=== PATIENT | female | born 1940 | race Caucasian/White ===

== ENCOUNTER 2018-05-04 13:22 | Outpatient (REF) | payer MEDICARE, SELFPAY ==
[2018-05-04 14:10] LABS: ALT 23 U/L (12-78); AST 23 U/L (15-37); Albumin 3.7 g/dL (3.4-5.0); Alkaline Phosphatase 75 U/L (46-116); Anion Gap 7.8 mmol/L (3-11); BUN 15 mg/dL (7-18); Bilirubin, Total 0.4 mg/dL (0.2-1.0); CO2 30.2 mmol/L (21.0-32.0); CREATININE 0.76 mg/dL (0.55-1.02); Calcium 9.5 mg/dL (8.5-10.1); Chloride 96 mmol/L (98-107); Cholesterol 170 mg/dL (50-200); Glucose 87 mg/dL (70-100); HDL Cholesterol 56 mg/dL (40-60); LDL CHOLESTEROL 98 mg/dL (<100); Potassium 3.7 mmol/L (3.5-5.1); Sodium 134 mmol/L (136-145); Total Protein 7.4 g/dL (6.4-8.2); Triglyceride 150 mg/dL (30-150)
== END 2018-05-04 13:42 ==
LOC: NCHCN 13:22
PROVIDERS: PCP Nurse Practitioner; Visit Provider Nurse Practitioner
DX: I10 Essential (primary) hypertension (principal); E78.5 Hyperlipidemia, unspecified
CPT/HCPCS: 80053; 80061; 83721

== ENCOUNTER 2019-09-11 11:09 | Outpatient (CLI) | payer MEDICARE, MEDICAID, SELFPAY ==
[2019-09-11 14:27] LABS: Vitamin D 25 Total 35.3 ng/ml (30-100)
[2019-09-11 14:40] LABS: ALT 25 U/L (14-59); AST 23 U/L (15-37); Albumin 3.9 g/dL (3.4-5.0); Alkaline Phosphatase 81 U/L (46-116); Anion Gap 12.7 mmol/L (3-11); BUN 16 mg/dL (7-18); Bilirubin, Total 0.4 mg/dL (0.2-1.0); CO2 28.3 mmol/L (21.0-32.0); CREATININE 0.73 mg/dL (0.55-1.02); Calcium 9.6 mg/dL (8.5-10.1); Calculated LDL 114 mg/dL (<100); Chloride 100 mmol/L (98-107); Cholesterol 187 mg/dL (<200); Glucose 84 mg/dL (74-106); HDL Cholesterol 50 mg/dL (40-60); Potassium 3.7 mmol/L (3.5-5.1); Sodium 141 mmol/L (136-145); Total Protein 7.6 g/dL (6.4-8.2); Triglyceride 115 mg/dL (<150)
== END 2019-09-11 11:29 ==
PROVIDERS: PCP Nurse Practitioner; Visit Provider Nurse Practitioner
DX: I10 Essential (primary) hypertension (principal); E78.5 Hyperlipidemia, unspecified; M85.80 Other specified disorders of bone density and structure, unspecified site
CPT/HCPCS: 36415; 80053; 80061; 82306

== ENCOUNTER 2019-10-12 01:00 | Outpatient (CLI) | payer MEDICARE, SELFPAY ==
--- NOTE | 2019-10-12 13:17 | DI.MAMMO_ITS ---
EXAM: MAMMO SCREENING CLINICAL HISTORY: SCREENING, Z12.39 TECHNIQUE: Mammograms were interpreted according to the usual protocol including computer analysis w [employer] CAD system, tomosynthesis and C-view imaging. COMPARISON: 2009 through 2016 FINDINGS: The breasts are composed of scattered fibroglandular densities, Breast Density category B. No suspicious masses or suspicious microcalcifications are seen. Vascular calcifications are inciden tally noted. No skin thickening or abnormal axillary lymph nodes are seen. There has been no significant change from prior exams. IMPRESSION: BI-RADS category 1, yearly screening mammography is recommended. Breast density category B, scattered fibroglandular densities.
== END 2019-10-12 01:20 ==
PROVIDERS: PCP Nurse Practitioner; Visit Provider Nurse Practitioner
DX: Z12.31 Encounter for screening mammogram for malignant neoplasm of breast (principal)
CPT/HCPCS: 77063; 77067

== ENCOUNTER 2020-04-06 11:17 | Inpatient (IN) | payer MEDICARE, MEDICAID, SELFPAY ==
[2020-04-06] VITALS (15 sets, daily range): BP systolic 122–169; BP diastolic 60–79; PULSE 95–113; RESP 16–20; TEMP 36.7–37.4; O2SAT 96–99
--- NOTE | 2020-04-06 11:15 | DI.RAD_ITS ---
EXAM: XR HIP LT COMPLETE AP PELVIS INDICATION: fall/pain. COMPARISON: No exams were available for comparison TECHNIQUE: 2D digital imaging was performed. FINDINGS: There is no evidence of fracture or dislocation. There are calcifications above the left greater tro chanter consistent with calcific tendinosis. There are mild degenerative changes of the hip joints a nd SI joints. Degenerative changes are noted in the lower lumbar spine. IMPRESSION: No acute abnormality. DATA REPOSITORY: RADIATION DOSE DELIVERED:
--- NOTE | 2020-04-06 11:35 | W.ED.GENAD ---
Discharge Plan Disposition Patient Disposition: OTHER Condition: Serious Discharge Details Chief Complaint: Orthopedic Clinical Impression: Pain in left hip Primary Care Provider: Tahira Cifuentes ED Provider: Joey Huertas Home Meds and New Rx's Prescriptions: No Action calcium carbonate-vitamin D3 1 EACH tablet 1 tab PO TID RF: 0 Centrum Silver 1 EACH tablet 1 ea PO DAILY RF: 0 naproxen [Naprosyn] 375 MG tablet 1 tab PO BID PRN PRNRF: 0 chlorthalidone 25 MG tablet 12.5 mg PO DAILY RF: 0 albuterol sulfate 8.5 GM HFA aerosol inhaler 2 puff Inhalation QID RF: 0 Fish Oil 1 EACH capsule 1 cap PO DAILY RF: 0 Fiber Gummies 2.5 GM tablet,chewable 4 ea PO DAILY RF: 0 Advair HFA 115-21 mcg/actuation HFA aerosol inhaler 2 inh INHALATION BID RF: 0 Medical Decision Making 79-year-old female presents for ongoing left leg pain that was exacerbated today as her leg gave out. Denies any other injury. There is no shortening or rotation of the hip. She has hip discomfort which is diffuse along the lateral aspect and does extend down through the upper leg and knee although there is no swelling or ecchymosis. Given her degree of discomfort I am concerned that she may have a fracture. Will obtain x-ray of left hip and pelvis and obtain routine laboratory values for potential admission. X-ray read by virtual radiology as no definitive acute fracture or dislocation. Calcific bones adjacent to the left superior trochanter is favored to reflect calcific tendinopathy rather than avulsion fracture. Laboratory values do not reveal any obvious emergent process. Will obtain CT imaging of the hip and pelvis as patient is unable to bear weight and continues to have significant pain. She will also have an x-ray of her knee obtained. X-ray of left knee read by virtual radiology as no acute fracture or dislocation. No joint effusion or significant soft tissue swelling. CT imaging read by virtual radiology as no acute fracture or dislocation. Pelvic rim is intact. No intra-abdominal hematoma. Calcific adenopathy of left gluteal medius present Discussed CT findings with patient once again. Patient reports her pain is severe and unable to bear weight. We discussed our options and she is initially very resistant to any admission. She is requesting that we set her up with a wheelchair. I contacted our care management team to come talk with the patient regarding options. I also spoke with her son regarding her presentation and findings. He is not surprised that she does not want to be admitted, he reports that she is stubborn, and he will respect his mother's wishes. She lives with him. Patient was evaluated by care management and after their conversation she was agreeable to admission. I do believe this is a reasonable plan, she may require orthopedic consultation, PT, discharge along term care facility. Rather than use narcotics in this setting, I have called anesthesia and requested that they perform a nerve block to see if we can obtain analgesia. Also reached out to our hospitalist team and requested that we admit the patient for retractable pain, inability to ambulate. Dr. Guzman agreeable to admission. Medical Records Medical records reviewed: Yes I reviewed the patient's medical records. Lab Data Lab results reviewed: Yes I reviewed the patient's lab results. Lab results narrative: Laboratory Tests Range/Units 04/06/20 04/06/20 04/06/20 11:50 11:50 11:50 WBC Cancelled RBC Cancelled Hgb Cancelled Hct Cancelled MCV Cancelled MCH Cancelled MCHC Cancelled RDW Cancelled Plt Count Cancelled MPV Cancelled Immature Gran % Cancelled Neutrophils % Cancelled Band Neutrophils % Cancelled Lymphocytes % Cancelled Atypical Lymphs % Cancelled Monocytes % Cancelled Eosinophils % Cancelled Basophils % Cancelled Metamyelocytes % Cancelled Myelocytes % Cancelled Promyelocytes % Cancelled Other Cells % Cancelled Nucleated RBC % Cancelled Absolute Neutrophils Cancelled Absolute Lymphocytes Cancelled Absolute Monocytes Cancelled Absolute Eosinophils Cancelled Absolute Basophils Cancelled RBC Morphology Cancelled Polychromasia Cancelled Hypochromasia Cancelled Poikilocytosis Cancelled Basophilic Stippling Cancelled Anisocytosis Cancelled Microcytosis Cancelled Macrocytosis Cancelled Spherocytes Cancelled Tear Drop Cells Cancelled Ovalocytes Cancelled Stomatocytes Cancelled Gill-[place] Bodies Cancelled Adelita Cells/Echinocytes Cancelled Acanthocytes (Spur) Cancelled Schistocytes Cancelled PT (9.3-11.0) sec 9.9 INR (0.9-1.1) 1.0 APTT (21.0-31.4) sec 23.2 Sodium (136-145) mmol/L 141 Potassium (3.5-5.1) mmol/L 3.9 Chloride (98-107) mmol/L 105 Carbon Dioxide (21.0-32.0) mmol/L 29.5 Anion Gap (3-11) mmol/L 6.5 BUN (7-18) mg/dL 24 H Creatinine (0.55-1.02) mg/dL 0.77 Estimated GFR/1.73 m2 (mL/min/1.73m2) >= 60.00 Glucose (74-106) mg/dL 105 Calcium (8.5-10.1) mg/dL 10.0 Total Bilirubin (0.2-1.0) mg/dL 0.2 AST (15-37) U/L 25 ALT (14-59) U/L 30 Alkaline Phosphatase (46-116) U/L 76 Total Protein (6.4-8.2) g/dL 7.1 Albumin (3.4-5.0) g/dL 3.6 Range/Units 04/06/20 12:35 WBC 7.96 RBC 4.49 Hgb 14.6 Hct 44.0 MCV 98.0 H MCH 32.5 MCHC 33.2 RDW 11.6 L Plt Count 218 MPV 9.5 Immature Gran % 0.3 Neutrophils % 59.9 Band Neutrophils % Lymphocytes % 26.1 Atypical Lymphs % Monocytes % 8.3 Eosinophils % 4.6 Basophils % 0.8 Metamyelocytes % Myelocytes % Promyelocytes % Other Cells % Nucleated RBC % 0 Absolute Neutrophils 4.77 Absolute Lymphocytes 2.08 Absolute Monocytes 0.66 Absolute Eosinophils 0.37 Absolute Basophils 0.06 RBC Morphology Polychromasia Hypochromasia Poikilocytosis Basophilic Stippling Anisocytosis Microcytosis Macrocytosis Spherocytes Tear Drop Cells Ovalocytes Stomatocytes Gill-[place] Bodies Adelita Cells/Echinocytes Acanthocytes (Spur) Schistocytes PT (9.3-11.0) sec INR (0.9-1.1) APTT (21.0-31.4) sec Sodium (136-145) mmol/L Potassium (3.5-5.1) mmol/L Chloride (98-107) mmol/L Carbon Dioxide (21.0-32.0) mmol/L Anion Gap (3-11) mmol/L BUN (7-18) mg/dL Creatinine (0.55-1.02) mg/dL Estimated GFR/1.73 m2 (mL/min/1.73m2) Glucose (74-106) mg/dL Calcium (8.5-10.1) mg/dL Total Bilirubin (0.2-1.0) mg/dL AST (15-37) U/L ALT (14-59) U/L Alkaline Phosphatase (46-116) U/L Total Protein (6.4-8.2) g/dL Albumin (3.4-5.0) g/dL HPI General Mode of arrival: EMS. Date/Time Provider Initiated Documentation: 04/06/20 11:22. Limitations to Documentation: no limitations. Information obtained by: patient. HPI Narrative: This is a 79-year-old female with history of diabetes, here presenting to the ER after slipping getting out of her bathtub injuring her left leg specifically her hip. She tells me that she slipped because her left leg gave out on her. She reports that she injured this leg roughly 1 month ago, seen by her primary care provider, diagnosed with a sprain, and they were going to initiate outpatient physical therapy. She denies any other injury from the fall today. Denies striking her head, headache, LOC, neck pain, chest pain, shortness of breath abdominal pain, nausea, vomiting, numbness, tingling, weakness. She reports the pain is severe at rest, worse with movement or engaging that hip. Related Data Home Medications Medication Instructions Recorded Confirmed calcium carbonate-vitamin D3 1 tab PO TID 02/01/13 04/06/20 [id number]-lycopen-lutein 1 ea PO DAILY 02/01/13 04/06/20 [Centrum Silver Tablet] albuterol sulfate 2 puff INHALATION QID 07/17/14 04/06/20 chlorthalidone 12.5 mg PO DAILY 07/17/14 04/06/20 inulin [Fiber Gummies] 4 ea PO DAILY 07/17/14 04/06/20 naproxen [Naprosyn] 1 tab PO BID PRN PRN 07/17/14 04/06/20 omega-3 fatty acids-fish oil [Fish 1 cap PO DAILY 07/17/14 04/06/20 Oil 1,000 mg Capsule] fluticasone propion-salmeterol 2 inh INHALATION BID 04/06/20 04/06/20 [Advair HFA] Allergies Allergy/AdvReac Type Severity Reaction Status Date / Time pravastatin Allergy Skin Rash Unverified 04/06/20 11:28 cyclobenzaprine HCl AdvReac Intermediate Agitation Unverified 09/22/16 09:08 [From Flexeril] General Stated Complaint: Orthopedic NICHOLAS: 3 Review of Systems Constitutional Constitutional: Denies fever(s) and Denies weakness Eyes Eyes: Denies change in vision ENT Ears, Nose, Mouth, and Throat: Denies neck pain Cardiovascular Cardiovascular: Denies chest pain and Denies dyspnea Respiratory Respiratory: Denies cough and Denies dyspnea Gastrointestinal Gastrointestinal: Denies abdominal pain, Denies nausea and Denies vomiting Musculoskeletal Musculoskeletal: Denies back pain, Denies neck pain, Denies numbness and Denies tingling Integumentary/Breasts Skin/Breast: Denies rash Neurologic Neurologic: Denies numbness, Denies tingling and Denies weakness Hematologic/Lymphatic Hematologic/Lymphatic: Denies easy bleeding and Denies easy bruising [facility] Social History Smoking/Tobacco Use Status: Former Tobacco Use Alcohol Intake: never Drug use: Never Do you feel safe at home: Yes Do you feel safe in your relationship?: Yes Exam Const General: cooperative, healthy appearing and no acute distress Orientation: alert, awake and oriented x3 HENMT Head: normal to inspection, normocephalic and atraumatic Mouth: moist mucous membranes Eyes Conjunctivae: conjunctivae normal Sclera: sclerae normal Neck Neck: normal visual inspection, full ROM, trachea midline, supple and nontender Resp Effort & Inspection: normal respiratory effort and able to speak in complete sentences Auscultation: clear to auscultation bilaterally Cardio Rate: regular rate Rhythm: regular rhythm GI Palpation: soft and nontender Back/Spine/Pelvis Back: No back tenderness Skin General skin exam: no rashes or lesions noted Neuro General: patient alert, patient awake, patient oriented x3, moves all extremities and no focal motor deficits Speech: speech normal Motor: muscle tone normal throughout Sensory Exam: no sensory deficits noted Extrem General: capillary refill normal Right upper extremity: normal to inspection, full ROM and normal capillary refill Left upper extremity: normal to inspection, full ROM and normal capillary refill Right lower extremity: full ROM and normal capillary refill Left lower extremity: normal to inspection, normal capillary refill, hip/thigh Details: normal to inspection, tenderness (Diffuse mild posterior thigh) and abnormal ROM (Decreased in all directions secondary to pain); no swelling and no ecchymosis and knee Details: normal to inspection and tenderness (Diffuse posterior); abnormal ROM Upper/lower leg/hip images: 1. Diffuse discomfort. Psych Appearance: grossly normal Mental Status: mental status grossly normal Course Vital Signs Vital signs: Vital Signs Temperature 36.7 C 04/06/20 11:18 Pulse 101 H 04/06/20 11:18 Respiratory Rate 04/06/20 11:18 Blood Pressure 169/72 H 04/06/20 11:18 Pulse Oximetry 99 04/06/20 11:18 Temperature 36.7 C 04/06/20 11:18 Temperature Source Temporal Artery Scan 04/06/20 11:18 Pulse 101 H 04/06/20 11:18 Respiratory Rate 20 04/06/20 11:18 Respiratory Effort Non-Labored 04/06/20 11:23 Blood Pressure 169/72 H 04/06/20 11:18 Blood Pressure Position Supine 04/06/20 11:18 Pulse Oximetry 99 04/06/20 11:18 Oxygen Delivery Method Room Air 04/06/20 11:18 Oxygen Flow Rate 0 04/06/20 11:18 Pain Level 10 04/06/20 11:18
--- NOTE | 2020-04-06 11:58 | DI.VRAD_ITS ---
PROCEDURE INFORMATION: Exam: XR Left Hip with Pelvis when Performed Exam date and time: 04/06/2020 11:40 AM Age: 79 years old Clinical indication: Injury or trauma; Fall; Initial encounter; Blunt trauma (contusions or hematomas); Left; Hip TECHNIQUE: Imaging protocol: XR Left hip with pelvis when performed. Views: 2 or 3 views. COMPARISON: No relevant prior studies available. FINDINGS: Bones/joints: There are calcific bodies projecting superior to left greater trochanter. No definite cortical step . Findings are likely related to calcific tendinopathy. The pelvic brim is intact. There is no dislocation. Soft tissues: Unremarkable. Gastrointestinal tract: There is mild stool volume in the ascending colon. IMPRESSION: 1. No definite acute fracture or dislocation. 2. Calcific bodies adjacent to left superior trochanter is favored to reflect calcific tendinopathy than avulsion fracture. Dictated and Authenticated by: Denilson Pandya MD. Ordering:BERNARDA Cook MD
[2020-04-06 12:08] LABS: PTT Activated 23.2 sec (21.0-31.4); Prothrombin Time 9.9 sec (9.3-11.0)
[2020-04-06 12:17] LABS: ALT 30 U/L (14-59); AST 25 U/L (15-37); Albumin 3.6 g/dL (3.4-5.0); Alkaline Phosphatase 76 U/L (46-116); Anion Gap 6.5 mmol/L (3-11); BUN 24 mg/dL (7-18); Bilirubin, Total 0.2 mg/dL (0.2-1.0); CO2 29.5 mmol/L (21.0-32.0); CREATININE 0.77 mg/dL (0.55-1.02); Chloride 105 mmol/L (98-107); Glucose 105 mg/dL (74-106); Potassium 3.9 mmol/L (3.5-5.1); Sodium 141 mmol/L (136-145); Total Protein 7.1 g/dL (6.4-8.2)
--- NOTE | 2020-04-06 12:34 | NUR.NOTE ---
Nursing Note: IV access attempted twice. Labs drawn successfully.
--- NOTE | 2020-04-06 12:42 | DI.VRAD_ITS ---
PROCEDURE INFORMATION: Exam: CT Pelvis Without Contrast; Skeletal Exam date and time: 04/06/2020 12:00 PM Age: 79 years old Clinical indication: Injury or trauma; Fall; Initial encounter; Blunt trauma (contusions or hematomas); Left; Hip TECHNIQUE: Imaging protocol: Computed tomography images of the pelvis without contrast. Exam focused on the skeletal structures. COMPARISON: CR XR HIP LT COMPLETE AP PELVIS 04/06/2020 11:40 AM FINDINGS: Reproductive: Visualized pelvis demonstrates no acute intra abdominal abnormality. Supra cervical uterus is not visualized and is perhaps atrophic or had previous hysterectomy. Adnexa are not visualized. Intraperitoneal space: The pelvic rim is intact. Vasculature: There are calcifications of abdominal aorta and its branches. Bones/joints: There is no acute fracture or dislocation. Left hip joint is normally located. There is calcific tendinopathy of gluteus medius at its site of insertion at greater trochanter. There degenerative facet osteoarthropathy at L5-S1, left greater than right. Soft tissues: See Bones/joints finding. Other findings: There is mild diverticulosis of descending colon. No acute inflammation. IMPRESSION: 1. No acute fracture or dislocation. Pelvic rim is intact. No intra-abdominal hematoma. 2. Calcific tendinopathy of left gluteus medius. Dictated and Authenticated by: Denilson Pandya MD. Ordering:BERNARDA Cook MD
--- NOTE | 2020-04-06 12:46 | DI.VRAD_ITS ---
PROCEDURE INFORMATION: Exam: XR Left Knee Exam date and time: 04/06/2020 12:24 PM Age: 79 years old Clinical indication: Pain; Knee; Left TECHNIQUE: Imaging protocol: XR Left knee. Views: 4 or more views. COMPARISON: No relevant prior studies available. FINDINGS: Bones/joints: No acute fracture or dislocation. No knee joint effusion. Soft tissues: No soft tissue swelling. Vasculature: There are calcifications of distal superficial femoral artery and popliteal artery. IMPRESSION: No acute fracture or dislocation. No joint effusion or significant soft tissue swelling. Dictated and Authenticated by: Denilson Pandya MD. Ordering:BERNARDA Cook MD
[2020-04-06 12:52] LABS: Abs Immature Grans 0.02 10^3/uL (0.0-0.06); Absolute Basophil Count 0.06 10^3/uL (0.0-0.2); Absolute Eosinophil Count 0.37 10^3/uL (0.0-0.7); Absolute Lymphocyte Count 2.08 10^3/uL (1.2-3.4); Absolute Monocyte Count 0.66 10^3/uL (0.1-0.8); Absolute Neutrophil Count 4.77 10^3/uL (1.2-6.7); Basophils % 0.8; Eosinophils % 4.6; HGB 14.6 g/dL (11.2-15.7); Immature Grans % 0.3; Lymphocytes % 26.1; MCH 32.5 pg (27.0-33.0); MCHC 33.2 % (32.0-36.0); MPV 9.5 fL (8.0-11.0); Monocytes % 8.3; Neutrophils % 59.9; Nucleated RBC 0 %; Platelet Count 218 10^3/uL (130-400); RBC 4.49 10^6/uL (3.93-5.22); RDW 11.6 % (11.7-14.6); RDW-SD 41.6 fL; WBC 7.96 10^3/uL (4.4-10.8)
--- NOTE | 2020-04-06 14:50 | W.PM.HP.N ---
Date of service: 04/06/20 Time of Service: 14:51 Assessment and Plan Assessment and plan (1) Fall: Start date: 04/06/20 Start time: 15:02 Status: Acute Assessment and plan: Slipped getting in to bath tub this morning. States her hip gave out from weakness due to an injury to the left hip about a month ago. Imaging not revealing for any fractures or dislocations. She does also c/o pain when sliding leg down but not with passive abduction or adduction or when raising. 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 Qualifiers: Encounter type: initial encounter Qualified Code(s): W19.XXXA - Unspecified fall, initial encounter (2) Hip pain: Start date: 04/06/20 Start time: 15:03 Status: Acute Assessment and plan: Due to above (3) Weakness: Start date: 04/06/20 Start time: 15:03 Status: Acute Assessment and plan: From previous injury (4) HTN (hypertension): Start date: 04/06/20 Start time: 15:04 Status: Chronic Assessment and plan: Will continue chlorthalidone and heart healthy diet. Qualifiers: Hypertension type: essential hypertension Qualified Code(s): I10 - Essential (primary) hypertension (5) Hyperlipidemia: Start date: 04/06/20 Start time: 15:07 Status: Chronic Assessment and plan: Continue omeg 3 fatty fish oil Qualifiers: Hyperlipidemia type: unspecified Qualified Code(s): E78.5 - Hyperlipidemia, unspecified (6) Asthma: Start date: 04/06/20 Start time: 15:08 Status: Chronic Assessment and plan: Uses albuterol and advair at home, will continue home medications Above case discussed with Dr. Guzman who is in agreement. Qualifiers: Asthma complication type: unspecified Asthma persistence: unspecified Asthma severity: mild Qualified Code(s): J45.909 - Unspecified asthma, uncomplicated History of Present Illness History of Present Illness Chief Complaint: Hip Pain, Fall Narrative: 79 y.o female with PMH, HTN, HLD, asthma, presented to ED after slipping while getting in her bath tub this morning, c/o left hip pain. Her leg gave out after an injury 1 month ago at which time she was seen by her PCP and diagnosed with a sprain. Physical therapy was going to be initiated. Labs in the ED unremarkable. Imaging revealing cacific tendinopathy of left gluteus medius. Initially she was going to be sent home from the Emergency Department but she is unable to bear weight and experiencing a 10 out of 10 pain. She has been asked to be admitted to our service for management of her symptoms and PT evaluation. Ortho has been consulted as well. Review of Systems All systems reviewed & are unremarkable except as noted in HPI and below PFSH Social History Smoking/Tobacco Use Status: Former Tobacco Use Alcohol Intake: never Drug use: Never Do you feel safe at home: Yes Do you feel safe in your relationship?: Yes Meds Home Medications and Allergies Home Medications Medication Instructions Recorded Confirmed Type calcium carbonate-vitamin D3 1 tab PO TID 02/01/13 04/06/20 History iurtqyyt-unr-BC-lycopen-lutein 1 ea PO DAILY 02/01/13 04/06/20 History [Centrum Silver Tablet] albuterol sulfate 2 puff INHALATION QID 07/17/14 04/06/20 History chlorthalidone 12.5 mg PO DAILY 07/17/14 04/06/20 History inulin [Fiber Gummies] 4 ea PO DAILY 07/17/14 04/06/20 History naproxen [Naprosyn] 1 tab PO BID PRN PRN 07/17/14 04/06/20 History omega-3 fatty acids-fish oil [Fish 1 cap PO DAILY 07/17/14 04/06/20 History Oil 1,000 mg Capsule] fluticasone propion-salmeterol 2 inh INHALATION BID 04/06/20 04/06/20 History [Advair HFA] Allergies Allergy/AdvReac Type Severity Reaction Status Date / Time pravastatin Allergy Skin Rash Unverified 04/06/20 11:28 cyclobenzaprine HCl AdvReac Intermediate Agitation Unverified 09/22/16 09:08 [From Flexeril] Exam Narrative Exam Narrative: Elderly female AAOx3, calm and cooperative. Laying on a stretcher able to answer questions without difficulty. She is relatively healthy. HR Regular rate and rhythm without JVD. She does not have labored breathing, LSC. Abd soft nontender bsx4. Trace edema to bilateral lower extremities, skin in tact no clubbing, cyanosis, able to move all extremities freely.No CVA tenderness. Normal thought process. Results Labs Result diagrams: 04/06/20 12:35 04/06/20 11:50 Labs: Laboratory Results - last 24 hr 04/06/20 04/06/20 04/06/20 11:50 11:50 11:50 WBC Cancelled RBC Cancelled Hgb Cancelled Hct Cancelled MCV Cancelled MCH Cancelled MCHC Cancelled RDW Cancelled Plt Count Cancelled MPV Cancelled Immature Gran % Cancelled Neutrophils % Cancelled Band Neutrophils % Cancelled Lymphocytes % Cancelled Atypical Lymphs % Cancelled Monocytes % Cancelled Eosinophils % Cancelled Basophils % Cancelled Metamyelocytes % Cancelled Myelocytes % Cancelled Promyelocytes % Cancelled Other Cells % Cancelled Nucleated RBC % Cancelled Absolute Neutrophils Cancelled Absolute Lymphocytes Cancelled Absolute Monocytes Cancelled Absolute Eosinophils Cancelled Absolute Basophils Cancelled RBC Morphology Cancelled Polychromasia Cancelled Hypochromasia Cancelled Poikilocytosis Cancelled Basophilic Stippling Cancelled Anisocytosis Cancelled Microcytosis Cancelled Macrocytosis Cancelled Spherocytes Cancelled Tear Drop Cells Cancelled Ovalocytes Cancelled Stomatocytes Cancelled Gill-[place] Bodies Cancelled Adelita Cells/Echinocytes Cancelled Acanthocytes (Spur) Cancelled Schistocytes Cancelled PT 9.9 INR 1.0 APTT 23.2 Sodium 141 Potassium 3.9 Chloride 105 Carbon Dioxide 29.5 Anion Gap 6.5 BUN 24 H Creatinine 0.77 Estimated GFR/1.73 m2 >= 60.00 Glucose 105 Calcium 10.0 Total Bilirubin 0.2 AST 25 ALT 30 Alkaline Phosphatase 76 Total Protein 7.1 Albumin 3.6 04/06/20 12:35 WBC 7.96 RBC 4.49 Hgb 14.6 Hct 44.0 MCV 98.0 H MCH 32.5 MCHC 33.2 RDW 11.6 L Plt Count 218 MPV 9.5 Immature Gran % 0.3 Neutrophils % 59.9 Band Neutrophils % Lymphocytes % 26.1 Atypical Lymphs % Monocytes % 8.3 Eosinophils % 4.6 Basophils % 0.8 Metamyelocytes % Myelocytes % Promyelocytes % Other Cells % Nucleated RBC % 0 Absolute Neutrophils 4.77 Absolute Lymphocytes 2.08 Absolute Monocytes 0.66 Absolute Eosinophils 0.37 Absolute Basophils 0.06 RBC Morphology Polychromasia Hypochromasia Poikilocytosis Basophilic Stippling Anisocytosis Microcytosis Macrocytosis Spherocytes Tear Drop Cells Ovalocytes Stomatocytes [place] Bodies Adelita Cells/Echinocytes Acanthocytes (Spur) Schistocytes PT INR APTT Sodium Potassium Chloride Carbon Dioxide Anion Gap BUN Creatinine Estimated GFR/1.73 m2 Glucose Calcium Total Bilirubin AST ALT Alkaline Phosphatase Total Protein Albumin Last Vital Signs Temp 36.7 C 04/06/20 11:18 Pulse 102 H 04/06/20 14:16 Resp 20 04/06/20 11:18 BP 157/71 H 04/06/20 14:16 Pulse Ox 99 04/06/20 11:18 COVID-19 Screening Have you,or household,traveled outside [place] in last 14 days?: No Had IN PERSON contact w/suspected or confirmed C-19 person: No
[2020-04-06] MEDS: Bupivacaine LIPOSOME/PF 133 MG/10 ML VIAL IJ (14:55)
--- NOTE | 2020-04-06 15:13 | NUR.NOTE ---
Nursing Note: Assisted BAR HELPER with procedure at bedside.
[2020-04-06 18:58] LABS: Bilirubin Negative (Negative); Blood Negative (Negative); Clarity Clear (Clear); Glucose Negative (Negative); Ketones Negative (Negative); Leukocyte Esterase Negative (Negative); Nitrite Negative (Negative); Specific Gravity 1.025 (1.005-1.025); Urobilinogen 0.2 EU/dL (Up TO 0.2)
[2020-04-06] MEDS: Calcium 600mg/Vit D 200U TAB 1 TAB PO (19:51)
[2020-04-06] MEDS: Heparin 5,000 UNITS/ML VIAL 5000 UNITS SC (21:19)
[2020-04-06] MEDS: traMADol 50 MG TAB PO (22:17)
--- NOTE | 2020-04-07 | DI.US_ITS ---
EXAM: US LOWER EXTREMITY VENOUS LT CLINICAL HISTORY: r/o DVT severe pain. TECHNIQUE: Lower extremity venous ultrasound performed using grayscale, color-flow, and spectral Dop pler analysis. COMPARISON: No exams were available for comparison FINDINGS: The common femoral, femoral and popliteal veins demonstrate normal compressibility, augmentation, and color Doppler. The posterior tibial veins are patent. The saphenous vein appears free of thrombus. A Munoz's cyst is seen measuring 3 x 1.1 x 2.1 cm.. IMPRESSION: No evidence of DVT. Small Munoz's cyst. DATA REPOSITORY:
--- NOTE | 2020-04-07 | DI.RAD_ITS ---
EXAM: XR KNEE LT 3V AP,LAT,JT CLINICAL HISTORY: left posterior knee and leg pain. TECHNIQUE: 2D digital imaging was performed. COMPARISON: CR,XR XR KNEE LT 4V+ from 04/06/2020 FINDINGS: BONES: No acute fracture is present. No bony destructive lesion is seen. JOINTS: The knee is normally aligned. No joint effusion is seen. Joint spaces are well maintained. SOFT TISSUE: Incidental vascular calcifications. IMPRESSION: Normal radiographs of the left knee. DATA REPOSITORY: RADIATION DOSE DELIVERED:
[2020-04-07] MEDS: Heparin 5,000 UNITS/ML VIAL 5000 UNITS SC ×3 (05:33→21:48)
[2020-04-07] MEDS: Calcium 600mg/Vit D 200U TAB 1 TAB PO ×3 (08:07→20:14)
[2020-04-07] MEDS: Chlorthalidone 25 MG TAB PO (08:07)
[2020-04-07] MEDS: Omega-3 Fatty Acids 1000 MG CAP PO (08:07)
--- NOTE | 2020-04-07 08:19 | OCONE_ITS ---
Date of service: 04/07/20 Time of Service: 08:20 History of Present Illness History of Present Illness Chief Complaint: Left Leg Pain Narrative: Beth is a 79-year-old who was admitted yesterday for inability to bear weight due to pain of her left leg. The history is somewhat convoluted and seems to move around a little bit but the basic just is that about a month or so ago she had a fall where she went all the way down landing on her right side. Since that time she had some left leg pain. Initially, she had to walk with her left foot plantar flexed with some pain. However, she was able to make improvements. Yet yesterday morning when she tried to go to the shower, she had immediate pain in her left leg when she tried to place weight on it while getting into the shower and went down. She reported pain about the left leg. She described this pain as being when she move the left leg. However, when I talked her today it actually seems to be more posterior distal thigh and proximal leg. She describes the pain as being intense mostly when she tries to extend her left leg. She describes other pains with motions but really it comes down with positioning of the knee. She denies numbness or tingling although she does report numbness and tingling to the left leg if she is been walking for a while or trying to stand for a while. This numbness is reported as being diffuse. She denies weakness. She reports only minimal pain over the buttock and posterior lateral hip. No back pain. Consults Consult date: 04/07/20 Requesting physician: Jigar Guzman Consult Reason Left leg pain Assessment and Plan Assessment and plan (1) Strain of gastrocnemius muscle of left lower extremity: Status: Acute Assessment and plan: Beth is a 79-year-old who had an acute exacerbation of left leg pain. This all seem to stem from an injury a month ago but again it is quite unclear. Nevertheless, her examination is relatively benign except for what appears to be some muscular pain of the left leg. This is mostly over the gastrocnemius tendon especially over the medial head. While she seems to attribute her pain to hip motion, she thinks related knee motion. The knee is straight she has more pain at the knee is like she has less pain. Is difficult to ascertain if there is a straight leg raise component to this and could a radiculopathy also be causing some the symptoms. It is quite possible, however, this would explain the direct pain to palpation of the muscle belly itself. Therefore, I think I would treat this as a gastrocnemius strain or tear. The treatment would be conservative. I recommend heat to the musculature, kourtney ecially of the posterior chain, gastrocnemius, and hamstrings. Physical therapy should work on some stretching as well as mobilization techniques. Beth is very reluctant to allow any stretching of the muscle. However, this eventually will help out. I will get an x-ray of the left knee due to the pain around the knee itself to make sure there is no underlying arthritis predisposing her to this. She does have calcific tendinitis of the left hip but I do not think is the primary issue. She denies back pain and pain at the sciatic notch, thus making radiculopathy a less likely but possible differential. I would recommend to maximize anti-inflammatories and therefore added on Voltaren gel to be used for both the massage purposes in the muscles of the posterior left leg as well as to provide some anti-inflammatory benefit in addition to the scheduled naproxen. The Tylenol should also be scheduled for the time being and the Valium should be used fairly aggressively at first to see if this makes a difference. I agree with a physical therapy consult. She is weightbearing as tolerated with a walker at all times. A heel lift her heel which could be considered to help out with ambulation. Qualifiers: Encounter type: initial encounter Qualified Code(s): S86.112A - Strain of other muscle(s) and tendon(s) of posterior muscle group at lower leg level, left leg, initial encounter (2) Calcific tendinitis of left hip: Status: Acute Review of Systems All systems reviewed & are unremarkable except as noted in HPI and below PFSH Medical History (Updated 04/07/20 @ 08:44 by Naveen Mckenna MD) Asthma (Chronic) HTN (hypertension) (Chronic) Hyperlipidemia (Chronic) Social History Smoking/Tobacco Use Status: Former Tobacco Use Alcohol Intake: never Drug use: Never Do you feel safe at home: Yes Do you feel safe in your relationship?: Yes Exam Narrative Exam Narrative: Sleeping on her right side. She awakens easily and is alert and oriented x3. Her head is normocephalic and atraumatic. Her neck and upper extremity motions are observed and are full without restriction. Evaluation of the left leg shows that she holds in a slightly flexed position, both at the hip and the knee. As I try to straighten out the left leg she reports pain in an area of the posterior left knee. Once the leg is in this position she seems to tolerate it well although with the left foot in a plantarflexed position. The pain is worsened when I dorsiflex the left foot. Starting with the left hip she has very minimal pain to palpation over the greater trochanter. Some mild pain into the buttock and at the level to sciatic notch although it does not this a re-create the severity of her pain that she has. Straight leg raise test is mostly positive but again that is with the knee extended, mostly causing pain of the calf and posterior knee. She denies numbness or tingling with this maneuver. With the knee in a flexed position she is able to tolerate internal and external Tatian of the hip with very minimal pain. Only at the extremes that she have any pain in the posterior portion of the hip and thigh. She has no significant pain to palpation throughout the hip or thigh. However, she has exquisite pain over the posterior aspect of the knee both within the popliteal space and also over the proximal aspect of the gastrocnemius tendon, medial more than lateral. There is also some pain within the gastrocsoleus complex but not along the Achilles. This pain is worsened with dorsiflexion of the left foot. She has some swelling in the popliteal space but no clear effusion. Very mild pain over the medial and lateral joint lines. No crepitus with passive knee range of motion. Gentle knee range of motion does not exacerbate her pain. At rest, she has intact sensation from L3- S1. She does have some very slight weakness to foot eversion, S1. However, no other motor defects are detected. Results Last Vital Signs Temp 36.9 C 04/06/20 23:38 Pulse 100 H 04/06/20 23:38 Resp 17 04/06/20 23:38 BP 122/68 04/06/20 23:38 Pulse Ox 96 04/06/20 23:38 Labs Result diagrams: 04/06/20 12:35 04/06/20 11:50 Labs: Laboratory Results - last 24 hr 04/06/20 04/06/20 04/06/20 11:50 11:50 11:50 WBC Cancelled RBC Cancelled Hgb Cancelled Hct Cancelled MCV Cancelled MCH Cancelled MCHC Cancelled RDW Cancelled Plt Count Cancelled MPV Cancelled Immature Gran % Cancelled Neutrophils % Cancelled Band Neutrophils % Cancelled Lymphocytes % Cancelled Atypical Lymphs % Cancelled Monocytes % Cancelled Eosinophils % Cancelled Basophils % Cancelled Metamyelocytes % Cancelled Myelocytes % Cancelled Promyelocytes % Cancelled Other Cells % Cancelled Nucleated RBC % Cancelled Absolute Neutrophils Cancelled Absolute Lymphocytes Cancelled Absolute Monocytes Cancelled Absolute Eosinophils Cancelled Absolute Basophils Cancelled RBC Morphology Cancelled Polychromasia Cancelled Hypochromasia Cancelled Poikilocytosis Cancelled Basophilic Stippling Cancelled Anisocytosis Cancelled Microcytosis Cancelled Macrocytosis Cancelled Spherocytes Cancelled Tear Drop Cells Cancelled Ovalocytes Cancelled Stomatocytes Cancelled Gill-[place] Bodies Cancelled Spivey Cells/Echinocytes Cancelled Acanthocytes (Spur) Cancelled Schistocytes Cancelled PT 9.9 INR 1.0 APTT 23.2 Sodium 141 Potassium 3.9 Chloride 105 Carbon Dioxide 29.5 Anion Gap 6.5 BUN 24 H Creatinine 0.77 Estimated GFR/1.73 m2 >= 60.00 Glucose 105 Calcium 10.0 Total Bilirubin 0.2 AST 25 ALT 30 Alkaline Phosphatase 76 Total Protein 7.1 Albumin 3.6 Urine Color Urine Clarity Urine pH Ur Specific [place] Urine Protein Urine Ketones Urine Blood Urine Nitrite Urine Bilirubin Urine Urobilinogen Ur Leukocyte Esterase Urine Glucose 04/06/20 04/06/20 12:35 18:23 WBC 7.96 RBC 4.49 Hgb 14.6 Hct 44.0 MCV 98.0 H MCH 32.5 MCHC 33.2 RDW 11.6 L Plt Count 218 MPV 9.5 Immature Gran % 0.3 Neutrophils % 59.9 Band Neutrophils % Lymphocytes % 26.1 Atypical Lymphs % Monocytes % 8.3 Eosinophils % 4.6 Basophils % 0.8 Metamyelocytes % Myelocytes % Promyelocytes % Other Cells % Nucleated RBC % 0 Absolute Neutrophils 4.77 Absolute Lymphocytes 2.08 Absolute Monocytes 0.66 Absolute Eosinophils 0.37 Absolute Basophils 0.06 RBC Morphology Polychromasia Hypochromasia Poikilocytosis Basophilic Stippling Anisocytosis Microcytosis Macrocytosis Spherocytes Tear Drop Cells Ovalocytes Stomatocytes Gill-[place] Bodies Adelita Cells/Echinocytes Acanthocytes (Spur) Schistocytes PT INR APTT Sodium Potassium Chloride Carbon Dioxide Anion Gap BUN Creatinine Estimated GFR/1.73 m2 Glucose Calcium Total Bilirubin AST ALT Alkaline Phosphatase Total Protein Albumin Urine Color Yellow Urine Clarity Clear Urine pH 8.0 Ur Specific [place] 1.025 Urine Protein Negative Urine Ketones Negative Urine Blood Negative Urine Nitrite Negative Urine Bilirubin Negative Urine Urobilinogen 0.2 Ur Leukocyte Esterase Negative Urine Glucose Negative Imaging Imaging Studies: X-ray of the left hip was reviewed. It does not demonstrate any notable fracture. There is some calcific changes over the insertion of the gluteus medius tendon based on its location just proximal and lateral to the greater trochanter. No notable pelvic fracture. No other suspicious lesions. CT scan of the left hip and pelvis was also reviewed and shows very similar findings. There is calcific tendinitis seen of the gluteus medius tendon. No clear femoral head or neck fracture. No pelvic fracture.
[2020-04-07 08:27] VITALS: BP 121/97; PULSE 104; RESP 18; TEMP 37; O2SAT 97
--- NOTE | 2020-04-07 09:29 | PDOC.CMIN ---
- If Service Date Differs Date of service: 04/07/20 Time of Service: 09:30 Care Management Initial Assess REASON FOR HOSPITALIZATION:: Hip pain inability to ambulate PAST MEDICAL HISTORY/PAST SURGICAL HISTORY:: Asthma, HTN, Hyperlipidemia PREVIOUS FUNCTIONAL STATUS/SOCIAL/FAMILY SUPPORTS:: Beth has 5 children all live local, her son Eamon lives with her. 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 Beth does not drive, she is independent at baseline. CURRENT FUNCTIONAL STATUS:: Beth is engaged during assessment. She describes events prior to admission including her fall in the tub. She has been seeing her provider for the left leg pain. She states she had fallen about a month ago and has been having difficulty walking since then. Beth wants to return home with her son, she does have a few steps into her home but once inside none. She does not want to go to a rehab and his scared of ulysses COVID. She will benefit from home health PT and will need a FWW prior to discharge. ADVANCE DIRECTIVES:: None on file willing to receive forms and review. Has patient been provided with info about the portal/API?: Yes Did the patient sign up for the portal?: No (does not use compute) CODE STATUS:: Full Code INSURANCE COVERAGE / FINANCIAL ISSUES:: Medicare and Medicaid CURRENT HOME/COMMUNITY SERVICES/EQUIPMENT:: Crutches at home PRIMARY CARE PHYSICIAN:: Tahira Cifuentes [facility] POTENTIAL DISCHARGE NEEDS:: FWW, referral [facility] for PT, follow up scheduled with primary care provider. PATIENT/FAMILY EDUCATION NEEDS:: Discharge edcuation, limitations and follow up plan of care including ask me three and self management. ANTICIPATED BARRIERS TO DISCHARGE:: Beth needs to be able to ambulate with ambulatory aids. TRANSPORTATION:: Via private car with son Eamon. PLAN:: Beth will be discharged when medically ready, rule out DVT, and PT ordered. She will need new home health for PT, CM faxed this note for referral. She will also need a new FWW prior to discharge. CM to continue assessment and coordiantion of disposition needs.
--- NOTE | 2020-04-07 10:24 | PGE_ITS ---
Date of Service Date of service: 04/07/20 Time of Service: 10:25 Assessment and Plan Assessment and plan (1) Fall: Start date: 04/07/20 Start time: 10:27 Status: Acute Assessment and plan: Continue PT/OT, unable to bear wt to LLE, would benefit from rehab for strength and gait balance. Qualifiers: Encounter type: initial encounter Qualified Code(s): W19.XXXA - Unsp ecified fall, initial encounter (2) Hip pain: Start date: 04/07/20 Start time: 10:27 Status: Acute Assessment and plan: Due to above Continue pain modalities, Block by anesthesia, Seen by Ortho, continue conservative measures, does appear to be muscular in nature Will add muscle relaxers and will switch from naproxen to celebrex for pain and inflammation (3) Weakness: Start date: 04/07/20 Start time: 10:30 Status: Acute Assessment and plan: From previous injury, PT/OT, benefit from rehab (4) HTN (hypertension): Start date: 04/07/20 Start time: 10:30 Status: Chronic Assessment and plan: Will continue chlorthalidone and heart healthy diet. Qualifiers: Hypertension type: essential hypertension Qualified Code(s): I10 - Essential (primary) hypertension (5) Hyperlipidemia: Start date: 04/07/20 Start time: 10:30 Status: Chronic Assessment and plan: Continue omeg 3 fatty fish oil Qualifiers: Hyperlipidemia type: unspecified Qualified Code(s): E78.5 - Hyperlipidemia, unspecified (6) Asthma: Start date: 04/07/20 Start time: 10:30 Status: Chronic Assessment and plan: Uses albuterol and advair at home, will continue home medications Above case discussed with Dr. Guzman who is in agreement. Qualifiers: Asthma severity: mild Asthma persistence: unspecified Asthma compli cation type: unspecified Qualified Code(s): J45.909 - Unspecified asthma, uncomplicated Subjective Subjective Patient reports: no new complaints Interval history since last seen: Block yesterday by anesthesia. Hip feeling better, posterior patella pain with swelling to left knee, will r/o DVT. Otherwise pain controlled. Denies CP, SOB, N/V/D. Exam Narrative Exam Narrative: Elderly female AAOx3, calm and cooperative. Laying on a stretcher able to answer questions without difficulty. She is relatively healthy. HR Regular rate and rhythm without JVD. She does not have labored breathing, LSC. Abd soft nontender bsx4. Trace edema to bilateral lower extremities there is swelling to left posterior knee, warm to touch. Skin in tact no clubbing, cyanosis, able to move all extremities freely.No CVA tenderness. Normal thought process. Objective Objective Clinical Data: Abnormal lab results 04/06/20 04/06/20 Range/Units 11:50 12:35 MCV 98.0 H (80-95) fL RDW 11.6 L (11.7-14.6) % BUN 24 H (7-18) mg/dL Vital Signs Temperature 37.0 C 04/07/20 08:27 Temperature Source Temporal Artery Scan 04/07/20 08:27 Pulse 104 H 04/07/20 08:27 Pulse Rhythm Regular 04/07/20 04:59 Respiratory Rate 18 04/07/20 08:27 Respiratory Effort Non-Labored 04/07/20 04:59 Respiratory Depth Normal 04/07/20 04:59 Respiratory Pattern Normal 04/07/20 04:59 Blood Pressure 121/97 H 04/07/20 08:27 Blood Pressure Mean 85 04/06/20 15:16 Blood Pressure Position Supine 04/06/20 11:18 Pulse Oximetry 97 04/07/20 08:27 Oxygen Delivery Method Room Air 04/07/20 08:27 Oxygen Flow Rate 0 04/07/20 08:27 Pain Level 0 04/07/20 08:27 Intake & Output 04/06/20 04/06/20 04/07/20 11:59 23:59 11:59 Output Total 900 / 900 200 / 200 Balance -900 / -900 -200 / -200 Weight 85.1 kg 85.1 kg Output: Urine 900 / 900 200 / 200 Other: Urine Color Yellow Yellow Urine Appearance Clear Clear Urine Odor Normal Normal Stool Size Moderate Stool Characteristics Formed Hard Voiding Methods Bedpan Bedpan Laboratory Results WBC 7.96 10^3/uL (4.4-10.8) 04/06/20 12:35 RBC 4.49 10^6/uL (3.93-5.22) 04/06/20 12:35 Hgb 14.6 g/dL (11.2-15.7) 04/06/20 12:35 Hct 44.0 % (36.0-46.0) 04/06/20 12:35 MCV 98.0 fL (80-95) H 04/06/20 12:35 MCH 32.5 pg (27.0-33.0) 04/06/20 12:35 MCHC 33.2 % (32.0-36.0) 04/06/20 12:35 RDW 11.6 % (11.7-14.6) L 04/06/20 12:35 Plt Count 218 10^3/uL (130-400) 04/06/20 12:35 MPV 9.5 fL (8.0-11.0) 04/06/20 12:35 Immature Gran % 0.3 04/06/20 12:35 Neutrophils % 59.9 04/06/20 12:35 Band Neutrophils % Cancelled 04/06/20 11:50 Lymphocytes % 26.1 04/06/20 12:35 Atypical Lymphs % Cancelled 04/06/20 11:50 Monocytes % 8.3 04/06/20 12:35 Eosinophils % 4.6 04/06/20 12:35 Basophils % 0.8 04/06/20 12:35 Metamyelocytes % Cancelled 04/06/20 11:50 Myelocytes % Cancelled 04/06/20 11:50 Promyelocytes % Cancelled 04/06/20 11:50 Other Cells % Cancelled 04/06/20 11:50 Nucleated RBC % 0 % 04/06/20 12:35 Absolute Neutrophils 4.77 10^3/uL (1.2-6.7) 04/06/20 12:35 Absolute Lymphocytes 2.08 10^3/uL (1.2-3.4) 04/06/20 12:35 Absolute Monocytes 0.66 10^3/uL (0.1-0.8) 04/06/20 12:35 Absolute Eosinophils 0.37 10^3/uL (0.0-0.7) 04/06/20 12:35 Absolute Basophils 0.06 10^3/uL (0.0-0.2) 04/06/20 12:35 RBC Morphology Cancelled 04/06/20 11:50 Polychromasia Cancelled 04/06/20 11:50 Hypochromasia Cancelled 04/06/20 11:50 Poikilocytosis Cancelled 04/06/20 11:50 Basophilic Stippling Cancelled 04/06/20 11:50 Anisocytosis Cancelled 04/06/20 11:50 Microcytosis Cancelled 04/06/20 11:50 Macrocytosis Cancelled 04/06/20 11:50 Spherocytes Cancelled 04/06/20 11:50 Tear Drop Cells Cancelled 04/06/20 11:50 Ovalocytes Cancelled 04/06/20 11:50 Stomatocytes Cancelled 04/06/20 11:50 Gill-[place] Bodies Cancelled 04/06/20 11:50 Adelita Cells/Echinocytes Cancelled 04/06/20 11:50 Acanthocytes (Spur) Cancelled 04/06/20 11:50 Schistocytes Cancelled 04/06/20 11:50 PT 9.9 sec (9.3-11.0) 04/06/20 11:50 INR 1.0 (0.9-1.1) 04/06/20 11:50 APTT 23.2 sec (21.0-31.4) 04/06/20 11:50 Sodium 141 mmol/L (136-145) 04/06/20 11:50 Potassium 3.9 mmol/L (3.5-5.1) 04/06/20 11:50 Chloride 105 mmol/L (98-107) 04/06/20 11:50 Carbon Dioxide 29.5 mmol/L (21.0-32.0) 04/06/20 11:50 Anion Gap 6.5 mmol/L (3-11) 04/06/20 11:50 BUN 24 mg/dL (7-18) H 04/06/20 11:50 Creatinine 0.77 mg/dL (0.55-1.02) 04/06/20 11:50 Estimated GFR/1.73 m2 >= 60.00 (mL/min/1.73m2) 04/06/20 11:50 Glucose 105 mg/dL (74-106) 04/06/20 11:50 Calcium 10.0 mg/dL (8.5-10.1) 04/06/20 11:50 Total Bilirubin 0.2 mg/dL (0.2-1.0) 04/06/20 11:50 AST 25 U/L (15-37) 04/06/20 11:50 ALT 30 U/L (14-59) 04/06/20 11:50 Alkaline Phosphatase 76 U/L (46-116) 04/06/20 11:50 Total Protein 7.1 g/dL (6.4-8.2) 04/06/20 11:50 Albumin 3.6 g/dL (3.4-5.0) 04/06/20 11:50 Urine Color Yellow (Yellow) 04/06/20 18:23 Urine Clarity Clear (Clear) 04/06/20 18:23 Urine pH 8.0 (5-8) 04/06/20 18:23 Ur Specific [place] 1.025 (1.005-1.025) 04/06/20 18:23 Urine Protein Negative mg/dL (Negative) 04/06/20 18:23 Urine Ketones Negative mg/dL (Negative) 04/06/20 18:23 Urine Blood Negative (Negative) 04/06/20 18:23 Urine Nitrite Negative (Negative) 04/06/20 18:23 Urine Bilirubin Negative (Negative) 04/06/20 18:23 Urine Urobilinogen 0.2 EU/dL (Up TO 0.2) 04/06/20 18:23 Ur Leukocyte Esterase Negative (Negative) 04/06/20 18:23 Urine Glucose Negative mg/dL (Negative) 04/06/20 18:23
--- NOTE | 2020-04-07 10:32 | PT.INIE ---
Date of service: 04/07/20 Time of Service: 09:40 PT Notes Visit Reasons: HIP PAIN, INABILITY TO AMBULATE Inpatient Physical Therapy Evaluation Date: 04/07/20 Referring Doctor: Marlyn Connolly PT Orders: PT CONSULT: Gastroc/strain tear. Protected weightbearing. Precautions: Fall risk, standard Patient Profile/Admitting Diagnosis: 79 y.o female with PMH, HTN, HLD, asthma, admitted with progressive L leg pain x 1 month, causing her leg to buckle and produce fall when she was getting in the shower yesterday. She had fallen one month ago, onto her right side, and has had L hip and LE pain since. She has been using crutches at home to accommodate to pain. She can not tolerate any weightbearing. Hip xray negative. US of calf ordered, but not yet completed. PMHX: Medical History (Updated 04/07/20 @ 08:44 by Naveen Mckenna MD) Asthma (Chronic) HTN (hypertension) (Chronic) Hyperlipidemia (Chronic) Social History/Home Situation: Patient lives with her son in a private home. Home is 1 level, with 2 steps to enter without a rail. She collects disability for back injury, but states her back really does not bother her that bad anymore. Current Functional Limitations: Pain with any weightbearing activities, has to is assistive device crutches or walker, only tolerating about 5-10 steps at a time. Equipment Owned/DME: Axillary crutches Subjective: Beth complains of pain in the left posterior knee and calf region. Pain is not present when she is not weightbearing, unless she moves her leg quickly. She denies any shortness of breath. She denies any lower extremity paresthesias or back pain. Onset of symptoms was approximately 1 month ago when she recalls falling onto her right side and had resulting left lower extremity pain and she had to start using crutches about 2 weeks ago, to assist with pain relief attempt of weightbearing. Over the past 2 days she was unable to even make meals, because of her pain level. When getting into her tub, the pain in her left leg caused her extremity to give way, and she fell. Objective: General Observation: Lying in bed, she appears not to be in any distress, she is cognitively intact. I do not observe any increase in swelling of the left lower extremity, redness, or increased temperature. Mental Status: A&O x3 Pain: 5/10, left posterior knee and superior Vital Signs: BP 121/97, HR 104 ROM: Right Upper Extremity: WNL Left Upper Extremity: WNL Right Lower Extremity: WNL Left Lower Extremity: Passively patient demonstrating full motion of the left LE, to include the hip and knee. Dorsiflexion limited to 0 degrees due to pain produced in the calf, but otherwise the ankle is WNL. With overpressure of the left knee into extension she does have mild pain provocation to the posterior knee and superior calf. She tolerates overpressure into knee flexion to 130 degrees, with minimal pain. Actively, she struggles to move the left lower extremity due to pain. Strength: Right Upper Extremity: Grossly 5/5 throughout Left Upper Extremity: Grossly 5/5 throughout Right Lower Extremity: Grossly 5/5 throughout Left Lower Extremity: Left hip flexion 4+/5, quad and hamstring is 4+/5 pain provoking, DF 5/5, PF is 4/5 pain inhibited, EHL 5/5 Sensation: Intact throughout bilateral lower extremities Bed Mobility/Transfers: Bed mobility: Independent Supine to sit: Independent Sit to supine: Independent Sit to stand: Supervision Stand to sit: Supervision Bed to chair: RW, CG x1 Chair to bed: RW, CG x1 Gait: 10 feet, RW. Decreased stance left lower extremity, tends to utilize plantarflexed position walking on her toe. She is dependent on upper extremities on walker, to decompress left LE. She has severe pain when trying to walk with flat foot. Balance: Static Sitting: Good Dynamic Sitting: Good Static Standing: Fair, due to pain in left leg Dynamic Standing: Poor, due to pain in left leg Patient unable to stand without holding onto RW, due to instability caused by left leg pain with weightbearing Special Tests: Mobility Limitations Standardized Measure [facility] AM-PAC 6 clicks Basic Mobility Inpatient Short Form: Raw Score: 19 standardized Score: CMS Score: 1% disability SLR: Achieves 80 degrees, due to calf tension, and distal hamstring. Negative dural symptoms Slump: Negative Pedal pulse: WNL Lumbar mobility testing: Not completed due to patient's pain level of left LE and weightbearing, not safe. Informed Consent/Education: Patient instructed in purpose of PT consult and plan of care. Assessment: Patient is a 79 year old female referred to physical therapy services with the diagnosis of left LE discomfort, with suspicion of gastroc and or hamstring strain. Ultrasound for differential diagnosis blood clot is ordered but not yet completed. Patient presents with clinical signs and symptoms consistent with calf strain, potential left knee OA, or LE blood clot. Diagnostics for differential diagnosis are pending. Physical therapy is appropriate for this patient to initiate some soft tissue work to the left lower extremity in effort to inhibit her calf and hamstring, but only in the presence of a negative ultrasound. Will initiate these efforts at that time. She presents with impairments of soft tissue dysfunction throughout the left gastroc, ITB, and hamstring, limited active mobility of the left LE, strength deficit of the left LE, balance impairment and weightbearing due to pain, gait impairment, and motor control impairment. Impairment level problems are contributing to functional deficits of inability to complete functional ambulation without reliance on assistive device, poor balance with functional transfers and activities, poor tolerance to household distance ambulation. Patient will be appropriate for inpatient PT care, to get her left lower extremity pain and control, and improve safety with short distance ambulation and transfers. She will require use of walker for safety with gait for fall prevention, on discharge home. Outpatient physical therapy will be needed, to return to premorbid level function, which was independent and without any limitation. Patient is assessed as a Moderate [id number] complexity based on the following: History: See comorbidities Examination: See above impairments and functional imitation Presentation: Evolving Decision Making: Moderate Goals: Goals X1 week 1. Supine-Sit independent 2. Sit-Supine independent 3. Sit-Stand independent 4. Stand-Sit independent 5. Bed-Chair independent 6. Chair-Bed independent 7. Gait close supervision with RW x 40 feet 8. Stairs with 1 rail, close supervision 9. Independent with home exercise program 10. Balance fair with all weightbearing activities, with use of RW Plan of Care/Treatment Plan: 1-2x/day, 7 days/week x 1 week. Plan of care has been reviewed with the PRODUCT SUPPORT CONSULTANT providing the service under Physical Therapy direction. Initiate Physical Therapy intervention for strengthening, bed mobility, transfers, gait, stairs, balance training, use of assistive device. Manual therapy for soft tissue mobilization throughout the left calf, ITB and hamstring, upon negative ultrasound. DISCHARGE RECOMMENDATIONS: When appropriate and goals of the above are met, patient to return home with son. Outpatient PT services recommended to return to premorbid level of function. Patient will require walker upon discharge for safety with gait and functional mobility. TREATMENT CODE/TIME: [id number], 30-minute Documented with [employer] recognition software.
--- NOTE | 2020-04-07 11:01 | DI.VRAD_ITS ---
PROCEDURE INFORMATION: Exam: US Duplex Left Lower Extremity Veins, Limited Exam date and time: 04/07/2020 4:02 PM Age: 79 years old Clinical indication: Other: Severe pain, R/O dvt TECHNIQUE: Imaging protocol: Real-time Duplex ultrasound of the Left Lower Extremity with 2-D trujillo scale, color Doppler flow and spectral waveform analysis with image documentation. Limited exam focused on the left lower extremity veins. COMPARISON: No relevant prior studies available. FINDINGS: Left deep veins: Unremarkable. The common femoral, femoral, proximal profunda femoral and popliteal veins are patent without thrombus. Normal Doppler waveforms. Normal compressibility and/or augmentation response. Left superficial veins: Unremarkable. Saphenofemoral junction is patent without thrombus. Soft tissues: There is a popliteal present measuring 3 x 1.1 x 2.1 cm. IMPRESSION: No evidence of deep vein thrombosis. Popliteal cyst measuring up to 3 cm. Dictated and Authenticated by: Lizzy Moore MD. Ordering:CARLOS Cline MD
[2020-04-07 11:17] LABS: COVID-19 RT-PCR UVMMC Result Negative (Negative)
--- NOTE | 2020-04-07 11:19 | DI.VRAD_ITS ---
PROCEDURE INFORMATION: Exam: XR Left Knee Exam date and time: 04/07/2020 10:47 AM Age: 79 years old Clinical indication: Other: Left posterior knee/leg pain TECHNIQUE: Imaging protocol: XR Left knee. Views: 3 views. COMPARISON: CR XR KNEE LT 4V+ 04/06/2020 12:24 PM FINDINGS: Bones/joints: Normal. Soft tissues: Normal. Vasculature: Vascular calcifications are seen in the popliteal artery and distal femoral artery. IMPRESSION: No acute fracture or dislocation. Dictated and Authenticated by: Lizzy oMore MD. Ordering:BROOK Hodge MD
[2020-04-07] MEDS: Acetaminophen 325 MG TAB 650 MG PO ×3 (11:57→20:14)
[2020-04-07 15:55] VITALS: BP 120/82; PULSE 98; RESP 18; TEMP 36.6; O2SAT 98
[2020-04-07] MEDS: Celecoxib 100 MG CAP PO (20:14)
[2020-04-07 20:32] VITALS: BP 130/70; PULSE 95; RESP 18; TEMP 36.9; O2SAT 96
[2020-04-07 23:52] VITALS: BP 130/72; PULSE 88; RESP 18; TEMP 36.9; O2SAT 95
[2020-04-08] MEDS: Heparin 5,000 UNITS/ML VIAL 5000 UNITS SC (06:02)
[2020-04-08 07:21] LABS: Abs Immature Grans 0.11 10^3/uL (0.0-0.06); Absolute Basophil Count 0.09 10^3/uL (0.0-0.2); Absolute Eosinophil Count 0.42 10^3/uL (0.0-0.7); Absolute Lymphocyte Count 2.47 10^3/uL (1.2-3.4); Absolute Monocyte Count 1.07 10^3/uL (0.1-0.8); Basophils % 0.8; Eosinophils % 3.9; HGB 13.5 g/dL (11.2-15.7); Lymphocytes % 23.2; MCH 29.2 pg (27.0-33.0); MCHC 32.9 % (32.0-36.0); MCV 88.6 fL (80-95); MPV 11.7 fL (8.0-11.0); Neutrophils % 61.1; Nucleated RBC 0 %; Platelet Count 324 10^3/uL (130-400); RBC 4.63 10^6/uL (3.93-5.22); RDW 14.8 % (11.7-14.6); RDW-SD 47.8 fL; WBC 10.66 10^3/uL (4.4-10.8)
[2020-04-08 07:35] VITALS: BP 139/69; PULSE 102; RESP 18; TEMP 37; O2SAT 97
[2020-04-08] MEDS: Calcium 600mg/Vit D 200U TAB 1 TAB PO (07:49)
[2020-04-08] MEDS: Omeprazole 20 MG CAPCR PO (07:49)
[2020-04-08] MEDS: Omega-3 Fatty Acids 1000 MG CAP PO (07:49)
[2020-04-08] MEDS: Chlorthalidone 25 MG TAB PO (07:49)
[2020-04-08] MEDS: Celecoxib 100 MG CAP PO (07:49)
[2020-04-08] MEDS: Acetaminophen 325 MG TAB 650 MG PO (07:49)
--- NOTE | 2020-04-08 09:26 | DSE_ITS ---
Date of service: 04/08/20 Time of Service: : DS: Diagnosis Discharge Diagnosis (1) Fall: Start date: 04/08/20 Start time: 09:26 Status: Resolved Asessment and Plan: Prior to admission. She was non wt bearing on admission, after applying heat, with pain management, patient is now able to toe touch with WBAT. She is being discharged home with Home Health PT/OT and nursing services. (2) Hip pain: Start date: 04/08/20 Start time: 09:28 Status: Resolved Asessment and Plan: Hip pain resolved, now c/o knee pain to the LLE. DVT r/o. Cyst behind knee. Ortho evaluated patient and feels this is muscular in nature, conservative measures only with heat. Will d/c home with current regimen. On celebrex BID as well. (3) Weakness: Start date: 04/08/20 Start time: 09:31 Status: Resolved Asessment and Plan: Resolved, able to ambulate with wt bearing (4) HTN (hypertension): Start date: 04/08/20 Start time: 09:31 Status: Chronic Asessment and Plan: Continue home regimen (5) Hyperlipidemia: Start date: 04/08/20 Start time: 09:32 Status: Chronic Asessment and Plan: Continue omega fish oil and diet (6) Asthma: Start date: 04/08/20 Start time: 09:32 Status: Chronic Asessment and Plan: Continue current regimen. Above case discussed with Dr. Guzman who is in agreement. Discharge Plan Disposition Patient Disposition: HOME W/HOME HEALTH SERVICE Condition: Improving Discharge Details Chief Complaint: Orthopedic Clinical Impression: Pain in left hip Reason For Visit: HIP PAIN, INABILITY TO AMBULATE Admit Date/Time: 04/06/20 13:56 Admit Provider: Jigar Guzman Attending Provider: Jigar Guzman Primary Care Provider: Tahira Cifuentes ED Provider: Joey Huertas Hospital Course Hospital Course: 79 y.o female with PMH, HTN, HLD, asthma, presented to ED after slipping while getting in her bath tub, c/o left hip and knee pain. Her leg gave out after an injury 1 month ago at which time she was seen by her PCP and diagnosed with a sprain. Physical therapy was going to be initiated for this week. Labs in the ED unremarkable. 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 Initially she was going to be sent home from the Emergency Department but she is unable to bear weight and experiencing a 10 out of 10 pain. She was admitted to /s with PT, pain management. There was a cyst found on u/s but negative for DVT, celebrex was initiated with heat and tramadol for pain. She has been out of bed, more ambulatory with improved pain management. She is being discharged home with PT and nursing services. Home Meds and New Rx's Prescriptions: New chlorthalidone 25 mg Tablet 25 mg PO DAILY Qty: 1 RF: 0 albuterol sulfate [ProAir HFA] 90 mcg/actuation Hfa Aerosol Inhaler 2 puff inhalation QID PRN PRNQty: 6.7 RF: 0 calcium carbonate-vitamin D3 [Calcium 600 + D(3)] 600 mg(1,500mg) -200 unit Tablet 1 tab PO TID Qty: 1 RF: 0 celecoxib [Celebrex] 100 mg Capsule 100 mg PO BID Qty: 60 RF: 0 diazepam 2 mg Tablet 2 mg PO QID PRN PRNQty: 20 RF: 0 diclofenac sodium [Voltaren] 1 % Gel 2 g topical QID PRN PRN (Reason: Pain) Qty: 1 RF: 0 tramadol 50 mg Tablet 50 mg PO Q4H PRN PRNQty: 10 RF: 0 docusate sodium [Colace] 100 mg Capsule 100 mg PO TID PRN PRNQty: 20 RF: 0 omeprazole 20 mg Capsule,Delayed Release(Dr/Ec) 20 mg PO DAILY@0730 Qty: 30 RF: 0 Continued Centrum Silver 1 EACH tablet 1 ea PO DAILY RF: 0 Fish Oil 1 EACH capsule 1 cap PO DAILY RF: 0 Fiber Gummies 2.5 GM tablet,chewable 4 ea PO DAILY RF: 0 Advair HFA 115-21 mcg/actuation HFA aerosol inhaler 2 inh INHALATION BID RF: 0 Discontinued calcium carbonate-vitamin D3 1 EACH tablet 1 tab PO TID RF: 0 naproxen [Naprosyn] 375 MG tablet 1 tab PO BID PRN PRNRF: 0 chlorthalidone 25 MG tablet 12.5 mg PO DAILY RF: 0 albuterol sulfate 8.5 GM HFA aerosol inhaler 2 puff Inhalation QID RF: 0 Discharge Instructions Instructions: Knee Sprain (DC), Knee Pain (ED), Medication Safety for Older Adults (DC) Additional Instructions: Follow up with PCP in 2 weeks. Take medications as needed per written instructions. Use heat and/or ice four times a day as needed for 15 mins each time. Stand Alone Forms: Nursing Discharge Form Referrals: Tahira Cifuentes [Primary Care Provider] - (Call the office on Wednesday to schedule an appointment to be seen within 2 weeks) Activity:: Activity as Tolerated Equipment/Supplies:: No Equipment Needed Diet:: As Tolerated Discharge Orders Discharge Orders: Discharge Order (Routine); Ordered 04/08/20 Ordered By: Marlyn Connolly DS: Summary Status at Discharge Functional status at discharge: uses cane/walker Overall status at discharge: patient is progressing back to baseline Mental Status: mental status grossly normal Speech and Movement: speech and movement normal Mood: congruent mood Affect: normal affect Exam Narrative Exam Narrative: Elderly female AAOx3, calm and cooperative. Laying on a stretcher able to answer questions without difficulty. She is relatively healthy. HR Regular rate and rhythm without JVD. She does not have labored breathing, LSC. Abd soft nontender bsx4. Trace edema to bilateral lower extremities there is swelling to left posterior knee, warm to touch. Skin in tact no clubbing, cyanosis, able to move all extremities freely.No CVA tenderness. Normal thought process. Psych Mental Status: mental status grossly normal Speech and Movement: speech and movement normal Mood: congruent mood Affect: normal affect DS: Data Vitals/I&O Vitals and I&O: Vital Signs Temperature 37.0 C 04/08/20 07:35 Temperature Source Temporal Artery Scan 04/08/20 07:35 Pulse 102 H 04/08/20 07:35 Pulse Rhythm Regular 04/07/20 20:00 Respiratory Rate 97 H 04/08/20 07:35 Respiratory Effort Non-Labored 04/07/20 20:00 Respiratory Depth Normal 04/07/20 20:00 Respiratory Pattern Normal 04/07/20 20:00 Blood Pressure 139/69 04/08/20 07:35 Blood Pressure Mean 85 04/06/20 15:16 Blood Pressure Position Supine 04/06/20 11:18 Pulse Oximetry 95 04/07/20 23:52 Oxygen Delivery Method Room Air 04/08/20 07:35 Oxygen Flow Rate 0 04/08/20 07:35 Pain Level 0 04/08/20 07:35 Intake & Output 04/07/20 04/07/20 04/08/20 11:59 23:59 11:59 Output Total 200 / 900 700 / 900 775 / 775 Balance -200 / -900 -700 / -900 -775 / -775 Output: Urine 200 / 900 700 / 900 775 / 775 Other: Urine Color Yellow Yellow Yellow Urine Appearance Clear Clear Clear Urine Odor Normal Normal Normal Stool Size Moderate Small Stool Characteristics Formed Formed Hard Hard Voiding Methods Bedpan Bedside Commode Toilet Data Completed and Pending Completed studies during hospitalization [Text1]: COMPARISON: No relevant prior studies available. FINDINGS: Bones/joints: There are calcific bodies projecting superior to left greater trochanter. No definite cortical step . Findings are likely related to calcific tendinopathy. The pelvic brim is intact. There is no dislocation. Soft tissues: Unremarkable. Gastrointestinal tract: There is mild stool volume in the ascending colon. IMPRESSION: 1. No definite acute fracture or dislocation. 2. Calcific bodies adjacent to left superior trochanter is favored to reflect calcific tendinopathy than avulsion fracture. FINDINGS: Reproductive: Visualized pelvis demonstrates no acute intra abdominal abnormality. Supra cervical uterus is not visualized and is perhaps atrophic or had previous hysterectomy. Adnexa are not visualized. Intraperitoneal space: The pelvic rim is intact. Vasculature: There are calcifications of abdominal aorta and its branches. Bones/joints: There is no acute fracture or dislocation. Left hip joint is normally located. There is calcific tendinopathy of gluteus medius at its site of insertion at greater trochanter. There degenerative facet osteoarthropathy at L5-S1, left greater than right. Soft tissues: See Bones/joints finding. Other findings: There is mild diverticulosis of descending colon. No acute inflammation. IMPRESSION: 1. No acute fracture or dislocation. Pelvic rim is intact. No intra-abdominal hematoma. 2. Calcific tendinopathy of left gluteus medius. FINDINGS: Bones/joints: No acute fracture or dislocation. No knee joint effusion. Soft tissues: No soft tissue swelling. Vasculature: There are calcifications of distal superficial femoral artery and popliteal artery. IMPRESSION: No acute fracture or dislocation. No joint effusion or significant soft tissue swelling. TECHNIQUE: Lower extremity venous ultrasound performed using grayscale, color- flow, and spectral Doppler analysis. COMPARISON: No exams were available for comparison FINDINGS: The common femoral, femoral and popliteal veins demonstrate normal compressibility, augmentation, and color Doppler. The posterior tibial veins are patent. The saphenous vein appears free of thrombus. A Munoz's cyst is seen measuring 3 x 1.1 x 2.1 cm.. IMPRESSION: No evidence of DVT. Small Munoz's cyst. EXAM: XR KNEE LT 3V AP,LAT,JT CLINICAL HISTORY: left posterior knee and leg pain. TECHNIQUE: 2D digital imaging was performed. COMPARISON: CR,XR XR KNEE LT 4V+ from 04/06/2020 FINDINGS: BONES: No acute fracture is present. No bony destructive lesion is seen. JOINTS: The knee is normally aligned. No joint effusion is seen. Joint spaces are well maintained. SOFT TISSUE: Incidental vascular calcifications. IMPRESSION: Normal radiographs of the left knee. COMPARISON: No relevant prior studies available. FINDINGS: Left deep veins: Unremarkable. The common femoral, femoral, proximal profunda femoral and popliteal veins are patent without thrombus. Normal Doppler waveforms. Normal compressibility and/or augmentation response. Left superficial veins: Unremarkable. Saphenofemoral junction is patent without thrombus. Soft tissues: There is a popliteal present measuring 3 x 1.1 x 2.1 cm. IMPRESSION: No evidence of deep vein thrombosis. COMPARISON: CR XR KNEE LT 4V+ 04/06/2020 12:24 PM FINDINGS: Bones/joints: Normal. Soft tissues: Normal. Vasculature: Vascular calcifications are seen in the popliteal artery and distal femoral artery. IMPRESSION: No acute fracture or dislocation. Labs on day of discharge: Labs from last 24 hours 04/08/20 04/06/20 06:35 15:17 WBC 10.66 RBC 4.63 Hgb 13.5 Hct 41.0 MCV 88.6 MCH 29.2 MCHC 32.9 RDW 14.8 H Plt Count 324 D MPV 11.7 H Immature Gran % 1.0 Neutrophils % 61.1 Lymphocytes % 23.2 Monocytes % 10.0 Eosinophils % 3.9 Basophils % 0.8 Nucleated RBC % 0 Absolute Neutrophils 6.50 Absolute Lymphocytes 2.47 Absolute Monocytes 1.07 H Absolute Eosinophils 0.42 Absolute Basophils 0.09 COVID-19 PCR Negative Nasopharyn COVID-19 PCR Not Applicable Ref Test Perform Site [facility] Medical History Asthma (Chronic) HTN (hypertension) (Chronic) Hyperlipidemia (Chronic) Social History Smoking/Tobacco Use Status: Former Tobacco Use Alcohol Intake: never Drug use: Never Do you feel safe at home: Yes Do you feel safe in your relationship?: Yes
--- NOTE | 2020-04-08 10:24 | PDOC.HHF2F ---
Home Health Certification Home Health Certification: 1. Encounter Date and Reason I certify that BUDDY OROZCO was seen by Marlyn Connolly on 04/08/20 and that I had a [id number]-[id number] encounter with this patient that meets the physician face to face encounter requirements. 2. Clinical Findings Supporting Skilled Need and Homebound Status I certify that home health services are medically necessary, include either intermittent [facility] and/or physical/speech therapy, and that this patient is homebound in that absences from the home require considerable and taxing effort and are infrequent or of short duration, or are attributable to the need to receive medical care. [X] (a) Attached documentation from encounter provides clinical findings supporting skilled need and homebound status (including what assistance patient requires to leave the home). The encounter with the patient was in whole, or in part, for the following medical condition, which is the primary reason for home health care: HIP PAIN, INABILITY TO AMBULATE Mcfp: Patient would benefit from nursing services for adls Physical Therapy: Patient would benefit from PT for strength, mobilty and balance Homebound: Unable to leave house without assistance 3. Certification and Authentication I certify that I composed the above information based on my clinical judgement relating to this patient's medical condition and, if applicable, clinical findings communicated to me by the NPP or inpatient physician who performed the Home Health Referral. All further orders will be obtained through ___Roberto (Community Based Physician - PCP)
--- NOTE | 2020-04-08 10:44 | PTTR_ITS ---
Date of service: 04/08/20 Time of Service: 10:44 PT Notes Visit Reasons: HIP PAIN, INABILITY TO AMBULATE 04/08/2020 SUBJECTIVE: Beth stating she is doing a little better. Blood clot is ruled out. She notes she has been walking with crutches at home but feels more comfortable with the walker. She has crutches for the stairs which she has been doing for about a month now and feels comfortable with this. OBJECTIVE: [id number] TRANSFERS Supine to sit: S Sit to supine: S Sit to stand: S Stand to sit: S GAIT Device: FWW Weight bearing: AT L Assist: SBA Distance: 30' Deviation: Encouraged heel toe gait mechanics. THEREX: Review basic HEP including QS, LAQ, ankle pumps. Encouraged self assage to hamstrings and gastrocs on the left and instruct her how to do this at home. ASSESSMENT/PLAN: Pt able to tolerate flat foot today with ambulation on the left. She is relying on her arms to unweight the left side with gait. She has a good understanding of her home program. Pt will be discharged home today with services. See discharge summary for details. Treatment time: 20' Mar Mc PTA Clinic location: [facility] [place], [place]
--- NOTE | 2020-04-08 18:34 | PDOC.CMDIS ---
- If Service Date Differs Date of service: 04/08/20 Time of Service: 18:34 LACE Index Scoring Tool - Questions: Length of Stay (in days): 2 Acuity (Admit via E.D.?): Yes E.D. Visits: 1 - Answers: Total Score: 6 Risk of Readmission: Low Risk Care Management Discharge Reason for Hospitalization: Hip pain inability to ambulate Discharge Plan: Beth will be discharged home. She will need new home health for PT. CM faxed this note for referral yesterday. She was provided with a FWW at discharge. She will follow up with her PCP and discharge plan of care and transport with son. Patient/Family Education Needs: Discharge edcuation, limitations and follow up plan of care including ask me three and self management. Services Needed at Discharge: Home Health Care Services, Physical Therapy
--- NOTE | 2020-04-12 08:42 | PT.INDS ---
Date of service: 04/12/20 Time of Service: 08:42 PT Notes Visit Reasons: HIP PAIN, INABILITY TO AMBULATE Inpatient Physical Therapy Discharge Summary Date: 04/12/2020 Dates of service: 04/07/2020 through 04/08/2020 This is a clinical summary of care provided on the duration of dates listed above. No charge was made in the completion of this documentation. Referring Doctor: Marlyn Connolly PT Orders: PT CONSULT: Gastroc/strain tear. Protected weightbearing. Precautions: Fall risk, standard Patient Profile/Admitting Diagnosis: 79 y.o female with PMH, HTN, HLD, asthma, admitted with progressive L leg pain x 1 month, causing her leg to buckle and produce fall when she was getting in the shower yesterday. She had fallen one month ago, onto her right side, and has had L hip and LE pain since. She has been using crutches at home to accommodate to pain. She can not tolerate any weightbearing. Hip xray negative. US of calf ordered, but not yet completed. PMHX: Medical History (Updated 04/07/20 @ 08:44 by Naveen Mckenna MD) Asthma (Chronic) HTN (hypertension) (Chronic) Hyperlipidemia (Chronic) Social History/Home Situation: Patient lives with her son in a private home. Home is 1 level, with 2 steps to enter without a rail. She collects disability for back injury, but states her back really does not bother her that bad anymore. Current Functional Limitations: Pain with any weightbearing activities, has to is assistive device crutches or walker, only tolerating about 5-10 steps at a time. Equipment Owned/DME: Axillary crutches Subjective: NT. See most recent [employer] notes. Objective: General Observation: NT. See most recent [employer] notes. Mental Status: NT. See most recent [employer] notes. Pain: NT. See most recent [employer] notes. ROM: Right Upper Extremity: WNL Left Upper Extremity: WNL Right Lower Extremity: WNL Left Lower Extremity: Passively patient demonstrating full motion of the left LE, to include the hip and knee. Dorsiflexion limited to 0 degrees due to pain produced in the calf, but otherwise the ankle is WNL. With overpressure of the left knee into extension she does have mild pain provocation to the posterior knee and superior calf. She tolerates overpressure into knee flexion to 130 degrees, with minimal pain. Actively, she struggles to move the left lower extremity due to pain. Strength: Right Upper Extremity: Grossly 5/5 throughout Left Upper Extremity: Grossly 5/5 throughout Right Lower Extremity: Grossly 5/5 throughout Left Lower Extremity: Left hip flexion 4+/5, quad and hamstring is 4+/5, DF 5/5, PF is 4/5 pain inhibited, EHL 5/5 Sensation: Intact throughout bilateral lower extremities Bed Mobility/Transfers: Bed mobility: Independent Supine to sit: Independent Sit to supine: Independent Sit to stand: Supervision Stand to sit: Supervision Bed to chair: Supervision Chair to bed: Supervision Gait: 30 feet using front wheeled walker with weightbearing as tolerated on the left LE requiring only standby assist with step to gait pattern. Improved ability to demonstrate heel toe gait pattern on the left side [employer] note on 04/08/2020. Balance: Static Sitting: Normal Dynamic Sitting: Good Static Standing: Fair Dynamic Standing: Fair GAIT: Tolerated short distance ambulation 30 feet with step to gait pattern with improved ability to achieve heel toe gait pattern using the front wheeled walker. SLR on initial evaluation: Achieves 80 degrees, due to calf tension, and distal hamstring. Negative dural symptoms Slump test on initial evaluation: Negative Pedal pulse: WNL Lumbar mobility testing: Not completed due to patient's pain level of left LE and weightbearing, not safe. Assessment: Beth demonstrates improvement of mobility level to supervision for bed mobility and transfers and standby assist for short distance ambulation using front wheeled walker. DVT has been ruled out on the left with diagnosis of Munoz's cyst. Patient is a 79 year old female referred to physical therapy services with the diagnosis of left LE discomfort, with suspicion of gastroc and or hamstring strain. Ultrasound for differential diagnosis blood clot is ordered but not yet completed. Goals: Goals X1 week 1. Supine-Sit independent NOT MET 2. Sit-Supine independent NOT MET 3. Sit-Stand independent NOT MET 4. Stand-Sit independent NOT MET 5. Bed-Chair independent NOT MET 6. Chair-Bed independent NOT MET 7. Gait close supervision with RW x 40 feet NOT MET 8. Stairs with 1 rail, close supervision NOT MET 9. Independent with home exercise program NOT MET 10. Balance fair with all weightbearing activities, with use of RW NOT MET DISCHARGE RECOMMENDATIONS: When appropriate and goals of the above are met, patient to return home with son. Outpatient PT services recommended to return to premorbid level of function. Patient will require walker upon discharge for safety with gait and functional mobility. TREATMENT CODE/TIME: BRYAN Thank you for the opportunity to participate in the care of this patient. Chanel Hernandez PT, DPT, CLT [facility] [place], [place]
== END 2020-04-08 11:28 | disposition home health service (06) | DRG 563 ==
LOC: ER 14:57 → MS 15:27
PROVIDERS: Admitting Provider Family Medicine; Emergency Provider Physician Assistant; PCP Nurse Practitioner; Visit Provider Family Medicine
DX: S86.112A Strain of other muscle(s) and tendon(s) of posterior muscle group at lower leg level, left leg, initial encounter (principal); M65.28 Calcific tendinitis, other site; R53.1 Weakness; W18.2XXA Fall in (into) shower or empty bathtub, initial encounter; I10 Essential (primary) hypertension; E78.5 Hyperlipidemia, unspecified; J45.909 Unspecified asthma, uncomplicated
CPT/HCPCS: 36415; 64447; 73562; 76942; 80053; 94640; 97162; 97530; 99222; 99223; 99233; 99239; 99253; 99285; U0003; 73502; 81003; 85025; 85610; 85730; 93971; 99284; J1644

== ENCOUNTER 2020-12-27 03:33 | Outpatient (CLI) | payer OTHER, MEDICAID, SELFPAY ==
--- NOTE | 2020-12-27 | DI.DEXA_ITS ---
Exam(s) XR DEXA BONE DENSITY W/WO MORAIMA EXAM: XR DEXA BONE DENSITY W/WO MORAIMA CLINICAL HISTORY: OSTEOPENIA, M85.80 TECHNIQUE: COMPARISON: CR,XR XR HIP LT COMPLETE AP PELVIS from 04/06/2020 FINDINGS: DEXA scan was performed according to the usual protocol. Left hip scanning shows T-score -0.4 with left femoral neck T-score -1.1. Prior scan April 2010 showed left hip T-score -0.8. Lumbar spine scanning shows T-score -1.8. Prior examination of 21/05 showed lumbar T-score -2.0. Left forearm scanning shows T-score -2.2. Prior scan of 2009 showed T-score -2.1. IMPRESSION: The findings are consistent with osteopenia according to the WHO criteria. The lateral vertebral sca nogram shows no evidence of a vertebral compression fracture. RADIATION DOSE DELIVERED: Total DLP
== END 2020-12-27 03:53 ==
PROVIDERS: PCP Nurse Practitioner; Visit Provider Nurse Practitioner
DX: M85.88 Other specified disorders of bone density and structure, other site (principal)
CPT/HCPCS: 77080

== ENCOUNTER 2021-04-24 12:32 | Outpatient (REF) | payer OTHER, MEDICAID, SELFPAY ==
[2021-04-24 14:06] LABS: HCT 39.3 % (36.0-46.0); HGB 12.8 g/dL (11.2-15.7); MCH 28.3 pg (27.0-33.0); MCHC 32.6 % (32.0-36.0); MCV 86.9 fL (80-95); MPV 11.7 fL (8.0-11.0); Platelet Count 424 10^3/uL (130-400); RBC 4.52 10^6/uL (3.93-5.22); RDW 14.3 % (11.7-14.6); RDW-SD 45.9 fL; WBC 13.11 10^3/uL (4.4-10.8)
[2021-04-24 14:26] LABS: ALT 23 U/L (14-59); AST 20 U/L (15-37); Albumin 3.5 g/dL (3.4-5.0); Alkaline Phosphatase 76 U/L (46-116); Anion Gap 8.2 mmol/L (3-11); BUN 22 mg/dL (7-18); Bilirubin, Total 0.3 mg/dL (0.2-1.0); CO2 30.8 mmol/L (21.0-32.0); CREATININE 0.8 mg/dL (0.55-1.02); Calcium 9.8 mg/dL (8.5-10.1); Calculated LDL 118 mg/dL (<100); Chloride 99 mmol/L (98-107); Cholesterol 194 mg/dL (<200); Glucose 97 mg/dL (74-106); HDL Cholesterol 39 mg/dL (40-60); Potassium 3.8 mmol/L (3.5-5.1); Sodium 138 mmol/L (136-145); Total Protein 7.7 g/dL (6.4-8.2); Triglyceride 185 mg/dL (<150)
== END 2021-04-24 12:33 | disposition home or self-care (01) ==
LOC: NCHCN 12:32
PROVIDERS: PCP Nurse Practitioner; Visit Provider Nurse Practitioner
DX: I10 Essential (primary) hypertension (principal); E78.5 Hyperlipidemia, unspecified; R53.83 Other fatigue
CPT/HCPCS: 80053; 80061; 85027

== ENCOUNTER 2021-05-27 14:45 | Emergency (ER) | payer MEDICARE, OTHER, MEDICAID, SELFPAY ==
[2021-05-27] VITALS (37 sets, daily range): BP systolic 142–178; BP diastolic 67–96; PULSE 85–126; RESP 14–30; TEMP 36.7; O2SAT 90–100
--- NOTE | 2021-05-27 15:00 | RT.EKG_ITS ---
APPROVED REPORT Exam: Resting ECG Reason for Exam: SOB, Weakness Patient Location: E HR:109 bpm ECG Measurements Heart Rate 109 AXIS SC 172 P 55 QRSd 93 QRS 30 QT 349 T 8 QTc 471 Conclusion Sinus tachycardia...rate> 99 Ventricular premature complex...V complex w/ short R-R interval Probable left atrial enlargement...P >50mS, <-0.10mV V1. Sinus. PVCs. No STEMI. I have reviewed and interpreted ECG and agree with software generated interpretation.
--- NOTE | 2021-05-27 15:00 | DI.RAD_ITS ---
Exam(s) XR PORTABLE CHEST AP EXAM: XR PORTABLE CHEST AP CLINICAL HISTORY: R/O PNA, PUI. TECHNIQUE: 2D digital imaging was performed. COMPARISON: Chest x-ray October 2016 FINDINGS: Heart size is upper normal. The mediastinum is not widened. There is increased interstitial lung pattern bilaterally, possibly chronic. Also probably exaggerate d by portable technique. No pleural effusions. IMPRESSION: Chronic appearing interstitial bilateral lung pattern. No pleural effusions. DATA REPOSITORY: RADIATION DOSE DELIVERED: All CT scans at this facility use at least one of these dose optimization techniques: automated exposure control; mA and/or kV adjustment per patient size (includes targeted e xams where dose is matched to clinical indication); or iterative reconstruction.
--- NOTE | 2021-05-27 15:17 | ED.GENADUL_ITS ---
Discharge Plan Disposition Patient Disposition: AGAINST MEDICAL ADVICE Condition: Serious Discharge Details Clinical Impression: Pneumonia, Sepsis Primary Care Provider: Tahira Cifuentes ED Provider: Kathrine Wyman Home Meds and New Rx's Prescriptions: New doxycycline hyclate 100 mg capsule 100 mg PO BID Qty: 20 RF: 0 prednisone 20 mg tablet 40 mg PO BID 5 Days Qty: 10 RF: 0 Continued Centrum Silver 1 EACH tablet 1 ea PO DAILY RF: 0 Fish Oil 1 EACH capsule 1 cap PO DAILY RF: 0 Fiber Gummies 2.5 GM tablet,chewable 4 ea PO DAILY RF: 0 Advair HFA 115-21 mcg/actuation HFA aerosol inhaler 2 inh INHALATION BID RF: 0 chlorthalidone 25 mg Tablet 25 mg PO DAILY Qty: 1 RF: 0 albuterol sulfate [ProAir HFA] 90 mcg/actuation Hfa Aerosol Inhaler 2 puff inhalation QID PRN PRNQty: 6.7 RF: 0 calcium carbonate-vitamin D3 [Calcium 600 + D(3)] 600 mg(1,500mg) -200 unit Tablet 1 tab PO TID Qty: 1 RF: 0 Discharge Instructions Instructions: Pneumonia (ED) Additional Instructions: You are leaving against our medical recommendation and you understand that you are at risk for further deterioration and even , I have listed recommendations as you are requesting discharge home] Take antibiotic as prescribed Use the albuterol inhaler, 2 puffs every 4 hours while awake Take the prednisone, your next dose tomorrow Yogurt daily while on the antibiotic Referrals: Tahira Cifuentes [Primary Care Provider] - Discharge Data Discharge Date/Time-TO BE ENTERED AT DEPARTURE: 05/27/21 21:42 Medical Decision Making <Leatha Dubose - Last Filed: 05/28/21 08:25> 80-year-old female presents to the ER chief complaint of coughing for approximately a week and a half, nasal congestion, and productive of green sputum. She does have a history of asthma and hypertension and use Advair twice daily at home. She is vaccinated for Covid. She reports that she is having trouble sleeping due to cough. She also reports weakness fatigue. No confusion she alert and oriented x4. Denies any chest pain, nausea vomiting diarrhea or any other associated symptoms. Work-up ordered including CBC, CMP, blood cultures x2, chest x-ray, EKG, Covid swab, normal saline at 150 cc an hour and DuoNeb x1. At this time labs chest x-ray are pending. Care is to be handed off to oncoming provider MICHAEL Aranda pending results and disposition. Differential diagnosis includes but not limited to pneumonia, asthma exacerbation, Covid. <MICHAEL Aranda - Last Filed: 05/27/21 22:17> Covid negative Care was received in signout from Leatha Dubose, nurse practitioner Bilateral lower lobe infiltrate per radiology interpretation in my Persistent tachycardia, tachypnea, leukocytosis 17,000, patient will need admission for pneumonia and sepsis Received ceftriaxone and doxycycline, IV fluid patient Tylenol, 2 DuoNeb, declined the third, remains rhonchorous and diminished Call [facility] who can accept patient but not until 1 AM Patient was initially agreeable to admission, however she is refusing at approximately 9 she She is alert, oriented, of decisional capacity, she is understands the risk of further deterioration and even She is discharged home in the care of her son Albuterol prescription supplied Doxycycline Prednisone EKG shows sinus tachycardia placed ay-Dkoxco-re list for 24-hour reassessment, Medical Records Medical records reviewed: Yes I reviewed the patient's medical records. Lab Data Lab results reviewed: Yes I reviewed the patient's lab results. ECG Data Attestation: I personally reviewed and interpreted this ECG (s) as follows: HPI <Leatha Dubose - Last Filed: 05/28/21 08:25> General Mode of arrival: ambulatory . Date/Time Provider Initiated Documentation: 05/27/21 15:07 . Limitations to Documentation: no limitations . Information obtained by: patient, RN notes reviewed and old records reviewed . HPI Narrative: 80-year-old female presents to the ER chief complaint of coughing for approximately a week and a half, nasal congestion, and productive of green sputum. She does have a history of asthma and hypertension and use Advair twice daily at home. She is vaccinated for Covid. She reports that she is having trouble sleeping due to cough. She also reports weakness fatigue. No confusion she alert and oriented x4. Denies any chest pain, nausea vomiting diarrhea or any other associated symptoms. Related Data Home Medications Medication Instructions Recorded Confirmed Centrum Silver 1 ea PO DAILY 02/01/13 05/27/21 Fiber Gummies 4 ea PO DAILY 07/17/14 05/27/21 Fish Oil 1 cap PO DAILY 07/17/14 05/27/21 Advair HFA 2 inh INHALATION BID 04/06/20 05/27/21 albuterol sulfate [ProAir HFA] 2 puff INHALATION QID PRN PRN #6.7 04/08/20 05/27/21 gm calcium carbonate-vitamin D3 1 tab PO TID #1 tab 04/08/20 05/27/21 [Calcium 600 + D(3)] chlorthalidone 25 mg PO DAILY #1 tab 04/08/20 05/27/21 doxycycline hyclate 100 mg PO BID #20 cap 05/27/21 prednisone 40 mg PO BID 5 Days #10 tab 05/27/21 Previous Rx's Medication Instructions Recorded albuterol sulfate [ProAir HFA] 2 puff INHALATION QID PRN PRN #6.7 04/08/20 gm calcium carbonate-vitamin D3 1 tab PO TID #1 tab 04/08/20 [Calcium 600 + D(3)] chlorthalidone 25 mg PO DAILY #1 tab 04/08/20 doxycycline hyclate 100 mg PO BID #20 cap 05/27/21 prednisone 40 mg PO BID 5 Days #10 tab 05/27/21 Allergies Allergy/AdvReac Type Severity Reaction Status Date / Time pravastatin Allergy Skin Rash Unverified 05/27/21 15:05 cyclobenzaprine HCl AdvReac Intermediate Agitation Unverified 05/27/21 15:05 [From Flexeril] General Stated Complaint: RespSymp NICHOLAS: 2 Review of Systems <Leatha Dubose - Last Filed: 05/28/21 08:25> All systems reviewed & are unremarkable except as noted in HPI and below Respiratory Respiratory: Reports change in phlegm color, Reports cough, Denies hemoptysis and Reports wheezing Allergic/Immunologic Allergic/Immunologic: Reports wheezing PFSH <Leatha Dubose - Last Filed: 05/28/21 08:25> Medical History (Updated 05/27/21 @ 21:30 by MICHAEL Aranda) Asthma HTN (hypertension) Hyperlipidemia Social History Smoking/Tobacco Use Status: Former Tobacco Use Smoking risk assessment performed?: Yes Alcohol Intake: never Drug use: Never Do you feel safe at home: Yes Do you feel safe in your relationship?: Yes Exam <Leatha Dubose - Last Filed: 05/28/21 08:25> Narrative Exam Narrative: Constitutional: Alert and oriented x3. Appears stated age. Normal body habitus. Head: Normocephalic, no trauma. Eyes: Pupils PERRL, Red reflex noted, EOM's intact. Eyelids symmetrical without lesions, discharge, or swelling. ENT: Bilateral TM's WNL, External ear normal to inspection, no mastoid TTP, swelling, or erythema, Nasal turbinates WNL, no nasal discharge. Normal dentition, Posterior pharynx WNL, no exudate. Chest: Tachycardic at a rate of 111, normal S1, S2, distal pulses intact. Resp: Lungs have scattered inspiratory wheezing and Rales noted to auscultation. Abdomen: Soft, non-distended, Normoactive bowel sounds all 4 quads. Musculoskeletal: Normal gait, 5/5 strength to all four extremities. Skin: No suspicious rashes or lesions. Capillary refill less than 2 sec. Neurologic: Cranial nerves II-XII intact. Alert and oriented x 3. Motor: No deficits noted. Sensory: Intact bilaterally all 4 extremities. Reflexes: DTR's intact bilaterally.. Hematologic/Lymphatic: No ecchymosis, no lymphadenopathy. Course <Leatha Dubose - Last Filed: 05/28/21 08:25> Vital Signs Vital signs: Vital Signs Temperature 36.7 C 05/27/21 14:55 Pulse 109 H 05/27/21 14:55 Respiratory Rate 26 H 05/27/21 14:55 Blood Pressure 175/70 H 05/27/21 14:55 Pulse Oximetry 96 05/27/21 14:55 Temperature 36.7 C 05/27/21 14:55 Temperature Source Skin 05/27/21 14:55 Pulse 109 H 05/27/21 14:55 Respiratory Rate 26 H 05/27/21 14:55 Respiratory Effort 05/27/21 15:04 Blood Pressure 175/70 H 05/27/21 14:55 Blood Pressure Position Sitting 05/27/21 14:55 Pulse Oximetry 96 05/27/21 14:55 Oxygen Delivery Method Room Air 05/27/21 14:55 Oxygen Flow Rate 0 05/27/21 14:55 Pain Level 0 05/27/21 14:55 Lab/Test Results Lab/Test Results: 05/27/21 15:08 Blood Blood Culture - Pending 05/27/21 15:08 Blood Blood Culture - Pending Sign Out <Leatha Dubose - Last Filed: 05/28/21 08:25> Sign Out Data: Sign Out Comment: Pending CXR, R/O PNA, possible admission Last updated by Leatha Dubose at 05/27/21 16:51
[2021-05-27 15:33] LABS: Source Nasal/Nares
[2021-05-27 16:03] LABS: Abs Immature Grans 0.65 10^3/uL (0.0-0.06); Absolute Eosinophil Count 0.28 10^3/uL (0.0-0.7); Absolute Lymphocyte Count 2.46 10^3/uL (1.2-3.4); Absolute Neutrophil Count 12.08 10^3/uL (1.2-6.7); Basophils % 0.7; Eosinophils % 1.6; HCT 37.9 % (36.0-46.0); HGB 12.3 g/dL (11.2-15.7); Immature Grans % 3.7; Lymphocytes % 14.1; MCHC 32.5 % (32.0-36.0); MCV 86.3 fL (80-95); MPV 10.6 fL (8.0-11.0); Monocytes % 10.8; Nucleated RBC 0 %; Platelet Count 495 10^3/uL (130-400); RBC 4.39 10^6/uL (3.93-5.22); RDW 14.6 % (11.7-14.6); RDW-SD 46.3 fL; WBC 17.48 10^3/uL (4.4-10.8)
[2021-05-27 16:05] LABS: Absolute Basophil Count 0.12 10^3/uL (0.0-0.2); Absolute Monocyte Count 1.89 10^3/uL (0.1-0.8)
[2021-05-27 16:15] LABS: ALT 20 U/L (14-59); AST 18 U/L (15-37); Albumin 3.2 g/dL (3.4-5.0); Alkaline Phosphatase 72 U/L (46-116); Anion Gap 8.7 mmol/L (3-11); BUN 14 mg/dL (7-18); Bilirubin, Total 0.3 mg/dL (0.2-1.0); CO2 31.3 mmol/L (21.0-32.0); CREATININE 0.8 mg/dL (0.55-1.02); Calcium 10.3 mg/dL (8.5-10.1); Chloride 97 mmol/L (98-107); Glucose 88 mg/dL (74-106); Potassium 3.4 mmol/L (3.5-5.1); Sodium 137 mmol/L (136-145); Total Protein 8.3 g/dL (6.4-8.2)
[2021-05-27 16:26] LABS: COVID-19 PCR Negative (Negative)
[2021-05-27 16:27] LABS: Neutrophils % 69.1
[2021-05-27 16:28] LABS: Diff Comment Agrees w/ Instrument; RBC Morphology Normal
[2021-05-27] MEDS: Albuterol/Ipratropium 3 ML UPD VIAL UPD ×2 (16:44→18:00)
--- NOTE | 2021-05-27 17:00 | DI.RAD_ITS ---
Exam(s) XR CHEST 2V PA LATERAL EXAM: XR CHEST 2V PA LATERAL CLINICAL HISTORY: cough, fever. TECHNIQUE: 2D digital imaging was performed. COMPARISON: CR,XR XR PORTABLE CHEST AP from 05/27/2021 FINDINGS: Heart size is upper normal. The mediastinum is not widened. Chronic interstitial pattern. There appears to be some confluent infiltrate in the lateral left lung base. No pleural effusions. No pneumothorax. No Lucho B lines. Impression chronic interstitial pattern. Confluent infiltrate noted in the lateral left lung base. No pleural effusions. IMPRESSION: No acute pulmonary findings. DATA REPOSITORY: RADIATION DOSE DELIVERED:
--- NOTE | 2021-05-27 17:03 | DI.VRAD_ITS ---
PROCEDURE INFORMATION: Exam: XR Chest Exam date and time: 05/27/2021 3:11 PM Age: 80 years old Clinical indication: Other: R/p pna, pui TECHNIQUE: Imaging protocol: XR of the chest. Views: 1 view. COMPARISON: CR CHEST 2 VIEWS PA,LAT 11/03/2016 9:30 AM FINDINGS: Lungs: Bilateral lung bases are obscured. Pleural spaces: Unremarkable. No pleural effusion. No pneumothorax. Heart/Mediastinum: Cardiomegaly. Vasculature: Atherosclerotic calcification of the aortic arch. Bones/joints: Degenerative changes of the spine. IMPRESSION: No obvious acute abnormality. Dictated and Authenticated by: Miles Chamberlain MD. Ordering:YANDEL Zhang MD
--- NOTE | 2021-05-27 17:53 | DI.VRAD_ITS ---
PROCEDURE INFORMATION: Exam: XR Chest Exam date and time: 05/27/2021 5:13 PM Age: 80 years old Clinical indication: Other: Cough, fever TECHNIQUE: Imaging protocol: XR of the chest. Views: 2 views. COMPARISON: CR XR PORTABLE CHEST AP 05/27/2021 4:08 PM FINDINGS: Lungs: Minimal opacification at bilateral lung bases which may represent atelectasis/infiltrates. Pleural spaces: Unremarkable. No pleural effusion. No pneumothorax. Heart/Mediastinum: Unremarkable. No cardiomegaly. Bones/joints: Degenerative changes of the spine. IMPRESSION: Minimal opacification at bilateral lung bases which may represent atelectasis/infiltrates. Dictated and Authenticated by: Miles Chamberlain MD. Ordering:MARCO Chisholm MD
[2021-05-27] MEDS: methylPREDNISolone SUCC 125 MG VIAL IVP (18:00)
[2021-05-27] MEDS: Doxycycline Hyclate 100 MG CAP PO (18:00)
[2021-05-27] MEDS: cefTRIAXone 2 GM/50 ML BAG IVPB (18:29)
[2021-05-27] MEDS: guaiFENesin 200 MG/10 ML CUP 100 MG PO (20:18)
[2021-05-27] MEDS: Acetaminophen Solution 650 MG/20.3 ML CUP PO (20:18)
--- NOTE | 2021-05-29 10:59 | CMPROGNOTE_ITS ---
- If Service Date Differs Date of service: 05/29/21 Time of Service: 10:59 Care Management Progress Note Beth is seen in the ED for pneumonia and sepsis. Admission is recommended but Beth declines and leaves against medical advice. CN is asked to ensure that Beth obtains a follow up appointment with her PCP. CM telephones the [facility] and is advised that Beth has an appointment scheduled for June 04, [address] Angeles.
== END 2021-05-27 21:42 | disposition left against medical advice (07) ==
PROVIDERS: Registered Nurse Emergency; Emergency Provider Physician Assistant; PCP Nurse Practitioner
DX: A41.9 Sepsis, unspecified organism (principal); J18.9 Pneumonia, unspecified organism; R06.02 Shortness of breath; Z53.29 Procedure and treatment not carried out because of patient's decision for other reasons
CPT/HCPCS: 36415; 80053; 87040; 87635; 93005; 94640; 96365; 96375; 99284; 71045; 71046; 85025; 93010; 99285; J2930; J3490; J7620

== ENCOUNTER 2021-07-17 02:42 | Outpatient (CLI) | payer MEDICARE, MEDICAID, SELFPAY ==
[2021-07-17] MEDS: Inhaler, Assist Device 1 EACH MC (15:51)
[2021-07-17] MEDS: Albuterol HFA 18 GM 200 PUFF INH IH (15:51)
--- NOTE | 2021-07-18 13:51 | W.PFT ---
Date of service: 07/17/21 Time of Service: 15:05 Pulmonary Function Test Result Requesting Provider Dmitriy Angeles Indications: Chronic cough Interpretation Spirometry: There is no airflow limitaiton. There is no significant bronchodilator response. Lung Volumes: Lung volumes are normal Diffusion Capacity: Diffusion is normal Airway Pressure: Airways resistance is normal Impression Normal pulmonary function test Clinical Correlation therefore is recommended.
== END 2021-07-17 02:43 | disposition home or self-care (01) ==
LOC: RT 02:42
PROVIDERS: PCP Nurse Practitioner; Visit Provider Family Medicine
DX: J45.20 Mild intermittent asthma, uncomplicated (principal); Z87.891 Personal history of nicotine dependence; R05.3 Chronic cough
CPT/HCPCS: 94060; 94726; 94729

== ENCOUNTER 2021-10-21 16:37 | Outpatient (REF) | payer MEDICARE, MEDICAID, SELFPAY ==
[2021-10-21 13:36] LABS: HCT 40.6 % (36.0-46.0); HGB 12.8 g/dL (11.2-15.7); MCH 28.2 pg (27.0-33.0); MCHC 31.5 % (32.0-36.0); MCV 89.4 fL (80-95); MPV 11.5 fL (8.0-11.0); Platelet Count 371 10^3/uL (130-400); RBC 4.54 10^6/uL (3.93-5.22); RDW 15.1 % (11.7-14.6); RDW-SD 49.8 fL; WBC 13.08 10^3/uL (4.4-10.8)
[2021-10-21 13:37] LABS: Anion Gap 7.9 mmol/L (3-11); BUN 20 mg/dL (7-18); CO2 29.1 mmol/L (21.0-32.0); CREATININE 0.8 mg/dL (0.55-1.02); Calcium 9.5 mg/dL (8.5-10.1); Chloride 99 mmol/L (98-107); Glucose 91 mg/dL (74-106); Sodium 136 mmol/L (136-145)
== END 2021-10-21 16:38 | disposition home or self-care (01) ==
LOC: NCHCN 16:37
PROVIDERS: PCP Nurse Practitioner; Visit Provider Nurse Practitioner Family
DX: I10 Essential (primary) hypertension (principal); J45.20 Mild intermittent asthma, uncomplicated
CPT/HCPCS: 80048; 85027

== ENCOUNTER → 2021-10-23 02:29 | Outpatient (CLI) | payer MEDICARE, MEDICAID, SELFPAY ==
--- NOTE | 2021-10-23 13:07 | DI.RAD_ITS ---
Exam(s) XR CHEST 2V PA LATERAL EXAM: XR CHEST 2V PA LATERAL CLINICAL HISTORY: CHRONIC COUGH X 6 WKS, ASTHMA INTERMITTENT, J45.20, FAINT CRACKLES LLL TECHNIQUE: 2D digital imaging was performed of the chest. Two images were obtained. PA and lateral views were obtained. COMPARISON: CR CHEST 2 VIEWS PA,LAT from 09/22/2016 CR,XR XR PORTABLE CHEST AP from 05/27/2021 CR,XR XR CHEST 2V PA LATERAL from 05/27/2021 FINDINGS: MEDIASTINUM: Normal. HEART: Normal. PULMONARY VASCULATURE: Normal. LUNGS: There is diffuse prominence of the interstitium similar to the examination from 05/27/2021. T his likely reflects chronic interstitial disease. The findings are again most marked in the costophr enic angles bilaterally. No new infiltrates are seen. PLEURAL SPACE: No pleural effusion or pneumothorax. BONE:Within normal limits for the patient's age. OTHER FINDINGS:Normal. IMPRESSION: Stable appearance of the chest since 05/27/2021 suggesting chronic interstitial disease. No acute pu lmonary process. DATA REPOSITORY: RADIATION DOSE DELIVERED:
== END ==
PROVIDERS: PCP Nurse Practitioner; Visit Provider Nurse Practitioner Family
DX: R05.3 Chronic cough (principal); J45.20 Mild intermittent asthma, uncomplicated
CPT/HCPCS: 71046

== ENCOUNTER 2021-12-26 09:26 | Outpatient (CLI) | payer MEDICARE, MEDICAID, SELFPAY ==
--- NOTE | 2021-12-26 09:15 | DI.RAD_ITS ---
Exam(s) XR HIP LT COMPLETE AP PELVIS EXAM: XR HIP LT COMPLETE AP PELVIS INDICATION: L hip pain. COMPARISON: CT CT PELVIC WO from 04/06/2020 CR,XR XR HIP LT COMPLETE AP PELVIS from 04/06/2020 CR XR DEXA BONE DENSITY W/WO MORAIMA from 12/27/2020 TECHNIQUE: 2D digital imaging was performed. Three views. FINDINGS: There has been slight interval increase in size of the calcifications adjacent to the left greater tr ochanter consistent calcific tendinosis. Hip joint spaces are well maintained. The SI joints and pu bic symphysis show mild degenerative changes. Vascular calcifications are present. IMPRESSION: Mild increase in calcific tendinosis at the left greater trochanter. DATA REPOSITORY: RADIATION DOSE DELIVERED:
== END 2021-12-26 09:27 | disposition home or self-care (01) ==
LOC: DIORS 09:26
PROVIDERS: PCP Family Medicine; Referring Provider Family Medicine; Visit Provider Physician Assistant
DX: M70.62 Trochanteric bursitis, left hip (principal)
CPT/HCPCS: 20610; 99214; 73502; J1040

== ENCOUNTER 2022-06-15 15:29 | Outpatient (CLI) | payer MEDICARE, MEDICAID, SELFPAY ==
--- NOTE | 2022-06-15 15:00 | DI.RAD_ITS ---
Exam(s) XR LUMBAR SPINE AP, LAT EXAM: XR LUMBAR SPINE AP, LAT CLINICAL HISTORY: Low back pain. TECHNIQUE: 2D digital imaging was performed. Five views. COMPARISON: CR XR DEXA BONE DENSITY W/WO MORAIMA from 12/27/2020 FINDINGS: No compression fracture is seen. There is narrowing of the L2-3 disc eccentric toward the left where there are endplate osteophytes. The remaining discs are maintained. There are prominent facet dege nerative changes in the lower lumbar levels. No spondylolysis or spondylolisthesis is seen. Degenera tive changes at the inferior SI joints, greater on the left. IMPRESSION: Degenerative disc changes greatest at L2-3. Facet degenerative changes greatest at L4-5 and L5-S1. DATA REPOSITORY: RADIATION DOSE DELIVERED:
== END 2022-06-15 15:30 | disposition home or self-care (01) ==
LOC: DIORS 15:30
PROVIDERS: PCP Family Medicine; Referring Provider Family Medicine; Visit Provider Physician Assistant
DX: M54.50 Low back pain, unspecified (principal); M48.05 Spinal stenosis, thoracolumbar region
CPT/HCPCS: 99214; 72100

== ENCOUNTER → 2022-07-07 02:43 | Outpatient (CLI) | payer MEDICARE, MEDICAID, SELFPAY ==
--- NOTE | 2022-07-07 07:30 | DI.MRI_ITS ---
Exam(s) MR LUMBAR SPINE WO EXAM: MR LUMBAR SPINE WO CLINICAL HISTORY: PAIN,spinal stenosis, m48.00. TECHNIQUE: Multiplanar multisequence MRI of the Lumbar spine was performed. COMPARISON: CR XR LUMBAR SPINE AP, LAT from 06/15/2022 FINDINGS: Bones: The last intervertebral disc space is designated the L5/S1 level for the numbering purpose of this examination. The vertebral body heights are well maintained. Alignment is satisfactory. Mild d egenerative endplate signal changes are present. Cord: The conus tip ends at the L1 level. It is of normal size and signal intensity. T12-L1: No disc herniations or bulges are present. No central spinal canal or neural foraminal stenos is. L1-2: No disc herniations or bulges are present. No central spinal canal or neural foraminal stenosis . L2-3: There is a diffuse disc bulge. There also appears to be a cyst tiny disc herniation posterior t o the L3 vertebral body. There is mild narrowing of the central spinal canal. There is moderate right neural foraminal narrowing and mild left neural foraminal narrowing. L3-4: There is a diffuse disc bulge present. No significant central spinal canal or left neural ninoska inal stenosis is seen. There is mild right neural foraminal stenosis. L4-5: There is a diffuse disc bulge. There are degenerative changes of the facets. No significant héctor tral spinal canal stenosis is seen. There is mild bilateral neural foraminal narrowing. L5-S1: No disc herniations or bulges are present. No central spinal canal or neural foraminal stenosi s.Degenerative changes of the facets are present. Soft tissues: The visualized SI joints and sacrum are well maintained. The paraspinal soft tissues ar e unremarkable. Visualized abdominal organs: There is a complex 2.8 x 3.1 cm mass in the left kidney. IMPRESSION: 1. Multilevel degenerative changes in the lumbar spine resulting in central spinal canal or neural fo raminal stenosis as described above. 2. 2.8 x 3.1 cm complex mass in the left kidney. Neoplasm should be considered. A CT abdomen and pelv is or MRI abdomen without and with contrast is recommended for further evaluation. DATA REPOSITORY:
== END ==
PROVIDERS: PCP Family Medicine; Visit Provider Student in an Organized Health Care Education/Training Program
DX: M48.062 Spinal stenosis, lumbar region with neurogenic claudication (principal); M47.816 Spondylosis without myelopathy or radiculopathy, lumbar region
CPT/HCPCS: 72148

== ENCOUNTER 2022-08-05 16:41 | Outpatient (REF) | payer MEDICARE, MEDICAID, SELFPAY ==
[2022-08-05 19:48] LABS: Abs Immature Grans 0.07 10^3/uL (0.0-0.06); Absolute Eosinophil Count 0.24 10^3/uL (0.0-0.7); Absolute Neutrophil Count 10.41 10^3/uL (1.2-6.7); Basophils % 0.9; Eosinophils % 1.7; HCT 42.4 % (36.0-46.0); HGB 13.4 g/dL (11.2-15.7); Immature Grans % 0.5; Lymphocytes % 13.7; MCH 27.7 pg (27.0-33.0); MCHC 31.6 % (32.0-36.0); MCV 88 fL (80-95); MPV 11.4 fL (8.0-11.0); Monocytes % 8.7; Neutrophils % 74.5; Platelet Count 351 10^3/uL (130-400); RBC 4.83 10^6/uL (3.93-5.22); RDW 14.7 % (11.7-14.6); RDW-SD 47.5 fL; WBC 13.97 10^3/uL (4.4-10.8)
[2022-08-05 19:49] LABS: Absolute Basophil Count 0.13 10^3/uL (0.0-0.2); Absolute Lymphocyte Count 1.91 10^3/uL (1.2-3.4); Absolute Monocyte Count 1.22 10^3/uL (0.1-0.8)
[2022-08-05 20:12] LABS: ALT 14 U/L (14-59); AST 22 U/L (15-37); Albumin 3.9 g/dL (3.4-5.0); Alkaline Phosphatase 89 U/L (46-116); Anion Gap 5.9 mmol/L (3-11); BUN 20 mg/dL (7-18); Bilirubin, Total 0.3 mg/dL (0.2-1.0); CO2 34.1 mmol/L (21.0-32.0); CREATININE 0.8 mg/dL (0.55-1.02); Calcium 9.6 mg/dL (8.5-10.1); Chloride 96 mmol/L (98-107); Estimated GFR 74.44 (mL/min/1.73m2); Glucose 92 mg/dL (74-106); Potassium 3.5 mmol/L (3.5-5.1); Sodium 136 mmol/L (136-145); Total Protein 7.8 g/dL (6.4-8.2)
== END 2022-08-05 16:42 | disposition home or self-care (01) ==
LOC: NCHCN 16:41
PROVIDERS: PCP Family Medicine; Visit Provider Nurse Practitioner Family
DX: I10 Essential (primary) hypertension (principal); E78.5 Hyperlipidemia, unspecified
CPT/HCPCS: 80053; 85025

== ENCOUNTER 2022-08-13 02:51 | Outpatient (CLI) | payer MEDICARE, SELFPAY ==
--- NOTE | 2022-08-13 | DI.CT_ITS ---
Exam(s) CT ABDOMEN PELVIS WO/W EXAM: CT ABDOMEN PELVIS WO/W CLINICAL HISTORY: LT KIDNEY MASS, N28.89, INCIDENTAL L TECHNIQUE: Imaging Protocol: Axial computed tomography images with coronal and sagittal reformatted images were created and reviewed CONTRAST MATERIAL: Intravenous: Omnipaque 350 Contrast volume:100 mL Oral: No COMPARISON: CT CT PELVIC WO from 04/06/2020 MR MR LUMBAR SPINE WO from 07/07/2022 FINDINGS: ABDOMEN: Lung Bases: There is a small hiatal hernia. Coronary artery calcifications are present. Pulmonary f ibrosis is seen in the lung bases. Liver: Normal density. No measurable mass. Portal, Superior Mesenteric, and Splenic Veins: Unremarkable. Gallbladder and Biliary Tract: No radiodense calculus or dilation. Pancreas: Normal density, no abnormal calcifications or inflammatory process. Spleen: Normal. Adrenals: No masses seen. Kidneys: Normal size, contour and axis. No radiodense stones or obstructive uropathy. There is a 3.3 x 3 x 3.6 cm mixed cystic and solid mass in the midpole of the left kidney. Tiny hypodensities are s een in both kidneys they are too small for further characterization but likely reflect small cysts. Abdominal Aorta: Abdominal portion non-dilated. Atherosclerosis. Bowel: No obstruction or bowel wall thickening. Appendix is unremarkable. Peritoneal Cavity: No ascites, collection or mesenteric inflammatory response. No free air. Lymph Nodes: Within normal limits. Bones: Within normal limits for the patient's age. There is a grade 1 anterolisthesis of L4 on L5. No spondylolysis is present. No aggressive osseous lesion is identified. Soft Tissues: Unremarkable. PELVIS: Bladder: Symmetric distention, no gross wall thickening. Reproductive Organs: Status post hysterectomy. Lymph Nodes: Within normal limits. Bones: Within normal limits for the patient's age. IMPRESSION: 1. 3.3 x 3 x 3.6 cm complex left renal mass. Primary diagnostic concern for primary renal neoplasm s uch as renal cell carcinoma. 2. Pulmonary fibrosis. 3. Status post hysterectomy. RADIATION DOSE DELIVERED: 2,268.05mGy.cm Total DLP 2,268.05mGy.cm Total DLP DATA REPOSITORY: All CT scans at this facility are submitted to the National Radiology Data Registry (NRDR) Dose Index Registry (DIR) with the [employer] (ACR). RADIATION OPTIMIZATION: All CT scans at this facility use at least one of these dose optimization te chniques: automated exposure control; mA and/or kV adjustment per patient size (includes targeted exa ms where dose is matched to clinical indication); or iterative reconstruction.
== END 2022-08-13 03:11 ==
LOC: DI 02:51
PROVIDERS: PCP Family Medicine; Visit Provider Nurse Practitioner Family
DX: N28.89 Other specified disorders of kidney and ureter (principal); J84.10 Pulmonary fibrosis, unspecified; Z90.710 Acquired absence of both cervix and uterus
CPT/HCPCS: 74178

== ENCOUNTER → 2022-08-19 10:20 | Outpatient (BNVA) | payer MEDICARE, SELFPAY | PROVIDERS: PCP Family Medicine; Referring Provider Family Medicine; Visit Provider Nurse Practitioner Gerontology | DX: N28.89 Other specified disorders of kidney and ureter (principal) | CPT/HCPCS: 81003; 99215 ==

== ENCOUNTER 2022-12-02 10:39 | Outpatient (CLI) | payer MEDICARE, SELFPAY ==
--- NOTE | 2022-12-02 06:00 | DI.RAD_ITS ---
Exam(s) XR PAIN CLINIC LUMBAR SP 2V EXAM: XR PAIN CLINIC LUMBAR SP 2V CLINICAL HISTORY: Dx: Lumbar Radiculopathy TECHNIQUE: 2D and realtime digital imaging was performed. CONTRAST MATERIAL: Refer to procedure report. COMPARISON: No exams were available for comparison FINDINGS: Fluoroscopy was provided for Dr. Beltre during the performance of a lumbar steroid epidural injection. Please refer to the procedure report for complete details. Ka,r=6.79 mGy IMPRESSION:
[2022-12-02 10:49] VITALS: BP 147/79; PULSE 97; RESP 20; TEMP 36.8; O2SAT 97
[2022-12-02] MEDS: Omnipaque 240 MG/ML 50 ML BTL IJ (11:44)
[2022-12-02] MEDS: methylPREDNISolone ACETATE 80 MG/ML VIAL IJ (11:44)
[2022-12-02 11:48] VITALS: BP 167/67; PULSE 106; RESP 20; O2SAT 98
--- NOTE | 2022-12-02 12:18 | PDOC.PAIN ---
Date of service: 12/02/22 Time of Service: 12:21 Pain Managment Procedure Note Procedure Note Procedure Note: Lumbar Epidural Steroid Injection Procedure Note COMMENTS:She was previously evaluated. She has low back pain radiating down the right leg. She does has disc pathology on his imaging. Pre-procedure pain VAS was 10/10 Dx: Lumbosacral radiculopathy Beth Shields has been referred to the [facility] for lumbar epidural steroid injection. The patient was greeted by the nurse who verified patients name and . Patient was then taken to the fluoroscopy suite. The patient was interviewed and the medial record reviewed. There were no medical, pharmacologic, radiographic, or other structural contraindications to attempting fluoroscopically guided lumbar epidural steroid injection. Risks and expected side effects as well as potential benefits of the procedure were reviewed and voiced concerns expressed. The patient consent form was signed and witnessed. Standard patient time-out procedure was performed. The patient was placed in the prone position on the fluoroscopy table and automated blood pressure cuff and pulse oximeter applied. The skin entry point for entering/approaching the epidural space at L5-S1 and marked. Following thorough chlorhexadine preparation of the skin and draping and 1% lidocaine infiltration of the skin entry point and subcutaneous tissues, a 18 gauge Touhy needle was placed under fluoroscopic guidance and with loss of resistance technique into the epidural space. Needle tip placement and depth were aided and confirmed by fluoroscopy. There was no paresthesia or return of blood or CSF through the needle. 1 cc's of Omnipaque 240 was injected with clear epidural spread confirmed with fluoroscopy. 80mg depomedrol was injected. The needle was flushed with 2 cc of 1% Lidocaine and removed without difficulty. There was not any unusual discomfort expressed by Beth Shields. Patient's vital signs were stable throughout the procedure and were as recorded in nursing records. Follow up plans and appointments were discussed with patient. Post procedure instruction was given as documented in nursing records and having met discharge criteria and was discharged from the [facility]. COMMENTS: If this procedure is helpful (at least 50% pain improvement or functional improvement for at least 3 months), it can be completed up to 4 times per 12 months. Will Beltre Do, MPH [facility]
== END 2022-12-02 10:40 | disposition home or self-care (01) ==
LOC: PC 10:40
PROVIDERS: PCP Family Medicine; Visit Provider Preventive Medicine Occupational Medicine
DX: M54.17 Radiculopathy, lumbosacral region (principal); M54.50 Low back pain, unspecified
CPT/HCPCS: 62323; 72100; J1040; Q9967

== ENCOUNTER 2023-01-19 16:00 | Outpatient (REF) | payer MEDICARE, SELFPAY ==
[2023-01-19 16:13] LABS: HCT 37.1 % (36.0-46.0); MCH 28.8 pg (27.0-33.0); MCHC 32.3 % (32.0-36.0); MCV 89 fL (80-95); MPV 11.5 fL (8.0-11.0); Platelet Count 383 10^3/uL (130-400); RBC 4.16 10^6/uL (3.93-5.22); RDW 15.2 % (11.7-14.6); RDW-SD 50.2 fL
[2023-01-19 16:34] LABS: ALT 22 U/L (14-59); AST 29 U/L (15-37); Albumin 3.5 g/dL (3.4-5.0); Alkaline Phosphatase 88 U/L (46-116); Anion Gap 7.9 mmol/L (3-11); BUN 20 mg/dL (7-18); Bilirubin, Total 0.2 mg/dL (0.2-1.0); CO2 31.1 mmol/L (21.0-32.0); CREATININE 0.9 mg/dL (0.55-1.02); Calcium 8.9 mg/dL (8.5-10.1); Calculated LDL 113 mg/dL (<100); Chloride 101 mmol/L (98-107); Cholesterol 201 mg/dL (<200); Estimated GFR 64.23 (mL/min/1.73m2); Glucose 97 mg/dL (74-106); HDL Cholesterol 40 mg/dL (40-60); Magnesium 2.3 mg/dL (1.8-2.4); Potassium 3.8 mmol/L (3.5-5.1); Sodium 140 mmol/L (136-145); Total Protein 7.2 g/dL (6.4-8.2); Triglyceride 241 mg/dL (<150)
[2023-01-19 16:43] LABS: Absolute Neutrophil Count 10.51 10^3/uL (1.2-6.7)
[2023-01-19 16:44] LABS: Absolute Basophil Count 0.15 10^3/uL (0.0-0.2); Absolute Eosinophil Count 0.59 10^3/uL (0.0-0.7); Absolute Lymphocyte Count 1.18 10^3/uL (1.2-3.4); Absolute Monocyte Count 2.07 10^3/uL (0.1-0.8); Atypical Lymphocytes % 1; Diff Comment Manual Differential; Myelocytes % 2; RBC Morphology Normal
== END 2023-01-19 16:01 | disposition home or self-care (01) ==
LOC: NCHCN 16:00
PROVIDERS: PCP Family Medicine; Visit Provider Family Medicine
DX: I10 Essential (primary) hypertension (principal); C64.2 Malignant neoplasm of left kidney, except renal pelvis; M25.552 Pain in left hip; E78.5 Hyperlipidemia, unspecified; J45.20 Mild intermittent asthma, uncomplicated
CPT/HCPCS: 80053; 80061; 83735; 85025

== ENCOUNTER 2023-02-03 01:50 | Outpatient (CLI) | payer MEDICARE, SELFPAY ==
--- NOTE | 2023-02-03 | DI.RAD_ITS ---
Exam(s) XR HUMERUS RT EXAM: XR HUMERUS RT CLINICAL HISTORY: Screening for iv contrast infiltrate per DR. Cruz. TECHNIQUE: 2D digital imaging was performed. COMPARISON: CR XR DEXA BONE DENSITY W/WO MORAIMA from 12/27/[address] ABDOMEN PELVIS WO from 02/03/2023 FINDINGS: There is a large quantity of high-density material seen within the soft tissues of the arm from the u pper 3rd through the distal portion, consistent with extravasated IV contrast.. IMPRESSION: IV contrast extravasation into the soft tissues of the right arm. DATA REPOSITORY: RADIATION DOSE DELIVERED:
[2023-02-03] MEDS: Barium Sulfate 2% W/V-Creamy Vanilla Smoothie 450 ML BTL PO (13:51)
[2023-02-03] MEDS: Omnipaque 350 MG/ML 500 ML BTL-Imaging package IJ (13:56)
[2023-02-03] MEDS: Normal Saline - Diluent 50 ML VIAL IJ (13:57)
--- NOTE | 2023-02-03 14:00 | DI.CT_ITS ---
Exam(s) CT ABDOMEN PELVIS WO EXAM: CT ABDOMEN PELVIS WO CLINICAL HISTORY: LT KIDNEY RENAL CELL CARCINOMA, C64.2. TECHNIQUE: Imaging Protocol: Axial computed tomography images with coronal and sagittal reformatted images were created and reviewed. Attempted administration of IV contrast however the IV infiltrated. Oral: yes / COMPARISON: CT CT ABDOMEN PELVIS WO/W from 08/13/2022 FINDINGS: ABDOMEN: Lung Bases: The heart is enlarged. There is a small pericardial effusion, unchanged. Emphysematous and fibrotic changes are noted at the lung bases. Liver: Normal density. No measurable mass. Gallbladder and biliary tract: No radiodense calculus or dilation. Pancreas: Normal density, no abnormal calcifications or inflammatory process. Spleen: Normal. Kidneys: Normal size, contour and axis. No radiodense stones or obstructive uropathy. No change in si ze of left renal mass, measuring 3.6 cm in greatest dimension Adrenal glands: No masses seen. Lymph nodes: Within normal limits. Abdominal Aorta: Abdominal portion non-dilated. Atherosclerotic changes. PELVIS: Bladder: Symmetric distention, no gross wall thickening. Bowel: Moderate to increased quantity of stool. No obstruction or bowel wall thickening. Peritoneal cavity: No ascites, collection or mesenteric inflammatory response. Reproductive organs: Status post hysterectomy. Bones: Degenerative changes in the spine. No compression fracture. No lytic or blastic lesions. IMPRESSION: Stable size of left renal mass. No evidence of metastatic disease. RADIATION DOSE DELIVERED: 923.08mGy.cm Total DLP DATA REPOSITORY: All CT scans at this facility are submitted to the National Radiology Data Registry (NRDR) Dose Index Registry (DIR) with the [employer] (ACR). RADIATION OPTIMIZATION: All CT scans at this facility use at least one of these dose optimization te chniques: automated exposure control; mA and/or kV adjustment per patient size (includes targeted exa ms where dose is matched to clinical indication); or iterative reconstruction.
== END 2023-02-03 02:10 ==
LOC: DI 01:51
PROVIDERS: PCP Family Medicine; Visit Provider Nurse Practitioner Family
DX: C64.2 Malignant neoplasm of left kidney, except renal pelvis (principal)
CPT/HCPCS: 73060; 74176

== ENCOUNTER 2023-02-08 01:41 | Outpatient (CLI) | payer MEDICARE, SELFPAY ==
--- NOTE | 2023-02-08 13:18 | DI.RAD_ITS ---
Exam(s) XR CHEST 2V PA LATERAL EXAM: XR CHEST 2V PA LATERAL CLINICAL HISTORY: LT RENAL MASS, N28.89,? NEW LUNG NODULES. TECHNIQUE: 2D digital imaging was performed. COMPARISON: CR XR CHEST 2V PA LATERAL from 10/23/[address] ABDOMEN PELVIS WO from 02/03/2023 FINDINGS: 2 views: Heart size is upper normal. The mediastinum is not widened. The amount of bilateral chronic interstitial disease appears unchanged from 10/23/2021. No new confl uent infiltrates and there are no pleural effusions. IMPRESSION: Bilateral interstitial disease which appears symmetrical and unchanged from 10/23/2021. DATA REPOSITORY: RADIATION DOSE DELIVERED:
== END 2023-02-08 02:01 ==
LOC: DI 01:42
PROVIDERS: PCP Family Medicine; Visit Provider Urology
DX: N28.89 Other specified disorders of kidney and ureter (principal)
CPT/HCPCS: 71046

== ENCOUNTER 2023-04-21 12:51 | Observation (INO) | payer MEDICARE, SELFPAY ==
[2023-04-21] VITALS (11 sets, daily range): BP systolic 147–179; BP diastolic 53–84; PULSE 63–103; RESP 16–20; TEMP 36.4–37.2; O2SAT 96–100
--- NOTE | 2023-04-21 13:27 | ED.GENADUL_ITS ---
Discharge Plan Disposition Patient Disposition: Admit to [facility] Condition: Stable Discharge Details Chief Complaint: SOB Clinical Impression: Symptomatic anemia Primary Care Provider: Dmitriy Angeles ED Provider: Stephen Munoz Home Meds and New Rx's Prescriptions: No Action vit C,E,Zn,Dl-aoyvi2-mao-zeax 250-2.5-0.5 mg capsule PO albuterol sulfate 90 mcg/actuation HFA aerosol inhaler 1 inh inhalation ONCE magnesium oxide 250 mg magnesium tablet 250 mg PO DAILY PreserVision AREDS 14,320-226-200 xixs-jh-vote capsule 1 cap PO DAILY gabapentin 100 mg capsule 100 mg PO QHS Qty: 30 0RF Rx Instructions: Trial for leg discomfort per pt report per PCP Flory Lawrence Centrum Silver 1 EACH tablet 1 ea PO DAILY Fish Oil 1 EACH capsule 1 cap PO DAILY Fiber Gummies 2.5 GM tablet,chewable 4 ea PO DAILY fluticasone propion-salmeterol [Advair HFA] 115-21 mcg/actuation HFA aerosol inhaler 2 inh INHALATION BID Patient Comments: INL 2 PFS PO BID chlorthalidone 25 mg Tablet 25 mg PO DAILY Qty: 1 0RF calcium carbonate-vitamin D3 [Calcium 600 + D(3)] 600 mg(1,500mg) -200 unit Tablet 1 tab PO TID Qty: 1 0RF black cohosh 540 mg capsule 20 mg PO DAILY Medical Decision Making 82 yo female with hx of htn, chronic hip pain, who comes in with over a week of dizziness and shortness of breath. She states she started gabapentin and losartan on 04/09 and the symptoms started that same day. Denies fevers, chills, chest pain, headache, abdomen pain, n/v. She has had a dry cough but states this is chronic. She is caox4 on arrival speaking clearly in no distress. She has clear lungs, no murmurs, no focal motor deficits and CN II-XII intact. Given her age and complaint of dyspnea will obtain cbc, troponin, cmp, covid test and xray. She has no hypoxia or tachycardia nor evidence of dvt on exam so doubt PE labs show hemoglobin of 7.3, down from 12 in December and has never been anemic on prior labs, she consented to a rectal exam which showed brown guaic positive stool. Suspect slow gi bleed leading to this anemia given stable vitals. She is weak and dyspneic in the stretcher with simple movements, she consents to blood transfusion, one unit ordered for symptomatic anemia, will discuss with hospitalist about admission for obs for symptomatic anemia Differential Diagnosis Differential Diagnosis: med reaction, covid, pneumonia, anemia Imaging Data Radiologic Study: Attestation: I personally reviewed and interpreted this imaging study as follows: Imaging: X-Ray My impression: no acute findings Lab Data Lab results reviewed: Yes I reviewed the patient's lab results. HPI General Mode of arrival: ambulatory . Date/Time Provider Initiated Documentation: 04/21/23 13:16 . Limitations to Documentation: no limitations . Information obtained by: patient . History of Present Illness 82 year old F presents to the emergency department with the chief complaint of shortness of breath, described as moderate, Patient started experiencing this hour(s) (10) and it has been constant. No relieving factors improve symptom(s), No exacerbating factors reported . Patient notes other (dizziness); denies chest pain. Related Data Home Medications Medication Instructions Recorded Confirmed stngfhde-ehv-wnano acid 0.4 1 ea PO DAILY 02/01/13 02/25/23 mg-lycopene 300 mcg-lutein 250 mcg tablet (Centrum Silver) inulin 2.5 gram chewable tablet 4 ea PO DAILY 07/17/14 02/25/23 (Fiber Gummies) omega-3 fatty acids-fish oil 340 1 cap PO DAILY 07/17/14 02/25/23 mg-1,000 mg capsule (Fish Oil) fluticasone propionate 115 2 inh inhalation BID 04/06/20 02/25/23 mcg-salmeterol 21 mcg/actuation HFA inhaler (Advair HFA) calcium carbonate 600 mg-vitamin 1 tab PO TID #1 tab 04/08/20 02/25/23 D3 5 mcg (200 unit) tablet (Calcium 600 + D(3)) chlorthalidone 25 mg tablet 25 mg PO DAILY #1 tab 04/08/20 02/25/23 magnesium oxide 250 mg PO DAILY 12/16/21 02/25/23 vit cap PO 12/26/21 02/25/23 C,E,zinc,Sv-pzzkm-0-lutein-zeaxanthin 250 mg-2.5 mg-0.5 mg capsule albuterol sulfate 90 mcg/actuation 1 inh inhalation ONCE 06/15/22 02/25/23 aerosol inhaler vitamins A,C,R-glsc-ruwbhd 4,296 1 cap PO DAILY 08/18/22 02/25/23 mcg-226 mg-90 mg capsule (PreserVision AREDS) black cohosh 540 mg capsule 20 mg PO DAILY 11/26/22 02/25/23 gabapentin 100 mg capsule 100 mg PO QHS #30 caps 04/09/23 Previous Rx's Medication Instructions Recorded calcium carbonate 600 mg-vitamin 1 tab PO TID #1 tab 04/08/20 D3 5 mcg (200 unit) tablet (Calcium 600 + D(3)) chlorthalidone 25 mg tablet 25 mg PO DAILY #1 tab 04/08/20 gabapentin 100 mg capsule 100 mg PO QHS #30 caps 04/09/23 Allergies Allergy/AdvReac Type Severity Reaction Status Date / Time lisinopril Allergy Unknown Unverified 02/24/23 17:08 pravastatin Allergy Skin Rash Unverified 02/24/23 17:08 cyclobenzaprine HCl AdvReac Intermediate Agitation Unverified 02/24/23 17:08 [From Flexeril] General Stated Complaint: SOB NICHOLAS: 3 Review of Systems All systems reviewed & are unremarkable except as noted in HPI and below Constitutional Constitutional: Denies chills, Denies fever(s) and Denies weakness Cardiovascular Cardiovascular: Denies chest pain Respiratory Respiratory: Denies cough Gastrointestinal Gastrointestinal: Denies abdominal pain, Denies nausea and Denies vomiting Genitourinary Genitourinary: Denies dysuria Integumentary/Breasts Skin/Breast: Denies rash Neurologic Neurologic: Denies weakness [facility] All Active Problems (Updated 04/21/23 @ 15:06 by Stephen Munoz MD) Symptomatic anemia (Acute) Sacroiliac joint dysfunction of both sides (Acute) Renal cell carcinoma (Acute) Referred to [facility]. Plan is to monitor for size change. Hip pain, left (Acute) Shoulder pain, left (Acute) Fatigue (Acute) Leg pain, left (Acute) Osteopenia (Acute) Left kidney mass (Acute) Spinal stenosis (Acute) Trochanteric bursitis, left hip (Acute) Injection: 12/26/2021 Pneumonia (Acute) Sepsis (Acute) Calcific tendinitis of left hip (Acute) Strain of gastrocnemius muscle of left lower extremity (Acute) HTN (hypertension) (Chronic) Hyperlipidemia (Chronic) Asthma (Chronic) Medical History Chronic left hip pain Renal cell carcinoma of left kidney Surgical History H/O abdominoplasty H/O: hysterectomy Social History Smoking/Tobacco Use Status: Former Tobacco Use Smoking risk assessment performed?: Yes Alcohol Intake: never Drug use: Never Substance use type: marijuana Do you feel safe at home: Yes Do you feel safe in your relationship?: Yes Exam Const General: no acute distress Orientation: alert HENMT Head: normal to inspection Ears: external ears normal General nose exam: external nose normal Mouth: moist mucous membranes Eyes General: appearance normal, both eyes and all related structures Neck Neck: normal visual inspection Resp Effort & Inspection: normal respiratory effort and able to speak in complete sentences Auscultation: clear to auscultation bilaterally Cardio Jugular venous pressure: no JVD Rate: regular rate Heart Sounds: no murmurs GI Palpation: soft and nontender Skin General skin exam: no rashes or lesions noted Neuro General: patient alert and patient oriented x3 Extrem General: normal to inspection Psych Mental Status: mental status grossly normal Course Vital Signs Vital signs: Vital Signs Temperature 37.1 C 04/21/23 12:55 Pulse 99 H 04/21/23 12:55 Respiratory Rate 18 04/21/23 12:55 Blood Pressure 171/84 H 04/21/23 12:55 Pulse Oximetry 100 04/21/23 12:55 Temperature 37.1 C 04/21/23 12:55 Pulse 99 H 04/21/23 12:55 Respiratory Rate 18 04/21/23 12:55 Respiratory Effort Normal 04/21/23 13:00 Blood Pressure 165/79 H 04/21/23 13:01 Blood Pressure Position Sitting 04/21/23 12:55 Pulse Oximetry 100 04/21/23 12:55 Oxygen Delivery Method Room Air 04/21/23 12:55 Oxygen Flow Rate 0 04/21/23 12:55 Pain Level 0 04/21/23 12:55
[2023-04-21 13:55] LABS: Source Nasal/Nares
[2023-04-21 14:08] LABS: Abs Immature Grans 0.07 10^3/uL (0.0-0.06); Absolute Basophil Count 0.12 10^3/uL (0.0-0.2); Absolute Eosinophil Count 0.44 10^3/uL (0.0-0.7); Absolute Lymphocyte Count 1.56 10^3/uL (1.2-3.4); Absolute Monocyte Count 1.15 10^3/uL (0.1-0.8); Eosinophils % 3.8; HCT 23.8 % (36.0-46.0); HGB 7.3 g/dL (11.2-15.7); Immature Grans % 0.6; Lymphocytes % 13.4; MCH 24.3 pg (27.0-33.0); MCHC 30.7 % (32.0-36.0); MCV 79 fL (80-95); MPV 9.6 fL (8.0-11.0); Monocytes % 9.9; Neutrophils % 71.3; RBC 3.01 10^6/uL (3.93-5.22); RDW 14.7 % (11.7-14.6); RDW-SD 42.3 fL; WBC 11.64 10^3/uL (4.4-10.8)
[2023-04-21] MEDS: Normal Saline 1,000 ML 1000 ML IV (14:20)
[2023-04-21 14:28] LABS: Diff Comment Diff Reviewed; Hypochromasia 2+; Platelet Count 498 10^3/uL (130-400)
[2023-04-21 14:31] LABS: ALT 18 U/L (14-59); AST 18 U/L (15-37); Albumin 3.2 g/dL (3.4-5.0); Alkaline Phosphatase 77 U/L (46-116); Anion Gap 7.6 mmol/L (3-11); BUN 18 mg/dL (7-18); Bilirubin, Total 0.2 mg/dL (0.2-1.0); CO2 26.4 mmol/L (21.0-32.0); CREATININE 0.8 mg/dL (0.55-1.02); Calcium 8.9 mg/dL (8.5-10.1); Chloride 103 mmol/L (98-107); Estimated GFR 73.98 (mL/min/1.73m2); Glucose 106 mg/dL (74-106); Magnesium 2.3 mg/dL (1.8-2.4); NT-proBNP 487 pg/mL (<300); Potassium 3.8 mmol/L (3.5-5.1); Sodium 137 mmol/L (136-145); TSH (W/Ref FT4) 2.78 uIU/mL (0.36-3.74); Total Protein 7.7 g/dL (6.4-8.2); Troponin I < 50 ng/L (<or=60)
[2023-04-21 14:37] LABS: COVID-19 PCR Negative (Negative)
--- NOTE | 2023-04-21 14:50 | DI.RAD_ITS ---
Exam(s) XR PORTABLE CHEST AP EXAM: XR PORTABLE CHEST AP CLINICAL HISTORY: shortness of breath TECHNIQUE: 2D digital imaging was performed. COMPARISON: No exams were available for comparison FINDINGS: LUNGS: Suboptimally inflated. Underlying severe fibrotic changes. No focal infiltrate. No evidence of pulmonary edema. No pleural abnormality seen. HEART: Enlarged, unchanged. AORTA: Normal diameter. BONES: Unremarkable for age. Soft tissues: Unremarkable. IMPRESSION: Fibrotic changes. No acute abnormality. DATA REPOSITORY: RADIATION DOSE DELIVERED:
[2023-04-21 15:26] LABS: Reticulocyte 2.1 % (0.5-2.4)
[2023-04-21 15:42] LABS: Ferritin 10 ng/mL (8-252)
--- NOTE | 2023-04-21 15:51 | HPE_ITS ---
Date of service: 04/21/23 Time of Service: 15:51 Assessment and Plan Assessment and plan (1) Symptomatic anemia: Status: Acute Assessment and plan: In setting of heme + stool, but also renal cell carcinoma. Last known hemoglobin was 12 in 01/19/23. Today it is 7.3. Symptomatic - dizzy, short of breath. Transfusing 1 unit pRBCS and rechecking H/H. Start empirically on a PPI. As not having significant clinical bleeding, I think endoscopy could be done as outpatient. Hold fish oil. (2) Chest pressure: Status: Acute Assessment and plan: MOnitor on tele. I suspect this is due to symptomatic anemia. Repeat troponin was ordered but not collected due to getting blood transfusion. I do not see an EKG and will obtain one. (3) Heme + stool: Status: Acute Assessment and plan: As above (4) Renal cell carcinoma: Status: Acute Assessment and plan: As above (5) Leucocytosis: Status: Acute Assessment and plan: No clear infectious process. Obtain UA. (6) DVT prophylaxis: Status: Acute Assessment and plan: SCDS Hold off of chemical DVT ppx in a patient with heme + stool and symptomatic anemia (7) Discharge planning issues: Status: Acute Assessment and plan: Full code History of Present Illness History of Present Illness Chief Complaint: weakness, dizziness, shortness of breath Narrative: Ms Shields is an 82 year old female with PMhx of renal cell ca, asthma, hypertension, hyperlipidemia on fish oil, who presented to [facility] ED today 7-10 days of fatigue, dizziness, shortness of breath. Her workup in the ER revealed a hemoglobin of 7.3 and hematocrit of 23.8 with MVC of 79. On rectal exam by the ER provider, she had brown heme + stool. Her COVID-19 PCR was negative. She was too weak to ambulate. She was ordered a transfusion of 1 unit of pRBCs, and a hospitalist admission was requested. Ms Shields describes dizziness, chest pressure today, some palpitations, HALE. Endorses black stools at home. Does recall taking some aleve for her chronic back and hip pain for a couple of days in the last week, but then switching to tylenol. She cannot recall if the aleve happened before or after Denies syncop e, nausea, abdominal pain, weight loss or weight gain. She denies h/o bleeding or ulcers. Review of Systems All systems reviewed & are unremarkable except as noted in HPI and below PFSH All Active Problems (Updated 04/21/23 @ 19:59 by Marina Parker MD) Chest pressure (Acute) Discharge planning issues (Acute) DVT prophylaxis (Acute) Leucocytosis (Acute) Heme + stool (Acute) Symptomatic anemia (Acute) Sacroiliac joint dysfunction of both sides (Acute) Renal cell carcinoma (Acute) Referred to [facility]. Plan is to monitor for size change. Hip pain, left (Acute) Shoulder pain, left (Acute) Fatigue (Acute) Leg pain, left (Acute) Osteopenia (Acute) Left kidney mass (Acute) Spinal stenosis (Acute) Trochanteric bursitis, left hip (Acute) Injection: 12/26/2021 Pneumonia (Acute) Sepsis (Acute) Calcific tendinitis of left hip (Acute) Strain of gastrocnemius muscle of left lower extremity (Acute) HTN (hypertension) (Chronic) Hyperlipidemia (Chronic) Asthma (Chronic) Medical History Chronic left hip pain Renal cell carcinoma of left kidney Surgical History H/O abdominoplasty H/O: hysterectomy Social History Smoking/Tobacco Use Status: Former Tobacco Use Smoking risk assessment performed?: Yes Alcohol Intake: never Drug use: Never Substance use type: marijuana Housing: apartment Do you feel safe at home: Yes Do you feel safe in your relationship?: Yes Meds Allergies and Home Medications Allergies Allergy/AdvReac Type Severity Reaction Status Date / Time lisinopril Allergy Unknown Unverified 02/24/23 17:08 pravastatin Allergy Skin Rash Unverified 02/24/23 17:08 cyclobenzaprine HCl AdvReac Intermediate Agitation Unverified 02/24/23 17:08 [From Flexeril] Home Medications Medication Instructions Recorded Confirmed Type rtdxmuzh-iig-lhnvf acid 0.4 1 ea PO DAILY 02/01/13 04/21/23 History mg-lycopene 300 mcg-lutein 250 mcg tablet (Centrum Silver) inulin 2.5 gram chewable tablet 4 ea PO DAILY 07/17/14 02/25/23 History (Fiber Gummies) omega-3 fatty acids-fish oil 340 1 cap PO DAILY 07/17/14 04/21/23 History mg-1,000 mg capsule (Fish Oil) fluticasone propionate 115 2 inh inhalation BID 04/06/20 04/21/23 History mcg-salmeterol 21 mcg/actuation HFA inhaler (Advair HFA) calcium carbonate 600 mg-vitamin 1 tab PO TID #1 tab 04/08/20 04/21/23 Rx D3 5 mcg (200 unit) tablet (Calcium 600 + D(3)) chlorthalidone 25 mg tablet 25 mg PO DAILY #1 tab 04/08/20 02/25/23 Rx magnesium oxide 250 mg PO DAILY 12/16/21 04/21/23 History vit cap PO 12/26/21 02/25/23 History C,E,zinc,Az-cykca-6-lutein-zeaxanthin 250 mg-2.5 mg-0.5 mg capsule albuterol sulfate 90 mcg/actuation 1 inh inhalation ONCE 06/15/22 04/21/23 History aerosol inhaler vitamins A,C,I-nyby-ashqqz 4,296 1 cap PO DAILY 08/18/22 02/25/23 History mcg-226 mg-90 mg capsule (PreserVision AREDS) black cohosh 540 mg capsule 20 mg PO DAILY 11/26/22 02/25/23 History gabapentin 100 mg capsule 100 mg PO QHS #30 caps 04/09/23 04/21/23 Rx losartan 25 mg tablet 25 mg DAILY 04/21/23 04/21/23 History Exam Narrative Exam Narrative: General: Pleasant elderly female who is A&Ox3, NAD, looks younger than her stated age Neurological: A&Ox3, no focal deficits Psychiatric: Appropriate speech pattern/content Skin: Visible skin intact HEENT: Atraumatic, normocephalic, EOMI, dry MM, clear oropharynx, no submandibular or cervical lymphadenopathy, no goiter or JVD Cardiovascular: RRR, no m/r/g Lungs: CTAB Gastrointestinal: soft, nontender, nondistended Genitourinary: deferred Extremities: no edema BLEs, tibial surfaces TTP, +1 pedal pulses B, no c/c. Results Imaging Additional studies: CXR: Fibrotic changes.? No acute abnormality.? EKG: pending Labs 04/21/23 13:56 04/21/23 13:56 Labs: Laboratory Results - last 24 hr 04/21/23 04/21/23 04/21/23 13:51 13:56 13:56 WBC 11.64 H RBC 3.01 L Hgb 7.3 L Hct 23.8 L MCV 79 L MCH 24.3 L MCHC 30.7 L RDW 14.7 H Plt Count 498 H MPV 9.6 Reticulocyte % (Auto) Immature Gran % 0.6 Neutrophils % 71.3 Lymphocytes % 13.4 Monocytes % 9.9 Eosinophils % 3.8 Basophils % 1.0 Nucleated RBC % 0.0 Absolute Neutrophils 8.30 H Absolute Lymphocytes 1.56 Absolute Monocytes 1.15 H Absolute Eosinophils 0.44 Absolute Basophils 0.12 RBC Morphology See Below Hypochromasia 2+ Sodium 137 Potassium 3.8 Chloride 103 Carbon Dioxide 26.4 Anion Gap 7.6 BUN 18 Creatinine 0.8 Est GFR (CKD-EPI 2020) 73.98 Glucose 106 Calcium 8.9 Magnesium 2.3 Ferritin Total Bilirubin 0.2 AST 18 ALT 18 Alkaline Phosphatase 77 Troponin I < 50 NT-Pro-B Natriuret Pep 487 H Total Protein 7.7 Albumin 3.2 L TSH 2.78 COVID-19 Source Nasal/Nares SARS-CoV-2 (PCR) Negative Crossmatch 04/21/23 04/21/23 04/21/23 15:00 15:00 15:00 WBC RBC Hgb Hct MCV MCH MCHC RDW Plt Count MPV Reticulocyte % (Auto) 2.1 Immature Gran % Neutrophils % Lymphocytes % Monocytes % Eosinophils % Basophils % Nucleated RBC % Absolute Neutrophils Absolute Lymphocytes Absolute Monocytes Absolute Eosinophils Absolute Basophils RBC Morphology Hypochromasia Sodium Potassium Chloride Carbon Dioxide Anion Gap BUN Creatinine Est GFR (CKD-EPI 2020) Glucose Calcium Magnesium Ferritin 10 Total Bilirubin AST ALT Alkaline Phosphatase Troponin I NT-Pro-B Natriuret Pep Total Protein Albumin TSH COVID-19 Source SARS-CoV-2 (PCR) Crossmatch See Detail Last Vital Signs Temp 37.1 C 04/21/23 12:55 Pulse 99 H 04/21/23 12:55 Resp 16 04/21/23 15:35 BP 165/79 H 04/21/23 13:01 Pulse Ox 100 04/21/23 12:55 Time Spent Time spent with Patient: 40-54 minutes Time was spent: preparing to see the patient(eg.review tests), obtaining and/or reviewing separately otained hiistory, ordering medications,tests, procedures, referring, communicating with other health nurse behavioral health care, indepentently interpreting results, counseling the patient and care coordination
[2023-04-21 16:22] LABS: Lab Add On Test DONE
[2023-04-21 16:24] LABS: Lab Add On Test DONE
[2023-04-21 16:41] LABS: Iron 18 ug/dL (50-170); Total Iron Binding Capacity 390 ug/dL (250-450); Transferrin Sat 5 % (15-50)
[2023-04-21 17:07] LABS: Vitamin B12 432 pg/mL (193-986)
[2023-04-21 17:11] LABS: Folate > 20.0 ng/mL (8.6-20.0)
[2023-04-21 17:17] LABS: Procalcitonin < 0.1 ng/mL
[2023-04-21 17:18] LABS: INR 1.1 (0.9-1.1); Prothrombin Time 11.6 sec (9.3-11.0)
[2023-04-21 18:25] LABS: Bilirubin Negative (Negative); Blood Negative (Negative); Clarity Clear (Clear); Glucose Negative (Negative); Ketones Negative (Negative); Leukocyte Esterase Negative (Negative); Nitrite Negative (Negative); Urobilinogen 0.2 mg/dL (Up to 0.2)
--- NOTE | 2023-04-21 19:45 | RT.EKG_ITS ---
APPROVED REPORT Exam: Resting ECG Reason for Exam: chest discomfort earlier today Patient Location: I HR:100 bpm ECG Measurements Heart Rate 100 AXIS ME 179 P 37 QRSd 92 QRS 4 QT 363 T 35 QTc 469 Conclusion Sinus tachycardia...rate> 99 Left atrial enlargement...P, P'>60mS, <-0.15mV V1 Possible anteroseptal infarct, age indeterminate...Q >35mS, T neg, V1-V2
[2023-04-21] MEDS: Budesonide/Formoterol 160/4.5 6 GM 60 PUFF INH IH (19:57)
[2023-04-21] MEDS: Pantoprazole 40 MG TABCR PO (20:21)
[2023-04-21] MEDS: Calcium 600mg/Vit D 200U TAB 1 TAB PO (20:21)
[2023-04-21 21:38] LABS: HCT 29.1 % (36.0-46.0); HGB 9.2 g/dL (11.2-15.7)
[2023-04-21 22:02] LABS: Troponin I 281 ng/L (<or=60)
[2023-04-21] MEDS: Gabapentin 100 MG CAP PO (22:34)
[2023-04-21] MEDS: Melatonin 3 MG TAB 6 MG PO (22:34)
--- NOTE | 2023-04-22 | DI.US_ITS ---
APPROVED REPORT EXAM: Comprehensive 2D, Doppler, and color-flow Echocardiogram Patient Location: In-Patient Room/Bed: 210 Helicopter Mechanic: Danielle Goldstein RDCS (AE) Indications: Elevated troponin Other Information Study Quality: Adequate. Technically limited study due to inability to position patient exam done sup ine. Conclusion Normal left ventricular wall thickness and chamber size. Ejection fraction is 45%. There is an apic al and anterior apical wall motion abnormality Normal right ventricular size and systolic function Left atrium is mildly dilated. Right atrial size is normal The aortic valve is trileaflet and mildly sclerotic without stenosis or regurgitation Mildly thickened mitral leaflets with mild regurgitation Normal tricuspid valve with mild regurgitation. Estimated right ventricular systolic pressure is 29 mmHg Small circumferential pericardial effusion Wall motion Left Ventricle The left ventricle is normal size. Left ventricular systolic function is mildly decreased. There is n ormal left ventricular wall thickness. Regional wall motion abnormalities are noted. There is no vent ricular septal defect visualized. LVEF is 45%. Right Ventricle Right ventricle is grossly normal in size. Right ventricular systolic function is grossly normal. Atria The left atrium mildly dilated The right atrium size is normal. The interatrial septum is intact with no evidence for an atrial septal defect. Aortic Valve The Aortic valve is mildly sclerotic. Aortic valve is trileaflet. There is no aortic valvular stenosi s. No aortic regurgitation is present. Mitral Valve Mildly thickened mitral leaflets No evidence of mitral valve stenosis. Mild mitral regurgitation. Tricuspid Valve The tricuspid valve is normal in structure. There is no tricuspid valve stenosis. Trace tricuspid reg urgitation. The RVSP is 28.6 mmHg. Pulmonic Valve The pulmonary valve is normal in structure. There is no pulmonic valvular stenosis. Mild pulmonic re gurgitation. Great Vessels The aortic root is normal in size. The ascending aorta is normal in size. Aortic arch is not well vi sualized. IVC is normal in size and collapses >50% with inspiration. Pericardium Mild circumferential pericardial effusion. 2D Dimensions IVSD d PLAX 1.02 cm F: 0.6-1.0 Ao Root d 3.35 cm F: 2.7 - 3.3 LVPW d PLAX 0.94 cm F: 0.6 - 1.0 Ao Asc Diam d 2.95 cm F: 2.3 - 3.1 LVID d PLAX 5.06 cm F: 3.8 - 5.2 LVDs 3.64 cm F: 2.2 - 3.5 LV EF Teichholz 53.8 % FS 27.95 % LV EDV (Teich) 121.4 mL LV ESV (Teich) 56.0 mL Auto EF LV EDV A4C 95.5 mL LV EDV A2C 110.5 mL LV EDV BP 103.8 mL LV ESV A4C 57.4 mL LV ESV A2C 66.8 mL LV ESV BP 62.8 mL LVEF(%) A4C 39.9 % LVEF(%) A2C 39.5 % LVEF(%) BP 39.5 % LV SV A4C 38.1 ml LV SV A2C 43.6 ml LV SV BP 41.0 ml LV CO A4C 3.8 L/min LV CO A2C 4.4 L/min LV CO BP 4.1 L/min HR A4C 100.84 BPM HR A2C 99.74 BPM LV EDV Index (BP) LA Volume LA Length A4C 5.3 cm LA Length A2C 5.4 cm LA Area A4C s 19.92 cm2 LA Area A2C s 17.80 cm2 LA Vol A4C A-L 63.88 mL LA Vol A2C A-L 49.38 mL LA Vol Biplane A-L 57.1 mL LA Vol/BSA A4C A-L LA Vol/BSA A2C A-L LA Vol/BSA BP A-L 32.6 mL/m2 LA Vol A4C MOD 58.0 mL LA Vol A2C MOD 46.1 mL LA Vol BP MOD 52.1 mL RA Volume RA Area A4C 12.7 cm2 RA ESV A4C (A-L) 33.1mL RA Vol/BSA A4C A-L RA Length A4C 4.2 cm RA ESV A4C (MOD) 30.7mL LV Diastology MV E' medial 0.051 (>0.07 m/s) Aortic Valve AoV Vmax 1.30 m/s LVOT Vmax 0.86 m/s AoV Peak Grad 6.7 mmHg LVOT Peak Grad 3.0 mmHg AoV Area (Vmax) 2.42 cm2 LVOT VTI 0.177 m AoV VTI 0.260 m LVOT Mean Grad 1.5 mmHg AoV Mean Sam. 0.89 m/s LVOT SV 64.39 mL AoV Mean Grad 3.6 mmHg LVOT Diam s 2.15 cm AoV Area (VTI) 2.48 cm2 Velocity Ratio 0.66 Pulmonary Valve PV Vmax 0.86 (0.5-1.5 m/s) RVOT Vmax 0.81 m/s PV Peak Grad 3.0 mmHg RVOT Peak Gr. 2.6 mmHg PV Mean Sam 0.61 m/s RVOT VTI 0.150 m PV Mean Grad 1.6 mmHg RVOT Mean Gr. 1.6 mmHg Tricuspid Valve RA Pressure 3.00 mmHg TR Vmax 2.53 m/s TV S' 0.10 m/s TR Peak Grad 25.5 mmHg RVSP (TR) 28.6 mmHg
[2023-04-22 00:06] VITALS: PULSE 99
[2023-04-22 02:52] VITALS: BP 121/72; PULSE 96; RESP 16; TEMP 36.6; O2SAT 94
[2023-04-22] MEDS: Acetaminophen 325 MG TAB PO ×2 (03:29→15:16)
[2023-04-22 07:15] VITALS: BP 122/63; PULSE 100; TEMP 37.2; O2SAT 90
--- NOTE | 2023-04-22 07:15 | RT.EKG_ITS ---
APPROVED REPORT Exam: Resting ECG Reason for Exam: f/u chest pain, elevated troponin Patient Location: I HR:97 bpm ECG Measurements Heart Rate 97 AXIS LA 178 P 52 QRSd 102 QRS 8 QT 316 T 72 QTc 402 Conclusion Sinus rhythm...normal P axis, V-rate 50- 99 Left atrial enlargement...P, P'>60mS, <-0.15mV V1 Possible anteroseptal infarct, age indeterminate...Q >35mS, T neg, V1-V2
[2023-04-22] MEDS: Multivitamin TAB 1 TAB PO (07:32)
[2023-04-22] MEDS: Pantoprazole 40 MG TABCR PO ×2 (07:32→19:51)
[2023-04-22] MEDS: Cyanocobalamin 500 MCG TAB 1000 MCG PO (07:32)
[2023-04-22] MEDS: Calcium 600mg/Vit D 200U TAB 1 TAB PO ×3 (07:32→19:51)
[2023-04-22] MEDS: Budesonide/Formoterol 160/4.5 6 GM 60 PUFF INH IH ×2 (07:44→19:16)
[2023-04-22 07:45] LABS: Abs Immature Grans 0.09 10^3/uL (0.0-0.06); Absolute Basophil Count 0.12 10^3/uL (0.0-0.2); Absolute Monocyte Count 1.51 10^3/uL (0.1-0.8); Basophils % 0.8; Eosinophils % 1.9; HCT 26.5 % (36.0-46.0); HGB 8.5 g/dL (11.2-15.7); Immature Grans % 0.6; Lymphocytes % 7.6; MCH 25.2 pg (27.0-33.0); MCHC 32.1 % (32.0-36.0); MCV 79 fL (80-95); MPV 10.3 fL (8.0-11.0); Monocytes % 9.7; Neutrophils % 79.4; Platelet Count 443 10^3/uL (130-400); RBC 3.37 10^6/uL (3.93-5.22); RDW 14.6 % (11.7-14.6); WBC 15.58 10^3/uL (4.4-10.8)
[2023-04-22 07:54] LABS: Absolute Lymphocyte Count 1.18 10^3/uL (1.2-3.4); Absolute Neutrophil Count 12.37 10^3/uL (1.2-6.7)
[2023-04-22 08:02] LABS: Anion Gap 9.1 mmol/L (3-11); BUN 12 mg/dL (7-18); CO2 25.9 mmol/L (21.0-32.0); CREATININE 0.8 mg/dL (0.55-1.02); Calcium 9.2 mg/dL (8.5-10.1); Chloride 101 mmol/L (98-107); Estimated GFR 73.98 (mL/min/1.73m2); Glucose 97 mg/dL (74-106); Magnesium 1.9 mg/dL (1.8-2.4); Potassium 3.8 mmol/L (3.5-5.1); Sodium 136 mmol/L (136-145)
[2023-04-22 08:08] LABS: Diff Comment Diff Reviewed; RBC Morphology Normal
[2023-04-22 08:21] LABS: Troponin I 287 ng/L (<or=60)
[2023-04-22 08:47] VITALS: PULSE 94; O2SAT 95
[2023-04-22] MEDS: Cyanocobalamin 1000 MCG/ML VIAL IM/SC (09:22)
--- NOTE | 2023-04-22 10:17 | IN_ITS ---
PT Notes Visit Reasons: Symptomatic anemia, heme positive stools Physical Therapy Inpatient Initial Evaluation Date: 04/22/23 Referring Doctor: Marina Parker MD PT Orders: PT CONSULT: Limited Ability Precautions: Fall. Standard. Patient Profile/Admitting Diagnosis: Beth is an 82 yo male that presented to the ER on 04/21/23 for dizziness and shortness of breath. She was found to have anemia and blood in her stool. PMHX: See EMR Social History/Home Situation: Lives with son in single level residence, 2 [address] with rail. Reports using cane or FWW at baseline. Does not drive. Will walk to mailbox. Has back pain at baseline and plans on getting injections in back next month. Equipment Owned/DME: FWW, single point cane Subjective: Cleared by nursing to see patient and patient is agreeable to PT. Patient is resting in bed at time of consult and connected to telemetry, with IV in left hand and left elbow. Objective: General Observation: Alert and pleasant Mental Status: A&O x3 Pain: Low back pain, left hand from IV ROM: Right Upper Extremity: Shoulder Flexion WFL. Shoulder abduction WFL. Elbow flexion WFL. Wrist flexion WFL. Opening and closing of hand WFL. Left Upper Extremity: Shoulder Flexion WFL. Shoulder abduction WFL. Elbow flexion WFL. Wrist flexion WFL. Opening and closing of hand WFL. Right Lower Extremity: Hip flexion WFL. Hip abduction WFL. Knee flexion WFL. Ankle dorsiflexion WFL. Ankle plantarflexion WFL. Left Lower Extremity: Hip flexion WFL. Hip abduction WFL. Knee flexion WFL. Ankle dorsiflexion WFL. Ankle plantarflexion WFL. Strength: Right Upper Extremity: Grossly 4/5 Left Upper Extremity: Grossly 4/5 Right Lower Extremity: Grossly 4/5 Left Lower Extremity: Grossly 4/5 Sensation: Intact as to pain and pressure on bilateral lower extremities. Bed Mobility/Transfers: Rolling: Indepenent Supine to sit: Independent Sit to supine: Independent Sit to stand: Supervision Stand to sit: Independent Gait: Ambulated 140ft with FWW, SBA - Lateral weight shift even with walker support Stairs: Not assessed Balance: Static Sitting: Normal Dynamic Sitting: Good Static Standing: Good Dynamic Standing: Poor Therapeutic Activity (89116) dynamic movement and functional strengthening to improve physical performance: 10 minutes Ambulation with FWW 140 ft Independent toileting Special Tests: Mobility Limitations Standardized Measure [facility] AM-PAC 6 clicks Basic Mobility Inpatient Short Form: Raw Score: 21 CMS Score: 29% Informed Consent/Education: Patient instructed in purpose of PT consult and plan of care. Assessment: Beth is independent with bed mobility and transfers. She is safe with use of FWW, but does demonstrate lateral weight shifting with ambulation. General weakness in upper and lower extremities. Reports a chronic back pain issue that affects her overall mobility and distances with ambulation. Safe to return home when medically cleared, but would benefit from home health PT to furth address strength and endurance. Patient will benefit from skilled acute care PT services. Patient presents with clinical signs and symptoms consistent with current/admitt ing diagnoses that have resulted to mobility limitations, gait instability, generalized weakness, and impairment of motor control as demonstrated by the following impairment level findings: 1. Generalized weakness 2. Impaired sitting/standing balance 3. Impaired activity tolerance Impairments are contributing to the following functional limitations: 1. Inability to safely ambulate without assistive device and physical assistance 2. Increase completion time for mobility ADL performance 3. Increased fall risk 4. Inability to negotiate steps alone safely Patient is assessed as a low complexity based on the following: History: 82 year old female with impairment level findings, functional limitations, and past medical history as indicated above Examination: Demonstrable impairment in strength, balance, and mobility level with underlying impairments and functional limitations as documented above Presentation: Stable Decision Making: Low complexity Goals: Goals x1 week 1. Independent gait on level surface with use of least restrictive device for at least 300 feet without report of pain nor dyspnea 2. Good static and dynamic standing balance/tolerance 3. Independent with home exercise program 4. Independent stair negotiation while holding onto bilateral rails for at least 5 steps without report of pain nor dyspnea Plan of Care/Treatment Plan: 1-2x/day, 7 days/week x1 week. Plan of care has been reviewed with the TRADING SPECIALIST providing the service under Physical Therapy direction. Initiate Physical Therapy intervention for strengthening, bed mobility, transfers, gait, stairs, balance training, and use of assistive device. Discharge Plan DISCHARGE RECOMMENDATIONS: Home with Home Health PT services TREATMENT CODE/TIME: 9:49-10:14 (25 minutes), [id number], [id number] Thank you for the opportunity to participate in the care of this patient. Lila Almeida, PT, DPT, OCS [facility], [place]
--- NOTE | 2023-04-22 10:18 | PDOC.CMIN ---
Date of service: 04/22/23 Time of Service: 10:18 Care Management Initial Assmt Initial Assessment REASON FOR HOSPITALIZATION:: Symptomatic anemia, heme positive stools PREVIOUS FUNCTIONAL STATUS/SOCIAL/FAMILY SUPPORTS:: Beth lives in an apartment in [facility]. She has five children, all of whom live locally. 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 She does not drive, but is independent with ADL's at baseline. CURRENT FUNCTIONAL STATUS:: Beth was sitting up on the edge of her bed when CM met with her. She stated that she just vomited, and is not feeling well, and asked that CM return later. CM returned, and she was resting. Per her RN, she did not sleep well last night, and may benefit from sleep, therefore CM did not wake her. CM will continue to follow. ADVANCE DIRECTIVES:: Not on file; CM will offer forms. Has patient been provided with info about the portal/API?: Yes Did the patient sign up for the portal?: No CODE STATUS:: Full Code INSURANCE COVERAGE / FINANCIAL ISSUES:: [facility] MCR replacement; PRINCESS. CURRENT HOME/COMMUNITY SERVICES/EQUIPMENT:: FWW, SPC PRIMARY CARE PHYSICIAN:: Dmitriy Angeles POTENTIAL DISCHARGE NEEDS:: HH PT; follow up appointments PATIENT/FAMILY EDUCATION NEEDS:: Review discharge instructions and limitations, discussion of self care needs including ask me three. ANTICIPATED BARRIERS TO DISCHARGE:: None identified. TRANSPORTATION:: Via private vehicle by family. PLAN:: Anticipate Beth will return home once medically cleared. Her children will drive her home via private vehicle. She will follow up with her PCP and discharge plan of care. CM will continue to follow. PFSH All Active Problems (Updated 04/21/23 @ 19:59 by Marina Parker MD) Chest pressure (Acute) Discharge planning issues (Acute) DVT prophylaxis (Acute) Leucocytosis (Acute) Heme + stool (Acute) Symptomatic anemia (Acute) Sacroiliac joint dysfunction of both sides (Acute) Renal cell carcinoma (Acute) Referred to [facility] [place]. Plan is to monitor for size change. Hip pain, left (Acute) Shoulder pain, left (Acute) Fatigue (Acute) Leg pain, left (Acute) Osteopenia (Acute) Left kidney mass (Acute) Spinal stenosis (Acute) Trochanteric bursitis, left hip (Acute) Injection: 12/26/2021 Pneumonia (Acute) Sepsis (Acute) Calcific tendinitis of left hip (Acute) Strain of gastrocnemius muscle of left lower extremity (Acute) HTN (hypertension) (Chronic) Hyperlipidemia (Chronic) Asthma (Chronic) Medical History Chronic left hip pain Renal cell carcinoma of left kidney Surgical History H/O abdominoplasty H/O: hysterectomy Social History Smoking/Tobacco Use Status: Former Tobacco Use Smoking risk assessment performed?: Yes Alcohol Intake: never Drug use: Never Substance use type: marijuana Housing: apartment Do you feel safe at home: Yes Do you feel safe in your relationship?: Yes
[2023-04-22 11:44] LABS: Troponin I 257 ng/L (<or=60)
[2023-04-22 13:48] LABS: HCT 27.7 % (36.0-46.0); HGB 8.6 g/dL (11.2-15.7)
--- NOTE | 2023-04-22 13:57 | PHACLINREV_ITS ---
Pharmacy Admission Review Admission Clinical Review Admission Pharmacy Review: (Updated 04/21/23 @ 19:59 by Marina Parker MD) Chest pressure (Acute) Discharge planning issues (Acute) DVT prophylaxis (Acute) Leucocytosis (Acute) Heme + stool (Acute) Symptomatic anemia (Acute) Renal cell carcinoma (Acute) lisinopril Allergy (Unknown, Unverified 02/24/23 17:08) pravastatin Allergy (Unverified 02/24/23 17:08) Skin Rash cyclobenzaprine HCl [From Flexeril] Adverse Reaction (Intermediate, Unverified 02/24/23 17:08) Agitation Resuscitation Status Full Code Height 5 ft 1 in Weight 75.5 kg Pharmacy Admission Review Renal Dosing Renal Dosing: BUN 12 mg/dL (7-18) 04/22/23 07:15 Creatinine 0.8 mg/dL (0.55-1.02) 04/22/23 07:15 Medications needing adjustments: Reviewed List of meds needing interventions: eCrCl 41 ml/min, all meds appropriately dosed Anticoagulation Anticoagulation: Hgb 8.6 g/dL (11.2-15.7) L 04/22/23 13:15 Hct 27.7 % (36.0-46.0) L 04/22/23 13:15 Plt Count 443 10^3/uL (130-400) H 04/22/23 07:15 INR 1.1 (0.9-1.1) 04/21/23 17:00 Creatinine 0.8 mg/dL (0.55-1.02) 04/22/23 07:15 DVT Prophylaxis: N/A (chemical ppx not appropriate -- heme+ stool and sym ptomatic anemia) Opiate Usage Evaluate Pain Scale/Pains Meds: N/A Relevant Labs Relevant Labs: Sodium 136 mmol/L (136-145) 04/22/23 07:15 Potassium 3.8 mmol/L (3.5-5.1) 04/22/23 07:15 Chloride 101 mmol/L (98-107) 04/22/23 07:15 Magnesium 1.9 mg/dL (1.8-2.4) 04/22/23 07:15 Electrolytes, C-Reactive P, ESR: Reviewed DM Control DM Control: N/A Cardiac Review Cardiac Review: Troponin I 257 ng/L (<or=60) H* 04/22/23 11:11 NT-Pro-B Natriuret Pep 487 pg/mL (<300) H 04/21/23 13:56 BP, HR, EF%: Reviewed (BP normal, HR slightly elevated) List meds needing interventions: takes chlorthalidone and losartan at home QTc Review QTc: Reviewed (QTc 406 today, 469 on 04/21) IV to PO Switch IV Medications: Reviewed Home Meds Home Med List reviewed: Reviewed Relevent Home Meds Not ordered & why?: chlorthalidone, losartan Current Meds Current Medication Order Review: Reviewed Pharmacy Antibiotic Review Relevant Labs: Relevant Labs 04/21/23 13:56 Procalcitonin < 0.1
[2023-04-22] MEDS: Ondansetron 4 MG/2 ML VIAL IVP ×2 (14:54→19:45)
[2023-04-22 15:07] VITALS: BP 146/75; PULSE 94; TEMP 37.9; O2SAT 92
--- NOTE | 2023-04-22 15:34 | PGE_ITS ---
Date of Service Date of service: 04/22/23 Time of Service: 15:34 Assessment and Plan Assessment and plan (1) Symptomatic anemia: Status: Acute Assessment and plan: In setting of heme + stool, but also renal cell carcinoma (not on chemo). H/H went up to 9.2 from 7.3 after 1unit of blood; Today's Hgb went to 8.6 from 8.5. No gross bleeding. General surgery is consulted to discuss endoscopy options. Elevation of troponin could be due to anemia, but does have wall motion abnormalities. Continue PPI/Carafate. Hold fish oil. (2) Chest pressure: Status: Acute Assessment and plan: With evidence of apical and anterior apical wall motion abnormality and an elevated troponin (but in setting of acute anemia). LVEF 45%. Cardiology consulted. (3) Heme + stool: Status: Acute Assessment and plan: As above (4) Renal cell carcinoma: Status: Acute Assessment and plan: As above (5) Leucocytosis: Status: Acute Assessment and plan: No clear infectious process. Obtain UA. (6) DVT prophylaxis: Status: Acute Assessment and plan: SCDS Hold off of chemical DVT ppx in a patient with heme + stool and symptomatic anemia (7) Discharge planning issues: Status: Acute Assessment and plan: Full code Continues to require hospitalization. Subjective Subjective Interval history since last seen: Ms Shields just vomited red, but she had had a red popsicle and a cranberry juice right before. Gastroccult was negative. Prior to this, she was feeling better. She denies chest pain/pressure, shortness of breath, palpitations, n/v. She had a brown BM which was not heme tested. She is not on chemo. Exam Narrative Exam Narrative: General: Pleasant elderly female is A&Ox3, sitting up in bed, comfortable, does have evidence of red dye on her lips, coughs. HEENT: EOMI, dry MM Cardiovascular: RRR, no m/r/g, mildly tachycardic Lungs: CTAB Gastrointestinal: soft, nontender, nondistended Extremities: no edema BLEs Objective Last Vital Signs Temp 37.9 C H 04/22/23 15:07 Pulse 94 H 04/22/23 15:07 Resp 16 04/22/23 02:52 BP 146/75 H 04/22/23 15:07 Pulse Ox 92 04/22/23 15:07 Laboratory Results - last 24 hr 04/21/23 04/21/23 04/21/23 13:56 13:56 13:56 WBC RBC Hgb Hct MCV MCH MCHC RDW Plt Count MPV Immature Gran % Neutrophils % Lymphocytes % Monocytes % Eosinophils % Basophils % Nucleated RBC % Absolute Neutrophils Absolute Lymphocytes Absolute Monocytes Absolute Eosinophils Absolute Basophils RBC Morphology PT INR Sodium Potassium Chloride Carbon Dioxide Anion Gap BUN Creatinine Est GFR (CKD-EPI 2020) Glucose Calcium Magnesium Iron 18 L TIBC 390 Transferrin % Sat 5 L Ferritin Troponin I Vitamin B12 Folate Procalcitonin Urine Color Urine Clarity Urine pH Ur Specific [place] Urine Protein Urine Ketones Urine Blood Urine Nitrite Urine Bilirubin Urine Urobilinogen Ur Leukocyte Esterase Urine Glucose Add-On Test Request DONE DONE Patient ABO/Rh Antibody Screen Crossmatch 04/21/23 04/21/23 04/21/23 13:56 13:56 15:00 WBC RBC Hgb Hct MCV MCH MCHC RDW Plt Count MPV Immature Gran % Neutrophils % Lymphocytes % Monocytes % Eosinophils % Basophils % Nucleated RBC % Absolute Neutrophils Absolute Lymphocytes Absolute Monocytes Absolute Eosinophils Absolute Basophils RBC Morphology PT INR Sodium Potassium Chloride Carbon Dioxide Anion Gap BUN Creatinine Est GFR (CKD-EPI 2020) Glucose Calcium Magnesium Iron TIBC Transferrin % Sat Ferritin Troponin I Vitamin B12 432 Folate > 20.0 H Procalcitonin < 0.1 Urine Color Urine Clarity Urine pH Ur Specific [place] Urine Protein Urine Ketones Urine Blood Urine Nitrite Urine Bilirubin Urine Urobilinogen Ur Leukocyte Esterase Urine Glucose Add-On Test Request Patient ABO/Rh O Negative Antibody Screen NEGATIVE Crossmatch See Detail 04/21/23 04/21/23 04/21/23 15:00 15:38 17:00 WBC RBC Hgb Hct MCV MCH MCHC RDW Plt Count MPV Immature Gran % Neutrophils % Lymphocytes % Monocytes % Eosinophils % Basophils % Nucleated RBC % Absolute Neutrophils Absolute Lymphocytes Absolute Monocytes Absolute Eosinophils Absolute Basophils RBC Morphology PT 11.6 H INR 1.1 Sodium Potassium Chloride Carbon Dioxide Anion Gap BUN Creatinine Est GFR (CKD-EPI 2020) Glucose Calcium Magnesium Iron TIBC Transferrin % Sat Ferritin 10 Troponin I Vitamin B12 Folate Procalcitonin Urine Color Urine Clarity Urine pH Ur Specific [place] Urine Protein Urine Ketones Urine Blood Urine Nitrite Urine Bilirubin Urine Urobilinogen Ur Leukocyte Esterase Urine Glucose Add-On Test Request Patient ABO/Rh O Negative Antibody Screen Crossmatch 04/21/23 04/21/23 04/21/23 17:20 21:10 21:10 WBC RBC Hgb 9.2 L Hct 29.1 L MCV MCH MCHC RDW Plt Count MPV Immature Gran % Neutrophils % Lymphocytes % Monocytes % Eosinophils % Basophils % Nucleated RBC % Absolute Neutrophils Absolute Lymphocytes Absolute Monocytes Absolute Eosinophils Absolute Basophils RBC Morphology PT INR Sodium Potassium Chloride Carbon Dioxide Anion Gap BUN Creatinine Est GFR (CKD-EPI 2020) Glucose Calcium Magnesium Iron TIBC Transferrin % Sat Ferritin Troponin I 281 H* Vitamin B12 Folate Procalcitonin Urine Color Yellow Urine Clarity Clear Urine pH 7.0 Ur Specific [place] 1.020 Urine Protein Negative Urine Ketones Negative Urine Blood Negative Urine Nitrite Negative Urine Bilirubin Negative Urine Urobilinogen 0.2 Ur Leukocyte Esterase Negative Urine Glucose Negative Add-On Test Request Patient ABO/Rh Antibody Screen Crossmatch 04/22/23 04/22/23 04/22/23 07:15 07:15 07:15 WBC 15.58 H RBC 3.37 L Hgb 8.5 L Hct 26.5 L MCV 79 L MCH 25.2 L MCHC 32.1 RDW 14.6 Plt Count 443 H MPV 10.3 Immature Gran % 0.6 Neutrophils % 79.4 Lymphocytes % 7.6 Monocytes % 9.7 Eosinophils % 1.9 Basophils % 0.8 Nucleated RBC % 0.0 Absolute Neutrophils 12.37 H Absolute Lymphocytes 1.18 L Absolute Monocytes 1.51 H Absolute Eosinophils 0.30 Absolute Basophils 0.12 RBC Morphology Normal PT INR Sodium 136 Potassium 3.8 Chloride 101 Carbon Dioxide 25.9 Anion Gap 9.1 BUN 12 Creatinine 0.8 Est GFR (CKD-EPI 2020) 73.98 Glucose 97 Calcium 9.2 Magnesium 1.9 Iron TIBC Transferrin % Sat Ferritin Troponin I 287 H* Vitamin B12 Folate Procalcitonin Urine Color Urine Clarity Urine pH Ur Specific [place] Urine Protein Urine Ketones Urine Blood Urine Nitrite Urine Bilirubin Urine Urobilinogen Ur Leukocyte Esterase Urine Glucose Add-On Test Request Patient ABO/Rh Antibody Screen Crossmatch 04/22/23 04/22/23 11:11 13:15 WBC RBC Hgb 8.6 L Hct 27.7 L MCV MCH MCHC RDW Plt Count MPV Immature Gran % Neutrophils % Lymphocytes % Monocytes % Eosinophils % Basophils % Nucleated RBC % Absolute Neutrophils Absolute Lymphocytes Absolute Monocytes Absolute Eosinophils Absolute Basophils RBC Morphology PT INR Sodium Potassium Chloride Carbon Dioxide Anion Gap BUN Creatinine Est GFR (CKD-EPI 2020) Glucose Calcium Magnesium Iron TIBC Transferrin % Sat Ferritin Troponin I 257 H* Vitamin B12 Folate Procalcitonin Urine Color Urine Clarity Urine pH Ur Specific [place] Urine Protein Urine Ketones Urine Blood Urine Nitrite Urine Bilirubin Urine Urobilinogen Ur Leukocyte Esterase Urine Glucose Add-On Test Request Patient ABO/Rh Antibody Screen Crossmatch Objective Narrative Objective Narrative: Echo; Normal left ventricular wall thickness and chamber size.? Ejection fraction is 45%.? There is an apical and anterior apical wall motion abnormality Normal right ventricular size and systolic function Left atrium is mildly dilated.? Right atrial size is normal The aortic valve is trileaflet and mildly sclerotic without stenosis or regurgitation Mildly thickened mitral leaflets with mild regurgitation Normal tricuspid valve with mild regurgitation.? Estimated right ventricular systolic pressure is 29 mmHg Small circumferential pericardial effusion Time Spent with Patient Time Spent with Patient: 35-49 minutes Time was spent: preparing to see the patient(eg.review tests), obtaining and/or reviewing separately otained hiistory, ordering medications,tests, procedures, referring, communicating with other health vision care associate, indepentently interpreting results, counseling the patient and care coordination
--- NOTE | 2023-04-22 15:59 | PT.INNT ---
PT Notes Visit Reasons: Symptomatic anemia, heme positive stools Pt approached at 3:50 pm. Pt son was inside the room with her, pt declined therapy this afternoon, reports that she has just recently found out that she has cardiac arrhythmia as well as GIT issues and doesn't feel like participating with therapy today, will try tomorrow morning after she has had a good night's rest.
[2023-04-22 19:02] VITALS: BP 152/76; PULSE 106; RESP 16; TEMP 37; O2SAT 97
[2023-04-22] MEDS: Gabapentin 100 MG CAP PO (19:51)
[2023-04-22] MEDS: diphenhydrAMINE 25 MG CAP PO (19:53)
--- NOTE | 2023-04-22 20:19 | W.PM.PROGNOT ---
Date of Service Date of service: 04/22/23 Time of Service: 20:19 Assessment and Plan Assessment and plan (1) Renal cell carcinoma: Status: Acute (2) Spinal stenosis: Status: Acute (3) Heme + stool: Status: Acute (4) Symptomatic anemia: Status: Acute (5) HTN (hypertension): Status: Chronic Qualifiers: Hypertension type: essential hypertension Qualified Code(s): I10 - Essential (primary) hypertension (6) Hyperlipidemia: Status: Chronic Qualifiers: Hyperlipidemia type: unspecified Qualified Code(s): E78.5 - Hyperlipidemia, unspecified (7) Asthma: Status: Chronic Qualifiers: Asthma severity: mild Asthma persistence: unspecified Asthma complication type: unspecified Qualified Code(s): J45.909 - Unspecified asthma, uncomplicated Objective Last Vital Signs Temp 37.0 C 04/22/23 19:02 Pulse 106 H 04/22/23 19:02 Resp 16 04/22/23 19:02 BP 152/76 H 04/22/23 19:02 Pulse Ox 97 04/22/23 19:02 Laboratory Results - last 24 hr 04/21/23 04/21/23 04/22/23 21:10 21:10 07:15 WBC RBC Hgb 9.2 L Hct 29.1 L MCV MCH MCHC RDW Plt Count MPV Immature Gran % Neutrophils % Lymphocytes % Monocytes % Eosinophils % Basophils % Nucleated RBC % Absolute Neutrophils Absolute Lymphocytes Absolute Monocytes Absolute Eosinophils Absolute Basophils RBC Morphology Sodium Potassium Chloride Carbon Dioxide Anion Gap BUN Creatinine Est GFR (CKD-EPI 2020) Glucose Calcium Magnesium Troponin I 281 H* 287 H* 04/22/23 04/22/23 04/22/23 07:15 07:15 11:11 WBC 15.58 H RBC 3.37 L Hgb 8.5 L Hct 26.5 L MCV 79 L MCH 25.2 L MCHC 32.1 RDW 14.6 Plt Count 443 H MPV 10.3 Immature Gran % 0.6 Neutrophils % 79.4 Lymphocytes % 7.6 Monocytes % 9.7 Eosinophils % 1.9 Basophils % 0.8 Nucleated RBC % 0.0 Absolute Neutrophils 12.37 H Absolute Lymphocytes 1.18 L Absolute Monocytes 1.51 H Absolute Eosinophils 0.30 Absolute Basophils 0.12 RBC Morphology Normal Sodium 136 Potassium 3.8 Chloride 101 Carbon Dioxide 25.9 Anion Gap 9.1 BUN 12 Creatinine 0.8 Est GFR (CKD-EPI 2020) 73.98 Glucose 97 Calcium 9.2 Magnesium 1.9 Troponin I 257 H* 04/22/23 13:15 WBC RBC Hgb 8.6 L Hct 27.7 L MCV MCH MCHC RDW Plt Count MPV Immature Gran % Neutrophils % Lymphocytes % Monocytes % Eosinophils % Basophils % Nucleated RBC % Absolute Neutrophils Absolute Lymphocytes Absolute Monocytes Absolute Eosinophils Absolute Basophils RBC Morphology Sodium Potassium Chloride Carbon Dioxide Anion Gap BUN Creatinine Est GFR (CKD-EPI 2020) Glucose Calcium Magnesium Troponin I
--- NOTE | 2023-04-22 20:22 | W.SURGCON ---
Date of service: 04/22/23 Time of Service: 20:22 Assessment and Plan Assessment and plan (1) Elevated troponin: Status: Acute Assessment and plan: - Repeat troponin pending in a.m. Conclusion Normal left ventricular wall thickness and chamber size.? Ejection fraction is 45%.? There is an apical and anterior apical wall motion abnormality Normal right ventricular size and systolic function Left atrium is mildly dilated.? Right atrial size is normal The aortic valve is trileaflet and mildly sclerotic without stenosis or regurgitation Mildly thickened mitral leaflets with mild regurgitation Normal tricuspid valve with mild regurgitation.? Estimated right ventricular systolic pressure is 29 mmHg Small circumferential pericardial effusion (2) Sacroiliac joint dysfunction of both sides: Status: Acute (3) Heme + stool: Status: Acute Assessment and plan: - Stop fish oil -Patient is on Pepcid -Hemoglobin is 8.5 after receiving 1 unit of blood -Discussed with Dr. Parker and anesthesia. We will plan on EGD in a.m. Informed consent is obtained for the procedural (explained in simple layman's terms that the pt. and/or family could understand) explaining risks vs benefits and alternatives to the procedure and consequences if we do not do the procedure and need/rational for the procedure. Risks include but are not limited to: bleeding, infection, perforation of esophagus, stomach, colon, small intestines, bronchus or trachea, or PTX. This would necessitate emergency surgery to repair the damage w/ possible ostomy; and other associated complications w/ the required surgery. Also complications of anesthesia including aspiration, NE/CVA/. -Continue conservative medical management -EGD in a.m. 75 mins spent with the patient today. 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 Her workup in the ER revealed a hemoglobin of 7.3 and hematocrit of 23.8 with MVC of 79. On rectal exam by the ER provider, she had brown heme + stool. Her COVID-19 PCR was negative. She was too weak to ambulate. She was ordered a transfusion of 1 unit of pRBCs, and a hospitalist admission was requested. Ms Shields describes dizziness, chest pressure today, some palpitations, HALE. Endorses black stools at home. Does recall taking some aleve for her chronic back and hip pain for a couple of days in the last week, but then switching to tylenol.? She cannot recall if the aleve happened before or after Denies syncope, nausea, abdominal pain, weight loss or weight gain. She denies h/o bleeding or ulcers. Consultation 04/22. Surgery was asked to see the patient rearding anemia. Patient did receive 1 unit of packed RBCs. Repeat hemoglobin today is around 8.5. Patient is not having the shortness of breath and dizziness. Like she was when she first came into the ER. To me she denied any abdominal pain. She has never had a history of ulcers. She denied any history of aspirin use or heavy NSAID use. She is on fish oil. She denied any history of reflux. She denied being on any chronic stomach medication. She denied any noticing any blood in her stool or black tarry stools. She denies any pain or difficulty moving her bowels. She denied any unexplained weight loss. She denied any history of abdominal pain. She said she has had a colonoscopy at [facility] in the past. She does not know what the findings were. I did look through her chart. I do not see any colonoscopy reports but it may have been older than our EMR. I did review her CT from 02/21 it was noncontrasted. I do not see any significant diverticular disease or masses. Results of echo reviewed. I did discuss the case with Drs. Parker and latricia. Notes from neurology at [facility] reviewed. She denies any changes in her urination such as urgency or frequency. She denies noticing any blood in her urine. The tumor in her kidney is very slow-growing. They did not recommend surgery. They did not feel she was a good candidate for surgery. The tumor had grown or changed in 6 months. She is getting another CT scan in 6 months time. 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 Patient follows up with [facility]. Elevated troponin (Acute) Chest pressure (Acute) Discharge planning issues (Acute) DVT prophylaxis (Acute) Leucocytosis (Acute) Heme + stool (Acute) Symptomatic anemia (Acute) Sacroiliac joint dysfunction of both sides (Acute) Renal cell carcinoma (Acute) Referred to [facility]. Plan is to monitor for size change. Hip pain, left (Acute) Shoulder pain, left (Acute) Fatigue (Acute) Leg pain, left (Acute) Osteopenia (Acute) Left kidney mass (Acute) Spinal stenosis (Acute) Trochanteric bursitis, left hip (Acute) Injection: 12/26/2021 Pneumonia (Acute) Sepsis (Acute) Calcific tendinitis of left hip (Acute) Strain of gastrocnemius muscle of left lower extremity (Acute) HTN (hypertension) (Chronic) Hyperlipidemia (Chronic) Asthma (Chronic) Medical History (Updated 04/22/23 @ 20:59 by Yasmin Avalos DO) Chronic left hip pain Surgical History H/O abdominoplasty H/O: hysterectomy Social History Smoking/Tobacco Use Status: Former Tobacco Use Smoking risk assessment performed?: Yes Alcohol Intake: never Drug use: Never Substance use type: marijuana Housing: apartment Do you feel safe at home: Yes Do you feel safe in your relationship?: Yes Exam Narrative Exam Narrative: PHYSICAL EXAM GENERAL APPEARANCE: Alert, healthy appearance, oriented, x 3,? in no acute distress HEAD, EYES, EARS, NECK, THROAT: Head is normocephalic, pupils equal, round, reactive to light and accommodation, ocular movement intact, sclera clear and no jaundice. ?Dentition intact. LUNGS: normal respiration/normal chest excursion. ?Clear to auscultation bilaterally. ? ?HEART: Regular rate and rhythm. no murmurs ? ABDOMEN: soft and non-tender to palpation.? Normal bowel sounds.? No hernias.? Results Last Vital Signs Temp 37.0 C 04/22/23 19:02 Pulse 106 H 04/22/23 19:02 Resp 16 04/22/23 19:02 BP 152/76 H 04/22/23 19:02 Pulse Ox 97 04/22/23 19:02 Labs 04/22/23 13:15 04/22/23 07:15 Labs: Laboratory Results - last 24 hr 04/21/23 04/21/23 04/22/23 21:10 21:10 07:15 WBC RBC Hgb 9.2 L Hct 29.1 L MCV MCH MCHC RDW Plt Count MPV Immature Gran % Neutrophils % Lymphocytes % Monocytes % Eosinophils % Basophils % Nucleated RBC % Absolute Neutrophils Absolute Lymphocytes Absolute Monocytes Absolute Eosinophils Absolute Basophils RBC Morphology Sodium Potassium Chloride Carbon Dioxide Anion Gap BUN Creatinine Est GFR (CKD-EPI 2020) Glucose Calcium Magnesium Troponin I 281 H* 287 H* 04/22/23 04/22/23 04/22/23 07:15 07:15 11:11 WBC 15.58 H RBC 3.37 L Hgb 8.5 L Hct 26.5 L MCV 79 L MCH 25.2 L MCHC 32.1 RDW 14.6 Plt Count 443 H MPV 10.3 Immature Gran % 0.6 Neutrophils % 79.4 Lymphocytes % 7.6 Monocytes % 9.7 Eosinophils % 1.9 Basophils % 0.8 Nucleated RBC % 0.0 Absolute Neutrophils 12.37 H Absolute Lymphocytes 1.18 L Absolute Monocytes 1.51 H Absolute Eosinophils 0.30 Absolute Basophils 0.12 RBC Morphology Normal Sodium 136 Potassium 3.8 Chloride 101 Carbon Dioxide 25.9 Anion Gap 9.1 BUN 12 Creatinine 0.8 Est GFR (CKD-EPI 2020) 73.98 Glucose 97 Calcium 9.2 Magnesium 1.9 Troponin I 257 H* 04/22/23 13:15 WBC RBC Hgb 8.6 L Hct 27.7 L MCV MCH MCHC RDW Plt Count MPV Immature Gran % Neutrophils % Lymphocytes % Monocytes % Eosinophils % Basophils % Nucleated RBC % Absolute Neutrophils Absolute Lymphocytes Absolute Monocytes Absolute Eosinophils Absolute Basophils RBC Morphology Sodium Potassium Chloride Carbon Dioxide Anion Gap BUN Creatinine Est GFR (CKD-EPI 2020) Glucose Calcium Magnesium Troponin I
[2023-04-23] VITALS (16 sets, daily range): BP systolic 103–171; BP diastolic 43–76; PULSE 72–120; RESP 16–28; TEMP 36.6–38.1; O2SAT 87–99; BMI 31.4
--- NOTE | 2023-04-23 | DI.MRI_ITS ---
Exam(s) MR BRAIN WO EXAM: MR BRAIN WO CLINICAL HISTORY: suspected acute CVA TECHNIQUE: Multiplanar multisequence MRI of the brain was performed. COMPARISON: CT CT BRAIN NECK CTA from 04/23/2023 FINDINGS: VENTRICLES AND EXTRA AXIAL SPACES: Normal in size and morphology for the patient's age. MIDLINE SHIFT: None. CEREBRAL PARENCHYMA: There are areas of restricted diffusion in the right MCA distribution consistent with acute infarcts. There are areas of hyperintense signal seen in the white matter on the FLAIR a nd T2 weighted images consistent with small vessel ischemic disease. No space-occupying lesion ident ified. HEMORRHAGE: None. BRAINSTEM/CEREBELLUM: Normal. CALVARIUM: Normal. VISUALIZED PARANASAL SINUSES/MASTOIDS:Clear. [place]: There is loss of the normal flow void in the right internal carotid artery from it horizontal portion into the cavernous portion. [place]: Unremarkable. OTHER FINDINGS: None. IMPRESSION: 1. Several foci of restricted diffusion in the right MCA distribution consistent with acute infarcts. Emboli/thrombi should be considered. 2. 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 3. Findings were discussed with Dr. Parker at 5 p.m. on 04/23/2023. DATA REPOSITORY:
--- NOTE | 2023-04-23 | DI.RAD_ITS ---
Exam(s) XR PORTABLE CHEST AP EXAM: XR PORTABLE CHEST AP CLINICAL HISTORY: fever post EGD TECHNIQUE: 2D digital imaging was performed of the chest. One image was obtained. An AP view was ob tained. COMPARISON: CR XR PORTABLE CHEST AP from 04/23/2023 FINDINGS: MEDIASTINUM: Normal. HEART: Cardiomegaly. PULMONARY VASCULATURE: Pulmonary venous congestion. LUNGS: Persistent bilateral diffuse interstitial infiltrates. No focal consolidating infiltrates. PLEURAL SPACE: No pleural effusion or pneumothorax. BONE:Within normal limits for the patient's age. OTHER FINDINGS:Normal. IMPRESSION: 1. Cardiomegaly and pulmonary venous congestion. This appears similar. 2. Diffuse interstitial disease. Differential considerations include chronic fibrosis, bronchitis, i nfection or edema. Please correlate clinically. DATA REPOSITORY: RADIATION DOSE DELIVERED:
[2023-04-23] MEDS: Lactated Ringers 1,000 ML 75 ML IV (00:14)
[2023-04-23 07:27] LABS: HGB 11.4 g/dL (11.2-15.7); MCH 24.6 pg (27.0-33.0); MCHC 30.8 % (32.0-36.0); MCV 80 fL (80-95); Platelet Count 302 10^3/uL (130-400); RBC 4.63 10^6/uL (3.93-5.22); RDW 14.8 % (11.7-14.6); RDW-SD 43.1 fL; WBC 11.51 10^3/uL (4.4-10.8)
[2023-04-23 07:30] LABS: Anion Gap 9.3 mmol/L (3-11); BUN 11 mg/dL (7-18); CO2 25.7 mmol/L (21.0-32.0); CREATININE 0.8 mg/dL (0.55-1.02); Calcium 9.2 mg/dL (8.5-10.1); Chloride 103 mmol/L (98-107); Estimated GFR 73.98 (mL/min/1.73m2); Glucose 87 mg/dL (74-106); Potassium 3.7 mmol/L (3.5-5.1); Sodium 138 mmol/L (136-145)
[2023-04-23 07:34] LABS: Troponin I 142 ng/L (<or=60)
[2023-04-23 08:21] LABS: Lab Add On Test DONE
[2023-04-23] MEDS: Pantoprazole 40 MG TABCR PO ×2 (08:24→21:00)
[2023-04-23] MEDS: Acetaminophen 325 MG TAB PO ×2 (08:25→21:01)
[2023-04-23] MEDS: Budesonide/Formoterol 160/4.5 6 GM 60 PUFF INH IH ×2 (08:32→19:26)
[2023-04-23 08:49] LABS: Procalcitonin < 0.1 ng/mL
[2023-04-23 09:02] LABS: COVID-19 PCR Negative (Negative); Influenza A PCR Negative (Negative); Influenza B PCR Negative (Negative); RSV PCR Negative (Negative)
--- NOTE | 2023-04-23 09:21 | PT.INTREAT ---
PT Notes Visit Reasons: Symptomatic anemia, heme positive stools Date: 04/23/23 PRECAUTIONS: Fall.?Standard.? Activity as tolerated.? SUBJECTIVE: Pt in bed when approached for therapy this morning, pt initially refused getting out of bed, pt changed her mind after doing standing activity at bedside and went for her morning walk. OBJECTIVE:? IV line on the left arm Telemetry being closely monitored by nursing ? THERA ACT: Direct one-on-one instruction in dynamic activities to improve functional performance with provision of needed guidance and skilled cues/instruction on performance and technique with bed mobility,? transfers,? and gait performance as follows: ? ? BED MOBILITY/TRANSFERS? Supine-sit: stand by assist Sit-supine: stand by assist Sit-stand: stand by assist Stand-sit: stand by assist ? At bedside: Sit to stand 5x SBA Static standing 1min Marching in place 2mins x2 ? AMBULATION ? Assistive Device: FWW? Weight bearing: WBAT Assist: stand by assist ? Distance:? 150'? Deviation: Stoop forward. Low step height and step length,? No LOB.? Minimal shortness of breath that resolved with rest.? ASSESSMENT:? Pt able to complete entire loop without requiring pt to sit, only taking standing rest break, pt requested to stay in bed after session, was provided assistance for bed positioning to address low back pain, setup bedside call solares, and bedside table before leaving pt with daughter. PLAN: Continue with balance training, global strengthening and general conditioning for improved safety, mobility and activity tolerance. TREATMENT CODE/TIME:? Session [id number] x 25 minutes (2 unit), (9:00 to 9:25 am)
[2023-04-23 09:22] LABS: Source Nasopharynx
--- NOTE | 2023-04-23 09:44 | ANES.PREOP_ITS ---
General Info Date of Service Date Performed: 04/23/23 Height: 5 ft 1 in Weight: 75.5 kg Body Mass Index (BMI): 31.4 Surgical Procedure: Operation Date: 04/23/23 13:20 Proposed Procedure Side Surgeon p Gastroscopy Yasmin Avalos, DO Meds Allergies and Home Medications Allergies Allergy/AdvReac Type Severity Reaction Status Date / Time lisinopril Allergy Unknown Unverified 02/24/23 17:08 pravastatin Allergy Skin Rash Unverified 02/24/23 17:08 cyclobenzaprine HCl AdvReac Intermediate Agitation Unverified 02/24/23 17:08 [From Flexeril] Home Medication Medication Instructions Recorded [id number] acid 0.4 1 ea PO DAILY 02/01/13 mg-lycopene 300 mcg-lutein 250 mcg tablet (Centrum Silver) omega-3 fatty acids-fish oil 340 1 cap PO DAILY 07/17/14 mg-1,000 mg capsule (Fish Oil) fluticasone propionate 115 2 inh inhalation BID 04/06/20 mcg-salmeterol 21 mcg/actuation HFA inhaler (Advair HFA) calcium carbonate 600 mg-vitamin 1 tab PO TID #1 tab 04/08/20 D3 5 mcg (200 unit) tablet (Calcium 600 + D(3)) chlorthalidone 25 mg tablet 25 mg PO DAILY #1 tab 04/08/20 magnesium oxide 250 mg PO DAILY 12/16/21 albuterol sulfate 90 mcg/actuation 1 inh inhalation ONCE 06/15/22 aerosol inhaler gabapentin 100 mg capsule 100 mg PO QHS #30 caps 04/09/23 losartan 25 mg tablet 25 mg DAILY 04/21/23 vit C 250 mg-vit E 90 mg-zinc 40 1 cap PO BID 04/22/23 mg-copper 1 vs-mrbfdy-qmajze capsule (PreserVision AREDS-2) Current Visit Medications: Current Medications Generic Name Dose Route Start Last Admin Trade Name Freq PRN Reason Stop Dose Admin Acetaminophen 0 mg 04/21/23 15:23 04/23/23 08:25 Acetaminophen 325 Mg Tab PO 650 mg Q4H PRN PRN Administration Al Hydrox/Mg Hydrox/Simethicone 30 ml 04/21/23 15:23 Mylanta Suspension 30 Ml Cup PO Q2H PRN PRN Albuterol Sulfate 2 puff 04/21/23 15:30 Albuterol Hfa 8 Gm 60 Puff Inh IH Q4H PRN PRN Budesonide/Formoterol Fumarate 2 puff 04/21/23 20:00 04/23/23 08:32 Budesonide/Formoterol 160/4.5 6 Gm 60 Puff Inh IH 2 puff BID ADAN Administration Calcium/Vitamin D 1 tab 04/21/23 20:00 04/22/23 19:51 Calcium 600mg/Vit D 200u Tab PO 1 tab TID ADAN Administration Cyanocobalamin 1,000 mcg 04/22/23 08:30 04/22/23 07:32 Cyanocobalamin 500 Mcg Tab PO 1,000 mcg DAILY ADAN Administration Device 1 each 04/21/23 16:00 Inhaler, Assist Device MC DIRECTED ADAN Diphenhydramine HCl 25 mg 04/21/23 22:21 04/22/23 19:53 Diphenhydramine 25 Mg Cap PO 25 mg HS PRN PRN Administration Docusate Sodium 100 mg 04/21/23 15:23 Docusate Sodium 100 Mg Cap PO TID PRN PRN Gabapentin 100 mg 04/21/23 22:00 04/22/23 19:51 Gabapentin 100 Mg Cap PO 100 mg HS ADAN Administration Sodium Chloride 500 mls @ 0 mls/hr 04/21/23 15:23 Saline 500ml Bag IV PRN PRN As Directed Ringer's Solution 1,000 mls @ 75 mls/hr 04/23/23 00:05 04/23/23 00:14 IV 75 mls/hr INFUSION ADAN Administration IV Miscellaneous Supplies 1 each 04/21/23 15:30 Iv Access IV DIRECTED ADAN Magnesium Hydroxide 30 ml 04/21/23 15:23 Milk Of Magnesia 30 Ml Cup PO DAILY PRN PRN Melatonin 6 mg 04/21/23 22:21 04/21/23 22:34 Melatonin 3 Mg Tab PO 6 mg HS PRN Administration Insomnia Miconazole Nitrate 0 gm 04/21/23 20:00 04/22/23 19:55 Miconazole 2% Topical Powder 85 Gm Btl TP 05/05/23 23:59 Not Given BID ADAN Multivitamins 1 tab 04/22/23 08:30 04/22/23 07:32 Multivitamin Tab PO 1 tab DAILY ADAN Administration Ondansetron HCl 4 mg 04/22/23 14:32 04/22/23 19:45 Ondansetron 4 Mg/2 Ml Vial IVP 4 mg Q4H PRN PRN Administration Pantoprazole Sodium 40 mg 04/21/23 20:00 04/23/23 08:24 Pantoprazole 40 Mg Tabcr PO 40 mg BID@0730,2000 ADAN Administration Patient's Own 1 each 04/22/23 18:00 04/22/23 17:47 Medication ( PO 1 each Preservision) BID@0830,1700 ADAN Administration Sodium Chloride 0 ml 04/21/23 15:23 Normal Saline Flush 10 Ml Syr IVP PRN PRN PFSH Active Problems Active Problems: Problem Status Onset Code Renal malignant neoplasm C64.9 Elevated troponin R77.8 Chest pressure R07.89 Discharge planning issues Z02.9 DVT prophylaxis Z29.9 Leucocytosis D72.829 Heme + stool R19.5 Symptomatic anemia D64.9 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 Renal cell carcinoma C64.9 Hip pain, left M25.552 Shoulder pain, left M25.512 Fatigue R53.83 Leg pain, left M79.605 Osteopenia M85.80 Left kidney mass N28.89 Spinal stenosis M48.00 Trochanteric bursitis, left hip M70.62 Pneumonia J18.9 Sepsis A41.9 Calcific tendinitis of left hip M65.252 Strain of gastrocnemius muscle of left lower extremity S86.112A HTN (hypertension) I10 Hyperlipidemia E78.5 Asthma J45.909 Fall W19.XXXA Weakness R53.1 Hip pain M25.559 Medical History Medical History (Updated 04/22/23 @ 20:59 by Yasmin Avalos DO) Chronic left hip pain Surgical History Surgical History H/O abdominoplasty H/O: hysterectomy Tobacco Smoking/Tobacco Use Status: Former Tobacco Use Alcohol Alcohol Intake: never Substance Use Substance use: Never Substance use type: marijuana Vital Signs and Lab Results Vital Signs Most Recent Vital Signs in EMR: Most Recent Vital Signs Temp Pulse Resp BP Pulse Ox 38 C H 97 H 17 123/70 90 L 04/23/23 07:21 04/23/23 07:21 04/23/23 07:21 04/23/23 07:21 04/23/23 07:21 Lab Results 04/23/23 06:20 04/23/23 06:20 Blood Type / Crossmatch: Patient ABO/Rh O Negative 04/21/23 Antibody Screen NEGATIVE 04/21/23 Crossmatch See Detail 04/21/23 Complete Blood Count: White Blood Count 11.51 10^3/uL (4.4-10.8) H 04/23/23 06:20 Red Blood Count 4.63 10^6/uL (3.93-5.22) 04/23/23 06:20 Hemoglobin 11.4 g/dL (11.2-15.7) 04/23/23 06:20 Hematocrit 37.0 % (36.0-46.0) 04/23/23 06:20 Platelet Count 302 10^3/uL (130-400) 04/23/23 06:20 Complete Metabolic Panel: Sodium 138 mmol/L (136-145) 04/23/23 06:20 Potassium 3.7 mmol/L (3.5-5.1) 04/23/23 06:20 Chloride 103 mmol/L (98-107) 04/23/23 06:20 Carbon Dioxide 25.7 mmol/L (21.0-32.0) 04/23/23 06:20 BUN 11 mg/dL (7-18) 04/23/23 06:20 Creatinine 0.8 mg/dL (0.55-1.02) 04/23/23 06:20 Est GFR (CKD-EPI 2020) 73.98 (mL/min/1.73m2) 04/23/23 06:20 Magnesium 2.0 mg/dL (1.8-2.4) 04/23/23 06:20 Calcium 9.2 mg/dL (8.5-10.1) 04/23/23 06:20 Albumin 3.2 g/dL (3.4-5.0) L 04/21/23 13:56 Glucose 87 mg/dL (74-106) 04/23/23 06:20 Liver Function Panel: Alanine Aminotransferase (ALT/SGPT) 18 U/L (14-59) 04/21/23 13: 56 Aspartate Amino Transf (AST/SGOT) 18 U/L (15-37) 04/21/23 13:56 Coagulation Panel: INR International Normalized Ratio 1.1 (0.9-1.1) 04/21/23 17:0 0 Prothrombin Time 11.6 sec (9.3-11.0) H 04/21/23 17:00 Cardiac Panel: Troponin I 142 ng/L (<or=60) H* 04/23/23 NT-Pro-B Natriuret Pep 487 pg/mL (<300) H 04/21/23 Arterial Blood Gas: No Data to Display Venous Blood Gas: No Data to Display Pancreas Panel: No Data to Display Thyroid Panel: Thyroid Stimulating Hormone (TSH) 2.78 uIU/mL (0.36-3.74) 04/21 13:56 Infectious Disease: Coronavirus (COVID-19)(PCR) Negative (Negative) 04/23/23 08:15 Coronavirus 2019 Source Nasopharynx 04/23/23 08:15 Influenza Virus Type A (PCR) Negative (Negative) 04/23/23 08:1 5 Influenza Virus Type B (PCR) Negative (Negative) 04/23/23 08:1 5 Respiratory Syncytial Virus (PCR) Negative (Negative) 04/23/23 08:15 Blood Cultures: No Data to Display Toxicology Panel: No Data to Display Imaging and Studies Imaging and Studies Study information below may be from another EMR and interpreted by another provider. Please see original notes in EMR for more complete details. EKG Summary: 04/24: sinus, LAE. Echocardiogram Summary: 04/24: LVEF 45%, apical and ant apical wall motion abnormality. RVSP 29 mmhg Pulmonary Function Summary: 07/22: normal PFTs. Anesthesia Assessment and Plan Anesthesia History Personal History: No History of Anesthesia Complications Family History: No Family History of Anesthesia Complications Exercise Tolerance Exercise Tolerance: Metabolic Equivalents>4 Cardiac & Pulmonary Exam Cardiac Exam: Normal S1/S2 Heart Sounds Pulmonary Exam: Clear Bilateral Breath Sounds Implantable Cardiac Device Does patient have a Pacemaker or an ICD?: No Airway Exam Known Difficult Airway: No Mallampati Class: 1 Mouth Opening: Normal (> 3cm) Thyromental Distance: Greater than 3 cm Neck Range of Motion: Limited ROM Neck Circumference: Normal Teeth Condition: Generalized Poor Dentition (most are missing.), Loose or Chipped (bottom left loose. ) and Removable Dentures/Plates Upper ASA Classification ASA Score: ASA 3 Emergency Case?: No NPO Status NPO Status: NPO Clears >2 hours, Solids >8 hours Anesthesia Plan Resuscitation Status: Full Code Anesthesia Technique: General Anesthesia Airway Planned: Natural Airway Monitors Used: Standard Monitors Preoperative Comments:: 82 yo female for EGD due to ? UGIB. Presented to the ED 04/21 with sob, dizziness and was found to be anemic (7.3) with heme pos stool. She did have a slight bump in trops which is felt to be due to demand. After blood administration her symptoms improved. Currently 11.4 after PRBC. Sig PMHx: HTN, asthma, former smoker.
--- NOTE | 2023-04-23 10:15 | DI.RAD_ITS ---
Exam(s) XR PORTABLE CHEST AP EXAM: XR PORTABLE CHEST AP CLINICAL HISTORY: fever TECHNIQUE: 2D digital imaging was performed. COMPARISON: CR XR CHEST 2V PA LATERAL from 02/08/2023 CR XR PORTABLE CHEST AP from 04/21/2023 FINDINGS: Exam was limited by under penetration and suboptimal pulmonary inflation. Diffuse bilateral intersti tial changes are again noted. There is no visible consolidation or effusion. The heart and on is ag ain noted to be enlarged. Mild superimposed pulmonary edema not entirely excluded. IMPRESSION: Bilateral interstitial changes. No focal infiltrate identified. DATA REPOSITORY: RADIATION DOSE DELIVERED:
[2023-04-23] MEDS: Lactated Ringers 1,000 ML 30 ML IV (10:41)
--- NOTE | 2023-04-23 10:52 | STOM_PTH ---
PATIENT: Beth Shields LOC: [id number]#:[id number] AGE/SX: 82/F ROOM: RE04/21/[address]: Marina Parker : 1940 BED: A DIS: 04/24/2023 SPEC #: [id number] RECD: 04/23/23 12:55 STATUS: [place] REQ #: [id number] SANG: 04/23/23 10:[address]: Marina Parker DEPT: Surgical Specimen RECD BY: Kathrine Fang ENTERED: 04/23/23 12:56 SP TYPE: STOMACH OTHR DR: Dmitriy Angeles Laura M InPatient Dan Wyand Tissues: 1 - STOMACH BIOPSY 2 - ESOPHAGUS BIOPSY Procedures: GROSS AND MICRO LEVEL 4 Comments: [id number]
--- NOTE | 2023-04-23 11:04 | W.PM.ENDDOP ---
Date of service: 04/23/23 Time of Service: 11:04 Endoscopy Report DATE OF PROCEDURE: 04/23/23 PRE-OP DIAGNOSIS: Anemia, POST-OP DIAGNOSIS: other ( mild duodenitis/moderate gastritis/Bernard's esophagus ) SURGEON: Yasmin Avalos ANESTHESIA TYPE: General:No Airway ESTIMATED BLOOD LOSS: 1 PATHOLOGY: other COMPLICATIONS: None DISPOSITION: PACU PROCEDURE DESCRIPTION: After informed consent was obtained the patient was take to the procedure room and placed in a supine position. Monitors were applied and a time out was done. The patients name, date of , procedure type, allergies to medications and metal in their body was reviewed. A bite block was placed and the patient was sedated. Once sedated and comfortable the gastroscope was advanced through the oropharynx which was grossly normal into the esophagus. The proximal and mid-esophagus were normal. In the distal esophagus there was NO: Esophageal erosions/varices/diverticula or stricture present. 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 The Z-line is irregular and there are multiple tissue islands present, indicative indicative of chronic Bernard's.. There is no signs of active esophagitis. Biopsies taken of the GE junction. The scope was advanced into the stomach and through the pylorus into the 2rd portion of the duodenum. The duodenum was noted to be mild gastritis. There are no ulcers. There is no signs of active bleeding. The scope was retracted back into the stomach and biopsies were done. there are no signs of active or old bleeding. She does have a moderate gastritis in a striped fashion radiating from the antrum. There were no ulcers. The scope was retroflexed. The cardia and fundus were noted to be normal. There no a hiatal hernia noted. She does have a very patulous hiatus. The scope was retracted back into the esophagus and biopsies were done of the GE junction. The scope was removed and the patient was woken up and taken back to [facility] in stable condition.
--- NOTE | 2023-04-23 11:14 | W.ANESPOSTOP ---
Postoperative Evaluation Date, Time and Location Date Performed: 04/23/23 Time Performed: 11:14 Patient Location: Day Surgery Unit Vital Signs Most Recent Imported Vital Signs: Most Recent Vital Signs Temp Pulse Resp BP Pulse Ox 36.7 C 92 H 26 H 120/48 L 94 04/23/23 10:58 04/23/23 10:58 04/23/23 10:58 04/23/23 10:58 04/23/23 10:58 Pain Score Most Recent Pain Score: Most Recent Pain Score Pain Level 0 04/23/23 10:58 Assessment Mental Status: Awake (Alert & Oriented to Patient Baseline) Airway and Respiratory Function: Patent airway with normal (patient baseline) respiratory exam Cardiovascular Function: Hemodynamically Stable Hydration Status: Adequately Hydrated Nausea & Vomiting: No Nausea or Vomiting Pain: Pt. Denies Any Pain Peripheral Nerve Block: Patient did not receive a nerve block
--- NOTE | 2023-04-23 11:15 | W.ANESPOSTOP ---
Postoperative Evaluation Date, Time and Location Date Performed: 04/23/23 Time Performed: 11:15 Patient Location: PACU Vital Signs Most Recent Imported Vital Signs: Most Recent Vital Signs Temp Pulse Resp BP Pulse Ox 36.7 C 92 H 26 H 120/48 L 94 04/23/23 10:58 04/23/23 10:58 04/23/23 10:58 04/23/23 10:58 04/23/23 10:58 Most Recent Vital Signs Temp Pulse Resp BP Pulse Ox 36.7 C 92 H 26 H 120/48 L 94 04/23/23 10:58 04/23/23 10:58 04/23/23 10:58 04/23/23 10:58 04/23/23 10:58 Pain Score Most Recent Pain Score: Most Recent Pain Score Pain Level 0 04/23/23 10:58 Assessment Mental Status: Awake (Alert & Oriented to Patient Baseline) Airway and Respiratory Function: Patent airway with normal (patient baseline) respiratory exam Cardiovascular Function: Hemodynamically Stable Hydration Status: Adequately Hydrated Nausea & Vomiting: No Nausea or Vomiting Pain: Pt. Denies Any Pain Peripheral Nerve Block: Patient did not receive a nerve block
[2023-04-23 13:06] LABS: Bilirubin Negative (Negative); Blood Negative (Negative); Clarity Clear (Clear); Glucose Negative (Negative); Ketones Negative (Negative); Leukocyte Esterase Negative (Negative); Nitrite Negative (Negative); Urobilinogen 0.2 mg/dL (Up to 0.2); pH 5.5 (5-8)
[2023-04-23 13:17] LABS: Bacteria Rare HPF (Negative); Casts Negative LPF (Negative); Crystals Negative HPF (Negative); Epithelial Cells Few HPF (Negative); Mucus Heavy (Negative); RBC 0-2 HPF (0-2); WBC 0-2 HPF (0-5)
[2023-04-23 13:18] LABS: C & S Indicated? No
--- NOTE | 2023-04-23 14:00 | CHAPLAIN ---
I had a brief visit with Beth yesterday. She was friendly and polite, but not interested in further conversation.
--- NOTE | 2023-04-23 14:30 | RT.EKG_ITS ---
APPROVED REPORT Exam: Resting ECG Reason for Exam: suspected acute CVA Patient Location: I HR:111 bpm ECG Measurements Heart Rate 111 AXIS NE 192 P 44 QRSd 88 QRS 6 QT 370 T -59 QTc 503 Conclusion Sinus tachycardia...rate> 99 Left atrial enlargement...P, P'>60mS, ST-T abnormalities consistent with LVH/ischemia
--- NOTE | 2023-04-23 14:55 | DI.CT_ITS ---
Exam(s) CT BRAIN NECK CTA EXAM: CT BRAIN NECK CTA CLINICAL HISTORY: suspected acute CVA. TECHNIQUE: Imaging Protocol: Axial CT angiography was performed with multi-slice acquisition and mu lti-planar and 3D reconstructions. CONTRAST MATERIAL: Intravenous: Omnipaque 350 Contrast volume:100 ml COMPARISON: CT CT ABDOMEN PELVIS WO from 02/03/[address] ABDOMEN PELVIS WO from 02/03/2023 FINDINGS: CT Head W/O and W contrast: Ventricles and Extra axial spaces: Normal in size and morphology for the patient's age. Hemorrhage: None. Cerebral parenchyma: Normal. Midline shift: None. Brainstem/Cerebellum: Normal. Calvarium: Normal. Visualized Paranasal sinuses/Mastoids: Clear. Soft Tissues: Unremarkable. Enhancement: Normal. CTA Brain W: Internal Carotid Arteries: Petrous: Occluded Cavernous: Occluded Cerebral: Normal. Middle Cerebral Arteries: Right: No aneurysm, occlusion or significant stenosis. Left: No aneurysm, occlusion or significant stenosis. Anterior Cerebral Arteries: Right: No aneurysm, occlusion or significant stenosis. Left: No aneurysm, occlusion or significant stenosis. Posterior cerebral Arteries: Right: No aneurysm, occlusion or significant stenosis. Left: No aneurysm, occlusion or significant stenosis. Vertebral Arteries: Right: No aneurysm, occlusion or significant stenosis. Left: No aneurysm, occlusion or significant stenosis. Basilar Artery: No aneurysm, occlusion or significant stenosis. CTA Neck W: Common Carotid: Right: No dissection, occlusion or significant stenosis. Left: No dissection, occlusion or significant stenosis. External Carotid: Right: No dissection, occlusion or significant stenosis. Left: No dissection, occlusion or significant stenosis. Internal Carotid: Right: Severe calcific plaque at common carotid bulb and proximal internal carotid artery with occlus ion of the internal carotid artery. Left: Heavy calcific plaque at the common carotid bulb. No dissection, occlusion or significant sten osis. Vertebral Artery: Right: No dissection, occlusion or significant stenosis. Left: No dissection, occlusion or significant stenosis. Lung Apices: Respiratory motion. Fibrotic changes. Bones: Advanced degenerative changes. Scoliosis upper thoracic region. No acute abnormality. Soft Tissues: Normal. Cerebral parenchyma: Mild atrophy. Mild white matter changes of small vessel disease. Small area of old lacunar infarct right frontal lobe. No findings to suggest acute infarct. Midline shift: None. Brainstem/Cerebellum: Normal. Calvarium: Normal. Visualized Paranasal sinuses/Mastoids: Clear. Soft Tissues: Unremarkable. IMPRESSION: 1. Normal CTA examination of the [place]. 2. 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 No evidence of acute infarct. 3. Heavy calcific plaque at the origin of the right internal carotid artery. 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 RADIATION DOSE DELIVERED: 1,066.59mGy.cm Total DLP 1,066.59mGy.cm Total DLP DATA REPOSITORY: All CT scans at this facility are submitted to the National Radiology Data Registry (NRDR) Dose Index Registry (DIR) with the [employer] (A[employer]). RADIATION OPTIMIZATION: All CT scans at this facility use at least one of these dose optimization te chniques: automated exposure control; mA and/or kV adjustment per patient size (includes targeted exa ms where dose is matched to clinical indication); or iterative reconstruction.
[2023-04-23] MEDS: Omnipaque 350 MG/ML 100 ML BTL IJ (14:59)
[2023-04-23] MEDS: Normal Saline - Diluent 50 ML VIAL IJ (15:01)
--- NOTE | 2023-04-23 15:31 | W.PM.PROGNOT ---
Date of Service Date of service: 04/23/23 Time of Service: 14:23 Assessment and Plan Assessment and plan (1) Acute focal neurological deficit: Status: Acute Assessment and plan: Await MRI brain read. Start asa, as recommended by Dr Velez of Neuro at [facility] [place] - should be relatively safe, even with the heme + stools on admission. We will continue PPI and carafate for now. Keep supine. The R internal carotid artery occlusion is likely chronic as there is evidence of colateral flow. He feels what is happening is likely a flow-dependent issue, and the patient should be kept supine as much as possible. Given her presentation, she is not a candidate for a TPA (two relative contraindications). He does not think that the carotid A needs to be opened up emergently since there is collateral flow. He did recommend calling back if there is an unexpected finding on the MRI (such as a stroke that's not in a watershed-type area). Recommended starting a statin as well as talking to cardiology, which I have initiated with [facility] [place]. I have updated the patient and her daughter Breanna on the neurology recommendations. (2) Right internal carotid occlusion: Status: Acute Assessment and plan: As above (3) Acute electrocardiogram changes: Status: Acute Assessment and plan: Unclear if this is brain's effect on the heart or if there is an underlying acute cardiac issue happening, especially given the presence of wall motion abnormalities on the echo. I am seeking cardiology consult and transfer to [facility] [place]. (4) Elevated troponin: Status: Acute Assessment and plan: As above (5) Symptomatic anemia: Status: Acute Assessment and plan: In setting of heme + stool, but also renal cell carcinoma (not on chemo). I am repeating her H/H as the Hgb of 11 from this morning does not make sense. No gross bleeding. EGD today: mild duodenitis, moderate gastritis, Bernard's. No active bleeding. Continue PPI/Carafate. Hold fish oil. Monitor H/H on asa. (6) Chest pressure: Status: Acute Assessment and plan: With evidence of apical and anterior apical wall motion abnormality and an elevated troponin (but in setting of acute anemia). LVEF 45%. Cardiology consulted in-house, but I do not see consultation as being done in our record. I have reached out to [facility] [place]. (7) Heme + stool: Status: Acute Assessment and plan: As above (8) Renal cell carcinoma: Status: Acute Assessment and plan: As above (9) Leucocytosis: Status: Acute Assessment and plan: No clear infectious process. UA negative. I am obtaining a CXR now to ensure there is not an aspiration pneumonia given a new fever. (post-endoscopy fever is also a possibility). COVID-19 negative. Procalcitonin negative. (10) DVT prophylaxis: Status: Acute Assessment and plan: SCDS Hold off of chemical DVT ppx in a patient with heme + stool and symptomatic anemia (11) Discharge planning issues: Status: Acute Assessment and plan: Full code Continues to require hospitalization. Possible transfer to a tertiary care facility. Total Critical Care Time 60 minutes so far. Subjective Subjective Interval history since last seen: I reponded to stroke alert called overhead. The patient was in a chair at 14:20 and had requested to get up to get to bed. When the nurse was helping her get up, she was noted to be weak on the entire left side and to be slurring words, sliding to the ground and landing on her buttocks. Her blood sugar was 131. Denied numbness/tingling, CP/SOB, n/v. Was in SR at the time of the events. I evaluated her at 14:23, and at the time her NIH stroke scale was 4. Per nursing, her dysarthria was already improving at the time of my exam. It is again worse now, however. She did have an EGD earlier today, which found mild duodenitis, moderate gastritis with no active bleeding. There were signs of chronic long-standing Bernard's. There were no arrhythmias or hypotension intraoperatively. A STAT CT/CTA head/neck was ordered and demonstrated an occlusion of DALILA - neck to cavernous portion, per Dr Cruz, with whom I reviewed the images. There was no evidence of a bleed. There are T wave inversions in lateral leads, which are new on the EKG done now. I have reached out to the physics technician and we can get the MRI of the brain done today. I have reached out to [facility] [place] to request transfer and am awaiting a conversation with neurology. Exam Narrative Exam Narrative: General: Pleasant elderly female who is A&Ox3, seated on the floor by the bed with the nursing surrounding her, slightly dysarthric, but speech content is appropriate, able to tell her story Neuro: A&Ox3, L facial droop, LUE 4/5 strength with L pronator drift, LLE 4/5 - able to walk with assistance, mildly ataxic, 5/5 RUE/RLE strength. No sensory deficits; visual deficits difficult to assess - the patient had a hard time with following that set of commands. NIH scale 4. HEENT: EOMI, MMM, L facial droop Heart: RRR, mildly tachycardic, no m/r/g Lungs: CTAB Abdomen: soft, nontender, nondistended Extremities: trace edema BLEs Objective Last Vital Signs Temp 38.1 C H 04/23/23 15:26 Pulse 110 H 04/23/23 15:26 Resp 22 04/23/23 15:26 BP 160/75 H 04/23/23 15:26 Pulse Ox 91 L 04/23/23 15:26 Laboratory Results - last 24 hr 04/23/23 04/23/23 04/23/23 06:20 06:20 06:20 WBC 11.51 H RBC 4.63 Hgb 11.4 D Hct 37.0 MCV 80 MCH 24.6 L MCHC 30.8 L RDW 14.8 H Plt Count 302 MPV 11.0 Sodium 138 Potassium 3.7 Chloride 103 Carbon Dioxide 25.7 Anion Gap 9.3 BUN 11 Creatinine 0.8 Est GFR (CKD-EPI 2020) 73.98 Glucose 87 Calcium 9.2 Magnesium 2.0 Troponin I 142 H* Procalcitonin Urine Color Urine Clarity Urine pH Ur Specific [place] [employer] Urine Protein Urine Ketones Urine Blood Urine Nitrite Urine Bilirubin Urine Urobilinogen Ur Leukocyte Esterase Urine RBC Urine WBC Ur Epithelial Cells Urine Crystals Urine Bacteria Urine Casts Urine Mucus Ur Culture Indicated? Urine Glucose COVID-19 Source SARS-CoV-2 (PCR) Influenza Type A (PCR) Influenza Type B (PCR) RSV (PCR) Add-On Test Request DONE 04/23/23 04/23/23 04/23/23 06:20 08:15 12:50 WBC RBC Hgb Hct MCV MCH MCHC RDW Plt Count MPV Sodium Potassium Chloride Carbon Dioxide Anion Gap BUN Creatinine Est GFR (CKD-EPI 2020) Glucose Calcium Magnesium Troponin I Procalcitonin < 0.1 Urine Color Yellow Urine Clarity Clear Urine pH 5.5 Ur Specific [place] [employer] 1.020 Urine Protein Trace H Urine Ketones Negative Urine Blood Negative Urine Nitrite Negative Urine Bilirubin Negative Urine Urobilinogen 0.2 Ur Leukocyte Esterase Negative Urine RBC 0-2 Urine WBC 0-2 Ur Epithelial Cells Few Urine Crystals Negative Urine Bacteria Rare Urine Casts Negative Urine Mucus Heavy Ur Culture Indicated? No Urine Glucose Negative COVID-19 Source Nasopharynx SARS-CoV-2 (PCR) Negative Influenza Type A (PCR) Negative Influenza Type B (PCR) Negative RSV (PCR) Negative Add-On Test Request Objective Narrative Objective Narrative: CT/CTA head/neck: 1. Normal CTA examination of the [place]. 2. 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 No evidence of acute infarct. 3. Heavy calcific plaque at the origin of the right internal carotid artery.? 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 EKG: ST, lateral ST segment depressions w/ T wave inversions, new. Time Spent with Patient Time Spent with Patient: >50 minutes Time was spent: preparing to see the patient(eg.review tests), obtaining and/or reviewing separately otained hiistory, ordering medications,tests, procedures, referring, communicating with other health wound care technician, indepentently interpreting results, counseling the patient and care coordination
[2023-04-23 16:17] LABS: Troponin I 93 ng/L (<or=60)
--- NOTE | 2023-04-23 16:36 | PDOC.CMPRO ---
Date of service: 04/23/23 Time of Service: 16:36 Care Management Progress Note Progress Note Text Progress Note Text: S/O: Beth was sitting up in bed when CM met with her. She was pleasant and engaged in conversation. She stated that she is feeling much better today, and is looking forward to returning home. Per report, she had an EGD today which showed no active bleeding. This afternoon a stroke alert was called to her room, after she asked to get out of bed, and with her RN helping, she presented with left sided weakness and slurred speech. She then slid to the ground and landed on her buttocks. A STAT CT/CTA head/neck was ordered. MD has requested transfer to a tertiary facility, awaiting determination. CM will continue to follow. A: Beth is an 82 year old female admitted to [facility] on 04/21/23 for symptomatic anemia, heme positive stools. P: Anticipate Beth will return home once medically cleared with new services, vs transfer to a tertiary facility, if accepted. Her son will drive her home via private vehicle vs EMS for transfer. She will follow up with her PCP and discharge plan of care. CM will continue to follow.
[2023-04-23] MEDS: Aspirin E.C. 325 MG TABEC PO (16:43)
[2023-04-23 17:04] LABS: HCT 29.3 % (36.0-46.0)
[2023-04-23 17:06] LABS: HGB 9.1 g/dL (11.2-15.7)
--- NOTE | 2023-04-23 17:54 | PGE_ITS ---
Date of Service Date of service: 04/23/23 Time of Service: 17:54 Subjective Subjective Interval history since last seen: - Patient is status post EGD. This did show mild duodenitis/moderate gastritis with no active bleeding/chronic changes associated with longstanding Bernard's and reflux.. -. Had a witnessed neurological symptoms consistent with a TIA. CT head and carotids reviewed. -I did review Dr. Parker's notes. -Patient is at high risk for aspirin therapy. Aspirin was not given on an empty stomach. Carafate ACHS. Monitor closely for signs of rebleeding.- -Patient is not a candidate for colonoscopy. Objective Last Vital Signs Temp 38.1 C H 04/23/23 15:26 Pulse 110 H 04/23/23 15:26 Resp 22 04/23/23 15:26 BP 160/75 H 04/23/23 15:26 Pulse Ox 91 L 04/23/23 15:26 Laboratory Results - last 24 hr 04/23/23 04/23/23 04/23/23 06:20 06:20 06:20 WBC 11.51 H RBC 4.63 Hgb 11.4 D Hct 37.0 MCV 80 MCH 24.6 L MCHC 30.8 L RDW 14.8 H Plt Count 302 MPV 11.0 Sodium 138 Potassium 3.7 Chloride 103 Carbon Dioxide 25.7 Anion Gap 9.3 BUN 11 Creatinine 0.8 Est GFR (CKD-EPI 2020) 73.98 Glucose 87 Calcium 9.2 Magnesium 2.0 Troponin I 142 H* Procalcitonin Urine Color Urine Clarity Urine pH Ur Specific [place] Urine Protein Urine Ketones Urine Blood Urine Nitrite Urine Bilirubin Urine Urobilinogen Ur Leukocyte Esterase Urine RBC Urine WBC Ur Epithelial Cells Urine Crystals Urine Bacteria Urine Casts Urine Mucus Ur Culture Indicated? Urine Glucose COVID-19 Source SARS-CoV-2 (PCR) Influenza Type A (PCR) Influenza Type B (PCR) RSV (PCR) Add-On Test Request DONE 04/23/23 04/23/23 04/23/23 06:20 08:15 12:50 WBC RBC Hgb Hct MCV MCH MCHC RDW Plt Count MPV Sodium Potassium Chloride Carbon Dioxide Anion Gap BUN Creatinine Est GFR (CKD-EPI 2020) Glucose Calcium Magnesium Troponin I Procalcitonin < 0.1 Urine Color Yellow Urine Clarity Clear Urine pH 5.5 Ur Specific [place] 1.020 Urine Protein Trace H Urine Ketones Negative Urine Blood Negative Urine Nitrite Negative Urine Bilirubin Negative Urine Urobilinogen 0.2 Ur Leukocyte Esterase Negative Urine RBC 0-2 Urine WBC 0-2 Ur Epithelial Cells Few Urine Crystals Negative Urine Bacteria Rare Urine Casts Negative Urine Mucus Heavy Ur Culture Indicated? No Urine Glucose Negative COVID-19 Source Nasopharynx SARS-CoV-2 (PCR) Negative Influenza Type A (PCR) Negative Influenza Type B (PCR) Negative RSV (PCR) Negative Add-On Test Request 04/23/23 04/23/23 15:48 16:55 WBC RBC Hgb 9.1 L D Hct 29.3 L MCV MCH MCHC RDW Plt Count MPV Sodium Potassium Chloride Carbon Dioxide Anion Gap BUN Creatinine Est GFR (CKD-EPI 2020) Glucose Calcium Magnesium Troponin I 93 H* Procalcitonin Urine Color Urine Clarity Urine pH Ur Specific [place] Urine Protein Urine Ketones Urine Blood Urine Nitrite Urine Bilirubin Urine Urobilinogen Ur Leukocyte Esterase Urine RBC Urine WBC Ur Epithelial Cells Urine Crystals Urine Bacteria Urine Casts Urine Mucus Ur Culture Indicated? Urine Glucose COVID-19 Source SARS-CoV-2 (PCR) Influenza Type A (PCR) Influenza Type B (PCR) RSV (PCR) Add-On Test Request Time Spent with Patient Time Spent with Patient: <25 minutes Time was spent: preparing to see the patient(eg.review tests), obtaining and/or reviewing separately otained hiistory, ordering medications,tests, procedures, referring, communicating with other health health care facilities inspector, indepentently interpreting results and counseling the patient
--- NOTE | 2023-04-23 19:00 | RT.EKG_ITS ---
APPROVED REPORT Exam: Resting ECG Reason for Exam: EKG changes Patient Location: I HR:111 bpm ECG Measurements Heart Rate 111 AXIS CO 190 P 125 QRSd 99 QRS 157 QT 307 T 88 QTc 417 Conclusion Sinus tachycardia...rate> 99 Probable left atrial enlargement...P >50mS, <-0.10mV V1 Right axis deviation...QRS axis ( 91,269) Repol abnrm suggests ischemia, diffuse leads...ST-T neg, ant/lat/inf Baseline wander in lead(s) V5 Possible limb lead reversal with negative P waves and QRS's in 1 and L
[2023-04-23 19:13] LABS: Lab Add On Test DONE
--- NOTE | 2023-04-23 19:30 | DI.VRAD_ITS ---
PROCEDURE INFORMATION: Exam: XR Chest Exam date and time: 04/23/2023 19:10 Age: 82 years old Clinical indication: Patient HX: Fever post egd TECHNIQUE: Imaging protocol: Radiologic exam of the chest. Views: 1 view. COMPARISON: CR XR PORTABLE CHEST AP 04/23/2023 10:16 FINDINGS: Lungs: Moderate in severity diffuse interstitial disease is probably similar counting for technique. Pleural spaces: No pleural effusion. No pneumothorax. Heart/Mediastinum: Moderate cardiomegaly and moderate central vascular congestion are similar. Bones/joints: No acute fracture. IMPRESSION: 1. Moderate cardiomegaly and moderate central vascular congestion are similar. 2. Moderate interstitial disease again seen may reflect chronic fibrosis, bronchitis, atypical infection, interstitial edema among other entities. Dictated and Authenticated by: Lexus Cox MD. Ordering:ELENA Gray MD
[2023-04-23 19:32] LABS: NT-proBNP 5118 pg/mL (<300)
[2023-04-23 19:36] LABS: Troponin I 84 ng/L (<or=60)
--- NOTE | 2023-04-23 20:14 | DSE_ITS ---
Date of service: 04/23/23 Time of Service: 20:14 DS: Diagnosis Discharge Diagnosis (1) Acute CVA (cerebrovascular accident): Status: Acute (2) Right internal carotid occlusion: Status: Acute (3) NSTEMI (non-ST elevated myocardial infarction): Status: Acute (4) Regional wall motion abnormality of heart: Status: Acute (5) Acute CHF: Status: Acute (6) Symptomatic anemia: Status: Acute (7) Heme + stool: Status: Acute (8) Fever: Status: Acute (9) Hypoxia: Status: Acute (10) Leucocytosis: Status: Acute (11) HTN (hypertension): Status: Chronic (12) Hyperlipidemia: Status: Chronic (13) Asthma: Status: Chronic (14) Renal cell carcinoma: Status: Acute Discharge Plan Disposition Patient Disposition: Transfer-Acute Inpatient Care Specific Acute Inpt Facility: [facility] Condition: Serious Discharge Details Reason For Visit: Symptomatic anemia, heme positive stools Admit Date/Time: 04/21/23 15:20 Admit Provider: Marina Parker Attending Provider: Marina Parker [facility] Course: Ms Shields is an 82 year old female with PMHx of hypertension, hyperlipidemia, asthma, renal cell carcinoma (not on chemo), who was admitted to [facility] hospitalist service on 04/21/23 for symptomatic anemia with Hgb of 7.3 (down from the usual of 12-13) and brown hemoccult positive stool in the ED, having presented with 7-10 days of dizziness, weakness, chest pressure, shortness of breath, and palpitaitons, with reports of dark/black stools at home within the prior week. The patient had denied weight loss/gain, abdominal pain, h/o PUD or prior GI bleeding. She did use fish oil at home and occasionally took NSAIDS within the week prior to admission. Her fish oil was held. She was initiated on IV PPI and carafate with serial monitoring of her H/H after being transfused 1 unit of pRBCs. Her chest discomfort resolved with blood transfusion. Her hemoglobin improved to 9.2 and remained stable for the duration of the hospitalization. Her troponin I, which was initially negative, did bump up to 281, then 287, then down to 257 without ischemic changes on her EKG. It was initially felt that this troponin elevation and her cardiac symptoms were due to demand ischemia in setting of anemia. However, the patient underwent an echocardiogram, which revealed an apical and anterior apical wall motion a bnormality and an LVEF of 45%. There was no prior echocardiogram for comparison. Cardiology was consulted in-house, but the actual consultation does not appear to have taken place. The patient was evaluated by general surgery for a possibility of an endoscopy. An upper endoscopy happened on the morning on 04/23/23, with results being: mild duodenitis, moderate gastritis, Bernard's esophagus. There was no source of active bleeding seen. The patient was doing well in recovery post EGD, but at 14:20 had requested that her nurse move her from chair to bed. When she was helped up by nurse, she was noted to have LUE/LLE weakness, as well as to have new dysarthria and L facial droop. The patient slid down to the floor, not hurting herself. A stroke alert was called. Her fingerstick glucose at the time was 131. Her SBP was 167. She was in sinus rhythm (and has been for the duration of her hospitalization). Her NIH stroke scale was 4. She went down for a STAT CT/CTA head and neck revealing no acute CVA, but an occluded R internal carotid artery from the origin to the cavernous portion. We do not have in-house neurology on Fridays or s at [facility], so [facility] neurology was consulted, felt that the patient was not appropriate for TPA (as did I given her recent GI bleed and her age) and recommended initiation of aspirin and statin in addition to reviewing MRI images with them, when availab le. The patient was recommended to be kept supine to ensure that it was not a low flow situation with the patient hypoperfusing her brain when standing given her R ICA occlusion. MRI of the brain revealed several foci of restricted diffusion in the right MCA distribution consistent with acute infarcts, in particular in the insular cortex and in stoddard radiata, as per my conversation with Dr Jenkins of Radiology. Additionally, the patient did develop new/worsening ST-T changes in the lateral leads. The troponin continued to be downtrending, with the numbres today being 142 this morning prior to the events, 93 shortly after the acute onset of the neurological deficits, and 84 on repeat. I spoke with [facility] cardiology who did feel that this could represent a true NSTEMI and were hoping for neurology help in figuring out the risk of hemorrhagic conversion prior to making therapeutic decisions. I called [facility] neurology and cardiology on the phone at the same time. Neurology felt that the risk of hemorrhagic conversion on anticoagulation would be acceptable, but cardiology did not recommend anticoagulation at this time, though felt that a cardiac cathereization would be warranted on this admission. The patient was not felt to be a candidate for an embolectomy or an endarterectomy of her R internal Carotid occlusion. While both cardiology and neurology felt that the patient would benefit from a transfer to a tertiary care facility, no medicine beds were available at [facility], and a transfer to [facility] was sought. The patient was accepted in transfer when bed becomes available on urgent basis by Dr Buitrago of medicine. It needs to be mentioned that the patient did have a temperature of 38.0 this morning, at which point she was tested and was negative for COVID- 19/RSV/influenza by PCR, had a negative UA, and her blood cultures were ordered. Her CXR did not reveal an acute infectious process. She does appear to have clinical signs of slight iatrogenic fluid overload with O2 sats of 87% on RA when laying flat, and with an elevated proBNP of 5118, up from 487 on admission. She received a dose of furosemide 20 mg IV x 1 and was started on supplemental O2. There does not appear to be an acute bacterial process, so she is not currently on antibiotics. The fever did recur post endoscopy. The patient is stable for transfer and is agreeable to transfer. She is full code. We really appreciate the assistance of the [facility] clinical team and wish the patient well. Additional critical care time spent on care for patient, interpretation of results, consultation with radiology, cardiology, neurology, and coordination of transfer was 100 minutes. Please, see MAR for the list of the patient's inpatient medications. The list of medications below reflects her outpatient prescriptions. Home Meds and New Rx's Prescriptions: No Action albuterol sulfate 90 mcg/actuation HFA aerosol inhaler 1 inh inhalation ONCE magnesium oxide 250 mg magnesium tablet 250 mg PO DAILY gabapentin 100 mg capsule 100 mg PO QHS Qty: 30 0RF Rx Instructions: Trial for leg discomfort per pt report per PCP Flory Howard Centrum Silver 1 EACH tablet 1 ea PO DAILY Fish Oil 1 EACH capsule 1 cap PO DAILY fluticasone propion-salmeterol [Advair HFA] 115-21 mcg/actuation HFA aerosol inhaler 2 inh INHALATION BID Patient Comments: INL 2 PFS PO BID chlorthalidone 25 mg Tablet 25 mg PO DAILY Qty: 1 0RF calcium carbonate-vitamin D3 [Calcium 600 + D(3)] 600 mg(1,500mg) -200 unit Tablet 1 tab PO TID Qty: 1 0RF losartan 25 mg tablet 25 mg DAILY PreserVision AREDS-2 250-90-40-1 mg Capsule 1 cap PO BID Discharge Instructions Activity:: bedrest, turn Q2H Equipment/Supplies:: No Equipment Needed Diet:: NPO Discharge Orders Discharge Orders: Discharge Order (Routine); Ordered 04/23/23 Ordered By: Marina Parker DS: Summary Time Spent with Patient providing and/or coordinating discharge services: Greater than 30 minutes Status at Discharge Functional status at discharge: bed bound Overall status at discharge: patient is not back to baseline Mental Status: mental status grossly normal Speech and Movement: slurred speech Mood: congruent mood Affect: normal affect Quality: AMI Clinical Trial Participant: No Contraindication for No Fibrinolytic Therapy: Treatment not indicated Quality: Stroke Reason for No Anticoagulant at DC: Treatment not indicated Contraindication Not Initiating IV-Tpa: Contraindicated Onset of Symptoms Date: 04/23/23 Onset of Symptoms Time: 14:20 Symptom Onset Unknown: Yes Exam Narrative Exam Narrative: General: Pleasant elderly female who is A&Ox3, dysarthric Neuro: A&Ox3, L facial droop, LUE 4/5 strength with L pronator drift, LLE 4/5 - able to walk with assistance, mildly ataxic, 5/5 RUE/RLE strength. No sensory deficits; visual deficits difficult to assess - the patient had a hard time with following that set of commands. NIH scale 4. HEENT: EOMI, MMM, L facial droop Heart: RRR, mildly tachycardic, no m/r/g Lungs: CTAB Abdomen: soft, nontender, nondistended Extremities: trace edema BLEs Psych Mental Status: mental status grossly normal Speech and Movement: slurred speech Mood: congruent mood Affect: normal affect DS: Data Vitals/I&O Vitals and I&O: Vital Signs Temperature 37.7 C H 04/23/23 19:04 Temperature Source Tympanic 09/22/23 19:04 Pulse 114 H 04/23/23 19:04 Pulse Rhythm Regular 04/23/23 15:03 Respiratory Rate 18 04/23/23 19:04 Respiratory Effort Normal, Non-Labored 04/23/23 15:03 Respiratory Depth Normal 04/23/23 15:03 Respiratory Pattern Normal 04/23/23 15:03 Blood Pressure 157/75 H 04/23/23 19:04 Blood Pressure Position Sitting 04/21/23 12:55 Pulse Oximetry 87 L 04/23/23 19:11 Oxygen Delivery Method Room Air 04/23/23 19:11 Oxygen Flow Rate 0 04/23/23 19:11 Pain Level 0 04/23/23 15:26 Comment applied 2l nc 04/23/23 19:11 Intake & Output 04/22/23 04/23/23 04/23/23 23:59 11:59 23:59 Intake Total 1000 / 1000 300 / 2120.0 1820.0 / 2120.0 Output Total 350 / 650 0 / 200 200 / 200 Balance 650 / 350 300 / 1920.0 1620.0 / 1920.0 Weight 75.5 kg Intake: IV 1000 / 1000 300 / 2000.0 1700.0 / 2000.0 Oral 120 / 120 Output: Urine 350 / 650 0 / 200 200 / 200 Other: Urine Color Yellow Yellow Yellow Urine Appearance Clear Clear Cloudy Urine Odor None None Comment RN: bladder scan 208, 120, 75 Stool Characteristics Formed Brown Emesis Description None Voiding Methods Bedside Commode Toilet Data Completed and Pending Completed studies during hospitalization [Text1]: CXR 04/21/23: Fibrotic changes.? No acute abnormality.? Echo 04/22/23: Normal left ventricular wall thickness and chamber size.? Ejection fraction is 45%.? There is an apical and anterior apical wall motion abnormali ty Normal right ventricular size and systolic function Left atrium is mildly dilated.? Right atrial size is normal The aortic valve is trileaflet and mildly sclerotic without stenosis or regurgitation Mildly thickened mitral leaflets with mild regurgitation Normal tricuspid valve with mild regurgitation.? Estimated right ventricular systolic pressure is 29 mmHg Small circumferential pericardial effusion CT/CTA head/neck 04/23/23: 1. Normal CTA examination of the [place]. 2. 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 No evidence of acute infarct. 3. Heavy calcific plaque at the origin of the right internal carotid artery.? 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 MRI brain 04/23/23: 1. Several foci of restricted diffusion in the right MCA distribution consistent with acute infarcts.? Emboli/thrombi should be considered. 2. 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 CXR 04/23/23: Bilateral interstitial changes.? No focal infiltrate identified. Labs on day of discharge: Labs from last 24 hours 04/23/23 04/23/23 04/23/23 Unknown 19:00 19:00 WBC RBC Hgb Hct MCV MCH MCHC RDW Plt Count MPV Sodium Potassium Chloride Carbon Dioxide Anion Gap BUN Creatinine Est GFR (CKD-EPI 2020) Glucose Calcium Magnesium Troponin I 84 H* NT-Pro-B Natriuret Pep 5118 H Procalcitonin Urine Color Urine Clarity Urine pH Ur Specific [place] Urine Protein Urine Ketones Urine Blood Urine Nitrite Urine Bilirubin Urine Urobilinogen Ur Leukocyte Esterase Urine RBC Urine WBC Ur Epithelial Cells Urine Crystals Urine Bacteria Urine Casts Urine Mucus Ur Culture Indicated? Urine Glucose COVID-19 Source SARS-CoV-2 (PCR) Influenza Type A (PCR) Influenza Type B (PCR) RSV (PCR) Add-On Test Request DONE 04/23/23 04/23/23 04/23/23 16:55 15:48 12:50 WBC RBC Hgb 9.1 L D Hct 29.3 L MCV MCH MCHC RDW Plt Count MPV Sodium Potassium Chloride Carbon Dioxide Anion Gap BUN Creatinine Est GFR (CKD-EPI 2020) Glucose Calcium Magnesium Troponin I 93 H* NT-Pro-B Natriuret Pep Procalcitonin Urine Color Yellow Urine Clarity Clear Urine pH 5.5 Ur Specific [place] 1.020 Urine Protein Trace H Urine Ketones Negative Urine Blood Negative Urine Nitrite Negative Urine Bilirubin Negative Urine Urobilinogen 0.2 Ur Leukocyte Esterase Negative Urine RBC 0-2 Urine WBC 0-2 Ur Epithelial Cells Few Urine Crystals Negative Urine Bacteria Rare Urine Casts Negative Urine Mucus Heavy Ur Culture Indicated? No Urine Glucose Negative COVID-19 Source SARS-CoV-2 (PCR) Influenza Type A (PCR) Influenza Type B (PCR) RSV (PCR) Add-On Test Request 04/23/23 04/23/23 04/23/23 08:15 06:20 06:20 WBC RBC Hgb Hct MCV MCH MCHC RDW Plt Count MPV Sodium Potassium Chloride Carbon Dioxide Anion Gap BUN Creatinine Est GFR (CKD-EPI 2020) Glucose Calcium Magnesium Troponin I NT-Pro-B Natriuret Pep Procalcitonin < 0.1 Urine Color Urine Clarity Urine pH Ur Specific [place] Urine Protein Urine Ketones Urine Blood Urine Nitrite Urine Bilirubin Urine Urobilinogen Ur Leukocyte Esterase Urine RBC Urine WBC Ur Epithelial Cells Urine Crystals Urine Bacteria Urine Casts Urine Mucus Ur Culture Indicated? Urine Glucose COVID-19 Source Nasopharynx SARS-CoV-2 (PCR) Negative Influenza Type A (PCR) Negative Influenza Type B (PCR) Negative RSV (PCR) Negative Add-On Test Request DONE 04/23/23 04/23/23 06:20 06:20 WBC 11.51 H RBC 4.63 Hgb 11.4 D Hct 37.0 MCV 80 MCH 24.6 L MCHC 30.8 L RDW 14.8 H Plt Count 302 MPV 11.0 Sodium 138 Potassium 3.7 Chloride 103 Carbon Dioxide 25.7 Anion Gap 9.3 BUN 11 Creatinine 0.8 Est GFR (CKD-EPI 2020) 73.98 Glucose 87 Calcium 9.2 Magnesium 2.0 Troponin I 142 H* NT-Pro-B Natriuret Pep Procalcitonin Urine Color Urine Clarity Urine pH Ur Specific [place] Urine Protein Urine Ketones Urine Blood Urine Nitrite Urine Bilirubin Urine Urobilinogen Ur Leukocyte Esterase Urine RBC Urine WBC Ur Epithelial Cells Urine Crystals Urine Bacteria Urine Casts Urine Mucus Ur Culture Indicated? Urine Glucose COVID-19 Source SARS-CoV-2 (PCR) Influenza Type A (PCR) Influenza Type B (PCR) RSV (PCR) Add-On Test Request 04/23/23 08:10 Blood Blood Culture - Pending 04/23/23 08:00 Blood Blood Culture - Pending Preliminary micro results at discharge 04/21/23 17:20 Urine Culture - Preliminary Urine - Voided Gram Positive [place],Mixed Gram Negative Perez 04/23/23 08:10 Blood Culture - Pending Blood 04/23/23 08:00 Blood Culture - Pending Blood [facility] All Active Problems (Updated 04/23/23 @ 20:16 by Marina Parker MD) Regional wall motion abnormality of heart (Acute) Acute CVA (cerebrovascular accident) (Acute) Fever (Acute) Hypoxia (Acute) Acute CHF (Acute) NSTEMI (non-ST elevated myocardial infarction) (Acute) Acute electrocardiogram changes (Acute) Right internal carotid occlusion (Acute) Acute focal neurological deficit (Acute) Renal malignant neoplasm (Chronic) 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 Patient follows up with [facility]. Elevated troponin (Acute) Chest pressure (Acute) Discharge planning issues (Acute) DVT prophylaxis (Acute) Leucocytosis (Acute) Heme + stool (Acute) Symptomatic anemia (Acute) Sacroiliac joint dysfunction of both sides (Acute) Renal cell carcinoma (Acute) Referred to [facility]. Plan is to monitor for size change. Hip pain, left (Acute) Shoulder pain, left (Acute) Fatigue (Acute) Leg pain, left (Acute) Osteopenia (Acute) Left kidney mass (Acute) Spinal stenosis (Acute) Trochanteric bursitis, left hip (Acute) Injection: 12/26/2021 Pneumonia (Acute) Sepsis (Acute) Calcific tendinitis of left hip (Acute) Strain of gastrocnemius muscle of left lower extremity (Acute) HTN (hypertension) (Chronic) Hyperlipidemia (Chronic) Asthma (Chronic) Medical History (Updated 04/23/23 @ 20:16 by Marina Parker MD) Chronic left hip pain Surgical History H/O abdominoplasty H/O: hysterectomy Social History Smoking/Tobacco Use Status: Former Tobacco Use Smoking risk assessment performed?: Yes Alcohol Intake: never Drug use: Never Substance use type: marijuana Housing: apartment Do you feel safe at home: Yes Do you feel safe in your relationship?: Yes Time Spent with Patient Time Spent with Patient: >85 minutes Time was spent: preparing to see the patient(eg.review tests), obtaining and/or reviewing separately otained hiistory, ordering medications,tests, procedures, referring, communicating with other health human services care specialist, indepentently interpreting results, counseling the patient and care coordination
[2023-04-23] MEDS: Calcium 600mg/Vit D 200U TAB 1 TAB PO (21:00)
[2023-04-23] MEDS: Atorvastatin 40 MG TAB 80 MG PO (21:00)
[2023-04-23] MEDS: Normal Saline Flush 10 ML SYR IVP (21:22)
[2023-04-23] MEDS: Furosemide 20 MG/2 ML VIAL IVP (21:22)
[2023-04-23] MEDS: Melatonin 3 MG TAB 6 MG PO (21:28)
[2023-04-23] MEDS: diphenhydrAMINE 25 MG CAP PO (21:29)
[2023-04-23] MEDS: MORPHine 2 MG/ML SYR IVP (22:48)
[2023-04-24] VITALS (8 sets, daily range): BP systolic 90–188; BP diastolic 61–94; PULSE 100–113; RESP 18–20; TEMP 37.6–38.4; O2SAT 84–99
--- NOTE | 2023-04-24 | DI.RAD_ITS ---
Exam(s) XR HIP PELVIS ADULT BL EXAM: XR HIP PELVIS ADULT BL CLINICAL HISTORY: pain post fall. TECHNIQUE: 2D digital imaging was performed of the pelvis and bilateral hips. Three images were obt ained. AP pelvis and lateral views of both hips were obtained. COMPARISON: CR XR HIP LT COMPLETE AP PELVIS from 12/26/2021 FINDINGS: BONES: No acute fracture is present. No bony destructive lesion is seen. JOINTS: No dislocation present. There are degenerative changes in the lower lumbar spine and pelvis. SOFT TISSUE: Normal. IMPRESSION: No acute fracture or dislocation. DATA REPOSITORY: RADIATION DOSE DELIVERED:
--- NOTE | 2023-04-24 | DI.RAD_ITS ---
Exam(s) XR SHOULDER LT COMPLETE 2+V EXAM: XR SHOULDER LT COMPLETE 2+V CLINICAL HISTORY: Acute L shoulder pain. TECHNIQUE: 2D digital imaging was performed of the left shoulder. Three images were obtained. AP, Grashey and Y views were obtained. COMPARISON: No exams were available for comparison FINDINGS: BONES: No acute fracture is present. No bony destructive lesion is seen. JOINTS: No dislocation present. Degenerative changes are seen in the shoulder. Calcification adjacen t to the greater tuberosity most consistent with calcific tendinitis. SOFT TISSUE: Normal. IMPRESSION: No acute fracture or dislocation. DATA REPOSITORY: RADIATION DOSE DELIVERED:
--- NOTE | 2023-04-24 | DI.US_ITS ---
Exam(s) US UPPER EXTREMITY VENOUS LT EXAM: US UPPER EXTREMITY VENOUS LT CLINICAL HISTORY: suspected DVT; edema after having a midline placed. TECHNIQUE: Ultrasound examination of the left upper extremity venous system(s) is performed using gr ayscale, color-flow, and spectral Doppler analysis. COMPARISON: No exams were available for comparison FINDINGS: The left internal jugular, axillary, subclavian and brachial veins are patent without evidence of thr ombosis. There is superficial thrombophlebitis with a 5.1 cm length of thrombus in the distal cephal ic vein. The median cubital vein is patent. IMPRESSION: 1. No DVT. 2. Superficial thrombophlebitis of the distal left cephalic vein measuring 5.1 cm in length. DATA REPOSITORY:
[2023-04-24] MEDS: MORPHine 2 MG/ML SYR IVP ×5 (02:06→15:27)
[2023-04-24] MEDS: Normal Saline Flush 10 ML SYR IVP ×4 (02:07→09:53)
[2023-04-24 07:32] LABS: Absolute Lymphocyte Count 0.89 10^3/uL (1.2-3.4); Absolute Monocyte Count 1.69 10^3/uL (0.1-0.8); Basophils % 0.6; Eosinophils % 1.4; HCT 27.1 % (36.0-46.0); HGB 8.5 g/dL (11.2-15.7); Immature Grans % 0.6; Lymphocytes % 5.5; MCHC 31.4 % (32.0-36.0); MCV 80 fL (80-95); Monocytes % 10.4; Neutrophils % 81.5; Platelet Count 388 10^3/uL (130-400); RDW 15.5 % (11.7-14.6); RDW-SD 44.8 fL; WBC 16.25 10^3/uL (4.4-10.8)
[2023-04-24] MEDS: Pantoprazole 40 MG TABCR PO (07:36)
[2023-04-24 07:39] LABS: Anion Gap 8.9 mmol/L (3-11); BUN 15 mg/dL (7-18); CO2 28.1 mmol/L (21.0-32.0); CREATININE 0.8 mg/dL (0.55-1.02); Calcium 8.7 mg/dL (8.5-10.1); Calculated LDL 115 mg/dL (<100); Chloride 99 mmol/L (98-107); Cholesterol 180 mg/dL (<200); Estimated GFR 73.98 (mL/min/1.73m2); Glucose 113 mg/dL (74-106); HDL Cholesterol 51 mg/dL (40-60); Potassium 3.3 mmol/L (3.5-5.1); Sodium 136 mmol/L (136-145); Triglyceride 71 mg/dL (<150)
[2023-04-24 07:46] LABS: Absolute Eosinophil Count 0.23 10^3/uL (0.0-0.7); Absolute Neutrophil Count 13.24 10^3/uL (1.2-6.7)
[2023-04-24 08:02] LABS: Lab Add On Test DONE
[2023-04-24 08:14] LABS: Hemoglobin A1C 5.6 % (<5.7)
[2023-04-24] MEDS: Budesonide/Formoterol 160/4.5 6 GM 60 PUFF INH IH (08:14)
[2023-04-24 08:19] LABS: C-Reactive Protein 5.45 mg/dL (0.0-0.3)
[2023-04-24] MEDS: Aspirin E.C. 81 MG TABEC PO (08:20)
[2023-04-24] MEDS: Cyanocobalamin 500 MCG TAB 1000 MCG PO (08:20)
[2023-04-24] MEDS: Calcium 600mg/Vit D 200U TAB 1 TAB PO ×2 (08:20→13:08)
[2023-04-24] MEDS: Multivitamin TAB 1 TAB PO (08:20)
[2023-04-24] MEDS: POTASSIUM CHLORIDE 20 MEQ/100 ML BAG 50 MEQ IVPB ×2 (08:21→11:28)
--- NOTE | 2023-04-24 09:00 | DI.US_ITS ---
Exam(s) US EXTREMITY VENOUS BI EXAM: US EXTREMITY VENOUS BI CLINICAL HISTORY: BLE pain, fever of unknown origin, suspected DVT. TECHNIQUE: Bilateral lower extremity venous ultrasound performed using grayscale, color-flow, and sp ectral Doppler analysis. COMPARISON: No exams were available for comparison FINDINGS: The right common femoral, femoral and popliteal veins demonstrate normal compressibility, augmentatio n, and color Doppler. The posterior tibial and peroneal veins are patent. The saphenofemoral junctio n is unremarkable. There is no evidence of a Munoz's cyst. The soft tissues are unremarkable. The left common femoral, femoral and popliteal veins demonstrate normal compressibility, augmentation , and color Doppler. The posterior tibial and peroneal veins are patent. The saphenofemoral junction is unremarkable. There is no evidence of a Munoz's cyst. The soft tissues are unremarkable. IMPRESSION: 1. No evidence of a right lower extremity DVT. 2. No evidence of a left lower extremity DVT. DATA REPOSITORY:
[2023-04-24] MEDS: Lidocaine 5% Patch 2 PATCH TP (09:42)
--- NOTE | 2023-04-24 10:22 | DI.VRAD_ITS ---
PROCEDURE INFORMATION: Exam: XR Right Hip Exam date and time: 04/24/2023 10:03 AM Age: 82 years old Clinical indication: Other: Pain post fall TECHNIQUE: Imaging protocol: Radiologic exam of the right hip. Views: 2 or 3 views hip with pelvis when performed. COMPARISON: CT ABDOMEN PELVIS WO 02/03/2023 2:00 PM FINDINGS: Bones/joints: There is no evidence of acute fracture in any of the visualized osseous structures.. There is no evidence of malalignment or dislocation of any visualized joint. Degenerative changes in the lumbar spine and sacroiliac joints. Mild degenerative changes in both hips Soft tissues: Unremarkable. IMPRESSION: 1. There is no evidence of acute fracture in any of the visualized osseous structures.. 2. There is no evidence of malalignment or dislocation of any visualized joint. Dictated and Authenticated by: Linda Dooley MD. Ordering:ELENA Gray MD
--- NOTE | 2023-04-24 10:22 | DI.VRAD_ITS ---
PROCEDURE INFORMATION: Exam: XR Left Shoulder Exam date and time: 04/24/2023 10:06 AM Age: 82 years old Clinical indication: Other: Acute L shoulder pain TECHNIQUE: Imaging protocol: Radiologic exam of the left shoulder. Views: 2 or more views. COMPARISON: CR XR PORTABLE CHEST AP 04/23/2023 7:10 PM FINDINGS: Bones/joints: Degenerative changes in the acromioclavicular joint and glenohumeral joint. There is no evidence of acute fracture.There is no evidence of malalignment or dislocation. A calcific density adjacent to the humeral head may represent calcific tendinitis Soft tissues: Normal. IMPRESSION: There is no evidence of acute fracture.There is no evidence of malalignment or dislocation. Dictated and Authenticated by: Linda Dooley MD. Ordering:ELENA Gray MD
--- NOTE | 2023-04-24 10:43 | PDOC.CMDIS ---
Date of service: 04/24/23 Time of Service: 10:43 LACE Index Scoring Tool Questions: Length of Stay (in days): 3 Was the patient admitted via the E.D.?: Yes Comorbidities: Any Tumor (Renal cell carcinoma) E.D. Visits: 0 Answers: Total Score: 8 Risk of Readmission: Low Risk Care Management Discharge Plan Reason for Hospitalization: Symptomatic anemia, heme positive stools Discharge Plan: Beth is transferred to [facility] for cardiac catheterization. She is transported to [place] via EMS.
--- NOTE | 2023-04-24 11:38 | DI.VRAD_ITS ---
PROCEDURE INFORMATION: Exam: US Duplex Lower Extremity Veins, Bilateral Exam date and time: 04/24/2023 10:42 AM Age: 82 years old Clinical indication: Other: Ble pain, fuo, suspected dvt TECHNIQUE: Imaging protocol: Real-time duplex ultrasound of the bilateral extremities with 2-D trujillo scale, color Doppler flow and spectral waveform analysis including responses to compression and other maneuvers (when performed) with image documentation. Complete exam focused on the lower extremity veins. COMPARISON: US LOWER EXTREMITY VENOUS LT 04/07/2020 10:33 AM FINDINGS: Right deep veins: Unremarkable. The common femoral, femoral, proximal profunda femoral and popliteal veins are patent without thrombus. Normal Doppler waveforms. Normal compressibility and/or augmentation response. Left deep veins: Unremarkable. The common femoral, femoral, proximal profunda femoral and popliteal veins are patent without thrombus. Normal Doppler waveforms. Normal compressibility and/or augmentation response. Superficial veins: Bilateral saphenofemoral junctions are patent without thrombus. Soft tissues: Unremarkable. IMPRESSION: No evidence of deep vein thrombosis. Dictated and Authenticated by: Linda Dooley MD. Ordering:ELENA Gray MD
--- NOTE | 2023-04-24 11:40 | DI.VRAD_ITS ---
PROCEDURE INFORMATION: Exam: US Duplex Left Upper Extremity Veins, Limited Exam date and time: 04/24/2023 11:05 AM Age: 82 years old Clinical indication: Other: Left arm TECHNIQUE: Imaging protocol: Real-time duplex ultrasound of the left extremity with 2-D trujillo scale, color Doppler flow and spectral waveform analysis including responses to compression and other maneuvers (when performed) with image documentation. Limited exam focused on the left upper extremity veins. COMPARISON: CT BRAIN NECK CTA 04/23/2023 2:40 PM FINDINGS: Left deep veins: Unremarkable. Axillary and brachial veins are patent throughout without thrombus. Normal Doppler waveforms. Normal compressibility and/or augmentation response. Visualized internal jugular and subclavian veins are patent. Superficial veins: Superficial thrombophlebitis in the left distal cephalic vein. 5.1 cm in length Soft tissues: Unremarkable. IMPRESSION: No evidence of deep vein thrombosis. Superficial thrombophlebitis in the left distal cephalic vein. 5.1 cm in length Dictated and Authenticated by: Linda Dooley MD. Ordering:ELENA Gray MD
[2023-04-24] MEDS: Acetaminophen 325 MG TAB PO (15:45)
== END 2023-04-24 16:11 | disposition short-term general hospital (02) ==
LOC: ER 15:06 → MS 17:08
PROVIDERS: General Practice; Surgery; Admitting Provider Internal Medicine; Emergency Provider Emergency Medicine; PCP Family Medicine; Visit Provider Internal Medicine
PROC: 0DJ68ZZ Inspection of Stomach, Via Natural or Artificial Opening Endoscopic (ICD-10-PCS; CPT 43235; principal; 2023-04-23 13:15)
DX: D64.9 Anemia, unspecified (principal); I21.4 Non-ST elevation (NSTEMI) myocardial infarction; K22.70 Barrett's esophagus without dysplasia; R53.1 Weakness; R19.5 Other fecal abnormalities; R06.02 Shortness of breath; K29.70 Gastritis, unspecified, without bleeding; K29.80 Duodenitis without bleeding; R47.1 Dysarthria and anarthria; R42 Dizziness and giddiness; R07.89 Other chest pain; R29.810 Facial weakness; C64.9 Malignant neoplasm of unspecified kidney, except renal pelvis; D72.829 Elevated white blood cell count, unspecified; R74.8 Abnormal levels of other serum enzymes; M53.3 Sacrococcygeal disorders, not elsewhere classified; I10 Essential (primary) hypertension; E78.5 Hyperlipidemia, unspecified; J45.909 Unspecified asthma, uncomplicated; R29.818 Other symptoms and signs involving the nervous system; Z87.891 Personal history of nicotine dependence; I34.0 Nonrheumatic mitral (valve) insufficiency; I65.23 Occlusion and stenosis of bilateral carotid arteries; Z86.73 Personal history of transient ischemic attack (TIA), and cerebral infarction without residual deficits; R94.31 Abnormal electrocardiogram [ECG] [EKG]; R50.9 Fever, unspecified; M79.605 Pain in left leg; M79.604 Pain in right leg; T80.1XXA Vascular complications following infusion, transfusion and therapeutic injection, initial encounter; I80.8 Phlebitis and thrombophlebitis of other sites; R09.02 Hypoxemia; E87.79 Other fluid overload; I50.9 Heart failure, unspecified; K22.89 Other specified disease of esophagus
CPT/HCPCS: 43239; 36410; 36415; 70496; 70498; 73521; 80048; 80053; 80061; 84145; 85027; 86850; 86900; 86901; 86920; 87040; 87635; 87637; 88305; 93306; 94640; 96365; 96366; 96375; 97161; 97530; 99222; 99285; 70551; 71045; 73030; 81003; 81015; 82607; 82728; 82746; 83036; 83540; 83550; 83735; 83880; 84443; 84484; 85014; 85018; 85025; 85045; 85610; 86140; 86644; 87086; 93005; 93010; 93970; 93971; 94664; 94760; 99223; 99233; 99291; 99292; G0378; J1941; J2270; J2405; J2704; J3420; J3480; J3490; P9016

== ENCOUNTER → 2023-04-22 14:55 | Outpatient (BNVA) | payer MEDICARE, SELFPAY | PROVIDERS: PCP Family Medicine; Referring Provider Family Medicine; Visit Provider Internal Medicine Cardiovascular Disease ==

== ENCOUNTER 2023-05-03 12:58 | Outpatient (REF) | payer MEDICARE, SELFPAY ==
[2023-05-03 13:57] LABS: Abs Immature Grans 0.83 10^3/uL (0.0-0.06); Absolute Basophil Count 0.16 10^3/uL (0.0-0.2); Absolute Eosinophil Count 0.38 10^3/uL (0.0-0.7); Absolute Lymphocyte Count 1.31 10^3/uL (1.2-3.4); Basophils % 0.9; Eosinophils % 2.1; HCT 28.1 % (36.0-46.0); HGB 8.4 g/dL (11.2-15.7); Immature Grans % 4.6; Lymphocytes % 7.3; MCH 25.3 pg (27.0-33.0); MCHC 29.9 % (32.0-36.0); MCV 85 fL (80-95); MPV 11.1 fL (8.0-11.0); Neutrophils % 76.1; Nucleated RBC 0.2 % (0.0-0.3); Platelet Count 529 10^3/uL (130-400); RBC 3.32 10^6/uL (3.93-5.22); RDW 21.2 % (11.7-14.6); RDW-SD 50.9 fL; WBC 17.93 10^3/uL (4.4-10.8)
[2023-05-03 14:00] LABS: Absolute Monocyte Count 1.61 10^3/uL (0.1-0.8); Absolute Neutrophil Count 13.64 10^3/uL (1.2-6.7)
[2023-05-03 14:14] LABS: Anisocytosis 2+; Diff Comment Diff Reviewed; Polychromasia Present
[2023-05-03 14:15] LABS: Anion Gap 7.8 mmol/L (3-11); BUN 15 mg/dL (7-18); CO2 26.2 mmol/L (21.0-32.0); CREATININE 0.8 mg/dL (0.55-1.02); Calcium 9.3 mg/dL (8.5-10.1); Chloride 102 mmol/L (98-107); Estimated GFR 73.98 (mL/min/1.73m2); Glucose 98 mg/dL (74-106); Magnesium 2.1 mg/dL (1.8-2.4); NT-proBNP 737 pg/mL (<300); Potassium 4.3 mmol/L (3.5-5.1); Sodium 136 mmol/L (136-145)
== END 2023-05-03 12:59 | disposition home or self-care (01) ==
LOC: LBN 12:58
PROVIDERS: PCP Family Medicine; Visit Provider Family Medicine
DX: I63.9 Cerebral infarction, unspecified (principal); I21.4 Non-ST elevation (NSTEMI) myocardial infarction; J96.01 Acute respiratory failure with hypoxia; Z79.01 Long term (current) use of anticoagulants
CPT/HCPCS: 80048; 83735; 83880; 85025

== ENCOUNTER 2023-05-18 08:33 | Outpatient (CLI) | payer MEDICARE, SELFPAY ==
--- NOTE | 2023-05-18 08:30 | RT.EKG_ITS ---
APPROVED REPORT Exam: Resting ECG Reason for Exam: AL Patient Location: O HR:102 bpm ECG Measurements Heart Rate 102 AXIS KS 179 P 20 QRSd 98 QRS -11 QT 326 T 107 QTc 425 Conclusion Sinus tachycardia...rate> 99 Left atrial enlargement...P, P'>60mS, <-0.15mV V1 LVH with secondary repolarization abnormality...multi-LVH criteria, abnrm ST-T
== END 2023-05-18 08:34 | disposition home or self-care (01) ==
LOC: DI.CARD 08:33
PROVIDERS: PCP Nurse Practitioner Family; Visit Provider Internal Medicine Cardiovascular Disease
DX: I21.4 Non-ST elevation (NSTEMI) myocardial infarction (principal)
CPT/HCPCS: 93010

== ENCOUNTER → 2023-05-18 12:38 | Outpatient (BNVA) | payer MEDICARE, MEDICAID, SELFPAY | PROVIDERS: PCP Nurse Practitioner Family; Referring Provider Family Medicine; Visit Provider Internal Medicine Cardiovascular Disease | DX: I25.2 Old myocardial infarction (principal); Z86.73 Personal history of transient ischemic attack (TIA), and cerebral infarction without residual deficits; I10 Essential (primary) hypertension; E78.5 Hyperlipidemia, unspecified | CPT/HCPCS: 93005; 99214 ==

== ENCOUNTER 2023-05-19 12:36 | Outpatient (CLI) | payer MEDICARE, SELFPAY ==
[2023-05-19 12:14] LABS: Abs Immature Grans 0.11 10^3/uL (0.0-0.06); Absolute Eosinophil Count 0.28 10^3/uL (0.0-0.7); Absolute Monocyte Count 0.84 10^3/uL (0.1-0.8); Absolute Neutrophil Count 9.93 10^3/uL (1.2-6.7); Basophils % 0.8; Eosinophils % 2.3; HCT 26.5 % (36.0-46.0); Immature Grans % 0.9; Lymphocytes % 8.5; MCH 26.7 pg (27.0-33.0); MCHC 30.2 % (32.0-36.0); MCV 88 fL (80-95); MPV 9.7 fL (8.0-11.0); Monocytes % 6.8; Neutrophils % 80.7; Platelet Count 469 10^3/uL (130-400); RDW 23.1 % (11.7-14.6); RDW-SD 72.7 fL
[2023-05-19 12:16] LABS: Absolute Lymphocyte Count 1.05 10^3/uL (1.2-3.4)
[2023-05-19 12:29] LABS: Anisocytosis 2+; Diff Comment RBC Morph Reviewed
[2023-05-19 12:36] LABS: Anion Gap 6.7 mmol/L (3-11); BUN 18 mg/dL (7-18); CO2 27.3 mmol/L (21.0-32.0); CREATININE 0.7 mg/dL (0.55-1.02); Calcium 9.7 mg/dL (8.5-10.1); Chloride 103 mmol/L (98-107); Estimated GFR 86.83 (mL/min/1.73m2); Glucose 120 mg/dL (74-106); Potassium 3.6 mmol/L (3.5-5.1); Sodium 137 mmol/L (136-145)
[2023-05-19 12:53] LABS: Iron 73 ug/dL (50-170); Total Iron Binding Capacity 260 ug/dL (250-450); Transferrin Sat 28 % (15-50)
== END 2023-05-19 12:37 | disposition home or self-care (01) ==
LOC: LBO 12:36
PROVIDERS: PCP Nurse Practitioner Family; Visit Provider Nurse Practitioner Family
DX: D50.0 Iron deficiency anemia secondary to blood loss (chronic) (principal)
CPT/HCPCS: 36415; 80048; 83540; 83550; 85025

== ENCOUNTER → 2023-05-31 13:39 | Outpatient (BNVA) | payer MEDICARE, SELFPAY | PROVIDERS: PCP Nurse Practitioner Family; Referring Provider Nurse Practitioner Family; Visit Provider Psychiatry & Neurology Neurology | DX: I69.398 Other sequelae of cerebral infarction (principal); R53.1 Weakness; I65.21 Occlusion and stenosis of right carotid artery; C64.2 Malignant neoplasm of left kidney, except renal pelvis; I10 Essential (primary) hypertension; E11.9 Type 2 diabetes mellitus without complications | CPT/HCPCS: 99215; G2212 ==

== ENCOUNTER → 2023-06-14 12:40 | Outpatient (BNVA) | payer MEDICARE, SELFPAY | PROVIDERS: PCP Nurse Practitioner Family; Referring Provider Nurse Practitioner Family; Visit Provider Internal Medicine Cardiovascular Disease | DX: I50.9 Heart failure, unspecified (principal); R60.0 Localized edema; I10 Essential (primary) hypertension; I25.2 Old myocardial infarction | CPT/HCPCS: 99213 ==

== ENCOUNTER 2023-06-20 09:19 | Inpatient (IN) | payer MEDICARE, SELFPAY ==
[2023-06-20] VITALS (91 sets, daily range): BP systolic 100–182; BP diastolic 25–80; PULSE 76–116; RESP 16–34; TEMP 36.6–38.5; O2SAT 86–100
--- NOTE | 2023-06-20 09:15 | DI.RAD_ITS ---
Exam(s) XR PELVIS AP EXAM: XR PELVIS AP CLINICAL HISTORY: Fall, Difficulty walking. TECHNIQUE: 2D digital imaging was performed. Single AP view. COMPARISON: CR,XR XR HIP PELVIS ADULT BL from 04/24/2023 FINDINGS: BONES: No acute fracture is present. No bony destructive lesion is seen. JOINTS: No dislocation present. No joint space narrowing is present. SI joints and pubic symphysis ap pear intact. SOFT TISSUE: Chronic calcifications adjacent to the left hip. IMPRESSION: No acute abnormality. DATA REPOSITORY: RADIATION DOSE DELIVERED:
--- NOTE | 2023-06-20 09:28 | ED.GENADUL_ITS ---
Discharge Plan Discharge Details Chief Complaint: [employer]Medical Primary Care Provider: ARTURO MYLES ED Provider: Leatha Dubose Home Meds and New Rx's Prescriptions: No Action albuterol sulfate 90 mcg/actuation HFA aerosol inhaler 1 inh inhalation ONCE chlorthalidone 25 mg tablet 25 mg PO DAILY calcium carbonate-vitamin D3 [Calcium 600 with Vitamin D3] 600 mg-12.5 mcg (500 unit) capsule 2 cap PO DAILY atorvastatin 80 mg tablet 80 mg PO DAILY Qty: 90 3RF clopidogrel [Plavix] 75 mg tablet 75 mg PO DAILY Qty: 90 3RF Hold Instructions: Changed by Provider Jardiance 10 mg tablet 10 mg PO DAILY Qty: 90 3RF metoprolol succinate 25 mg tablet extended release 24 hr 25 mg PO DAILY Qty: 90 3RF Entresto 24-26 mg tablet 1 tab PO BID Qty: 180 3RF ferrous sulfate 325 mg (65 mg iron) tablet 325 mg PO Q OTHER DAY magnesium oxide 250 mg magnesium tablet 250 mg PO DAILY aspirin [Adult Aspirin Regimen] 81 mg tablet,delayed release (DR/EC) 81 mg PO DAILY pantoprazole [Protonix] 40 mg tablet,delayed release (DR/EC) 40 mg PO BID Centrum Silver 1 EACH tablet 1 ea PO DAILY fluticasone propion-salmeterol [Advair HFA] 115-21 mcg/actuation HFA aerosol inhaler 2 inh INHALATION BID Patient Comments: INL 2 PFS PO BID PreserVision AREDS-2 250-90-40-1 mg Capsule 1 cap PO BID Medical Decision Making 82 year old female presents to the ED via EMS with a chief complaint of bilateral hip pain and pelvic pain status post a fall approximately 2 weeks ago. Patient reports increased weakness to her legs difficulty getting in and out of bed. She denies any chest pain shortness of breath nausea vomiting diarrhea or fever no other associated symptoms. Denies any loss of bowel or bladder control no saddle anesthesia numbness or tingling. She is alert and oriented x3. She also reports that she had a heart attack and stroke approximately month ago. She is currently not taking Plavix she is only taking aspirin 81 mg. Does have a past medical history of hypertension hyperlipidemia restless leg syndrome hawa estive heart failure, CVA none STEMI, gastritis and GI bleed. Work-up ordered including CBC CMP, urinalysis and x-ray of pelvis. 1128: Spoke with Dr. Walker with surgery who recommends CT abd pelvis for trauma. She does not recommend emergent Colonoscopy at this time. 1343: Informed by staff cytotechnologist, patient developed a fever,blood stopped. Lab said we could give the second unit slowly. Patient complaining of Chest pain, EKG done, Will order a troponin. 1524: Spoke with Dr. Parker with hospitalist, she does not think patient needs to be admitted at this time. Will repeat CBC after blood transfusion. Care to be handed off to oncoming provider Jose Hanson COMMUTATOR [employer]ER, discussed patient case and details. This text was generated using Teliport[employer]ation system, please disregard any oddities of phrase or misspellings. Medical Records Medical records reviewed: Yes I reviewed the patient's medical records. Imaging Data Radiologic Study: Imaging: CT Scan Radiologist's impression: COMPARISON: CT ABDOMEN PELVIS WO 02/03/2023 2:00 PM FINDINGS: Lungs: Bilateral lower lobe subpleural pulmonary fibrosis and cystic honeycombing. Heart: Pericardial effusion measuring 11 mm. Cardiomegaly. Liver: Fatty infiltration of the liver. Gallbladder and bile ducts: Normal. No calcified stones. No ductal dilation. Pancreas: Normal. No ductal dilation. Spleen: Normal. No splenomegaly. Adrenal glands: Normal. No mass. Kidneys and ureters: Exophytic left renal mass measuring 2.6 x 2.6 cm. No significant change from prior study. Bilateral renal cortical subcentimeter hypodensities. Stomach and bowel: Unremarkable. No obstruction. No mucosal thickening. Appendix: No evidence of appendicitis. Intraperitoneal space: Unremarkable. No free air. No significant fluid collection. Vasculature: Unremarkable. No abdominal aortic aneurysm. Lymph nodes: Unremarkable. No enlarged lymph nodes. Urinary bladder: Unremarkable as visualized. Reproductive: The uterus is absent. No adnexal mass. Bones/joints: No conspicuous rib fractures. No thoracic or lumbar compression deformities. No pelvic or hip fractures. Soft tissues: Unremarkable. IMPRESSION: 1. No acute findings. 2. Stable left renal mass. Probable renal cell carcinoma. 3. Pericardial effusion. 4. Pulmonary fibrosis. Lab Data Lab results reviewed: Yes I reviewed the patient's lab results. Labs: Laboratory Tests Range/Units 06/20/23 06/20/23 06/20/23 10:15 10:50 10:58 WBC (4.4-10.8) 10^3/uL 12.04 H RBC (3.93-5.22) 10^6/uL 2.13 L Hgb (11.2-15.7) g/dL 5.8 L* Hct (36.0-46.0) % 20.1 L* MCV (80-95) fL 94 MCH (27.0-33.0) pg 27.2 MCHC (32.0-36.0) % 28.9 L RDW (11.7-14.6) % 18.9 H Plt Count (130-400) 10^3/uL 573 H MPV (8.0-11.0) fL 9.4 Immature Gran % 1.3 Neutrophils % 74.8 Lymphocytes % 8.7 Monocytes % 10.5 Eosinophils % 3.9 Basophils % 0.8 Nucleated RBC % (0.0-0.3) % 0.0 Absolute Neutrophils (1.2-6.7) 10^3/uL 9.01 H Absolute Lymphocytes (1.2-3.4) 10^3/uL 1.05 L Absolute Monocytes (0.1-0.8) 10^3/uL 1.26 H Absolute Eosinophils (0.0-0.7) 10^3/uL 0.47 Absolute Basophils (0.0-0.2) 10^3/uL 0.10 Sodium (136-145) mmol/L 137 Potassium (3.5-5.1) mmol/L 4.2 Chloride (98-107) mmol/L 104 Carbon Dioxide (21.0-32.0) mmol/L 28.3 Anion Gap (3-11) mmol/L 4.7 BUN (7-18) mg/dL 16 Creatinine (0.55-1.02) mg/dL 0.8 Est GFR (CKD-EPI 2020) (mL/min/1.73m2) 73.98 Glucose (74-106) mg/dL 105 Calcium (8.5-10.1) mg/dL 9.1 Magnesium (1.8-2.4) mg/dL 2.7 H Total Bilirubin (0.2-1.0) mg/dL 0.2 AST (15-37) U/L 32 ALT (14-59) U/L 42 Alkaline Phosphatase (46-116) U/L 211 H Total Protein (6.4-8.2) g/dL 7.1 Albumin (3.4-5.0) g/dL 3.0 L Urine Color (Yellow) Yellow Urine Clarity (Clear) Clear Urine pH (5-8) 7.5 Ur Specific [place] (1.005-1.025) 1.020 Urine Protein (Negative) mg/dL Negative Urine Ketones (Negative) mg/dL Negative Urine Blood (Negative) Negative Urine Nitrite (Negative) Negative Urine Bilirubin (Negative) Negative Urine Urobilinogen (Up to 0.2) mg/dL 0.2 Ur Leukocyte Esterase (Negative) Negative Urine Glucose (Negative) mg/dL 500 H Patient ABO/Rh O Negative Antibody Screen NEGATIVE Crossmatch See Detail Pre-Trans Blood Type Post-Trans Blood Type Range/Units 06/20/23 14:06 WBC (4.4-10.8) 10^3/uL RBC (3.93-5.22) 10^6/uL Hgb (11.2-15.7) g/dL Hct (36.0-46.0) % MCV (80-95) fL MCH (27.0-33.0) pg MCHC (32.0-36.0) % RDW (11.7-14.6) % Plt Count (130-400) 10^3/uL MPV (8.0-11.0) fL Immature Gran % Neutrophils % Lymphocytes % Monocytes % Eosinophils % Basophils % Nucleated RBC % (0.0-0.3) % Absolute Neutrophils (1.2-6.7) 10^3/uL Absolute Lymphocytes (1.2-3.4) 10^3/uL Absolute Monocytes (0.1-0.8) 10^3/uL Absolute Eosinophils (0.0-0.7) 10^3/uL Absolute Basophils (0.0-0.2) 10^3/uL Sodium (136-145) mmol/L Potassium (3.5-5.1) mmol/L Chloride (98-107) mmol/L Carbon Dioxide (21.0-32.0) mmol/L Anion Gap (3-11) mmol/L BUN (7-18) mg/dL Creatinine (0.55-1.02) mg/dL Est GFR (CKD-EPI 2020) (mL/min/1.73m2) Glucose (74-106) mg/dL Calcium (8.5-10.1) mg/dL Magnesium (1.8-2.4) mg/dL Total Bilirubin (0.2-1.0) mg/dL AST (15-37) U/L ALT (14-59) U/L Alkaline Phosphatase (46-116) U/L Total Protein (6.4-8.2) g/dL Albumin (3.4-5.0) g/dL Urine Color (Yellow) Urine Clarity (Clear) Urine pH (5-8) Ur Specific [place] (1.005-1.025) Urine Protein (Negative) mg/dL Urine Ketones (Negative) mg/dL Urine Blood (Negative) Urine Nitrite (Negative) Urine Bilirubin (Negative) Urine Urobilinogen (Up to 0.2) mg/dL Ur Leukocyte Esterase (Negative) Urine Glucose (Negative) mg/dL Patient ABO/Rh Antibody Screen Crossmatch Pre-Trans Blood Type O Negative Post-Trans Blood Type O Negative HPI General Mode of arrival: EMS . Date/Time Provider Initiated Documentation: 06/20/23 09:27 . Limitations to Documentation: no limitations . Information obtained by: patient, EMS, RN notes reviewed and old records reviewed . HPI Narrative: 82 year old female presents to the ED via EMS with a chief complaint of bilateral hip pain and pelvic pain status post a fall approximately 2 weeks ago. Patient reports increased weakness to her legs difficulty getting in and out of bed. She denies any chest pain shortness of breath nausea vomiting diarrhea or fever no other associated symptoms. Denies any loss of bowel or bladder control no saddle anesthesia numbness or tingling. She is alert and oriented x3. She also reports that she had a heart attack and stroke approximately month ago. She is currently not taking Plavix she is only taking aspirin 81 mg. Does have a past medical history of hypertension hyperlipidemia restless leg syndrome congestive heart failure, CVA none STEMI, gastritis and GI bleed. Related Data Home Medications Medication Instructions Recorded Confirmed [id number]-[id number] acid 0.4 1 ea PO DAILY 02/01/13 06/20/23 mg-lycopene 300 mcg-lutein 250 mcg tablet (Centrum Silver) fluticasone propionate 115 2 inh inhalation BID 04/06/20 06/20/23 mcg-salmeterol 21 mcg/actuation HFA inhaler (Advair HFA) magnesium oxide 250 mg PO DAILY 12/16/21 06/20/23 albuterol sulfate 90 mcg/actuation 1 inh inhalation ONCE 06/15/22 06/20/23 aerosol inhaler vit C 250 mg-vit E 90 mg-zinc 40 1 cap PO BID 04/22/23 06/20/23 mg-copper 1 [id number] capsule (PreserVision AREDS-2) aspirin 81 mg tablet,delayed 81 mg PO DAILY 05/07/23 06/20/23 release (Adult Aspirin Regimen) pantoprazole 40 mg tablet,delayed 40 mg PO BID 05/07/23 06/20/23 release (Protonix) atorvastatin 80 mg tablet 80 mg PO DAILY #90 tabs 05/18/23 06/20/23 calcium carbonate 600 mg-vitamin 2 cap PO DAILY 05/18/23 06/20/23 D3 12.5 mcg (500 unit) capsule (Calcium 600 with Vitamin D3) chlorthalidone 25 mg tablet 25 mg PO DAILY 05/18/23 06/20/23 clopidogrel 75 mg tablet (Plavix) 75 mg PO DAILY #90 tabs 05/18/23 06/20/23 empagliflozin 10 mg tablet 10 mg PO DAILY #90 tabs 05/18/23 06/20/23 (Jardiance) metoprolol succinate 25 mg 25 mg PO DAILY #90 tabs 05/18/23 06/20/23 tablet,extended release 24 hr sacubitril 24 mg-valsartan 26 mg 1 tab PO BID #180 tabs 05/18/23 06/20/23 tablet (Entresto) ferrous sulfate 325 mg (65 mg 325 mg PO Q OTHER DAY 05/31/23 06/20/23 iron) tablet Previous Rx's Medication Instructions Recorded atorvastatin 80 mg tablet 80 mg PO DAILY #90 tabs 05/18/23 clopidogrel 75 mg tablet (Plavix) 75 mg PO DAILY #90 tabs 05/18/23 empagliflozin 10 mg tablet 10 mg PO DAILY #90 tabs 05/18/23 (Jardiance) metoprolol succinate 25 mg 25 mg PO DAILY #90 tabs 05/18/23 tablet,extended release 24 hr sacubitril 24 mg-valsartan 26 mg 1 tab PO BID #180 tabs 05/18/23 tablet (Entresto) Allergies Allergy/AdvReac Type Severity Reaction Status Date / Time lisinopril Allergy Mild Verified 06/20/23 09:25 pravastatin Allergy Skin Rash Verified 06/20/23 09:25 cyclobenzaprine HCl AdvReac Intermediate Agitation Verified 06/20/23 09:25 [From Flexeril] General Stated Complaint: Gen[employer] NICHOLAS: 3 Review of Systems All systems reviewed & are unremarkable except as noted in HPI and below Musculoskeletal Musculoskeletal: Reports as per HPI PFSH All Active Problems Regional wall motion abnormality of heart (Acute) Acute CVA (cerebrovascular accident) (Acute) Fever (Acute) Hypoxia (Acute) Acute CHF (Acute) NSTEMI (non-ST elevated myocardial infarction) (Acute) type 2 due to anemia Acute electrocardiogram changes (Acute) Right internal carotid occlusion (Acute) Acute focal neurological deficit (Acute) Renal malignant neoplasm (Chronic) 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 Patient follows up with [facility]. Elevated troponin (Acute) Chest pressure (Acute) Leucocytosis (Acute) Heme + stool (Acute) Symptomatic anemia (Acute) Sacroiliac joint dysfunction of both sides (Acute) Renal cell carcinoma (Acute) Referred to [facility]. Plan is to monitor for size change. dx 07/24 Hip pain, left (Acute) Shoulder pain, left (Acute) Fatigue (Acute) Leg pain, left (Acute) Left kidney mass (Acute) Spinal stenosis (Acute) Trochanteric bursitis, left hip (Acute) Injection: 12/26/2021 Calcific tendinitis of left hip (Acute) Strain of gastrocnemius muscle of left lower extremity (Acute) Medical History Osteopenia Asthma Hyperlipidemia HTN (hypertension) Chronic pain Restless leg syndrome Acute systolic (congestive) heart failure CVA (cerebral vascular accident) Anemia Acute non-ST segment elevation myocardial infarction Gastritis GI bleed 04/21/23 was sent to [facility] for w/u Chronic left hip pain Surgical History History of esophagogastroduodenoscopy (~04/2023) Biopsies taken H/O abdominoplasty H/O: hysterectomy Social History Smoking/Tobacco Use Status: Former Tobacco Use Smoking risk assessment performed?: Yes Alcohol Intake: never Drug use: Never Substance use type: marijuana Housing: apartment Do you feel safe at home: Yes Do you feel safe in your relationship?: Yes Exam Narrative Exam Narrative: Constitutional: Alert and oriented x3. Appears stated age. Normal body habitus. Head: Normocephalic, no trauma. Eyes: Pupils PERRL, Red reflex noted, EOM's intact. Eyelids symmetrical without lesions, discharge, or swelling. ENT: Bilateral TM's WNL, External ear normal to inspection, no mastoid TTP, swelling, or erythema, Nasal turbinates WNL, no nasal discharge. Normal dentition, Posterior pharynx WNL, no exudate. Chest: RRR, Normal S1, S2, distal pulses intact. Resp: Lungs clear to auscultation bilaterally, no wheezes, rales, or rhonchi. Abdomen: Soft, non-distended, Normoactive bowel sounds all 4 quads. Musculoskeletal: Normal gait, 5/5 strength to all four extremities. Skin: No suspicious rashes or lesions. Capillary refill less than 2 sec. Neurologic: Cranial nerves II-XII intact. Alert and oriented x 3. Motor: No deficits noted. Sensory: Intact bilaterally all 4 extremities. Reflexes: DTR's intact bilaterally.. Hematologic/Lymphatic: No ecchymosis, no lymphadenopathy. Course Vital Signs Vital signs: Vital Signs Temperature 37.5 C 06/20/23 09:18 Pulse 106 H 06/20/23 09:18 Respiratory Rate 18 06/20/23 09:18 Blood Pressure 133/40 L 06/20/23 09:18 Pulse Oximetry 96 06/20/23 09:18 Temperature 37.5 C 06/20/23 09:18 Temperature Source Tympanic 06/20/23 09:18 Pulse 106 H 06/20/23 09:18 Respiratory Rate 18 06/20/23 09:18 Respiratory Effort Normal 06/20/23 09:23 Blood Pressure 133/40 L 06/20/23 09:18 Blood Pressure Position Sitting 06/20/23 09:18 Pulse Oximetry 96 06/20/23 09:18 Oxygen Delivery Method Room Air 06/20/23 09:18 Oxygen Flow Rate 0 06/20/23 09:18 Pain Level 10 06/20/23 09:18 Procedures Stool Hemoccult Procedural Steps Taken: stool placed in appropriate test area, developer placed on stool and control areas and controls appropriately positive and negative Hemoccult result: positive Sign Out Sign Out Data: Sign Out Comment: Pending Blood transfusion, re-eval, and repeat CBC and UA. Recommend admission for observation for transfusion reaction. Last updated by Leatha Dubose NP at 06/20/23 15:38
[2023-06-20 10:25] LABS: Abs Immature Grans 0.16 10^3/uL (0.0-0.06); Absolute Eosinophil Count 0.47 10^3/uL (0.0-0.7); Absolute Lymphocyte Count 1.05 10^3/uL (1.2-3.4); Absolute Monocyte Count 1.26 10^3/uL (0.1-0.8); Basophils % 0.8; Eosinophils % 3.9; Immature Grans % 1.3; Lymphocytes % 8.7; MCH 27.2 pg (27.0-33.0); MCHC 28.9 % (32.0-36.0); MCV 94 fL (80-95); MPV 9.4 fL (8.0-11.0); Monocytes % 10.5; Neutrophils % 74.8; Platelet Count 573 10^3/uL (130-400); RBC 2.13 10^6/uL (3.93-5.22); RDW 18.9 % (11.7-14.6); RDW-SD 65.1 fL; WBC 12.04 10^3/uL (4.4-10.8)
[2023-06-20 10:32] LABS: Absolute Neutrophil Count 9.01 10^3/uL (1.2-6.7)
[2023-06-20 10:33] LABS: HCT 20.1 % (36.0-46.0); HGB 5.8 g/dL (11.2-15.7)
[2023-06-20 10:41] LABS: ALT 42 U/L (14-59); AST 32 U/L (15-37); Alkaline Phosphatase 211 U/L (46-116); Anion Gap 4.7 mmol/L (3-11); BUN 16 mg/dL (7-18); Bilirubin, Total 0.2 mg/dL (0.2-1.0); CO2 28.3 mmol/L (21.0-32.0); CREATININE 0.8 mg/dL (0.55-1.02); Calcium 9.1 mg/dL (8.5-10.1); Chloride 104 mmol/L (98-107); Estimated GFR 73.98 (mL/min/1.73m2); Glucose 105 mg/dL (74-106); Magnesium 2.7 mg/dL (1.8-2.4); Potassium 4.2 mmol/L (3.5-5.1); Sodium 137 mmol/L (136-145); Total Protein 7.1 g/dL (6.4-8.2)
--- NOTE | 2023-06-20 10:55 | DI.VRAD_ITS ---
PROCEDURE INFORMATION: Exam: XR Pelvis Exam date and time: 06/20/2023 10:42 AM Age: 82 years old Clinical indication: Other: Fall, difficulty walking TECHNIQUE: Imaging protocol: Radiologic exam of the pelvis. Views: 1 or 2 view. COMPARISON: CR XR HIP PELVIS ADULT BL 04/24/2023 10:03 AM FINDINGS: Bones/joints: There are mild degenerative changes of the hip joints. No fractures conspicuous. Coarse calcifications present adjacent to the left greater trochanter. Soft tissues: Unremarkable. IMPRESSION: No evidence of fracture. Dictated and Authenticated by: Cosmo Martin MD. Ordering:YANDEL Zhang MD
[2023-06-20 11:08] LABS: Bilirubin Negative (Negative); Blood Negative (Negative); Clarity Clear (Clear); Glucose 500 mg/dL (Negative); Ketones Negative (Negative); Leukocyte Esterase Negative (Negative); Nitrite Negative (Negative); Urobilinogen 0.2 mg/dL (Up to 0.2); pH 7.5 (5-8)
--- NOTE | 2023-06-20 11:15 | DI.CT_ITS ---
Exam(s) CT ABDOMEN PELVIS W EXAM: CT ABDOMEN PELVIS W CLINICAL HISTORY: Fall. TECHNIQUE: Imaging Protocol: Axial computed tomography images with coronal and sagittal reformatted images were created and reviewed CONTRAST MATERIAL: Intravenous: Omnipaque 350 Contrast volume:100 ml Oral: / no COMPARISON: CT CT ABDOMEN PELVIS WO from 02/03/2023 FINDINGS: ABDOMEN and PELVIS: Lung Bases: Lower lobe honeycombing. Pericardial effusion 11 millimeters in thickness. Heart is enl arged. Coronary artery calcifications.. Liver: Hepatic steatosis. No measurable mass. Gallbladder and biliary tract: No radiodense calculus or dilation. Pancreas: Normal density. No abnormal calcifications or inflammatory process. No evidence of mass. Spleen: Normal. Kidneys: Normal size, contour and axis. No radiodense stones. No obstructive uropathy. Stable left r enal mass. Adrenal glands: No masses seen. Vasculature: Abdominal aorta non-dilated. Soft tissues: Unremarkable. Bladder: No gross wall thickening. No calculi.No focal mass. Bowel: No obstruction. No bowel wall thickening. Appendix normal. Peritoneal cavity: No ascites. No focal collection or mesenteric inflammatory response. Bones: Unremarkable no lower rib fractures. Degenerative changes in the spine. No compression fract ures. No pelvic fractures. Reproductive organs: Status post hysterectomy. Lymph nodes: Unremarkable. IMPRESSION:: No acute posttraumatic abnormality. Pericardial effusion. Stable left renal mass. RADIATION DOSE DELIVERED: Total DLP DATA REPOSITORY: All CT scans at this facility are submitted to the National Radiology Data Registry (NRDR) Dose Index Registry (DIR) with the [employer] ([employer]). RADIATION OPTIMIZATION: All CT scans at this facility use at least one of these dose optimization te chniques: automated exposure control; mA and/or kV adjustment per patient size (includes targeted exa ms where dose is matched to clinical indication); or iterative reconstruction.
[2023-06-20] MEDS: ACETAMINOPHEN 1,000 MG/100 ML BTL 400 MG IVPB (13:52)
[2023-06-20] MEDS: diphenhydrAMINE 50 MG/ML VIAL 25 MG IVP (13:53)
--- NOTE | 2023-06-20 13:53 | NUR.NOTE ---
Nursing Note: during beginning of blood transfusion pts temp went up to 101.3, blood stopped and normal saline started, Benadryl and Tylenol given. pt on continuous monitor.
[2023-06-20] MEDS: Normal Saline - Diluent 50 ML VIAL IJ (14:38)
[2023-06-20] MEDS: Omnipaque 350 MG/ML 100 ML BTL IJ (14:41)
--- NOTE | 2023-06-20 14:45 | RT.EKG_ITS ---
APPROVED REPORT Exam: Resting ECG Reason for Exam: chest tightness Patient Location: E HR:109 bpm ECG Measurements Heart Rate 109 AXIS IA 175 P 71 QRSd 82 QRS 14 QT 323 T -21 QTc 435 Conclusion Sinus tachycardia non specific ST depressions new from prior.
--- NOTE | 2023-06-20 14:59 | DI.VRAD_ITS ---
PROCEDURE INFORMATION: Exam: CT Abdomen And Pelvis With Contrast Exam date and time: 06/20/2023 2:37 PM Age: 82 years old Clinical indication: Other: Fall TECHNIQUE: Imaging protocol: Computed tomography of the abdomen and pelvis with contrast. Radiation optimization: All CT scans at this facility use at least one of these dose optimization techniques: automated exposure control; mA and/or kV adjustment per patient size (includes targeted exams where dose is matched to clinical indication); or iterative reconstruction. Contrast material: OMNI 350; Contrast volume: 100 ml; Contrast route: INTRAVENOUS (IV); COMPARISON: CT ABDOMEN PELVIS WO 02/03/2023 2:00 PM FINDINGS: Lungs: Bilateral lower lobe subpleural pulmonary fibrosis and cystic honeycombing. Heart: Pericardial effusion measuring 11 mm. Cardiomegaly. Liver: Fatty infiltration of the liver. Gallbladder and bile ducts: Normal. No calcified stones. No ductal dilation. Pancreas: Normal. No ductal dilation. Spleen: Normal. No splenomegaly. Adrenal glands: Normal. No mass. Kidneys and ureters: Exophytic left renal mass measuring 2.6 x 2.6 cm. No significant change from prior study. Bilateral renal cortical subcentimeter hypodensities. Stomach and bowel: Unremarkable. No obstruction. No mucosal thickening. Appendix: No evidence of appendicitis. Intraperitoneal space: Unremarkable. No free air. No significant fluid collection. Vasculature: Unremarkable. No abdominal aortic aneurysm. Lymph nodes: Unremarkable. No enlarged lymph nodes. Urinary bladder: Unremarkable as visualized. Reproductive: The uterus is absent. No adnexal mass. Bones/joints: No conspicuous rib fractures. No thoracic or lumbar compression deformities. No pelvic or hip fractures. Soft tissues: Unremarkable. IMPRESSION: 1. No acute findings. 2. Stable left renal mass. Probable renal cell carcinoma. 3. Pericardial effusion. 4. Pulmonary fibrosis. Dictated and Authenticated by: Cosmo Martin MD. Ordering:YANDEL Zhang MD
[2023-06-20 15:30] LABS: Troponin I < 50 ng/L (<or=60)
[2023-06-20] MEDS: Sucralfate 1 GM TAB PO ×2 (15:43→20:45)
--- NOTE | 2023-06-20 16:06 | ED.PROG_ITS ---
Date of service: 06/20/23 Time of Service: 16:06 Medical Decision Making Attestation I saw the patient in conjunction with the nurse practitioner. I provided a [id number] evaluation and examination of the patient's secondary to medical complexity. The patient is an 82-year-old female with multiple medical c omorbidities and a recent NSTEMI that presented after a fall and difficulty walking. On my examination she is noted to have left hip tenderness concerning for possible hip fracture. Per [facility], there is no fracture however given her tenderness, she would likely benefit from additional information. I feel that at this time she is unable to get out of bed or ambulate independently. She was noted to be significantly anemic. This is new for the patient. Given her recent cardiac issues, and anemia of this degree is highly dangerous for the patient. She is on iron and does not know if she has had any stool changes. Otherwise there are no signs of active bleeding. A blood transfusion was ordered. She did have a fever and vital sign changes with the first transfusion although a transfusion reaction evaluation was negative. At this time the patient requires hospitalization for her multiple significant complex medical problems. I have discussed the case with the hospitalist who agrees to admit the patient. CRITICAL CARE Upon my evaluation, this patient had a high probability of imminent or life- threatening deterioration due to inability to ambulate, weakness, significant anemia which required my direct attention, intervention, and personal management. I have personally provided 40 minutes of critical care time exclusive of time spent on separately billable procedures. Time includes review of laboratory data, radiology results, discussion with consultants, and monitoring for potential decompensation. Interventions were performed as documented above Medical Records Medical records reviewed: Yes I reviewed the patient's medical records. Lab Data Lab results reviewed: Yes I reviewed the patient's lab results. ECG Data Attestation: I personally reviewed and interpreted this ECG (s) as follows: Prior ECG tracings: available for review Interpretation: Sinus tachycardia 109. Nonspecific ST depressions. Sign Out Sign Out Data: Sign Out Comment: Pending Blood transfusion, re-eval, and repeat CBC and UA. Recommend admission for observation for transfusion reaction. Last updated by Leatha Dubose NP at 06/20/23 15:38 Discharge Plan Disposition Patient Disposition: Admit to [facility] Condition: Serious Discharge Details Clinical Impression: Anemia, Left hip pain, Fever, Difficulty walking, Fall Primary Care Provider: ARTURO MYLES ED Provider: Lilibeth Boo Home Meds and New Rx's Prescriptions: No Action albuterol sulfate 90 mcg/actuation HFA aerosol inhaler 1 inh inhalation ONCE chlorthalidone 25 mg tablet 25 mg PO DAILY calcium carbonate-vitamin D3 [Calcium 600 with Vitamin D3] 600 mg-12.5 mcg (500 unit) capsule 2 cap PO DAILY atorvastatin 80 mg tablet 80 mg PO DAILY Qty: 90 3RF clopidogrel [Plavix] 75 mg tablet 75 mg PO DAILY Qty: 90 3RF Hold Instructions: Changed by Provider Jardiance 10 mg tablet 10 mg PO DAILY Qty: 90 3RF metoprolol succinate 25 mg tablet extended release 24 hr 25 mg PO DAILY Qty: 90 3RF Entresto 24-26 mg tablet 1 tab PO BID Qty: 180 3RF ferrous sulfate 325 mg (65 mg iron) tablet 325 mg PO Q OTHER DAY magnesium oxide 250 mg magnesium tablet 250 mg PO DAILY aspirin [Adult Aspirin Regimen] 81 mg tablet,delayed release (DR/EC) 81 mg PO DAILY pantoprazole [Protonix] 40 mg tablet,delayed release (DR/EC) 40 mg PO BID Centrum Silver 1 EACH tablet 1 ea PO DAILY fluticasone propion-salmeterol [Advair HFA] 115-21 mcg/actuation HFA aerosol inhaler 2 inh INHALATION BID Patient Comments: INL 2 PFS PO BID PreserVision AREDS-2 250-90-40-1 mg Capsule 1 cap PO BID
--- NOTE | 2023-06-20 16:22 | HPE_ITS ---
Date of service: 06/20/23 Time of Service: 16:22 Assessment and Plan Assessment and plan (1) Symptomatic anemia: Status: Acute Assessment and plan: Heme positive, w/ h/o prior GI bleeding and an EGD on 04/23/23 at our facility with mild duodenitis, moderate gastritis, Bernard's esophagus. It does not appear that the patient is actively massively bleeding. I did add carafate to her BID PPI. We will trend her H/H post transfusion. I think it is ok for the patient to be continued on a diet. At this time, I do not think she will need a colonoscopy as an inpatient as we know she had gastritis on her EGD recently. (2) Acute on chronic blood loss anemia: Status: Acute Assessment and plan: As above (3) Posttransfusion fever: Status: Acute Assessment and plan: Hemolytic reaction has been ruled out. I suspect this is a febrile non-hemolytic transfusion reaction which should be managed symptomatically with tylenol/benadryl. It appears that the fever has resolved. Should it recur, that would be the treatment strategy. (4) Left hip pain: Status: Ruled-out Assessment and plan: The patient actually denies this symptom to me and states she has no pain in her left hip. She does have pain in her B medial thighs - see below. (5) Pain in both lower legs: Status: Acute Assessment and plan: The patient has pain in bilateral medial thighs which started today. Will obtain a venous doppler of BLEs as well as MRI of her lumbar spine. I am also checking her CPK as she is on a statin. Pain control with tramadol. (6) Difficulty walking: Status: Acute Assessment and plan: C/s PT. (7) DVT prophylaxis: Status: Acute Assessment and plan: SCDs. Avoid chemical DVT ppx given GI bleeding (8) Discharge planning issues: Status: Acute Assessment and plan: Full code C/s PT. 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 She was found to have an H/H of 5.8/20.1, down from Hgb of 8.0 on 05/19/23. She was heme positive. She is on iron supplements. General surgery was first contacted for admission for a colonoscopy, but recommended obtaining a CT of the abdomen/pelvis to ensure there was no bleeding given the recent fall. Acute bleeding was ruled out, as were pelvic/hip fractures on this CT. The patient was recommended to be transfused two units of pRBCs and discharged home with follow up with general surgery as outpatient. While receiving her first unit of blood, the patient developed a fever of 38.5. Transfusion reaction workup for a hemolytic reaction was negative. The patient is completing her 2nd unit of blood at this time. A hospitalist admission was requested due to the ED provider's impression that the patient could not ambulate. It is not clear if this was actually attempted in the ED at this time. Dr Boo felt the patient might have a L hip fracture not picked up by the CT. I did request an orthopedic consultation to clarify this. The patient is being placed in observation status on the hospitalist service. On my interview with the patient, she states that the pain is actually in her medial bilateral thighs, not her L hip. She says her left hip/trochanteric bursa does not hurt to touch. The pain started today. She did not have any new trauma since the fall 2 weeks ago, which was a mechanical fall with her legs giving out. She does report bad lower back pain. Denies urinary/fecal incontinence and retention. She denies numbness/tingling in her legs. She has been able to get up today in the ER, she says, but with assistance. Stools have been dark. No nausea or abdominal pain. States that in the past she was told she would have to have a capsule endoscopy. Review of Systems All systems reviewed & are unremarkable except as noted in HPI and below PFSH All Active Problems (Updated 06/20/23 @ 19:05 by Marina Parker MD) Pain in both lower legs (Acute) Posttransfusion fever (Acute) Discharge planning issues (Acute) DVT prophylaxis (Acute) Acute on chronic blood loss anemia (Acute) Symptomatic anemia (Acute) Fall (Acute) Difficulty walking (Acute) Fever (Acute) Anemia (Chronic) Regional wall motion abnormality of heart (Acute) Acute CVA (cerebrovascular accident) (Acute) Fever (Acute) Hypoxia (Acute) Acute CHF (Acute) NSTEMI (non-ST elevated myocardial infarction) (Acute) type 2 due to anemia Acute electrocardiogram changes (Acute) Right internal carotid occlusion (Acute) Acute focal neurological deficit (Acute) Renal malignant neoplasm (Chronic) 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 Patient follows up with [facility]. Elevated troponin (Acute) Chest pressure (Acute) Leucocytosis (Acute) Heme + stool (Acute) Sacroiliac joint dysfunction of both sides (Acute) Renal cell carcinoma (Acute) Referred to [facility]. Plan is to monitor for size change. dx 07/24 Hip pain, left (Acute) Shoulder pain, left (Acute) Fatigue (Acute) Leg pain, left (Acute) Left kidney mass (Acute) Spinal stenosis (Acute) Trochanteric bursitis, left hip (Acute) Injection: 12/26/2021 Calcific tendinitis of left hip (Acute) Strain of gastrocnemius muscle of left lower extremity (Acute) Medical History (Updated 06/20/23 @ 19:05 by Marina Parker MD) Osteopenia Asthma Hyperlipidemia HTN (hypertension) Chronic pain Restless leg syndrome Acute systolic (congestive) heart failure CVA (cerebral vascular accident) Anemia Acute non-ST segment elevation myocardial infarction Gastritis GI bleed 04/21/23 was sent to [facility] for w/u Chronic left hip pain Surgical History History of esophagogastroduodenoscopy (~04/2023) Biopsies taken H/O abdominoplasty H/O: hysterectomy Social History Smoking/Tobacco Use Status: Former Tobacco Use Smoking risk assessment performed?: Yes Alcohol Intake: never Drug use: Never Substance use type: marijuana Housing: apartment Do you feel safe at home: Yes Do you feel safe in your relationship?: Yes Meds Allergies and Home Medications Allergies Allergy/AdvReac Type Severity Reaction Status Date / Time lisinopril Allergy Mild Verified 06/20/23 09:25 pravastatin Allergy Skin Rash Verified 06/20/23 09:25 cyclobenzaprine HCl AdvReac Intermediate Agitation Verified 06/20/23 09:25 [From [facility]] Home Medications Medication Instructions Recorded Confirmed Type xmniaqqk-[id number] acid 0.4 1 ea PO DAILY 02/01/13 06/20/23 History mg-lycopene 300 mcg-lutein 250 mcg tablet (Centrum Silver) fluticasone propionate 115 2 inh inhalation BID 04/06/20 06/20/23 History mcg-salmeterol 21 mcg/actuation HFA inhaler (Advair HFA) magnesium oxide 250 mg PO DAILY 12/16/21 06/20/23 History albuterol sulfate 90 mcg/actuation 1 inh inhalation ONCE 06/15/22 06/20/23 History aerosol inhaler vit C 250 mg-vit E 90 mg-zinc 40 1 cap PO BID 04/22/23 06/20/23 History mg-copper 1 [id number]-[id number] capsule (PreserVision AREDS-2) aspirin 81 mg tablet,delayed 81 mg PO DAILY 05/07/23 06/20/23 History release (Adult Aspirin Regimen) pantoprazole 40 mg tablet,delayed 40 mg PO BID 05/07/23 06/20/23 History release (Protonix) atorvastatin 80 mg tablet 80 mg PO DAILY #90 tabs 05/18/23 06/20/23 Rx calcium carbonate 600 mg-vitamin 2 cap PO DAILY 05/18/23 06/20/23 History D3 12.5 mcg (500 unit) capsule (Calcium 600 with Vitamin D3) chlorthalidone 25 mg tablet 25 mg PO DAILY 05/18/23 06/20/23 History clopidogrel 75 mg tablet (Plavix) 75 mg PO DAILY #90 tabs 05/18/23 06/20/23 Rx empagliflozin 10 mg tablet 10 mg PO DAILY #90 tabs 05/18/23 06/20/23 Rx (Jardiance) metoprolol succinate 25 mg 25 mg PO DAILY #90 tabs 05/18/23 06/20/23 Rx tablet,extended release 24 hr sacubitril 24 mg-valsartan 26 mg 1 tab PO BID #180 tabs 05/18/23 06/20/23 Rx tablet (Entresto) ferrous sulfate 325 mg (65 mg 325 mg PO Q OTHER DAY 05/31/23 06/20/23 History iron) tablet Exam Narrative Exam Narrative: General: a pleasant elderly female who is A&Ox3, [place], appears comfortable in bed, on RA, laying nearly flat in bed without dyspea/tachypnea/cyanosis. Does look somewhat pale. Neurological: A&Ox3, able to move all 4 extremities, no focal deficits Psychiatric: Appropriate speech pattern/content Skin: Visible skin intact, including medial BLEs, where there is no evidence of ecchymoses HEENT: Atraumatic, normocephalic, EOMI, dry MM, clear oropharynx, no submandibular or cervical lymphadenopathy, no goiter or JVD Cardiovascular: RRR, no m/r/g Lungs: CTAB Gastrointestinal: soft, nontender, nondistended Genitourinary: has a birch Extremities: no edema BLEs, +1 pedal pulses B, no c/c Results Imaging Additional studies: XR pelvis: No acute abnormality. CT abdomen/pelvis: 1. No acute findings. 2. Stable left renal mass. Probable renal cell carcinoma. 3. Pericardial effusion. 4. Pulmonary fibrosis. EKG: ST, HR 109, inferolateral ST segment depressions Labs 06/20/23 10:15 06/20/23 10:15 Labs: Laboratory Results - last 24 hr 06/20/23 06/20/23 06/20/23 10:15 10:50 10:58 WBC 12.04 H RBC 2.13 L Hgb 5.8 L* Hct 20.1 L* MCV 94 MCH 27.2 MCHC 28.9 L RDW 18.9 H Plt Count 573 H MPV 9.4 Immature Gran % 1.3 Neutrophils % 74.8 Lymphocytes % 8.7 Monocytes % 10.5 Eosinophils % 3.9 Basophils % 0.8 Nucleated RBC % 0.0 Absolute Neutrophils 9.01 H Absolute Lymphocytes 1.05 L Absolute Monocytes 1.26 H Absolute Eosinophils 0.47 Absolute Basophils 0.10 Sodium 137 Potassium 4.2 Chloride 104 Carbon Dioxide 28.3 Anion Gap 4.7 BUN 16 Creatinine 0.8 Est GFR (CKD-EPI 2020) 73.98 Glucose 105 Calcium 9.1 Magnesium 2.7 H Total Bilirubin 0.2 AST 32 ALT 42 Alkaline Phosphatase 211 H Troponin I Total Protein 7.1 Albumin 3.0 L Urine Color Yellow Urine Clarity Clear Urine pH 7.5 Ur Specific [place] 1.020 Urine Protein Negative Urine Ketones Negative Urine Blood Negative Urine Nitrite Negative Urine Bilirubin Negative Urine Urobilinogen 0.2 Ur Leukocyte Esterase Negative Urine Glucose 500 H Patient ABO/Rh O Negative Antibody Screen NEGATIVE Crossmatch See Detail Pre-Trans Blood Type Post-Trans Blood Type 06/20/23 06/20/23 14:06 15:07 WBC RBC Hgb Hct MCV MCH MCHC RDW Plt Count MPV Immature Gran % Neutrophils % Lymphocytes % Monocytes % Eosinophils % Basophils % Nucleated RBC % Absolute Neutrophils Absolute Lymphocytes Absolute Monocytes Absolute Eosinophils Absolute Basophils Sodium Potassium Chloride Carbon Dioxide Anion Gap BUN Creatinine Est GFR (CKD-EPI 2020) Glucose Calcium Magnesium Total Bilirubin AST ALT Alkaline Phosphatase Troponin I < 50 Total Protein Albumin Urine Color Urine Clarity Urine pH Ur Specific [place] Urine Protein Urine Ketones Urine Blood Urine Nitrite Urine Bilirubin Urine Urobilinogen Ur Leukocyte Esterase Urine Glucose Patient ABO/Rh Antibody Screen Crossmatch Pre-Trans Blood Type O Negative Post-Trans Blood Type O Negative Last Vital Signs Temp 36.9 C 06/20/23 15:44 Pulse 102 H 06/20/23 15:45 Resp 19 06/20/23 15:50 BP 170/53 H 06/20/23 15:45 Pulse Ox 96 06/20/23 15:44 Time Spent Time spent with Patient: 55-74 minutes Time was spent: preparing to see the patient(eg.review tests), obtaining and/or reviewing separately otained hiistory, ordering medications,tests, procedures, referring, communicating with other health child care, indepentently interpreting results, counseling the patient and care coordination
--- NOTE | 2023-06-20 16:31 | NUR.NOTE ---
Nursing Note:placed birch due to pt being unable to ambulate and having to pee consistently, education provided to pt and family, ordered by ER provider.
[2023-06-20 17:39] LABS: COVID-19 PCR Negative (Negative); Influenza A PCR Negative (Negative); Influenza B PCR Negative (Negative); RSV PCR Negative (Negative)
[2023-06-20 17:40] LABS: Source NASOPHARYNX
[2023-06-20 19:34] LABS: Lab Add On Test DONE
[2023-06-20 20:29] LABS: HCT 24.5 % (36.0-46.0); HGB 7.4 g/dL (11.2-15.7)
[2023-06-20 20:37] LABS: Creatine Kinase 43 U/L (26-192)
[2023-06-20] MEDS: Lidocaine 5% Patch 1 PATCH TP (20:44)
[2023-06-20] MEDS: Pantoprazole 40 MG TABCR PO (20:45)
[2023-06-20] MEDS: traMADol 50 MG TAB PO (20:46)
[2023-06-20] MEDS: Sacubitril/Valsartan 24 mg/26 mg TAB 1 EACH PO (20:48)
[2023-06-20] MEDS: Normal Saline Flush 10 ML SYR IVP (20:49)
[2023-06-20 20:53] LABS: Troponin I < 50 ng/L (<or=60)
[2023-06-21] VITALS (8 sets, daily range): BP systolic 109–131; BP diastolic 57–72; PULSE 98–109; RESP 16–18; TEMP 36.1–37.7; O2SAT 92–96
--- NOTE | 2023-06-21 | DI.RAD_ITS ---
Exam(s) XR CHEST 1V IN DI DEPT EXAM: XR CHEST 1V IN DI DEPT CLINICAL HISTORY: fever TECHNIQUE: 2D digital imaging was performed. COMPARISON: No exams were available for comparison FINDINGS: LUNGS: Diffuse bilateral chronic interstitial changes. No superimposed infiltrate visible. No pleur al abnormality seen. HEART: Enlarged, unchanged. AORTA: Normal diameter. Calcification. BONES: Unremarkable for age. Soft tissues: Unremarkable. IMPRESSION: Chronic interstitial changes. Cardiomegaly. DATA REPOSITORY: RADIATION DOSE DELIVERED:
--- NOTE | 2023-06-21 | DI.US_ITS ---
Exam(s) US EXTREMITY VENOUS BI EXAM: US EXTREMITY VENOUS BI CLINICAL HISTORY: BLE pain. TECHNIQUE: Bilateral lower extremity venous ultrasound performed using grayscale, color-flow, and sp ectral Doppler analysis. COMPARISON: No exams were available for comparison FINDINGS: The bilateral common femoral, femoral and popliteal veins demonstrate normal compressibility, augment ation, and color Doppler. The posterior tibial veins are patent. IMPRESSION: Right: Negative for DVT Left: Negative for DVT DATA REPOSITORY:
--- NOTE | 2023-06-21 | DI.MRI_ITS ---
Exam(s) MR LUMBAR SPINE WO EXAM: MR LUMBAR SPINE WO CLINICAL HISTORY: BLE pain, chronic back pain. TECHNIQUE: Multiplanar multisequence MRI of the Lumbar spine was performed. COMPARISON: MR MR LUMBAR SPINE WO from 07/07/[address] ABDOMEN PELVIS W from 06/20/2023 CR XR CHEST 1V IN DI DEPT from 06/21/2023 FINDINGS: Bones: The last intervertebral disc space is designated the L5/S1 level for the numbering purpose of this ex amination. The vertebral body heights are well maintained. Alignment: Unremarkable. The marrow signal characteristics are unremarkable. Cord: The conus tip ends at the T12 level. It is of normal size and signal intensity. T12-L1: No focal disc herniation is present. No central spinal canal stenosis.No neural foraminal st enosis. L1-2: No focal disc herniation is present. No central spinal canal stenosis.No neural foraminal sten osis. Right-sided nerve root sheath cyst. L2-3:Stable moderate loss of disc height, endplate osteophytes and concentric disc bulging. No focal disc herniation is present. Mild facet degenerative changes and ligamentous hypertrophy. Mild cent ral canal stenosis.Moderate right and mild left neural foraminal narrowing. Bilateral nerve root she ath cysts. L3-4: Mild disc bulging.No focal disc herniation is present. No central spinal canal stenosis.Mild right neural foraminal narrowing. Small right-sided nerve root sheath cyst. L4-5:Mild diffuse disc bulging. No focal disc herniation is present. Facet degenerative changes and ligamentous hypertrophy. No central spinal canal stenosis.No neural foraminal stenosis. Small righ t-sided nerve root sheath cyst. L5-S1: No focal disc herniation is present. No central spinal canal stenosis.No neural foraminal st enosis. The visualized SI joints and sacrum are unremarkable. Left-sided nerve root sheath cysts at S1 and S 2. Soft tissues: The paraspinal soft tissues are unremarkable. Left knee renal mass again noted. IMPRESSION: Stable degenerative disc changes and facet degenerative changes, greatest at L2-3. No focal disc her niation. Bilateral nerve root sheath cysts at multiple levels. Findings unchanged from prior. DATA REPOSITORY:
[2023-06-21 06:47] LABS: Abs Immature Grans 0.19 10^3/uL (0.0-0.06); Absolute Basophil Count 0.11 10^3/uL (0.0-0.2); Absolute Eosinophil Count 0.13 10^3/uL (0.0-0.7); Absolute Lymphocyte Count 0.68 10^3/uL (1.2-3.4); Absolute Monocyte Count 0.77 10^3/uL (0.1-0.8); Basophils % 0.8; Eosinophils % 0.9; HCT 24.1 % (36.0-46.0); HGB 7.1 g/dL (11.2-15.7); Immature Grans % 1.4; Lymphocytes % 4.8; MCH 27.5 pg (27.0-33.0); MCHC 29.5 % (32.0-36.0); MCV 93 fL (80-95); Monocytes % 5.5; Neutrophils % 86.6; Platelet Count 559 10^3/uL (130-400); RBC 2.58 10^6/uL (3.93-5.22); RDW 18.3 % (11.7-14.6); RDW-SD 62.9 fL; WBC 14.07 10^3/uL (4.4-10.8)
[2023-06-21 06:49] LABS: Absolute Neutrophil Count 12.18 10^3/uL (1.2-6.7)
[2023-06-21 07:03] LABS: Anion Gap 9.5 mmol/L (3-11); BUN 12 mg/dL (7-18); CO2 25.5 mmol/L (21.0-32.0); CREATININE 0.7 mg/dL (0.55-1.02); Calcium 8.8 mg/dL (8.5-10.1); Chloride 102 mmol/L (98-107); Estimated GFR 86.83 (mL/min/1.73m2); Glucose 81 mg/dL (74-106); Magnesium 2.3 mg/dL (1.8-2.4); Sodium 137 mmol/L (136-145)
[2023-06-21] MEDS: Calcium 600mg/Vit D 200U TAB 2 TAB PO (09:12)
[2023-06-21] MEDS: Sucralfate 1 GM TAB PO ×3 (09:13→15:55)
[2023-06-21] MEDS: Atorvastatin 40 MG TAB 80 MG PO (09:13)
[2023-06-21] MEDS: Metoprolol CR 25 MG TABCR PO (09:13)
[2023-06-21] MEDS: Sacubitril/Valsartan 24 mg/26 mg TAB 1 EACH PO ×2 (09:13→21:09)
[2023-06-21] MEDS: Pantoprazole 40 MG TABCR PO ×2 (09:13→21:09)
[2023-06-21] MEDS: Multivitamin TAB 1 TAB PO (09:13)
--- NOTE | 2023-06-21 10:49 | INITIAL_ITS ---
Date of service: 06/21/23 Time of Service: 10:49 Care Management Initial Assmt Initial Assessment REASON FOR HOSPITALIZATION:: symptomatic anemia PREVIOUS FUNCTIONAL STATUS/SOCIAL/FAMILY SUPPORTS:: Beth lives in an apartment in [place] [facility] [place] and one of her sons lives with her. She has another daughter who lives close by and comes to spend time with her during the day. Beth has another son and daughter who are also close and supportive and a young adult grandson who visits regularly. Beth is fairly independent with ADLs and only requires a little assistance from her daughter with dressing. She has home health services for nursing and PT and uses a walker for ambulation. Beth has been receiving SSDI for the past 30 years. CURRENT FUNCTIONAL STATUS:: Beth was sitting up in bed when CM met with her. She seemed a bit hesitant at first but was agreeable to conversation. She talked about her children and the fact that they are a close family. The children are supportive of her and are also close to each other. Beth reported that until a couple of weeks ago she was doing much better. She fell while getting into the tub at home and landed on her bottom. Since then she has had more pain in her back, hips and legs and her mobility has decreased. She had a PT evaluation today and their recommendation is SNF vs HH PT. ADVANCE DIRECTIVES:: none on file Has patient been provided with info about the portal/API?: Yes Did the patient sign up for the portal?: No CODE STATUS:: Full Code INSURANCE COVERAGE / FINANCIAL ISSUES:: [facility] Medicare replacement CURRENT HOME/COMMUNITY SERVICES/EQUIPMENT:: walker, shower chair, home health nursing and PT PRIMARY CARE PHYSICIAN:: Flory Lawrence POTENTIAL DISCHARGE NEEDS:: Follow up with PCP and plan of care PATIENT/FAMILY EDUCATION NEEDS:: Review of discharge instructions, limitations, follow up plan, discuss [employer] TRANSPORTATION:: via private vehicle PLAN:: Anticipate Beth will be discharged home, possibly with increased home health services, when medically cleared. She will follow up with community providers and plan of care and transport with family. CM will follow and continue to assess for discharge concerns. PFSH All Active Problems (Updated 06/20/23 @ 19:05 by Marina Parker MD) Pain in both lower legs (Acute) Posttransfusion fever (Acute) Discharge planning issues (Acute) DVT prophylaxis (Acute) Acute on chronic blood loss anemia (Acute) Symptomatic anemia (Acute) Fall (Acute) Difficulty walking (Acute) Fever (Acute) Anemia (Chronic) Regional wall motion abnormality of heart (Acute) Acute CVA (cerebrovascular accident) (Acute) Fever (Acute) Hypoxia (Acute) Acute CHF (Acute) NSTEMI (non-ST elevated myocardial infarction) (Acute) type 2 due to anemia Acute electrocardiogram changes (Acute) Right internal carotid occlusion (Acute) Acute focal neurological deficit (Acute) Renal malignant neoplasm (Chronic) 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 Patient follows up with [facility]. Elevated troponin (Acute) Chest pressure (Acute) Leucocytosis (Acute) Heme + stool (Acute) Sacroiliac joint dysfunction of both sides (Acute) Renal cell carcinoma (Acute) Referred to [facility]. Plan is to monitor for size change. dx 07/24 Hip pain, left (Acute) Shoulder pain, left (Acute) Fatigue (Acute) Leg pain, left (Acute) Left kidney mass (Acute) Spinal stenosis (Acute) Trochanteric bursitis, left hip (Acute) Injection: 12/26/2021 Calcific tendinitis of left hip (Acute) Strain of gastrocnemius muscle of left lower extremity (Acute) Medical History (Updated 06/20/23 @ 19:05 by Marina Parker MD) Osteopenia Asthma Hyperlipidemia HTN (hypertension) Chronic pain Restless leg syndrome Acute systolic (congestive) heart failure CVA (cerebral vascular accident) Anemia Acute non-ST segment elevation myocardial infarction Gastritis GI bleed 04/21/23 was sent to [facility] for w/u Chronic left hip pain Surgical History History of esophagogastroduodenoscopy (~04/2023) Biopsies taken H/O abdominoplasty H/O: hysterectomy Social History Smoking/Tobacco Use Status: Former Tobacco Use Smoking risk assessment performed?: Yes Alcohol Intake: never Drug use: Never Substance use type: marijuana Housing: apartment Do you feel safe at home: Yes Do you feel safe in your relationship?: Yes
[2023-06-21] MEDS: Beta-Carotene(A) w/C,E, & Minerals TAB 1 TAB PO ×2 (13:25→21:09)
[2023-06-21] MEDS: Lidocaine Patch Removal 1 EACH TP (13:26)
[2023-06-21 13:55] LABS: HCT 27.5 % (36.0-46.0); HGB 8.3 g/dL (11.2-15.7)
--- NOTE | 2023-06-21 14:15 | IN_ITS ---
PT Notes Visit Reasons: symptomatic anemia,L hip pain,fever during transf Physical Therapy Inpatient Initial Evaluation Date: 06/21/23 Referring Doctor: Marina Parker MD PT Orders: PT CONSULT: Limited Ability Precautions: Fall. Standard. ACtivity as tolerated. Patient Profile/Admitting Diagnosis: Beth is an 82-year-old female who presented to the ED on 06/20/23 for L hip tenderness and difficulty with walking. Negative for active massive bleeding and negative fracture per most recent testing. Patient is admitted for management of symptomatic anemia, acute on chronic blood loss anemia, post- transfusion fever, and difficulty walking. PMHX: All Active Problems (Updated 06/20/23 @ 19:05 by Marina Parker MD) Pain in both lower legs (Acute) Posttransfusion fever (Acute) Discharge planning issues (Acute) DVT prophylaxis (Acute) Acute on chronic blood loss anemia (Acute) Symptomatic anemia (Acute) Fall (Acute) Difficulty walking (Acute) Fever (Acute) Anemia (Chronic) Regional wall motion abnormality of heart (Acute) Acute CVA (cerebrovascular accident) (Acute) Fever (Acute) Hypoxia (Acute) Acute CHF (Acute) NSTEMI (non-ST elevated myocardial infarction) (Acute) type 2 due to anemia Acute electrocardiogram changes (Acute) Right internal carotid occlusion (Acute) Acute focal neurological deficit (Acute) Renal malignant neoplasm (Chronic) 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 Patient [facility] up with [facility]. Elevated troponin (Acute) Chest pressure (Acute) Leucocytosis (Acute) Heme + stool (Acute) Sacroiliac joint dysfunction of both sides (Acute) Renal cell carcinoma (Acute) Referred to [facility]. Plan is to monitor for size change. dx 07/24 Hip pain, left (Acute) Shoulder pain, left (Acute) Fatigue (Acute) Leg pain, left (Acute) Left kidney mass (Acute) Spinal stenosis (Acute) Trochanteric bursitis, left hip (Acute) Injection: 2Calcific tendinitis of left hip (Acute) Strain of gastrocnemius muscle of left lower extremity (Acute) Medical History (Updated 06/20/23 @ 19:05 by Marina Parker MD) Osteopenia Asthma Hyperlipidemia HTN (hypertension) Chronic pain Restless leg syndrome Acute systolic (congestive) heart failure CVA (cerebral vascular accident) Anemia Acute non-ST segment elevation myocardial infarction Gastritis GI bleed 04/21/23 was sent to [facility] for w/u Chronic left hip pain Surgical History History of esophagogastroduodenoscopy (~04/2023) Biopsies takenH/O abdominoplasty H/O: hysterectomy Social History/Home Situation: Lives with son in single level residence, 2 [address] with rail. Reports using FWW at baseline. Does not drive. Will walk to mailbox. Has chronic back pain. Son has himself chronic back pain and is unable to provide consistent physical help to his mother. Equipment Owned/DME: FWW, SPC Subjective: verbalizes not feeling so well. Reports 8/10 pain in low back area at rest that she states she has had for quite a while now. Adds that son also has a bad back and cannot exert effort too much. Agreeable to only getting into chair from bed as she is afraid her legs may give out and she make her fall again. Nurse Syhlyn aware of pain complaint. Denies pain in L hip but reports tenderness to palpation by PT. No pain report in B thighs at time of evaluation. Patient becomes so overwhelmed with too many questions and gets frustrated easy when she is not able to answer. Objective: General Observation: Alert. gets easily frutrated when unable to answer questions about her self Mental Status: A&O x3 Pain: Chronic low back pain as above ROM: Right Upper Extremity: Shoulder Flexion lacks th last 25% of AROM. Shoulder abduction lacks th last 25% of AROM. Elbow flexion WFL. Wrist flexion WFL. Opening and closing of hand WFL. Left Upper Extremity: Shoulder Flexion lacks th last 25% of AROM. Shoulder abduction lacks th last 25% of AROM. Elbow flexion WFL. Wrist flexion WFL. Opening and closing of hand WFL. Right Lower Extremity: Hip flexion lacks the last 25% of AROM. Hip abduction lacks the last 25% of AROM. Knee flexion 20 degrees to 90 degrees. Knee exension -20 degrees. Ankle dorsiflexion to neutral only. Ankle plantarflexion WFL. Left Lower Extremity: Hip flexion lacks the last 25% of AROM. Hip abduction lacks the last 25% of AROM. Knee flexion 20 degrees to 90 degrees. Knee exension -20 degrees. Ankle dorsiflexion to neutral only. Ankle plantarflexion WFL. Strength: Right Upper Extremity: Shoulder flexors 3-/5. Shoulder abductors 3-/5. Elbow flexors 4-/5. Elbow extensors 4-/5. Landscaper strong. Left Upper Extremity: Shoulder flexors 3-/5. Shoulder abductors 3-/5. Elbow flexors 4-/5. Elbow extensors 4-/5. Landscaper strong. Right Lower Extremity: Hip flexors 3-/5. Hip abductors 5/5. Knee flexors 5/5. Knee extensors 5/5. Ankle dorsiflexors 3-/5. Ankle plantarflexors 4-/5. Left Lower Extremity:Hip flexors 3-/5. Hip abductors 5/5. Knee flexors 5/5. Knee extensors 5/5. Ankle dorsiflexors 3-/5. Ankle plantarflexors 4-/5. Sensation: Intact as to pain and pressure on bilateral lower extremities. Bed Mobility/Transfers: Moderate cues given to use B UE for support and for movement sequence; fearful of falling, needed ample reassurance that she is not going to fall. Rolling: minimal assist Supine to sit: moderate assist Scooting forward to edge of bed minimal assist Sit to stand: minimal assist Stand to sit: minimal assist Gait: Fearful that her legs may give out, only agreed to walk from bedside to bedside recliner. Gait wide-based. Dorsiflexion decreased on B sides. Knee flexion decreased on B sides. Reported 7-8/10 pain in low back. Moderate verbal cueing for limb advancement, AD management, movement sequence and posture. Balance: Static Sitting: Good Dynamic Sitting: Fair Static Standing: Fair Dynamic Standing: Fair Special Tests: Mobility Limitations Standardized Measure [facility] AM-PAC 6 clicks Basic Mobility Inpatient Short Form: Raw Score: 14 CMS Score: 61% deficit Informed Consent/Education: Patient was instructed in purpose of PT consult and plan of care. Agreeable to proceed with established PT POC to achieve personal goals. ASSESSMENT: Beth demonstrates functional mobility decline compared to when she was last seen in this facility. Chroninc low back pain compunding mobility performance. Denies pain in L hip and B thighs at time of evaluation but did reports tender to palpation of L hip area from pre-existing L throchanteric bursitis. H and H remains below normal limits. Patient presents with clinical signs and symptoms consistent with current/admitting diagnoses that have resulted to mobility limitations, gait instability, generalized weakness, and overall ADL decline as demonstrated by the following impairment level findings: 1. Decreased strength to B UE/LE major muscle groups 2. Impaired sitting/standing balance 3. Impaired activity tolerance 4. Limitation of joint range of motion as above 5. fearfulness of falling 6. Chronic low back pain Impairments are contributing to the following functional limitations: 1. Decline in bed mobility skills 2. Decline in transfer skills 3. Difficulty with ambulation without assistive device and physical assistance 4. Increased completion time for mobility ADL performance 5. Increased risk for falls 6. Difficulty with managing steps alone safely Patient is assessed as a [id number] moderate complexity based on the following: History: 82-year-old female with past medical history as indicated above Examination: Demonstrable impairment in strength, balance, and mobility level with underlying impairments and functional limitations as exhibited above as well as deficit score of 61% utilizing the [facility] Mobility Inpatient Short Form Presentation: Evolving Decision Makin moderate complexity Goals: Goals X1 week 1. Supine-Sit independent 2. Sit-Supine independent 3. Sit-Stand independent 4. Stand-Sit independent with FWW 5. Bed-Chair independent with FWW 6. Chair-Bed independent with FWW 7. Independent gait on level surface with use of FWW for at least 300 feet without report of pain nor dyspnea 8. Independent stair negotiation while holding onto B rails for at least 3 steps without report of pain nor dyspnea 9. Independent with home exercise program 10. Good static and dynamic standing balance/tolerance Plan of Care/Treatment Plan: 1-2x/day, 7 days/week x 1 week. Plan of care has been reviewed with the CRIB TENDER providing the service under Physical Therapy direction. Initiate Physical Therapy intervention for pain management for low back pain as needed, strengthening, bed mobility, transfers, gait, stairs, balance training, and use of assistive device. Pre-medicate for pain. DISCHARGE RECOMMENDATIONS: [] Home with no services [] [] Home with services [] [] Home with outpatient PT [] [] SNF for continued rehabilitation [] [] Detention Care [] [] SNF versus LTC based on ability to participate and progress [] [X] SNF vs HH PT based on progress towards goals TREATMENT CODE/TIME: 61216 x 27 minutes beginning at 14:15 PM Thank you for the opportunity to participate in the care of this patient. Chanel Hernandez PT, DPT, CLT [facility] [place], [place] Decision Making: Low complexity
[2023-06-21] MEDS: Docusate Sodium 100 MG CAP PO ×2 (14:47→21:11)
[2023-06-21] MEDS: traMADol 50 MG TAB PO (14:47)
--- NOTE | 2023-06-21 19:22 | W.PM.PROGNOT ---
Date of Service Date of service: 06/21/23 Time of Service: : Assessment and Plan Assessment and plan (1) Symptomatic anemia: Status: Acute Assessment and plan: Heme positive, w/ h/o prior GI bleeding and an EGD on 04/23/23 at our facility with mild duodenitis, moderate gastritis, Bernard's esophagus. No hemondynamically significant bleeding. H/H stable. Continue carafate and PPI. Continue a diet. At this time, I do not think she will need a colonoscopy as an inpatient as we know she had gastritis on her EGD recently. (2) Acute on chronic blood loss anemia: Status: Acute Assessment and plan: As above (3) Posttransfusion fever: Status: Acute Assessment and plan: Hemolytic reaction has been ruled out, so this was a febrile non-hemolytic transfusion reaction. it would not explain the low grade temp this morning. I am not so sure this is a post-transfusion fever and am wondering if it, in fact, could have pre-existed this. The patient had another low grade fever today and was not aware of it. Check procalcitonin. Do not add abx at this time as no source. (4) Left hip pain: Status: Ruled-out Assessment and plan: The patient actually denies this symptom to me and states she has no pain in her left hip. She does have pain in her B medial thighs - see below. (5) Pain in both lower legs: Status: Acute Assessment and plan: The patient has pain in bilateral medial thighs which started today. MRI lumbar spine and venous dopplers BLEs negative. I suspect a statin induced myopathy as she was started on a high dose statin recently. Hold atorvastatin and monitor. (6) Difficulty walking: Status: Acute Assessment and plan: Continue PT. PT recommends SNF vs PT. (7) DVT prophylaxis: Status: Acute Assessment and plan: SCDs. Avoid chemical DVT ppx given GI bleeding (8) Discharge planning issues: Status: Acute Assessment and plan: Full code The patient does not want to go to SNF. ANticipate discharge home with home health PT. Subjective Subjective Interval history since last seen: States the thigh pain is still there but is better. It is a pain in B inner thighs. Denies dizziness, CP, SOB, n/v. States she is still very weak on her feet but has been able to ambulate. She would rather not go to rehab - she wants to go home. Her son is helping set the house up for her return. PT recommends SNF vs HH PT. Exam Narrative Exam Narrative: General: a pleasant elderly female who is A&Ox3, looks comfortable in bed HEENT: EOMI, MMM Cardiovascular: RRR, no m/r/g Lungs: CTAB Gastrointestinal: soft, nontender, nondistended Genitourinary: has a birch Extremities: no edema BLEs, B medial thighs are distillation operator, no tenderness to L trochanteric bursa, +1 pedal pulses B, no c/c Objective Last Vital Signs Temp 36.6 C 06/21/23 13:00 Pulse 105 H 06/21/23 13:00 Resp 18 06/21/23 13:00 BP 109/68 06/21/23 13:00 Pulse Ox 96 06/21/23 13:00 Laboratory Results - last 24 hr 06/20/23 06/20/23 06/20/23 10:50 14:06 15:10 WBC RBC Hgb Hct MCV MCH MCHC RDW Plt Count MPV Immature Gran % Neutrophils % Lymphocytes % Monocytes % Eosinophils % Basophils % Nucleated RBC % Absolute Neutrophils Absolute Lymphocytes Absolute Monocytes Absolute Eosinophils Absolute Basophils Sodium Potassium Chloride Carbon Dioxide Anion Gap BUN Creatinine Est GFR (CKD-EPI 2020) Glucose Calcium Magnesium Creatine Kinase 43 Troponin I Add-On Test Request DONE Crossmatch See Detail Reaction Clerical Check No Clerical Errors Pre-Trans Bld Appearanc No Hemolysis/Icterus Pre-Trans AFIA Not Applicable Post-Trans Spec Appear No Hemolysis/Icterus Post-Trans AFIA Negative Reaction Pathol Review Negative-Complete 06/20/23 06/21/23 06/21/23 20:00 06:10 13:43 WBC 14.07 H RBC 2.58 L Hgb 7.4 L 7.1 L 8.3 L Hct 24.5 L 24.1 L 27.5 L MCV 93 MCH 27.5 MCHC 29.5 L RDW 18.3 H Plt Count 559 H MPV 10.0 Immature Gran % 1.4 Neutrophils % 86.6 Lymphocytes % 4.8 Monocytes % 5.5 Eosinophils % 0.9 Basophils % 0.8 Nucleated RBC % 0.0 Absolute Neutrophils 12.18 H Absolute Lymphocytes 0.68 L Absolute Monocytes 0.77 Absolute Eosinophils 0.13 Absolute Basophils 0.11 Sodium 137 Potassium 4.0 Chloride 102 Carbon Dioxide 25.5 Anion Gap 9.5 BUN 12 Creatinine 0.7 Est GFR (CKD-EPI 2020) 86.83 Glucose 81 Calcium 8.8 Magnesium 2.3 Creatine Kinase Troponin I < 50 Add-On Test Request Crossmatch Reaction Clerical Check Pre-Trans Bld Appearanc Pre-Trans AFIA Post-Trans Spec Appear Post-Trans AFIA Reaction Pathol Review Time Spent with Patient Time Spent with Patient: 35-49 minutes Time was spent: preparing to see the patient(eg.review tests), obtaining and/or reviewing separately otained hiistory, ordering medications,tests, procedures, referring, communicating with other health animal caretaker supervisor, indepentently interpreting results, counseling the patient and care coordination
[2023-06-21 20:05] LABS: Lab Add On Test DONE
[2023-06-21 20:39] LABS: Procalcitonin 0.1 ng/mL
[2023-06-21] MEDS: Lidocaine 5% Patch 1 PATCH TP (21:09)
[2023-06-21] MEDS: Normal Saline Flush 10 ML SYR IVP (21:09)
[2023-06-22] VITALS (11 sets, daily range): BP systolic 107–162; BP diastolic 62–78; PULSE 88–102; RESP 16–20; TEMP 36.5–37.4; O2SAT 92–96
[2023-06-22 06:56] LABS: Abs Immature Grans 0.11 10^3/uL (0.0-0.06); Absolute Basophil Count 0.07 10^3/uL (0.0-0.2); Absolute Eosinophil Count 0.62 10^3/uL (0.0-0.7); Absolute Monocyte Count 1.31 10^3/uL (0.1-0.8); Basophils % 0.6; HCT 22.9 % (36.0-46.0); Immature Grans % 0.9; Lymphocytes % 8.4; MCH 28.3 pg (27.0-33.0); MCHC 30.6 % (32.0-36.0); MCV 93 fL (80-95); MPV 10.6 fL (8.0-11.0); Monocytes % 10.5; Neutrophils % 74.6; Platelet Count 520 10^3/uL (130-400); RBC 2.47 10^6/uL (3.93-5.22); RDW 18.1 % (11.7-14.6); RDW-SD 61.1 fL; WBC 12.45 10^3/uL (4.4-10.8)
[2023-06-22 07:06] LABS: Anion Gap 6.5 mmol/L (3-11); BUN 18 mg/dL (7-18); CO2 26.5 mmol/L (21.0-32.0); CREATININE 0.9 mg/dL (0.55-1.02); Calcium 8.8 mg/dL (8.5-10.1); Chloride 103 mmol/L (98-107); Estimated GFR 64.23 (mL/min/1.73m2); Glucose 92 mg/dL (74-106); Magnesium 2.4 mg/dL (1.8-2.4); Potassium 3.8 mmol/L (3.5-5.1); Sodium 136 mmol/L (136-145)
[2023-06-22 07:13] LABS: Absolute Lymphocyte Count 1.05 10^3/uL (1.2-3.4); Absolute Neutrophil Count 9.29 10^3/uL (1.2-6.7)
[2023-06-22] MEDS: Sucralfate 1 GM TAB PO ×4 (08:18→20:19)
[2023-06-22] MEDS: Multivitamin TAB 1 TAB PO (08:18)
[2023-06-22] MEDS: Sacubitril/Valsartan 24 mg/26 mg TAB 1 EACH PO ×2 (08:18→20:18)
[2023-06-22] MEDS: Beta-Carotene(A) w/C,E, & Minerals TAB 1 TAB PO ×2 (08:18→20:18)
[2023-06-22] MEDS: Magnesium Oxide 400 MG TAB PO (08:18)
[2023-06-22] MEDS: Calcium 600mg/Vit D 200U TAB 2 TAB PO (08:19)
[2023-06-22] MEDS: Pantoprazole 40 MG TABCR PO ×2 (08:19→20:18)
[2023-06-22] MEDS: Metoprolol CR 25 MG TABCR PO (08:19)
[2023-06-22] MEDS: Ferrous Sulfate 325 MG TAB PO (09:48)
[2023-06-22] MEDS: Lidocaine Patch Removal 1 EACH TP (09:55)
[2023-06-22] MEDS: Acetaminophen 325 MG TAB 650 MG PO (10:13)
[2023-06-22] MEDS: diphenhydrAMINE 25 MG CAP PO (10:14)
--- NOTE | 2023-06-22 11:51 | PDOC.CMPRO ---
Date of service: 06/22/23 Time of Service: 11:51 Care Management Progress Note Progress Note Text Progress Note Text: S/O: Beth was lying in bed when CM met with her. Her daughter, Breanna was in the room. CM stated that per MD, Beth would likely be discharged home tomorrow, and CM called her son, Eamon, who is expecting her to return home. Beth and Breanna both felt that Beth would not be safe at home if she was to discharge tomorrow. Beth stated that she doesn't know if she can ambulate to the bathroom at night. She has been working with PT, who recommends SNF vs home with HH. Breanna had medical questions; CM asked MD to discuss these with her. MD strongly recommended SNF. Beth was admitted as an observation patient, although MD stated that due to her anemia and requiring multiple blood transfusions, her admission status would change to inpatient. CM sent referrals to [facility], [facility], [facility] and [place]. CM explained that her insurance may have limitations, and a PA would be required. KAROLINA also stated that her plan to return home with increased HH services still may be considered, if Beth continues to improve. CM will continue to follow. A: Beth is an 82 year old female admitted to [facility] on 06/20/23 with symptomatic anemia, L hip pain. P: Anticipate Beth will be discharged home, possibly with increased home health services, when medically cleared. She will follow up with community providers and plan of care and transport with family. CM will follow and continue to assess for discharge concerns.
[2023-06-22] MEDS: traMADol 50 MG TAB PO (14:02)
--- NOTE | 2023-06-22 14:09 | W.PM.PROGNOT ---
Date of Service Date of service: 06/22/23 Time of Service: 14:09 Assessment and Plan Assessment and plan (1) Symptomatic anemia: Status: Acute Assessment and plan: Heme positive, w/ h/o prior GI bleeding and an EGD on 04/23/23 at our facility with mild duodenitis, moderate gastritis, Bernard's esophagus. No hemondynamically significant bleeding. H/H stable. Continue carafate and PPI. Continue a diet. Received her 3rd unit of blood today. At this time, I do not think she will need a colonoscopy as an inpatient as we know she had gastritis on her EGD recently. (2) Acute on chronic blood loss anemia: Status: Acute Assessment and plan: As above (3) Posttransfusion fever: Status: Acute Assessment and plan: Hemolytic reaction has been ruled out, so this was a febrile non-hemolytic transfusion reaction. it would not explain the low grade temp this morning. I am not so sure this is a post-transfusion fever and am wondering if it, in fact, could have pre-existed this. No true fever since fever int he ED. Blood cultures are pending, but procalcitonin was negative. No role for abx at this time. (4) Pain in both lower legs: Status: Acute Assessment and plan: I think this is a multifactorial issue: -statin myopathy -restless legs, made worse by anemia. 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 Encourage PT. We are using tramadol and tylenol for pain. Trial pramipexole (gabapentin made her worse in the past, the patient states). Hold atorvastatin and monitor. I recommend SNF placement. (5) Left hip pain: Status: Ruled-out Assessment and plan: The patient actually denies this symptom to me and states she has no pain in her left hip. She does have pain in her B medial thighs - see below. (6) Difficulty walking: Status: Acute Assessment and plan: Continue PT. As above. (7) DVT prophylaxis: Status: Acute Assessment and plan: SCDs. Avoid chemical DVT ppx given GI bleeding (8) Discharge planning issues: Status: Acute Assessment and plan: Full code I recommend SNF rather than home health PT. The patient is considering this. Subjective Subjective Interval history since last seen: Ms Rocheleau reports discomfort in B legs, though today she attributes more of it to restless legs. She says the pain is also in her knees and ankles and that the resltess legs has been worse and is making the leg discomfort worse. We discussed how iron deficiency anemia will do that to restless legs. Denies dizziness, CP, SOB, n/v. No bleeding reported. I discussed what's going on with the patient with her with the daughter at the bedside and made my strong recommendation for disposition to a SNF known. Exam Narrative Exam Narrative: General: a pleasant elderly female who is A&Ox3, more anxious today and looks uncomfortable HEENT: EOMI, MMM Cardiovascular: RRR, no m/r/g Lungs: CTAB Gastrointestinal: soft, nontender, nondistended Genitourinary: has a birch Extremities: no edema BLEs, B medial thighs are tender, no tenderness to L trochanteric bursa, no erythema or ecchymoses there, no erythema of knees, +1 pedal pulses B, no c/c Objective Last Vital Signs Temp 37.0 C 06/22/23 11:25 Pulse 97 H 06/22/23 11:25 Resp 18 06/22/23 11:25 BP 158/78 H 06/22/23 11:25 Pulse Ox 95 06/22/23 11:25 Laboratory Results - last 24 hr 06/20/23 06/21/23 06/21/23 10:50 06:10 20:04 WBC RBC Hgb Hct MCV MCH MCHC RDW Plt Count MPV Immature Gran % Neutrophils % Lymphocytes % Monocytes % Eosinophils % Basophils % Nucleated RBC % Absolute Neutrophils Absolute Lymphocytes Absolute Monocytes Absolute Eosinophils Absolute Basophils Sodium Potassium Chloride Carbon Dioxide Anion Gap BUN Creatinine Est GFR (CKD-EPI 2020) Glucose Calcium Magnesium Procalcitonin 0.1 Add-On Test Request DONE Patient ABO/Rh O Negative Antibody Screen NEGATIVE Crossmatch See Detail 06/22/23 06:20 WBC 12.45 H RBC 2.47 L Hgb 7.0 L* Hct 22.9 L MCV 93 MCH 28.3 MCHC 30.6 L RDW 18.1 H Plt Count 520 H MPV 10.6 Immature Gran % 0.9 Neutrophils % 74.6 Lymphocytes % 8.4 Monocytes % 10.5 Eosinophils % 5.0 Basophils % 0.6 Nucleated RBC % 0.0 Absolute Neutrophils 9.29 H Absolute Lymphocytes 1.05 L Absolute Monocytes 1.31 H Absolute Eosinophils 0.62 Absolute Basophils 0.07 Sodium 136 Potassium 3.8 Chloride 103 Carbon Dioxide 26.5 Anion Gap 6.5 BUN 18 Creatinine 0.9 Est GFR (CKD-EPI 2020) 64.23 Glucose 92 Calcium 8.8 Magnesium 2.4 Procalcitonin Add-On Test Request Patient ABO/Rh Antibody Screen Crossmatch Time Spent with Patient Time Spent with Patient: 35-49 minutes Time was spent: preparing to see the patient(eg.review tests), obtaining and/or reviewing separately otained hiistory, ordering medications,tests, procedures, referring, communicating with other health ocular care technician, indepentently interpreting results, counseling the patient and care coordination
[2023-06-22 16:13] LABS: HCT 28.3 % (36.0-46.0); HGB 8.7 g/dL (11.2-15.7)
--- NOTE | 2023-06-22 16:55 | PTTR_ITS ---
Date of service: 06/22/23 Time of Service: 13:47 PT Notes Visit Reasons: symptomatic anemia,L hip pain,fever during transf Inpatient Physical Therapy Treatment Note [facility] Date: 06/22/23 PRECAUTIONS: Fall, standard, activity as tolerated. SUBJECTIVE: Patient initially reports 8/10 pain in bilateral legs. This clinician returns later in the day, pain is improved, patient reports feeling better although still very tired. OBJECTIVE: Supine in bed, agreeable to therapy. ? PAIN: 8/10 pain reported in bilateral legs, nursing notified. Pain is much less a couple of hours later. VITALS: monitored by nursing staff. ? BED MOBILITY/TRANSFERS? Rolling L/R: not assessed Supine-sit x1: Mod - max assist to maneuver legs out of bed, support of one hand behind shoulders to bring patient into sitting, pulled draw sheet to get patient's hips square at the edge of the bed. ? Sit-supine x1: mod assist x2, one person helping direct shoulders/trunk while the other raises legs up into bed. ? Sit-stand x3: Mod-max assist x2 pulling up at gait belt, tactile cues in axilla ? Stand-sit x3: mod assist x2 pulling gait belt towards center of bed to get patient's hips back far enough to ensure a safe landing. ? Therapeutic Exercises ([id number]): Direct one-on-one instruction in therapeutic exercises to develop strength, endurance, range of motion and flexibility. ? Exercises: * assisted SLR x5 * assisted heel slides x5 * sit to stands x3 as noted above. * Encouraged patient to stand as long as possible each time in order to increase patient's activity tolerance. Provided skilled instruction in proper exercise performance Provided skilled manual cues to facilitate proper muscle recruitment and/or form. ASSESSMENT:? Patient becomes upset, repeatedly stating that this clinician is asking her to do the impossible. Feels that because she is weak and unable to stand easily on her own, she should not be asked to try to stand. Complains of pain in the wrist, in the legs, in the back. PLAN: continue global strengthening per plan of care to patient tolerance until patient is medically cleared for discharge and obtains a safe discharge plan. TREATMENT CODE/TIME: 18 minutes beginning at 13:47
[2023-06-22] MEDS: Docusate Sodium 100 MG CAP PO ×2 (17:08→20:18)
[2023-06-22] MEDS: Furosemide 20 MG/2 ML VIAL IVP (17:19)
[2023-06-22] MEDS: Normal Saline Flush 10 ML SYR IVP ×2 (17:24→20:20)
[2023-06-22] MEDS: Lidocaine 5% Patch 1 PATCH TP (20:17)
[2023-06-22] MEDS: Pramipexole 0.25 MG TAB 0.125 MG PO (21:59)
[2023-06-23] VITALS (11 sets, daily range): BP systolic 115–168; BP diastolic 66–76; PULSE 96–105; RESP 16–20; TEMP 36.3–37.8; O2SAT 89–97
--- NOTE | 2023-06-23 | DI.CT_ITS ---
Exam(s) CT BRAIN NECK CTA EXAM: CT BRAIN NECK CTA CLINICAL HISTORY: New onset left-sided weakness, ignoring left. TECHNIQUE: Imaging Protocol: Axial CT angiography was performed with multi-slice acquisition and mu lti-planar and 3D reconstructions. CONTRAST MATERIAL: Intravenous: Omnipaque 350 Contrast volume:100 ml COMPARISON: CT CT BRAIN NECK CTA from 04/23/[address] ABDOMEN PELVIS W from 06/20/2023 FINDINGS: CT Head W/O and W contrast: Ventricles and Extra axial spaces: Normal in size and morphology for the patient's age. Hemorrhage: None. Cerebral parenchyma: Large area of mildly decreased attenuation seen in the right temporoparietal reg ion, MCA distribution consistent with acute infarct. There is effacement of the sulci. No hemorrhag e. Patchy areas of low signal seen more superiorly in the white matter appears stable. Small old la cunar infarct. Midline shift: None. Brainstem/Cerebellum: No acute findings.. Calvarium: Normal. Visualized Paranasal sinuses/Mastoids: Clear. Soft Tissues: Unremarkable. Enhancement: Normal. CTA Brain W: Internal Carotid Arteries: Petrous: Normal. Cavernous: Normal. Cerebral: Normal. Middle Cerebral Arteries: Right: Occlusion of the right MCA at the trifurcation extending into the posterior branches some dis angeline branches are reconstituted. Left: No aneurysm, occlusion or significant stenosis. Anterior Cerebral Arteries: Right: No aneurysm, occlusion or significant stenosis. Left: No aneurysm, occlusion or significant stenosis. Posterior cerebral Arteries: Right: No aneurysm, occlusion or significant stenosis. Left: Moderate to severe stenosis of P2 segment. Vertebral Arteries: Right: Calcified plaque in the proximal intradural segment causing severe stenosis. Left: No aneurysm, occlusion or significant stenosis. Basilar Artery: No aneurysm, occlusion or significant stenosis. CTA Neck W: Common Carotid: Right: No dissection, occlusion or significant stenosis. Left: No dissection, occlusion or significant stenosis. External Carotid: Right: No dissection, occlusion or significant stenosis. Left: No dissection, occlusion or significant stenosis. Internal Carotid: Right: Calcific plaque causing severe stenosis at the bulb. Left: Calcified plaque causing moderate stenosis at the level of the bulb. Vertebral Artery: Right: No dissection, occlusion or significant stenosis. Left: No dissection, occlusion or significant stenosis. Lung Apices: Interstitial changes. No infiltrate or pneumothorax. Bones: No acute abnormality. Degenerative changes in the spine. Soft Tissues: Normal. IMPRESSION: 1. CTA brain: Occluded right middle cerebral artery at the trifurcation involving posterior branches. Severe stenosis of the right vertebral artery intracranial segment. Moderate to severe spinal st enosis of the left posterior cerebral artery. 2. Head CT: Acute right MCA territory infarct involving the temporal and parietal lobes. 3. CTA neck: Calcific plaque causing severe right and moderate left stenosis at the common carotid bu lbs. RADIATION DOSE DELIVERED: Total DLP DATA REPOSITORY: All CT scans at this facility are submitted to the National Radiology Data Registry (NRDR) Dose Index Registry (DIR) with the [employer] (ACR). RADIATION OPTIMIZATION: All CT scans at this facility use at least one of these dose optimization te chniques: automated exposure control; mA and/or kV adjustment per patient size (includes targeted exa ms where dose is matched to clinical indication); or iterative reconstruction.
--- NOTE | 2023-06-23 | DI.MRI_ITS ---
Exam(s) MR BRAIN WO EXAM: MR BRAIN WO CLINICAL HISTORY: New onset left-sided weakness with known right CVA TECHNIQUE: Multiplanar multisequence MRI of the brain was performed. COMPARISON: MR MR BRAIN WO from 04/23/[address] BRAIN NECK CTA from 06/23/2023 FINDINGS: VENTRICLES AND EXTRA AXIAL SPACES: Normal in size and morphology for the patient's age. MIDLINE SHIFT: None. CEREBRAL PARENCHYMA: Large area of restricted diffusion seen in the superior right temporal and right parietal lobes consistent with acute infarct as seen on CT. No additional foci of restricted diffus ion. No space-occupying lesion identified. Mild atrophy consistent with the patient's age. Moderate scattered foci of high signal in the white matter consistent with sequela of chronic microvascular d isease. HEMORRHAGE: None. BRAINSTEM/CEREBELLUM: Normal. VISUALIZED PARANASAL SINUSES/MASTOIDS:Clear. Vasculature: decreased flow voids in right internal carotid artery on with thin patent lumen. Decre ased flow void seen within region of infarct in posterior right MCA branches. PITUITARY GLAND: Unremarkable. ORBITS: Unremarkable. IMPRESSION: Evolving infarct in the right temporal parietal region. No hemorrhagic transformation. No additiona l areas of infarct. DATA REPOSITORY:
[2023-06-23] MEDS: Aspirin 325 MG TAB PO (04:20)
[2023-06-23 05:13] LABS: Abs Immature Grans 0.13 10^3/uL (0.0-0.06); Absolute Lymphocyte Count 0.85 10^3/uL (1.2-3.4); Basophils % 0.8; HGB 8.3 g/dL (11.2-15.7); Lymphocytes % 6.8; MCH 26.6 pg (27.0-33.0); MCHC 30.7 % (32.0-36.0); MCV 87 fL (80-95); MPV 9.4 fL (8.0-11.0); Monocytes % 9.9; Neutrophils % 75.5; Platelet Count 512 10^3/uL (130-400); RBC 3.12 10^6/uL (3.93-5.22); RDW 21.8 % (11.7-14.6); RDW-SD 68.9 fL; WBC 12.57 10^3/uL (4.4-10.8)
[2023-06-23] MEDS: Omnipaque 350 MG/ML 100 ML BTL IJ (05:17)
[2023-06-23] MEDS: Normal Saline - Diluent 50 ML VIAL IJ (05:18)
[2023-06-23 05:19] LABS: Absolute Eosinophil Count 0.75 10^3/uL (0.0-0.7); Absolute Monocyte Count 1.24 10^3/uL (0.1-0.8); Absolute Neutrophil Count 9.49 10^3/uL (1.2-6.7)
[2023-06-23] MEDS: Normal Saline Flush 10 ML SYR IVP (05:19)
[2023-06-23 05:29] LABS: Anion Gap 7.7 mmol/L (3-11); BUN 18 mg/dL (7-18); CO2 27.3 mmol/L (21.0-32.0); CREATININE 0.7 mg/dL (0.55-1.02); Calcium 8.5 mg/dL (8.5-10.1); Chloride 100 mmol/L (98-107); Estimated GFR 86.83 (mL/min/1.73m2); Glucose 107 mg/dL (74-106); Magnesium 2.1 mg/dL (1.8-2.4); Potassium 3.6 mmol/L (3.5-5.1); Sodium 135 mmol/L (136-145)
--- NOTE | 2023-06-23 05:30 | DI.VRAD_ITS ---
Addendum created by Wing Prather MD on 06/23/2023 5:41:44 AM EST: THIS REPORT CONTAINS FINDINGS THAT MAY BE CRITICAL TO PATIENT CARE. The findings were verbally communicated via telephone conference with CARA MIRANDA at 5:41 AM EST on 06/23/2023. The findings were acknowledged and understood. Initial report created on 06/23/2023 5:30:04 AM EST: PROCEDURE INFORMATION: Exam: CTA Head With Contrast, Arteriography Exam date and time: 06/23/2023 4:56 AM Age: 82 years old Clinical indication: Stroke-like symptoms; Other: Left sided weakness weakness; Additional info: New onset left sided weakness, ignoring left TECHNIQUE: Imaging protocol: Computed tomographic angiography of the head with contrast. Exam focused on the arteries. 3D rendering (Not supervised by radiologist): MIP and/or 3D reconstructed images were created by the technologist. Radiation optimization: All CT scans at this facility use at least one of these dose optimization techniques: automated exposure control; mA and/or kV adjustment per patient size (includes targeted exams where dose is matched to clinical indication); or iterative reconstruction. Contrast material: OMNPAQUE 350; Contrast volume: 85 ml; Contrast route: INTRAVENOUS (IV); COMPARISON: CT BRAIN NECK CTA 04/23/2023 2:40 PM FINDINGS: ANTERIOR CIRCULATION: Right internal carotid artery: Intracranial segment is patent with no significant stenosis. No aneurysm. Right middle cerebral artery: Occlusion at the right MCA trifurcation extending into the posterior division. Partial reconstitution distally. Right anterior cerebral artery: No occlusion or significant stenosis. No aneurysm. Left internal carotid artery: Intracranial segment is patent with no significant stenosis. No aneurysm. Left middle cerebral artery: No occlusion or significant stenosis. No aneurysm. Left anterior cerebral artery: No occlusion or significant stenosis. No aneurysm. POSTERIOR CIRCULATION: Right vertebral artery: No occlusion. Calcified plaque with severe stenosis in the proximal intradural segment No aneurysm. Left vertebral artery: No occlusion or significant stenosis. No aneurysm. Basilar artery: No occlusion or significant stenosis. No aneurysm. Right posterior cerebral artery: No occlusion or significant stenosis. No aneurysm. Left posterior cerebral artery: No occlusion. Moderate to severe stenosis in the left P2 segment No aneurysm. Brain: Evolving moderate to large right MCA infarction in the right insula and temporoparietal lobes Cerebral ventricles: No ventriculomegaly. Bones/joints: Unremarkable. No acute fracture. Soft tissues: Unremarkable. IMPRESSION: Occluded distal right M1 segment/right MCA trifurcation extending into the posterior division. Evolving moderate to large right MCA infarction without hemorrhagic conversion Severe right vertebral artery stenosis Moderate to severe left posterior cerebral artery stenosis PROCEDURE INFORMATION: Exam: CTA Neck With Contrast Exam date and time: 06/23/2023 4:56 AM Age: 82 years old Clinical indication: Stroke-like symptoms; Other: Left sided weakness weakness; Additional info: New onset left sided weakness, ignoring left TECHNIQUE: Imaging protocol: Computed tomographic angiography of the neck with contrast. Exam focused on the cervical segments of the vasculature. 3D rendering (Not supervised by radiologist): MIP and/or 3D reconstructed images were created by the technologist. Radiation optimization: All CT scans at this facility use at least one of these dose optimization techniques: automated exposure control; mA and/or kV adjustment per patient size (includes targeted exams where dose is matched to clinical indication); or iterative reconstruction. Contrast material: OMNPAQUE 350; Contrast volume: 85 ml; Contrast route: INTRAVENOUS (IV); COMPARISON: CT BRAIN NECK CTA 04/23/2023 2:40 PM FINDINGS: Right common carotid artery: No stenosis. No dissection or occlusion. Right internal carotid artery: Calcified plaque and severe stenosis at the bulb. No dissection or occlusion. Right external carotid artery: No occlusion or stenosis of the origin. Left common carotid artery: No stenosis. No dissection or occlusion. Left internal carotid artery: Calcified plaque and moderate stenosis at the bulb. No dissection or occlusion. Left external carotid artery: No occlusion or stenosis of the origin. Right vertebral artery: No stenosis. No dissection or occlusion. Left vertebral artery: No stenosis. No dissection or occlusion. Soft tissues: No significant soft tissue swelling. Bones/joints: No acute fracture. IMPRESSION: Severe right and moderate left carotid stenoses Grossly patent vertebral arteries REFERENCES: NASCET CRITERIA. The degree of stenosis in the cervical segment of the internal carotid artery is based on NASCET criteria. Normal is no stenosis. Mild is less than 50% stenosis. Moderate is 50-69% stenosis. Severe is 70% to 99% stenosis. Total occlusion is no detectable patent lumen. Dictated and Authenticated by: Wing Prather MD. Ordering:KRYSTIAN Solis MD
[2023-06-23 05:42] LABS: Anisocytosis 2+; Diff Comment RBC Morph Reviewed; Polychromasia Present
--- NOTE | 2023-06-23 06:13 | NUR.NOTE ---
At beginning of shift pt A&O x3, alert and awake, without complaints. Family at bedside, pt stated that she was ready to go to sleep. At HS around 2200 pt reporting having difficulty getting comfortable in the bed and sleeping, denied pain. Mirapex given per SEP. Staff assisted pt to reposition in bed, pt reported feeling more comfortable and was able to sleep. Pt appeared to be sleeping comfortably. Around 0330 when VS assessed pt noted to be spacy and slow to respond. Pt A&O x3 but noted to be unable to squeeze left hand and reported numbness to left side. pharmacy messenger made aware. MD to bedside. Orders received. At this time pt resting in bed, denies complaints, sleeping in between cares. Nursing Note:
--- NOTE | 2023-06-23 06:42 | W.EVENT ---
Date of service: 06/23/23 Time of Service: 07:09 Event Note: I was called to patient's bedside at around 04:00 sudden onset of left-sided weakness and slight confusion with patient not appearing to be able to see as well. She was not complaining of headache but was ignoring her left and had to be reminded to look to the left. Quick exam did reveal motor weakness on the right and left with patient's upper and lower extremity began were to be moved up on demand but only against gravity and not resistance. Her right upper extremity and lower extremity would move against slight resistance but were full strength. Her temperature did midline her eyes were normal. There is no facial droop. She did have a flattened affect. She would answer questions but slowly and did not appear to have problems with either receptive or expressive aphasia. She does have a history of recent CVA on the right with arterial stenosis of the internal carotid and posterior circulation. On presentation this admission she did not have deficits. CT of the head and neck the CT of the head without contrast was ordered with results below. I did call the patient's family and her daughter and son did come to her bedside and I discussed the findings. I placed a call to [facility] neurology which will be followed up with . I did see the patient after completion of CTA of the head and neck, she had some return of motor function on the left and right but the left side was still weak. She was still ignoring her left side. She was complained of a headache and Tylenol was ordered. Patient vital signs were stable throughout the visit with permissive hypertension ongoing after her last CVA in May 2023. I also discussed CODE STATUS with the daughter and son and they still want her to be a full code but are reconsidering with her progressive stroke symptoms. She does have a new MCA occlusion with edema over large area and may not be a candidate for intervention other than medical therapy. She was given full dose aspirin at the onset of her symptoms at all 04:00. Date of Exam: 06/23/2023 Addendum created by Wing Prather MD on 06/23/2023 5:41:44 AM EST: THIS REPORT CONTAINS FINDINGS THAT MAY BE CRITICAL TO PATIENT CARE. The findings were verbally communicated via telephone conference with CARA MIRANDA at 5:41 AM EST on 06/23/2023. The findings were acknowledged and understood. Initial report created on 06/23/2023 5:30:04 AM EST: PROCEDURE INFORMATION: Exam: CTA Head With Contrast, Arteriography Exam date and time: 06/23/2023 4:56 AM Age: 82 years old Clinical indication: Stroke-like symptoms; Other: Left sided weakness weakness; Additional info: New onset left sided weakness, ignoring left. COMPARISON: CT BRAIN NECK CTA 04/23/2023 2:40 PM FINDINGS: ANTERIOR CIRCULATION: Right internal carotid artery: Intracranial segment is patent with no significant stenosis. No aneurysm. Right middle cerebral artery: Occlusion at the right MCA trifurcation extending into the posterior division. Partial reconstitution distally. Right anterior cerebral artery: No occlusion or significant stenosis. No aneurysm. Left internal carotid artery: Intracranial segment is patent with no significant stenosis. No aneurysm. Left middle cerebral artery: No occlusion or significant stenosis. No aneurysm. Left anterior cerebral artery: No occlusion or significant stenosis. No aneurysm. POSTERIOR CIRCULATION: Right vertebral artery: No occlusion. Calcified plaque with severe stenosis in the proximal intradural segment No aneurysm. Left vertebral artery: No occlusion or significant stenosis. No aneurysm. Basilar artery: No occlusion or significant stenosis. No aneurysm. Right posterior cerebral artery: No occlusion or significant stenosis. No aneurysm. Left posterior cerebral artery: No occlusion. Moderate to severe stenosis in the left P2 segment No aneurysm. Brain: Evolving moderate to large right MCA infarction in the right insula and temporoparietal lobes Cerebral ventricles: No ventriculomegaly. Bones/joints: Unremarkable. No acute fracture. Soft tissues: Unremarkable. IMPRESSION: Occluded distal right M1 segment/right MCA trifurcation extending into the posterior division. Evolving moderate to large right MCA infarction without hemorrhagic conversion Severe right vertebral artery stenosis Moderate to severe left posterior cerebral artery stenosis PROCEDURE INFORMATION: Exam: CTA Neck With Contrast Exam date and time: 06/23/2023 4:56 AM Age: 82 years old Clinical indication: Stroke-like symptoms; Other: Left sided weakness weakness; Additional info: New onset left sided weakness, ignoring left COMPARISON: CT BRAIN NECK CTA 04/23/2023 2:40 PM FINDINGS: Right common carotid artery: No stenosis. No dissection or occlusion. Right internal carotid artery: Calcified plaque and severe stenosis at the bulb. No dissection or occlusion. Right external carotid artery: No occlusion or stenosis of the origin. Left common carotid artery: No stenosis. No dissection or occlusion. Left internal carotid artery: Calcified plaque and moderate stenosis at the bulb. No dissection or occlusion. Left external carotid artery: No occlusion or stenosis of the origin. Right vertebral artery: No stenosis. No dissection or occlusion. Left vertebral artery: No stenosis. No dissection or occlusion. Soft tissues: No significant soft tissue swelling. Bones/joints: No acute fracture. IMPRESSION: Severe right and moderate left carotid stenoses Grossly patent vertebral arteries Time Spent with Patient Time spent in critical care(minutes): 45 Time Spent Included: Coordination of care, Chart review, Documenting critically ill care, Time at immediate bedside, Discussing critically ill care with other medical staff and Discussing Hx and/or treatment with family
[2023-06-23] MEDS: Pantoprazole 40 MG TABCR PO ×2 (09:00→20:14)
[2023-06-23] MEDS: Sacubitril/Valsartan 24 mg/26 mg TAB 1 EACH PO (09:01)
[2023-06-23] MEDS: Beta-Carotene(A) w/C,E, & Minerals TAB 1 TAB PO ×2 (09:01→20:14)
[2023-06-23] MEDS: Multivitamin TAB 1 TAB PO (09:01)
[2023-06-23] MEDS: Magnesium Oxide 400 MG TAB PO (09:01)
[2023-06-23] MEDS: Metoprolol CR 25 MG TABCR PO (09:01)
[2023-06-23] MEDS: Calcium 600mg/Vit D 200U TAB 2 TAB PO (09:01)
[2023-06-23] MEDS: Sucralfate 1 GM TAB PO ×4 (09:01→21:58)
[2023-06-23] MEDS: Lidocaine Patch Removal 1 EACH TP (09:54)
--- NOTE | 2023-06-23 10:01 | NUR.NOTE ---
Pt continues to refuse TEDS/SCDs stating these irritate my legs. Diffuse crackles throughout lungs, and coughing continuously after medications this morning. Pt and daughter reports chronic cough at baseline. tabulating supervisor notified. Nursing Note:
--- NOTE | 2023-06-23 10:40 | PT.INNT ---
PT Notes Visit Reasons: symptomatic anemia,L hip pain,fever during transf Pt on hold for PT services due to evolving signs of stroke according to charge nurse, pt going down for MRI at 11:15am, will wait for further update after pt comes back from MRI.
--- NOTE | 2023-06-23 10:42 | CMPROGNOTE_ITS ---
Date of service: 06/23/23 Time of Service: 10:42 Care Management Progress Note Progress Note Text Progress Note Text: S/O: Beth was lying in bed when CM went to meet with her. Early this morning she had a neurological episode where she developed left sided weakness with hemineglect and slight confusion. A CT of the head and neck were done and she was found to have a new MCA occlusion with edema with an acute MCA territory infarct in temporal and parietal lobes. Beth was asleep at the time of the visit and CM did not disturb her. She remains a full code but her family is reconsidering code status in light of recent events. A: Beth is an 82 year old female admitted to [facility] on 06/20/23 with symptomatic anemia, L hip pain. P: Anticipate Beth will be discharged home, possibly with increased home health services, when medically cleared. If her recent left sided weakness does not improve she may benefit from short term rehab.She will follow up with community providers and plan of care and transport with family. CM will follow and continue to assess for discharge concerns.
[2023-06-23] MEDS: Docusate Sodium 100 MG CAP PO (13:28)
--- NOTE | 2023-06-23 13:48 | W.SPSTE ---
Date of service: 06/23/23 Time of Service: 12:10 Subjective Clinical (Bedside) Swallow Evaluation Speech Language Pathology Referred by: Marina Parker MD Referral Type: Clinical Swallow Evaluation Reason for Referral/HPI: Beth is an 82 y/o F with h/o Bernard's esophagus, chronic anemia, GI bleed, CVA, CHFrEF, who presented to the ED due to severe bilateral hip vs LE pain after a fall two weeks ago, and admitted for management of symptomatic anemia, acute on chronic blood loss anemia, post-transfusion fever, and difficulty walking. This morning she was observed with new onset weakness and confusion and CT and subsequent MRI revealed evolving R MCA stroke. LAWN CARE WORKER IMPRESSIONS & RECOMMENDATIONS: Beth presents with at least mild oral-pharyngeal dysphagia, with mild s/sx of aspiration with thin liquids and difficulty swallowing and chewing solid foods. Appears based on today's observation and based on her description to be [id number] in setting of prior CVA, edentulousness, and Bernard's esophagus, and new onset CVA sx. Cranial nerve exam was significant for Left lingual deviation to protrusion and lingual weakness L>R, as well as L naso-labial fold flattening and reduced hyo-laryngeal excursion on volitional swallow. She did appear with improved tolerance of thickened liquids this date but was unwilling to accept a thickened liquids diet order. Appeared to adequately tolerate thin liquids if taking small sips one at a time from cup edge. Given h/o Bernard's esophagus and reported difficulty with dry solids as well as poor dentition & mastication, would benefit from minced/moist solids diet. Patient is agreeable. Given possible evolving nature of her stroke symptoms, medical team should closely supervise her during meals and keep low threshold for downgrading diet to mildly thickened liquids and/or pureed solids. FURTHER LAWN CARE WORKER SERVICES: Patient to be followed while on unit. Consider MBSS pending progress. Upon Discharge, recommend LAWN CARE WORKER services at half-way facility. Diet Recommendations: L5 Minced/Moist Solids and L0 Thin Liquids with strict aspiration precautions in place as per recommendations below PMHX: All Active Problems (Updated 06/20/23 @ 19:05 by Marina Parker MD) Pain in both lower legs (Acute) Posttransfusion fever (Acute) Discharge planning issues (Acute) DVT prophylaxis (Acute) Acute on chronic blood loss anemia (Acute) Symptomatic anemia (Acute) Fall (Acute) Difficulty walking (Acute) Fever (Acute) Anemia (Chronic) Regional wall motion abnormality of heart (Acute) Acute CVA (cerebrovascular accident) (Acute) Fever (Acute) Hypoxia (Acute) Acute CHF (Acute) NSTEMI (non-ST elevated myocardial infarction) (Acute) type 2 due to anemia Acute electrocardiogram changes (Acute) Right internal carotid occlusion (Acute) Acute focal neurological deficit (Acute) Renal malignant neoplasm (Chronic) 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 Patient follows up with [facility]. Elevated troponin (Acute) Chest pressure (Acute) Leucocytosis (Acute) Heme + stool (Acute) Sacroiliac joint dysfunction of both sides (Acute) Renal cell carcinoma (Acute) Referred to [facility]. Plan is to monitor for size change. dx 07/24 Hip pain, left (Acute) Shoulder pain, left (Acute) Fatigue (Acute) Leg pain, left (Acute) Left kidney mass (Acute) Spinal stenosis (Acute) Trochanteric bursitis, left hip (Acute) Injection: 2Calcific tendinitis of left hip (Acute) Strain of gastrocnemius muscle of left lower extremity (Acute) Medical History (Updated 06/20/23 @ 19:05 by Marina Parker MD) Osteopenia Asthma Hyperlipidemia HTN (hypertension) Chronic pain Restless leg syndrome Acute systolic (congestive) heart failure CVA (cerebral vascular accident) Anemia Acute non-ST segment elevation myocardial infarction Gastritis GI bleed 04/21/23 was sent to [facility] for w/u Chronic left hip pain Surgical History History of esophagogastroduodenoscopy (~04/2023) Biopsies takenH/O abdominoplasty H/O: hysterectomy SUBJECTIVE: Patient received alert/awake, agreeable to evaluation, cooperative, appearing fatigued. Family members are present throughout evaluation but did not provide much additional baseline reporting, and were present for dysphagia education. She has been turning down all tray items this date except for pudding and applesauce according to family. Patient does not independently provide subjective report regarding current level of swallow function when asked, but is able to endorse specific coughing episode when taking pills with liquid earlier this date, upon further inquiry. Baseline Swallow Function: Patient reports some difficulty with mastication (largely edentulous with top denture plate only) and difficulty swallowing dry solids at baseline. She reports coughing with liquids every once in a while, and denies baseline difficulty swallowing pills. Denies voice changes or heartburn/reflux/indigestion. OBJECTIVE: Oral Mechanism Examination: Dentition is poor with only 4 lower teeth (bilat incisors) and top dentures. Oral mucosa is dry and with poor oral care - white/brown coating on tongue. Cranial Nerve Assessment: CN V ? Trigeminal Facial Sensation WNL Jaw Strength/ROM WNL ?WNL CN VII- Facial Reduced labial/facial coordination, flattened naso-labial folds. WNL CN IX ? Glossopharyngeal No evidence of nasal emissions. Palate appears to elevate symmetrically. WNL CN X ? Vagus WNL Vocal quality and volume. Strong/sharp volitional cough WNL CX XII ? Hypoglossal WNL lingual ROM, strength, coordination reduced L>R, deviates L at rest WNL Trials Assessed: IDDSI 0 Thin Liquids ? IDDSI 2 Mildly Thick Liquid IDDSI 4 Puree Solid IDDSI 7 Regular Solid Oral Phase Findings: Difficulty chewing Mild Residue, ?L>R Pharyngeal Phase Findings: Delayed swallow initiation Reduced hyolaryngeal elevation/excursion Cough after swallow Throat clearing? [place] Swallow Protocol Results: DNT ASSESSMENT: Further LAWN CARE WORKER Services indicated. Patient to be followed while on unit. Recommendation at Discharge: LAWN CARE WORKER Services at Detention Facility Recommended Procedures: Consider [facility] Recommendations: ? SOLIDS: 5-Minced & Moist Solids and 4-Pureed Solids LIQUIDS: 0-Thin Liquids with risk management as outlined? MEDICATIONS: Whole vs crushed as able with Puree - Alter medications only as advised by MD or Pharmacist RISK MANAGEMENT: HOB upright as tolerated; upright for all PO intake. Encourage physical mobility as tolerated. Oral hygiene before/after PO intake using friction with toothbrush on all oral structures as tolerated Level of Assistance/Supervision: 1:1 close supervision for all PO intake PO intake only when awake/alert Strategies/Adaptations/Assistive Equipment: Reduce auditory and/or visual distractions when eating, Provide verbal and/or visual cues to use recommended strategies, Small sips Swallow between bites Alternate intake of liquids and solids ?Posture/Positioning Needs: Maintain upright position at least 30 minutes after meals Avoid meals/snacks 2-3 hours prior to reclining/sleeping Sleep with head of bed elevated to reduce likelihood of nocturnal reflux Education Provided to: Nursing, Patient, Family Topics Addressed: anatomy/physiology of swallowing mechanism, overt s/sx to monitor for re: potential aspiration of food / liquids, recommendations for improved oral care PLAN: Frequency: 2-3x/week for 1-2 weeks Goals: Book Jogger Goals: Patient will remain free from aspiration-related illness, malnutrition, and dehydration. Patient/family will verbalize comprehension of education provided re: dx , strategies to maximize functioning, and role of ST. Short Term Goals: Patient will participate in ongoing diagnostic treatment addressing areas of dysphagia Patient will tolerate Soft/Bite size Diet and Thin liquids without overt s/s aspiration across 2/2 visits. Patient will tolerate PO trials for consideration of diet upgrade without overt s/s aspiration across 2/2 visits. LAWN CARE WORKER CPT Code: 77270 Clinical Swallowing Evaluation Time spent: 35 minutes 12:10-12:45 Coding CPT Codes EVALUATE SWALLOWING FUNCTION - 22488 ([id number]) Additional Codes Date of Service (96442) Date of service: 06/23/23
--- NOTE | 2023-06-23 13:56 | PT.INIE ---
PT Notes Visit Reasons: symptomatic anemia,L hip pain,fever during transf Physical Therapy Inpatient Initial Evaluation Date: 06/23/23 Referring Doctor: Marina Parker MD PT Orders: PT CONSULT: Limited Ability Precautions: Fall. Standard. Activity as tolerated. L hemispatial neglect apparent. Patient Profile/Admitting Diagnosis: Referral made by Dr. Parker for new onset R MCA infarction per this morning's MRI impression. Beth is an 82-year-old female who presented to the ED on 06/20/23 for L hip tenderness and difficulty with walking. Negative for active massive bleeding and negative fracture per most recent testing. Patient is admitted for management of symptomatic anemia, acute on chronic blood loss anemia, post-transfusion fever, and difficulty walking. PMHX: All Active Problems (Updated 06/20/23 @ 19:05 by Marina Parker MD) Pain in both lower legs (Acute) Posttransfusion fever (Acute) Discharge planning issues (Acute) DVT prophylaxis (Acute) Acute on chronic blood loss anemia (Acute) Symptomatic anemia (Acute) Fall (Acute) Difficulty walking (Acute) Fever (Acute) Anemia (Chronic) Regional wall motion abnormality of heart (Acute) Acute CVA (cerebrovascular accident) (Acute) Fever (Acute) Hypoxia (Acute) Acute CHF (Acute) NSTEMI (non-ST elevated myocardial infarction) (Acute) type 2 due to anemia Acute electrocardiogram changes (Acute) Right internal carotid occlusion (Acute) Acute focal neurological deficit (Acute) Renal malignant neoplasm (Chronic) 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 Patient [facility] up with [facility]. Elevated troponin (Acute) Chest pressure (Acute) Leucocytosis (Acute) Heme + stool (Acute) Sacroiliac joint dysfunction of both sides (Acute) Renal cell carcinoma (Acute) Referred to [facility]. Plan is to monitor for size change. dx 07/24 Hip pain, left (Acute) Shoulder pain, left (Acute) Fatigue (Acute) Leg pain, left (Acute) Left kidney mass (Acute) Spinal stenosis (Acute) Trochanteric bursitis, left hip (Acute) Injection: 12/26/2021 Calcific tendinitis of left hip (Acute) Strain of gastrocnemius muscle of left lower extremity (Acute) Medical History (Updated 06/20/23 @ 19:05 by Marina Parker MD) Osteopenia Asthma Hyperlipidemia HTN (hypertension) Chronic pain Restless leg syndrome Acute systolic (congestive) heart failure CVA (cerebral vascular accident) Anemia Acute non-ST segment elevation myocardial infarction Gastritis GI bleed 04/21/23 was sent to [facility] for w/u Chronic left hip pain Surgical History History of esophagogastroduodenoscopy (~04/2023) Biopsies taken H/O abdominoplasty H/O: hysterectomy Social History/Home Situation: Lives with son in single level residence, 2 [address] with rail. Reports using FWW at baseline. No longer drives. Has chronic back pain. Son has himself chronic back pain and is unable to provide consistent physical help for his mother. Equipment Owned/DME: FWW, SPC Subjective: Expresses that she does not have energy to do anything right now but is agreeable to doing strength testing in bed. She adds that today was too much for her. Objective: General Observation: Alert. resting in bed. Daughter present in room during short PT session. Mental Status: A&O x3 Pain: Chronic low back pain as above ROM: Right Upper Extremity: Shoulder Flexion lacks the last 25% of AROM. Shoulder abduction lacks th last 25% of AROM. Elbow flexion WFL. Wrist flexion WFL. Opening and closing of hand WFL. Left Upper Extremity: Shoulder Flexion lacks the last 25% of AROM. Shoulder abduction lacks th last 25% of AROM. Elbow flexion WFL. Wrist flexion WFL. Opening and closing of hand WFL. Right Lower Extremity: Hip flexion lacks the last 25% of AROM. Hip abduction lacks the last 25% of AROM. Knee flexion 20 degrees to 90 degrees. Knee exension -20 degrees. Ankle dorsiflexion to neutral only. Ankle plantarflexion WFL. Left Lower Extremity: Hip flexion only allows about 10 degrees of active range. Hip abduction allows about 20 degrees of active range. Knee flexion 10 degrees to 20 degrees. Knee extension -10 degrees. Ankle dorsiflexion to absent. Ankle plantarflexion absent. Strength: Right Upper Extremity: Shoulder flexors 3-/5. Shoulder abductors 3-/5. Elbow flexors 4-/5. Elbow extensors 4-/5. Department Coordinator strong. Left Upper Extremity: Shoulder flexors 3-/5. Shoulder abductors 3-/5. Elbow flexors 4-/5. Elbow extensors 4-/5. Department Coordinator strong. Right Lower Extremity: Hip flexors 3-/5. Hip abductors 5/5. Knee flexors 5/5. Knee extensors 5/5. Ankle dorsiflexors 3-/5. Ankle plantarflexors 4-/5. Left Lower Extremity:Hip flexors 2-/5. Hip abductors 2-/5. Knee flexors 2-/5. Knee extensors 2-/5. Ankle dorsiflexors 2-/5. Ankle plantarflexors 2-/5. Sensation: Intact as to pain and pressure on bilateral lower extremities. Bed Mobility/Transfers: Deferred for today as patient was feeling very exhausted with recent CVA event mid morning today. Gait: Deferred for today as patient is feeling very exhausted with recent CVA event mid morning today. Balance: Static Sitting: Fair Dynamic Sitting: Unable to test Static Standing: Unable to test Dynamic Standing: Unable to test Special Tests: Mobility Limitations Standardized Measure [facility] AM-PAC 6 clicks Basic Mobility Inpatient Short Form: Raw Score: 6 CMS Score: 100% deficit Informed Consent/Education: Patient was instructed in purpose of PT consult and plan of care. Agreeable to proceed with established PT POC to achieve personal goals. ASSESSMENT: Beth demonstrates further functional mobility decline related to new onset R MCA infarction. Mobility assessment limited due to most recent neurologic event (just this morning). Chronic low back pain compounding mobility performance. Provide assist of 2 for all essential transfers to commode. Ambulation with PT only at this time. Patient presents with clinical signs and symptoms consistent with current/admitting diagnoses that have resulted to mobility limitations, gait instability, generalized weakness, and overall ADL decline as demonstrated by the following impairment level findings: 1. Decreased strength to B UE/LE major muscle groups with L UE/LE more affected by recent CVA 2. Impaired sitting/standing balance 3. Impaired activity tolerance 4. Limitation of joint range of motion as above 5. Fearfulness of falling 6. Chronic low back pain Impairments are contributing to the following functional limitations: 1. Decline in bed mobility skills 2. Decline in transfer skills 3. Difficulty with ambulation without assistive device and physical assistance 4. Increased completion time for mobility ADL performance 5. Increased risk for falls 6. Difficulty with managing steps alone safely Patient is assessed as a 52886 high complexity based on the following: History: 82-year-old female with past medical history as indicated above Examination: Demonstrable impairment in strength, balance, and mobility level with underlying impairments and functional limitations as exhibited above as well as deficit score of 100% utilizing the [facility] Mobility Inpatient Short Form Presentation: Evolving Decision Makin high complexity Goals: Goals X1 week 1. Supine-Sit independent 2. Sit-Supine independent 3. Sit-Stand independent 4. Stand-Sit independent with FWW 5. Bed-Chair independent with FWW 6. Chair-Bed independent with FWW 7. Stand by assist with gait on level surface with use of FWW for at least 300 feet without report of pain nor dyspnea 8. Stand by assist with stair negotiation while holding onto B rails for at least 3 steps without report of pain nor dyspnea 9. Fair static and dynamic standing balance/tolerance Plan of Care/Treatment Plan: 1-2x/day, 7 days/week x 1 week. Plan of care has been reviewed with the ASSISTANT CORPORATE CONTROLLER providing the service under Physical Therapy direction. Initiate Physical Therapy intervention for pain management for low back pain as needed, strengthening, bed mobility, transfers, gait, stairs, balance training, and use of assistive device. DISCHARGE RECOMMENDATIONS: [] Home with no services [] [] Home with services [] [] Home with outpatient PT [] [X] SNF for continued rehabilitation. Patient will benefit from fdc facility placement for continued skilled physical therapy services in order to progress mobility level, strength, and balance in preparation for a safe discharge to home. [] Intermediate Care [] [] SNF versus LTC based on ability to participate and progress [] TREATMENT CODE/TIME: 50030 x 16 minutes beginning at 13:37 PM. Thank you for the opportunity to participate in the care of this patient. Chanel Hernandez PT, DPT, CLT [facility] [place], [place] Decision Making: Low complexity
--- NOTE | 2023-06-23 14:01 | CHAPLAIN ---
Beth was in bed when I visited. She spoke slowly and quietly while responding to questions. Her daughter (?) was with her. I explained my role and offered support.
--- NOTE | 2023-06-23 15:23 | PCNE_ITS ---
Date of service: 06/23/23 Time of Service: 13:30 History of Present Illness Narrative: Ms. Campos is an 82 y/o F currently inpt at [facility] 2/2 symptomatic anemia; PMHx sig for GI bleed c/b gastritis, chronic anema, h/o CVA (05/24), CHF (LVEF 45% 04/24), chronic hip/low back pain, asthma; present daughter/HCA Breanna Hospital course: Beth presented to [facility] ED on 06/20 w/CC BLE hip and pelvis pain s/p fall 2 wks prior, H/H was low w/heme positive, acute bleed was ruled out, as was fracture of hips/pelvis; received transfusion in ED when fever devleoped, transusion reaction wokr up negative, she was unable to ambulate d/t BLE, and was admitted for ongoing management; admitted for symptomattic anemia, ortho consylt pending; pain found to be in BLE medial thigh, thought to be multifactorial (recently started statins, RLS 2/2 anemia, 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 Unfortunately overnight from 06/22- Beth had an acute onset of LS weakness/confusion/MEJIA, CT confirmed CVA from May evolving w/worsening edema/SE w/severe R and moderate L carotid stenosis; [facility] consult w/neuro pending; she may not be a candidate for intervention other than medical therapy Beth is tired today, she is uncomfortable and can't find a comfortable position, back and lines are causing discomfort. She is having some difficulty breathing, O2 dropped to 90-92%, so they put her on O2 w/NC, this is bothering her nose. She has been doing well w/drinking and swallowing on her own w/a little cough. She has previously completed AD and it is on file w/PCP. She names daughter Breanna as listed HCA, she would want every thing done to sustain her life, including at this time CPR; however she would not want to be kept alive on machines, if after a trial it appears she will not recover she would want to allow a natural . She and Breanna feel that Breanna has a good understanding of her wishes. There are other things on the AD which indicate her preferences for treatment, would like to review completed document for review prior to reviewing treatments now. - If her current condition were to decline and the need presented for transfer to tertiary care, she would prefer to stay here and receive treatments, and if needed, transition to comfort. This is consistent w/report from family. Assessment and Plan Assessment and plan (1) Pain in both lower legs: Status: Acute Assessment and plan: apap and tramadol available, tramadol recommended at time of visit d/t discomfort (2) Discharge planning issues: Status: Acute Assessment and plan: agreeable to SNF for short term, would want to remain local, H/R as able, referrals previously sent (3) Symptomatic anemia: Status: Acute Assessment and plan: h/o previous GI bleed, H/H now stable, continue carafate and PPI consider outpatient colonoscopy; recent EGD w/gastritis in Apr (4) Difficulty walking: Status: Acute Assessment and plan: PT following, recommend SNF vs home w/HH (5) Acute CVA (cerebrovascular accident): Status: Acute Assessment and plan: initially 05/24 w/acute onset worsening sxs overnight 06/22/23, CT report shows evolving moderate to large R MCA infarct w/ edema and w/o hemorrhage, occluded distal R M1 segment MCA trifurication; severe R, moderal L carotid stenosis; [facility] neuro consult pending no interventions besides medications appropriate at this time would NOT want to be transferred to tertiary center if declines, would want medical management here, would consider transition to comfort if ongoing decline (6) Right internal carotid occlusion: Status: Acute (7) Spinal stenosis: Status: Acute (8) Fatigue: Status: Acute (9) ACP (advance care planning): Status: Acute Assessment and plan: reviewed AD, CODE status, d/c plans briefly; reviewed transfer preferences - HCA confirmed daughter Breanna - Code status: Full - would not want to be kept alive on machines, feels Breanna has good understanding of QoL preferences - No transfer if decline spent 22 mins w/ACP (10) Palliative care encounter: Status: Acute Assessment and plan: PC visit split into 2 separate visits d/t pt comfort and preferences. Will continue to follow during inpt stay s/p weekend when PC services resume on Wednesday06/28/23 or outpatient pending discharge plans - AD form requested from PCP office Review of Systems Narrative: as per HPI PFSH All Active Problems (Updated 11/23/23 @ 17:35 by Joey Pete MD) Occlusion of right middle cerebral artery (Acute) Palliative care encounter (Acute) ACP (advance care planning) (Acute) Pain in both lower legs (Acute) Discharge planning issues (Acute) DVT prophylaxis (Acute) Acute on chronic blood loss anemia (Acute) Symptomatic anemia (Acute) Fall (Acute) Difficulty walking (Acute) Fever (Acute) Anemia (Chronic) Regional wall motion abnormality of heart (Acute) Acute CVA (cerebrovascular accident) (Acute) Fever (Acute) Hypoxia (Acute) Acute CHF (Acute) NSTEMI (non-ST elevated myocardial infarction) (Acute) type 2 due to anemia Acute electrocardiogram changes (Acute) Right internal carotid occlusion (Acute) Acute focal neurological deficit (Acute) Renal malignant neoplasm (Chronic) 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 Patient follows up with [facility]. Elevated troponin (Acute) Chest pressure (Acute) Leucocytosis (Acute) Heme + stool (Acute) Sacroiliac joint dysfunction of both sides (Acute) Renal cell carcinoma (Acute) Referred to [facility]. Plan is to monitor for size change. dx 07/24 Hip pain, left (Acute) Shoulder pain, left (Acute) Fatigue (Acute) Leg pain, left (Acute) Left kidney mass (Acute) Spinal stenosis (Acute) Trochanteric bursitis, left hip (Acute) Injection: 12/26/2021 Calcific tendinitis of left hip (Acute) Strain of gastrocnemius muscle of left lower extremity (Acute) Medical History Osteopenia Asthma Hyperlipidemia HTN (hypertension) Chronic pain Restless leg syndrome Acute systolic (congestive) heart failure CVA (cerebral vascular accident) Anemia Acute non-ST segment elevation myocardial infarction Gastritis GI bleed 04/21/23 was sent to [facility] for w/u Chronic left hip pain Surgical History History of esophagogastroduodenoscopy (~04/2023) Biopsies taken H/O abdominoplasty H/O: hysterectomy Social History Smoking/Tobacco Use Status: Former Tobacco Use Smoking risk assessment performed?: Yes Alcohol Intake: never Drug use: Never Substance use type: marijuana Housing: apartment Do you feel safe at home: Yes Do you feel safe in your relationship?: Yes Exam Narrative Exam Narrative: General: older adult female, looks uncomfortable, moves frequently, difficulty w/repositioning and navigating IV, cardiac, birch lines; no acute distress HEENT: MMM, normocephalic, atraumatic Resp: even and unlabored, able to speak full sentence (x2) w/o SOB, NC in place, no audible wheeze, no cough Ext: no pedal edema Neuro: LS weakness LUE and LLE Psych: fatigued, slightly irritated but in control and expresses needs; thought process impovershed w/discomfort limiting focus, ; speech/movement delayed; insight/judgment limited Results Last Vital Signs Temp 97.7 F 06/23/23 09:02 Pulse 105 H 06/23/23 09:02 Resp 18 06/23/23 09:02 BP 133/71 06/23/23 09:02 Pulse Ox 93 06/23/23 09:02 Labs 06/25/23 05:54 06/25/23 05:54 Labs: Laboratory Results - last 24 hr 06/22/23 06/23/23 16:07 05:10 WBC 12.57 H RBC 3.12 L Hgb 8.7 L 8.3 L Hct 28.3 L 27.0 L MCV 87 D MCH 26.6 L MCHC 30.7 L RDW 21.8 H Plt Count 512 H MPV 9.4 Immature Gran % 1.0 Neutrophils % 75.5 Lymphocytes % 6.8 Monocytes % 9.9 Eosinophils % 6.0 Basophils % 0.8 Nucleated RBC % 0.0 Absolute Neutrophils 9.49 H Absolute Lymphocytes 0.85 L Absolute Monocytes 1.24 H Absolute Eosinophils 0.75 H Absolute Basophils 0.10 RBC Morphology See Below Polychromasia Present Anisocytosis 2+ Sodium 135 L Potassium 3.6 Chloride 100 Carbon Dioxide 27.3 Anion Gap 7.7 BUN 18 Creatinine 0.7 Est GFR (CKD-EPI 2020) 86.83 Glucose 107 H Calcium 8.5 Magnesium 2.1
--- NOTE | 2023-06-23 16:46 | W.PM.PROGNOT ---
Date of Service Date of service: 06/23/23 Time of Service: 16:46 Assessment and Plan Assessment and plan (1) Acute CVA (cerebrovascular accident): Status: Acute Assessment and plan: Acute R MCA CVA. The patient is not currently a candidate for DAPT. She is not a candidate due to her severe myalgias in LEs. Once her H/H has stabilized we can consider starting a single antiplatelet agent, per [facility] neurology. I have reconsulted PT, added OT and speech therapy consults. If still here on Wednesday, would benefit from an in-house neurology consult. (2) Symptomatic anemia: Status: Acute Assessment and plan: Heme positive, w/ h/o prior GI bleeding and an EGD on 04/23/23 at our facility with mild duodenitis, moderate gastritis, Bernard's esophagus. No hemondynamically significant bleeding. H/H stable post transfusion yesterday (8.7->8.3). Continue carafate and PPI. Continue a diet. Received her 3rd unit of blood today. At this time, I do not think she will need a colonoscopy as an inpatient as we know she had gastritis on her EGD recently. (3) Acute on chronic blood loss anemia: Status: Acute Assessment and plan: As above (4) Posttransfusion fever: Status: Resolved Assessment and plan: Hemolytic reaction has been ruled out, so this was a febrile non-hemolytic transfusion reaction. No role for abx at this time. (5) Pain in both lower legs: Status: Acute Assessment and plan: I think this is a multifactorial issue: -statin myopathy -restless legs, made worse by anemia. 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 Encourage PT. We are using tramadol and tylenol for pain. Continue pramipexole (gabapentin made her worse in the past, the patient states). Hold atorvastatin and monitor. Wound benefit from SNF placement. (6) Left hip pain: Status: Ruled-out Assessment and plan: The patient actually denies this symptom to me and states she has no pain in her left hip. She does have pain in her B medial thighs - see below. (7) Difficulty walking: Status: Acute Assessment and plan: Continue PT. As above. (8) DVT prophylaxis: Status: Acute Assessment and plan: SCDs. Avoid chemical DVT ppx given GI bleeding (9) Discharge planning issues: Status: Acute Assessment and plan: Full code Patient is agreeable to SNF. Subjective Subjective Interval history since last seen: Ms Shields woke up this morning at 4 am with L-sided weakness and hemineglect. Her CT/CTA showed an occluded R MCA with an acute R MCA territory infarct in the temporal and parietal lobes. She received a full dose aspirin. Her symptoms started to improve somewhat. I discussed her case with [facility] neurology (to whom she is known from her prior admission). The patient did in fact have an acute CVA, but given her anemia and ongoing slow GI bleeding as well as the fact that the stroke is considered already completed, she is not considered a candidate for any intervention or even antiplatelet therapy at this time. The stroke probably happened not this am at 4 am, per neurology, but a couple of days ago and probably because of hypoperfusion, though embolization from the carotid is rare but possible. PT/OT/Speech therapy as well as palliative care were recommended. I discussed all of this with the patient and daughter at the bedside. The patient states her head feels fuzzy/dizzy. She denies CP, SOB, n/v. Her daughter did notice that she coughs when she is trying to drink liquids. Exam Narrative Exam Narrative: General: a pleasant elderly female who is A&Ox3, more anxious today and looks uncomfortable HEENT: EOMI, MMM Cardiovascular: RRR, no m/r/g Lungs: CTAB Gastrointestinal: soft, nontender, nondistended Genitourinary: has a birch Extremities: no edema BLEs, B medial thighs are tender, no tenderness to L trochanteric bursa, no erythema or ecchymoses there, no erythema of knees, +1 pedal pulses B, no c/c Objective Last Vital Signs Temp 37.3 C 06/23/23 15:42 Pulse 101 H 06/23/23 15:42 Resp 18 06/23/23 15:42 BP 146/71 H 06/23/23 15:42 Pulse Ox 97 06/23/23 15:42 Laboratory Results - last 24 hr 06/23/23 05:10 WBC 12.57 H RBC 3.12 L Hgb 8.3 L Hct 27.0 L MCV 87 D MCH 26.6 L MCHC 30.7 L RDW 21.8 H Plt Count 512 H MPV 9.4 Immature Gran % 1.0 Neutrophils % 75.5 Lymphocytes % 6.8 Monocytes % 9.9 Eosinophils % 6.0 Basophils % 0.8 Nucleated RBC % 0.0 Absolute Neutrophils 9.49 H Absolute Lymphocytes 0.85 L Absolute Monocytes 1.24 H Absolute Eosinophils 0.75 H Absolute Basophils 0.10 RBC Morphology See Below Polychromasia Present Anisocytosis 2+ Sodium 135 L Potassium 3.6 Chloride 100 Carbon Dioxide 27.3 Anion Gap 7.7 BUN 18 Creatinine 0.7 Est GFR (CKD-EPI 2020) 86.83 Glucose 107 H Calcium 8.5 Magnesium 2.1 Objective Narrative Objective Narrative: CT/CTA head/neck: 1. CTA brain: Occluded right middle cerebral artery at the trifurcation involving posterior branches. Severe stenosis of the right vertebral artery intracranial segment. Moderate to severe spinal stenosis of the left posterior cerebral artery. 2. Head CT: Acute right MCA territory infarct involving the temporal and parietal lobes. 3. CTA neck: Calcific plaque causing severe right and moderate left stenosis at the common carotid bulbs. MRI brain: Evolving infarct in the right temporal parietal region. No hemorrhagic transformation. No additional areas of infarct. Time Spent with Patient Time Spent with Patient: 35-49 minutes Time was spent: preparing to see the patient(eg.review tests), obtaining and/or reviewing separately otained hiistory, ordering medications,tests, procedures, referring, communicating with other health aged or disabled carer, indepentently interpreting results, counseling the patient and care coordination
[2023-06-23] MEDS: traMADol 50 MG TAB PO (17:53)
[2023-06-23] MEDS: Lidocaine 5% Patch 1 PATCH TP (20:12)
[2023-06-23] MEDS: Pramipexole 0.25 MG TAB 0.125 MG PO (21:57)
[2023-06-24] VITALS (7 sets, daily range): BP systolic 104–137; BP diastolic 61–75; PULSE 97–105; RESP 18–20; TEMP 37.3–37.9; O2SAT 95–96
[2023-06-24] MEDS: traMADol 50 MG TAB PO ×2 (02:33→18:15)
[2023-06-24 07:00] LABS: Abs Immature Grans 0.13 10^3/uL (0.0-0.06); Absolute Basophil Count 0.09 10^3/uL (0.0-0.2); Absolute Eosinophil Count 0.27 10^3/uL (0.0-0.7); Absolute Neutrophil Count 12.64 10^3/uL (1.2-6.7); Basophils % 0.6; Eosinophils % 1.7; HCT 28.5 % (36.0-46.0); HGB 8.6 g/dL (11.2-15.7); Immature Grans % 0.8; Lymphocytes % 5.3; MCH 26.2 pg (27.0-33.0); MCHC 30.2 % (32.0-36.0); MCV 87 fL (80-95); MPV 10.2 fL (8.0-11.0); Monocytes % 10.6; Platelet Count 583 10^3/uL (130-400); RBC 3.28 10^6/uL (3.93-5.22); RDW 20.7 % (11.7-14.6); RDW-SD 66.1 fL; WBC 15.61 10^3/uL (4.4-10.8)
[2023-06-24 07:09] LABS: Anion Gap 6.8 mmol/L (3-11); BUN 14 mg/dL (7-18); CO2 29.2 mmol/L (21.0-32.0); CREATININE 0.7 mg/dL (0.55-1.02); Calcium 9.3 mg/dL (8.5-10.1); Chloride 100 mmol/L (98-107); Estimated GFR 86.83 (mL/min/1.73m2); Glucose 95 mg/dL (74-106); Magnesium 2.3 mg/dL (1.8-2.4); Potassium 3.7 mmol/L (3.5-5.1); Sodium 136 mmol/L (136-145)
[2023-06-24] MEDS: Calcium 600mg/Vit D 200U TAB 2 TAB PO (07:32)
[2023-06-24] MEDS: Pantoprazole 40 MG TABCR PO ×2 (07:32→20:32)
[2023-06-24] MEDS: Beta-Carotene(A) w/C,E, & Minerals TAB 1 TAB PO ×2 (07:32→20:32)
[2023-06-24] MEDS: Magnesium Oxide 400 MG TAB PO (07:33)
[2023-06-24] MEDS: Sucralfate 1 GM TAB PO ×4 (07:33→21:51)
[2023-06-24] MEDS: Multivitamin TAB 1 TAB PO (07:33)
[2023-06-24 07:39] LABS: Absolute Lymphocyte Count 0.83 10^3/uL (1.2-3.4); Absolute Monocyte Count 1.65 10^3/uL (0.1-0.8)
[2023-06-24] MEDS: Aspirin E.C. 81 MG TABEC PO (10:22)
[2023-06-24] MEDS: Ferrous Sulfate 325 MG TAB PO (10:23)
[2023-06-24] MEDS: Lidocaine Patch Removal 1 EACH TP (10:36)
[2023-06-24] MEDS: miSOPROStol 100 MCG TAB PO ×3 (11:22→20:32)
[2023-06-24] MEDS: Acetaminophen 325 MG TAB 650 MG PO (13:55)
--- NOTE | 2023-06-24 17:03 | PGE_ITS ---
Date of Service Date of service: 06/24/23 Time of Service: 17:03 Assessment and Plan Assessment and plan (1) Acute CVA (cerebrovascular accident): Status: Acute Assessment and plan: RMCA occlusion. In light of her prior TN and her prior total distal DALILA occlusion (which apparently is not occluded now but has severe stenosis of the bulb) and her echo from 04/22 demonstrated an apical and anterior apical wall motion abnormality, this begs the question of embolic CVA from her cardiomyopathy. For now I will keep her on low dose aspirin, along w/ intensive GI protection w/ PPI, carafate, and misoprostol, check repeat echocardiogram w/ bubble study; if further drops in hemoglobin or overt bleeding then she may need to hold any antiplatelet or anticoagulation. She remains a full code at present but should consider DNR/DNI status. I will discuss her situation again tomorrow w/ [facility] neurology and consult our neurologist upon her return on Wednesday. (2) Occlusion of right middle cerebral artery: Status: Acute Assessment and plan: as above (3) Symptomatic anemia: Status: Acute Assessment and plan: GI protection as above. monitor hemoglobin, treat w/ parenteral iron. (4) Acute on chronic blood loss anemia: Status: Acute Assessment and plan: as above. (5) Pain in both lower legs: Status: Acute Assessment and plan: no evidence for myositis but awaiting aldolase level. CK was normal. remains off statin for now but consider reinstituting if aldolase is normal. MRI of LS spine w/ multilevel DJD w/ mild spinal canal stenosis and moderate bilateral neuroformainal stenosis at L2-L3 level. I think this is the cause for her bilateral leg pains and back pains. (6) Difficulty walking: Status: Acute Assessment and plan: Continue PT. As above. (7) DVT prophylaxis: Status: Acute Assessment and plan: SCDs. Avoid chemical DVT ppx given GI bleeding (8) Discharge planning issues: Status: Acute Assessment and plan: Full code Patient is agreeable to SNF. Subjective Subjective Interval history since last seen: Beth was seen while being fed her dinner by her daughter. She seems to be handling her foods w/out choking. She is on minced and moist diet w/ thin liquids. Her diet was upgraded yesterday by [employer]. She sustained a R. MCA occlusion (distal M1 and MCA trifurcation) w/ left sided artemio-neglect, left facial and left hemiparesis. This in setting of prior CVA total DALILA occlusion causing dysarthria and left hemiparesis in late April 2023 which had been preceded by GI bleed from gastritis, Bernard's esophagitis and duodenitis and complicated by NSTEMI. She had been transferred to [facility] for her CVA and TN. She completed 30 days of DAPT and was on ASA 81 mg and atorvastatin this admission. She presented this admission with generalized weakness, falling down at home and bilateral leg pains and back pains. She was found to be severely anemic w/ Hb 5.8 gm but was not having melena or hematochezia. She was admitted for transfusions and ASA and atorvastatin were stopped. She was started on protonix. 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 Patient was evaluated by the nocuturnist and workup included CT/CTA of head and neck which revealed the above mentioned R. MCA occlusion and subsequent MRI later on 06/23 demonstrated large area of restricted diffusion defect in the right temporal and parietal lobe c/w an acute CVA. Dr. Parker spoke w/ neurology, see her note from 06/23 for details. Patient had transfusions of 2 units of PRBC on 06/20 and 1 units on 06/22. Hb today is up to 8.6 gm and has been stable since 06/22 after her 3rd unit. She was given ASA 325 mg at the time of her stroke on 06/23. Apparently she has had melena stools that are heme positive. Her GI protection has been upgraded to include protonix 40 mg bid along w/ carafate 1 gm ac/hs and today I added cytotec 100 mcg qid. Despite her melena I have resumed her low dose ASA EC 81 mg daily. Her statin has been on hold since admission out of concern for her myalgias. Her CK was normal on admission, aldolase was sent off today. If the aldolase is normal then I do not believe her leg pains are d/t any myositis from her statin and we will resume a lower dose statin. Exam Narrative Exam Narrative: Elderly white female sitting up in bed visiting with her daughter and sitter bedside was helping her with her dinner. Patient's voice is slightly dysarthric but very intelligible. She has prominent left facial droop she has left hemineglect. Lungs are clear anteriorly posteriorly she has some bibasilar rales Heart is regular rate and rhythm no appreciable murmur rub Abdomen soft nontender nondistended Extremities without peripheral cyanosis edema Neuro she has obvious left facial droop right cranial nerve VII injury from CVA, full EOMI, PERRLA, left face w/ decreased sensation to light touch, VF seem impaired on the left side, strength, weak left hand grasp, able to lift wrist but not able to lift her arm off bed, she is able to wiggle left foot but unable to lift off the bed; right side normal strength and ROM Objective Last Vital Signs Temp 37.6 C H 06/24/23 15:02 Pulse 97 H 06/24/23 15:02 Resp 18 06/24/23 15:02 BP 123/71 06/24/23 15:02 Pulse Ox 96 06/24/23 15:02 Laboratory Results - last 24 hr 06/24/23 06:00 WBC 15.61 H RBC 3.28 L Hgb 8.6 L Hct 28.5 L MCV 87 MCH 26.2 L MCHC 30.2 L RDW 20.7 H Plt Count 583 H MPV 10.2 Immature Gran % 0.8 Neutrophils % 81.0 Lymphocytes % 5.3 Monocytes % 10.6 Eosinophils % 1.7 Basophils % 0.6 Nucleated RBC % 0.0 Absolute Neutrophils 12.64 H Absolute Lymphocytes 0.83 L Absolute Monocytes 1.65 H Absolute Eosinophils 0.27 Absolute Basophils 0.09 Sodium 136 Potassium 3.7 Chloride 100 Carbon Dioxide 29.2 Anion Gap 6.8 BUN 14 Creatinine 0.7 Est GFR (CKD-EPI 2020) 86.83 Glucose 95 Calcium 9.3 Magnesium 2.3 Time Spent with Patient Time Spent with Patient: >50 minutes Time was spent: preparing to see the patient(eg.review tests), obtaining and/or reviewing separately otained hiistory, ordering medications,tests, procedures, indepentently interpreting results, counseling the patient and care coordination
[2023-06-24] MEDS: Lidocaine 5% Patch 1 PATCH TP (20:31)
[2023-06-24] MEDS: Pramipexole 0.25 MG TAB 0.125 MG PO (21:51)
[2023-06-25 03:00] VITALS: BP 145/62; PULSE 100; RESP 20; TEMP 37.3; O2SAT 96
[2023-06-25 07:01] LABS: Abs Immature Grans 0.09 10^3/uL (0.0-0.06); Absolute Lymphocyte Count 0.74 10^3/uL (1.2-3.4); Basophils % 0.8; Eosinophils % 3.1; HCT 29.2 % (36.0-46.0); HGB 8.8 g/dL (11.2-15.7); Immature Grans % 0.8; Lymphocytes % 6.3; MCH 26.6 pg (27.0-33.0); MCHC 30.1 % (32.0-36.0); MCV 88 fL (80-95); MPV 10.5 fL (8.0-11.0); Monocytes % 11.9; Neutrophils % 77.1; Platelet Count 551 10^3/uL (130-400); RBC 3.31 10^6/uL (3.93-5.22); RDW 19.6 % (11.7-14.6); RDW-SD 63.7 fL
[2023-06-25 07:02] LABS: Absolute Basophil Count 0.09 10^3/uL (0.0-0.2); Absolute Eosinophil Count 0.37 10^3/uL (0.0-0.7)
[2023-06-25 07:29] VITALS: BP 152/72; PULSE 106; RESP 20; TEMP 37.1; O2SAT 98
[2023-06-25] MEDS: Calcium 600mg/Vit D 200U TAB 2 TAB PO (07:33)
[2023-06-25] MEDS: Aspirin E.C. 81 MG TABEC PO (07:33)
[2023-06-25] MEDS: miSOPROStol 100 MCG TAB PO ×4 (07:33→20:46)
[2023-06-25] MEDS: Beta-Carotene(A) w/C,E, & Minerals TAB 1 TAB PO ×2 (07:33→20:47)
[2023-06-25] MEDS: traMADol 50 MG TAB PO (07:34)
[2023-06-25] MEDS: Sucralfate 1 GM TAB PO ×4 (07:34→21:04)
[2023-06-25] MEDS: Pantoprazole 40 MG TABCR PO ×2 (07:34→20:46)
[2023-06-25] MEDS: Magnesium Oxide 400 MG TAB PO (07:35)
[2023-06-25] MEDS: Multivitamin TAB 1 TAB PO (07:35)
[2023-06-25 07:36] LABS: ALT 22 U/L (14-59); AST 19 U/L (15-37); Albumin 2.5 g/dL (3.4-5.0); Alkaline Phosphatase 148 U/L (46-116); Anion Gap 7.5 mmol/L (3-11); BUN 17 mg/dL (7-18); Bilirubin, Total 0.4 mg/dL (0.2-1.0); CO2 27.5 mmol/L (21.0-32.0); CREATININE 0.7 mg/dL (0.55-1.02); Calcium 9.2 mg/dL (8.5-10.1); Chloride 100 mmol/L (98-107); Estimated GFR 86.83 (mL/min/1.73m2); Glucose 81 mg/dL (74-106); Potassium 3.6 mmol/L (3.5-5.1); Sodium 135 mmol/L (136-145); Total Protein 7.1 g/dL (6.4-8.2)
[2023-06-25] MEDS: IRON SUCROSE COMPLEX 400 MG in Normal Saline 250 ML 100 MG IVPB (10:03)
[2023-06-25] MEDS: Normal Saline Flush 10 ML SYR IVP ×2 (10:04→20:46)
[2023-06-25] MEDS: Lidocaine Patch Removal 1 EACH TP (11:50)
[2023-06-25 12:02] VITALS: BP 150/74; PULSE 96; RESP 18; TEMP 36.4; O2SAT 96
[2023-06-25] MEDS: DULoxetine 30 MG CAP PO (12:04)
[2023-06-25] MEDS: Diclofenac 1% Gel 100 GM TUBE TP ×3 (12:55→20:47)
--- NOTE | 2023-06-25 13:59 | PT.INTREAT ---
Date of service: 06/25/23 Time of Service: 13:28 PT Notes Visit Reasons: symptomatic anemia,L hip pain,fever during transf Inpatient Physical Therapy Treatment Note [facility] Date: 06/25/23 PRECAUTIONS: Fall, standard, activity as tolerated. SUBJECTIVE: Patient reports feeling weak, reports pain in right wrist/thumb. Repeatedly states that this clinician is trying to make her do something impossible. SECOND TREATMENT: Patient refuses second therapy session due to pain. Inquires about getting xrays for right wrist. OBJECTIVE: Patient supine in bed. Does not refuse therapy.? PAIN: Yes, preventing/limiting use of right arm. Not rated, but patient refused to use that arm at all. VITALS: monitored by nursing staff. Therapeutic Activities ([id number]): Direct one-on-one instruction in dynamic activities to improve functional performance. ? BED MOBILITY/TRANSFERS? Rolling L/R: mod assist of one / min assist of 2, with verbal cues Supine-sit: mod assist of 2? Sit-supine: mod assist of 2? Sit-stand x2: mod assist of 2-3? Stand-sit x2: mod assist of 2 ? Bed-Chair: unable ? Chair-bed: unable Scooting up in bed: dependent (max assist of 2) Provided skilled cues and instruction on performance and technique throughout. ASSESSMENT:? Patient repeatedly states that she cannot stand, can't use her arm, legs hurt too much, arm hurts too much, too tired, etc. Not excited to participate with therapy. Educated patient on importance of preserving muscle mass via moving several times a day. Educated patient that she will not get stronger by laying in bed. PLAN: Continue treatment per plan of care until patient is medically cleared for discharge and obtains safe discharge plan. TREATMENT CODE/TIME: 28 minutes beginning at 13:28
[2023-06-25] MEDS: traMADol 50 MG TAB 100 MG PO (14:45)
[2023-06-25] MEDS: Docusate Sodium 100 MG CAP PO (14:45)
[2023-06-25 15:22] VITALS: BP 168/80; PULSE 109; RESP 19; TEMP 37.5; O2SAT 96
--- NOTE | 2023-06-25 16:03 | W.PM.PROGNOT ---
Date of Service Date of service: 06/25/23 Time of Service: 16:03 Assessment and Plan Assessment and plan (1) Acute CVA (cerebrovascular accident): Status: Acute Assessment and plan: RMCA occlusion. In light of her prior FL and her prior total distal DALILA occlusion (which apparently is not occluded now but has severe stenosis of the bulb) and her echo from 04/22 demonstrated an apical and anterior apical wall motion abnormality, this begs the question of embolic CVA from her cardiomyopathy. Echo was done today, reading is pending but per my read on her echo she seems to have improvement in her cardiomyopathy, I did not see any anterior or apical wall motion abnormalities and no thrombus. Her bubble study appears to be negative for any PFO. continue low dose aspirin 81 mg daily along w/ gi protection (carafate, protonix, cytotec), aldolase may not return until next week. I am not convinced that her joint pains are d/t statin myositis/myopathy. I will resume low dose statin w/ crestor 10 mg daily. Professional time spent interviewing and examining patient, discussion of goals of care with hospital team (care management, nursing and consulting professionals) was 35 minutes. (2) Occlusion of right middle cerebral artery: Status: Acute Assessment and plan: as above (3) Symptomatic anemia: Status: Acute Assessment and plan: GI protection as above. monitor hemoglobin, treat w/ parenteral iron. (4) Acute on chronic blood loss anemia: Status: Acute Assessment and plan: as above. (5) Tenosynovitis of right wrist: Status: Acute Assessment and plan: as she has Bernard's esophagitis, duodenitis and gastritis, I am loath to put her on any systemic corticosteroids, will treat w/ topical diclofenac and prn ultram (6) Pain in both lower legs: Status: Acute Assessment and plan: no evidence for myositis but awaiting aldolase level. CK was normal. remains off statin for now but consider reinstituting if aldolase is normal. MRI of LS spine w/ multilevel DJD w/ mild spinal canal stenosis and moderate bilateral neuroformainal stenosis at L2-L3 level. I think this is the cause for her bilateral leg pains and back pains. (7) Difficulty walking: Status: Acute Assessment and plan: Continue PT. As above. (8) DVT prophylaxis: Status: Acute Assessment and plan: SCDs. Avoid chemical DVT ppx given GI bleeding (9) Discharge planning issues: Status: Acute Assessment and plan: Full code Patient is agreeable to SNF. Subjective Subjective Interval history since last seen: Patient complaining of right wrist pain and swelling. Per her son, she has had recurrent problems w/ her right wrist and had worn a splint to her right wrist in the past. Poor appetite, per nursing she is not taking in adequate oral fluids and per patient she has no appetite, complains the food is not appealing. Exam Narrative Exam Narrative: Beth is lying in bed talking with her son and [id number]. He is complaining of right wrist pain and he has a warming pad over her right wrist. HEENT reveals improvement in her left facial droop. It seems to be resolving. She had equal movement of left corner of her mouth compared to her right. Her extraocular motion appears to be improved. She seems to have less left-sided hemineglect and would track objects as the midline over to the left side of the room. Extremities right wrist is very painful appears to be slight swelling of the wrist without redness or increased warmth. Is very tender to extend and flex the right wrist. She has good strength in the right arm with elevating her arm above her head. Left hand and arm remain paretic there does seem to been some improvement in movement. She is able to hold the left arm up against gravity but has poor motor control in the left hand and left wrist. Still not able to resist me with dorsiflexion of the left wrist. Left leg and left foot movement is still weak. She is not able to lift the left leg up off the bed. She is able to dorsiflex and plantarflex left foot weakly. Right leg right foot movement are normal strength and range of motion. Lungs are clear to auscultation Heart is regular rate and rhythm Objective Last Vital Signs Temp 37.5 C 06/25/23 15:22 Pulse 109 H 06/25/23 15:22 Resp 19 06/25/23 15:22 BP 168/80 H 06/25/23 15:22 Pulse Ox 96 06/25/23 15:22 Laboratory Results - last 24 hr 06/25/23 05:54 WBC 11.80 H RBC 3.31 L Hgb 8.8 L Hct 29.2 L MCV 88 MCH 26.6 L MCHC 30.1 L RDW 19.6 H Plt Count 551 H MPV 10.5 Immature Gran % 0.8 Neutrophils % 77.1 Lymphocytes % 6.3 Monocytes % 11.9 Eosinophils % 3.1 Basophils % 0.8 Nucleated RBC % 0.0 Absolute Neutrophils 9.10 H Absolute Lymphocytes 0.74 L Absolute Monocytes 1.40 H Absolute Eosinophils 0.37 Absolute Basophils 0.09 Sodium 135 L Potassium 3.6 Chloride 100 Carbon Dioxide 27.5 Anion Gap 7.5 BUN 17 Creatinine 0.7 Est GFR (CKD-EPI 2020) 86.83 Glucose 81 Calcium 9.2 Total Bilirubin 0.4 AST 19 ALT 22 Alkaline Phosphatase 148 H Total Protein 7.1 Albumin 2.5 L Time Spent with Patient Time Spent with Patient: 35-49 minutes Time was spent: preparing to see the patient(eg.review tests), ordering medications,tests, procedures, referring, communicating with other health social worker palliative care, indepentently interpreting results, counseling the patient (And patient's son) and care coordination
[2023-06-25 16:19] LABS: Lab Add On Test DONE
[2023-06-25 16:21] LABS: ESR 62 mm/hr (0-30)
[2023-06-25 16:32] LABS: C-Reactive Protein 8.91 mg/dL (0.0-0.3)
[2023-06-25 19:35] VITALS: BP 145/76; PULSE 117; RESP 19; TEMP 37.4; O2SAT 94
[2023-06-25] MEDS: Lactated Ringers 1,000 ML 65 ML IV (20:45)
[2023-06-25] MEDS: Rosuvastatin 10 MG TAB PO (20:46)
[2023-06-25] MEDS: Lidocaine 5% Patch 1 PATCH TP (20:49)
[2023-06-25] MEDS: Pramipexole 0.25 MG TAB 0.125 MG PO (21:04)
--- NOTE | 2023-06-26 | DI.RAD_ITS ---
Exam(s) XR WRIST RT COMPLETE EXAM: XR WRIST RT COMPLETE CLINICAL HISTORY: wrist pain and swelling. TECHNIQUE: 2D digital imaging was performed of the right wrist. Three views were obtained. PA, lat eral and oblique views were obtained. COMPARISON: No exams were available for comparison FINDINGS: BONES: No acute fracture is present. No bony destructive lesion is seen. JOINTS: The carpal bones are normally aligned. Mild degenerative changes are seen in the wrist. Ther e are coarse calcifications seen in the soft tissues of the wrist: Adjacent to the radiocarpal joint and adjacent to the distal carpal row. SOFT TISSUE: Normal. IMPRESSION: Coarse calcifications in the soft tissue of the wrist. This can be seen with gout or pseudogout. DATA REPOSITORY: RADIATION DOSE DELIVERED:
[2023-06-26 03:26] VITALS: BP 133/73; PULSE 98; RESP 19; TEMP 36.7; O2SAT 96
[2023-06-26] MEDS: ACETAMINOPHEN 1,000 MG/100 ML BTL 400 MG IVPB ×3 (05:41→21:14)
[2023-06-26] MEDS: Normal Saline Flush 10 ML SYR IVP ×3 (05:44→13:49)
[2023-06-26 06:57] LABS: Abs Immature Grans 0.12 10^3/uL (0.0-0.06); Absolute Eosinophil Count 0.54 10^3/uL (0.0-0.7); Absolute Lymphocyte Count 0.88 10^3/uL (1.2-3.4); Absolute Monocyte Count 1.59 10^3/uL (0.1-0.8); Absolute Neutrophil Count 9.57 10^3/uL (1.2-6.7); Basophils % 0.8; Eosinophils % 4.2; HCT 27.6 % (36.0-46.0); HGB 8.2 g/dL (11.2-15.7); Immature Grans % 0.9; Lymphocytes % 6.9; MCH 26.5 pg (27.0-33.0); MCHC 29.7 % (32.0-36.0); MCV 89 fL (80-95); MPV 10.2 fL (8.0-11.0); Monocytes % 12.4; Neutrophils % 74.8; Platelet Count 518 10^3/uL (130-400); RDW 18.9 % (11.7-14.6); RDW-SD 61.4 fL
[2023-06-26 07:03] LABS: Anion Gap 3.6 mmol/L (3-11); BUN 20 mg/dL (7-18); CO2 28.4 mmol/L (21.0-32.0); CREATININE 0.7 mg/dL (0.55-1.02); Chloride 102 mmol/L (98-107); Estimated GFR 86.83 (mL/min/1.73m2); Glucose 104 mg/dL (74-106); Potassium 4.1 mmol/L (3.5-5.1); Sodium 134 mmol/L (136-145)
[2023-06-26 07:52] VITALS: BP 134/67; PULSE 100; RESP 17; TEMP 37.1; O2SAT 95
[2023-06-26 08:01] LABS: Diff Comment Agrees w/ Instrument; Hypochromasia 2+
[2023-06-26] MEDS: Calcium 600mg/Vit D 200U TAB 2 TAB PO (08:54)
[2023-06-26] MEDS: Multivitamin TAB 1 TAB PO (08:54)
[2023-06-26] MEDS: miSOPROStol 100 MCG TAB PO ×4 (08:54→20:16)
[2023-06-26] MEDS: Sucralfate 1 GM TAB PO ×3 (08:54→16:29)
[2023-06-26] MEDS: Beta-Carotene(A) w/C,E, & Minerals TAB 1 TAB PO ×2 (08:55→20:17)
[2023-06-26] MEDS: Lidocaine Patch Removal 1 EACH TP (09:00)
[2023-06-26] MEDS: Normal Saline 500 ML 100 ML IV (09:19)
[2023-06-26] MEDS: IRON SUCROSE COMPLEX 400 MG in Normal Saline 250 ML 100 MG IVPB (09:20)
[2023-06-26] MEDS: Aspirin 81 MG CHEW CH (10:47)
[2023-06-26] MEDS: traMADol 50 MG TAB 100 MG PO ×2 (10:51→18:29)
[2023-06-26 11:07] VITALS: BP 150/75; PULSE 99; RESP 16; TEMP 36.8; O2SAT 95
[2023-06-26] MEDS: Pantoprazole 40 MG VIAL IVP (11:58)
[2023-06-26] MEDS: Diclofenac 1% Gel 100 GM TUBE TP (11:58)
--- NOTE | 2023-06-26 12:12 | PT.INTREAT ---
PT Notes Visit Reasons: symptomatic anemia,L hip pain,fever during transf Inpatient Physical Therapy Treatment Note [facility] Date: 06/26/23 SUBJECTIVE: Pt reports her infusion arm is sore along with her wrists. Nursing reports to just complete bed exercises today. OBJECTIVE: ? Therapeutic Exercises (45486u[[id number]]): Direct one-on-one instruction in therapeutic exercises to develop strength, endurance, range of motion and flexibility. ? Exercises ? Assist with L UE bicep curls R I x 10 Assist LE hip abd x 10 Assist L LE heel slides x 10 R I Assist L UE shoulder flexion x 10 Hand squeezes x 10 B Q.S. x 10 Ankle pumps x 10 R LE assist ? Provided skilled instruction in proper exercise performance ASSESSMENT:? UE's still very sore specifically the R UE. PLAN: Cont as per PT POC as per nuno. TREATMENT CODE/TIME: 11:45-12:10 (25) TPx2
--- NOTE | 2023-06-26 13:07 | W.PM.PROGNOT ---
Date of Service Date of service: 06/26/23 Time of Service: 13:07 Assessment and Plan Assessment and plan (1) Acute CVA (cerebrovascular accident): Status: Acute Assessment and plan: RMCA occlusion. Still suspect embolism given prior distal DALILA occlusion which has since cleared. echo did not show any apical thrombus. patient has been resumed on ASA 81 mg daily and crestor 10 mg daily. Patient is on triple therapy for GI bleed including protonix 40 mg bid, carafate 1 gm slurry AC/HS and cytotec 100 mcg qid. Professional time spent interviewing and examining patient, discussion of goals of care with hospital team (care management, nursing and consulting professionals) was 30 minutes. (2) Occlusion of right middle cerebral artery: Status: Acute Assessment and plan: as above (3) Symptomatic anemia: Status: Acute Assessment and plan: GI protection as above. monitor hemoglobin, treat w/ parenteral iron. (4) Acute on chronic blood loss anemia: Status: Acute Assessment and plan: as above. (5) Tenosynovitis of right wrist: Status: Acute Assessment and plan: suspect gout or pseudogout. will give one time of iv decadron and ask ortho to evaluate/tap wrist and possible intra-articular steroids (6) Pain in both lower legs: Status: Acute Assessment and plan: no evidence for myositis but awaiting aldolase level. CK was normal. remains off statin for now but consider reinstituting if aldolase is normal. MRI of LS spine w/ multilevel DJD w/ mild spinal canal stenosis and moderate bilateral neuroformainal stenosis at L2-L3 level. I think this is the cause for her bilateral leg pains and back pains. (7) Difficulty walking: Status: Acute Assessment and plan: Continue PT. As above. (8) DVT prophylaxis: Status: Acute Assessment and plan: SCDs. Avoid chemical DVT ppx given GI bleeding (9) Discharge planning issues: Status: Acute Assessment and plan: Full code Patient is agreeable to SNF. Subjective Subjective Interval history since last seen: patient continues to have pain and swelling of her right wrist despite tramadol and voltaren gel. I meant to order xray of her wrist yesterday but neglected to order this. xray was done today and no fracture is seen but she has coarse calcifications in the soft tissue of the joint suspicious for gout or pseudogout. I have orderd a dose of dexamethasone iv to be given and will consult w/ ortho to tap the wrist tomorrow. As for her stroke she seems to have shown no new progress. Still has some facial droop but improvement in her left hemineglect, still has dense left hemiparesis although she can weakly open and close left hand and lift hand and arm off bed. Exam Narrative Exam Narrative: Beth appears to be depressed, she is alert, oriented but disengaged in the conversation. I spoke w/ her daughter about her mother's needs for [facility] SNF. We reviewed her code status again and her mother wants short term resuscitation in the event of cardiopulmonary arrest Lungs: clear although diminished at the bases Heart: regular, review of telemetry this morning has not shown any afib, rhythm remains SR Abdomen: benign Extremities: swelling and tenderness of right wrist, weak hand grasp on left, able to lift left hand and arm off bed but not able to hold up against gravity or resistance, left foot w/ weak dorsflexion and plantar flexion but unable to lift foot and leg off bed Objective Last Vital Signs Temp 36.8 C 06/26/23 11:07 Pulse 99 H 06/26/23 11:07 Resp 16 06/26/23 11:07 BP 150/75 H 06/26/23 11:07 Pulse Ox 95 06/26/23 11:07 Laboratory Results - last 24 hr 06/25/23 06/25/23 06/26/23 05:54 16:14 06:31 WBC 12.80 H RBC 3.10 L Hgb 8.2 L Hct 27.6 L MCV 89 MCH 26.5 L MCHC 29.7 L RDW 18.9 H Plt Count 518 H MPV 10.2 Immature Gran % 0.9 Neutrophils % 74.8 Lymphocytes % 6.9 Monocytes % 12.4 Eosinophils % 4.2 Basophils % 0.8 Nucleated RBC % 0.0 Absolute Neutrophils 9.57 H Absolute Lymphocytes 0.88 L Absolute Monocytes 1.59 H Absolute Eosinophils 0.54 Absolute Basophils 0.10 RBC Morphology See Below Hypochromasia 2+ ESR 62 H Sodium 134 L Potassium 4.1 Chloride 102 Carbon Dioxide 28.4 Anion Gap 3.6 BUN 20 H Creatinine 0.7 Est GFR (CKD-EPI 2020) 86.83 Glucose 104 Calcium 9.0 C-Reactive Protein 8.91 H Add-On Test Request DONE Time Spent with Patient Time Spent with Patient: 25-34 minutes Time was spent: preparing to see the patient(eg.review tests), ordering medications,tests, procedures, indepentently interpreting results, counseling the patient and care coordination
[2023-06-26] MEDS: Dexamethasone 10 MG/ML VIAL IVP (13:49)
--- NOTE | 2023-06-26 15:39 | DI.VRAD_ITS ---
PROCEDURE INFORMATION: Exam: XR Right Wrist Exam date and time: 06/26/2023 2:53 PM Age: 82 years old Clinical indication: Swelling; Wrist; Right TECHNIQUE: Imaging protocol: Radiologic exam of the right wrist. Views: 3 or more views. COMPARISON: US EXTREMITY VENOUS BI 06/21/2023 11:03 AM FINDINGS: Bones/joints: Coarse calcifications present adjacent to the radial styloid and the base of the thumb. There are degenerative changes of the first carpometacarpal and scaphotrapeziumtrapezoid joints. No acute fractures. Soft tissues: Soft tissue swelling. IMPRESSION: Collections of calcifications present in the soft tissues around the wrist. Possible gout or pseudogout. Dictated and Authenticated by: Cosmo Martin MD. Ordering:CANELO Cook MD
[2023-06-26 15:47] VITALS: BP 132/85; PULSE 89; RESP 17; TEMP 36.4; O2SAT 96
[2023-06-26 19:25] VITALS: BP 137/76; PULSE 103; RESP 17; TEMP 36.7; O2SAT 97
[2023-06-26] MEDS: Rosuvastatin 10 MG TAB PO (20:16)
[2023-06-26] MEDS: Lidocaine 5% Patch 1 PATCH TP (20:17)
[2023-06-26 23:05] VITALS: BP 127/74; PULSE 89; RESP 17; TEMP 36; O2SAT 96
[2023-06-27] VITALS (8 sets, daily range): BP systolic 135–164; BP diastolic 68–76; PULSE 87–99; RESP 17–19; TEMP 36.5–37; O2SAT 90–96
[2023-06-27] MEDS: ACETAMINOPHEN 1,000 MG/100 ML BTL 400 MG IVPB ×3 (05:12→20:30)
[2023-06-27] MEDS: Pantoprazole 40 MG VIAL IVP ×2 (05:12→17:04)
[2023-06-27] MEDS: Sucralfate 1 GM TAB PO ×4 (07:10→19:50)
--- NOTE | 2023-06-27 07:28 | OCONE_ITS ---
Assessment and Plan Assessment and plan (1) Calcific tendinitis of right wrist: Status: Acute Assessment and plan: 82 year old female with Right wrist pain probably due to pseudogout or calcific tendinitis Hx Right wrist tendinitis treated with wrist brace and Left hip trochanteric bursitis, which not currently symptomatic. BLE pain & weakness likely due to spinal stenosis- see Dr. Mckenna notes from 2021- recommended pain/ spine referral. Right wrist XRs show multiple chronic-appearing calcifications and moderate arthritis about the wrist and carpal joints. Left hip XRs show peritrochatneric calcifications. Lumbar spine MRI shows multilevel degenerative changes- similar to MRI 1 year ago. WBC mildly elevated since admission 8 days ago for GI bleed and subsequent CVA- Left sided weakness- confound the elevated ESR & CRP done 2 days ago. Uric acid normal. No rheumatoid labwork done- ordered. Given similar findings about multiple joints, likely due to system cause like pseudogout. Lack of erosions makes gout and RA less likely. Recommend Right wrist velcro brace for comfort, elevation on pillow, and remove daily for gentle wrist & hand ROM. Add cool compress, physical therapy if needed. No aspiration or injection typically done at the wrist- calcifications appear in tendons, not joint. Treat presumptive pseudogout with oral steroids, consider colchicine. Avoid NSAIDs in setting of GI bleed. Outpatient referral to rheumatology. In person evaluation completed with Dr. Templeton: Patient with help of her family describes subacute onset right wrist discomfort, difficulty weightbearing through the wrist, localizes to the right wrist, sounds like it was worse yesterday, but doing reasonably well today. Had a wrist brace at home, but it is not available in the hospital. Right wrist exam reassuring and overwhelmingly benign. No erythema, only mild general wrist edema, tolerates moderately full passive range of motion without difficulty, demonstrates intact motor all fingers and thumb without much difficulty. Sensation intact throughout to light touch without paresthesias. 2+ right radial pulse. No proximal streaking. Forearm and elbow without problems. Consistent with pseudogout?see above recommendations, which were communicated with nursing staff. Message/call me with any changes, questions, or concerns about this patient. PFSH All Active Problems (Updated 06/27/23 @ 07:30 by Jackson Manuel MD) Calcific tendinitis of right wrist (Acute) Tenosynovitis of right wrist (Acute) Occlusion of right middle cerebral artery (Acute) Palliative care encounter (Acute) ACP (advance care planning) (Acute) Pain in both lower legs (Acute) Discharge planning issues (Acute) DVT prophylaxis (Acute) Acute on chronic blood loss anemia (Acute) Symptomatic anemia (Acute) Fall (Acute) Difficulty walking (Acute) Fever (Acute) Anemia (Chronic) Regional wall motion abnormality of heart (Acute) Acute CVA (cerebrovascular accident) (Acute) Fever (Acute) Hypoxia (Acute) Acute CHF (Acute) NSTEMI (non-ST elevated myocardial infarction) (Acute) type 2 due to anemia Acute electrocardiogram changes (Acute) Right internal carotid occlusion (Acute) Acute focal neurological deficit (Acute) Renal malignant neoplasm (Chronic) 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 Patient follows up with [facility]. Elevated troponin (Acute) Chest pressure (Acute) Leucocytosis (Acute) Heme + stool (Acute) Sacroiliac joint dysfunction of both sides (Acute) Renal cell carcinoma (Acute) Referred to [facility]. Plan is to monitor for size change. dx 07/24 Hip pain, left (Acute) Shoulder pain, left (Acute) Fatigue (Acute) Leg pain, left (Acute) Left kidney mass (Acute) Spinal stenosis (Acute) Trochanteric bursitis, left hip (Acute) Injection: 12/26/2021 Calcific tendinitis of left hip (Acute) Strain of gastrocnemius muscle of left lower extremity (Acute) Medical History Osteopenia Asthma Hyperlipidemia HTN (hypertension) Chronic pain Restless leg syndrome Acute systolic (congestive) heart failure CVA (cerebral vascular accident) Anemia Acute non-ST segment elevation myocardial infarction Gastritis GI bleed 04/21/23 was sent to [facility] for w/u Chronic left hip pain Surgical History History of esophagogastroduodenoscopy (~04/2023) Biopsies taken H/O abdominoplasty H/O: hysterectomy Social History Smoking/Tobacco Use Status: Former Tobacco Use Smoking risk assessment performed?: Yes Alcohol Intake: never Drug use: Never Substance use type: marijuana Housing: apartment Do you feel safe at home: Yes Do you feel safe in your relationship?: Yes Results Last Vital Signs Temp 97.7 F 06/27/23 04:10 Pulse 99 H 06/27/23 04:10 Resp 18 06/27/23 04:10 BP 164/74 H 06/27/23 04:10 Pulse Ox 94 06/27/23 04:10 Labs 06/26/23 06:31 06/26/23 06:31 Labs: Laboratory Results - last 24 hr 06/26/23 06:31 WBC 12.80 H RBC 3.10 L Hgb 8.2 L Hct 27.6 L MCV 89 MCH 26.5 L MCHC 29.7 L RDW 18.9 H Plt Count 518 H MPV 10.2 Immature Gran % 0.9 Neutrophils % 74.8 Lymphocytes % 6.9 Monocytes % 12.4 Eosinophils % 4.2 Basophils % 0.8 Nucleated RBC % 0.0 Absolute Neutrophils 9.57 H Absolute Lymphocytes 0.88 L Absolute Monocytes 1.59 H Absolute Eosinophils 0.54 Absolute Basophils 0.10 RBC Morphology See Below Hypochromasia 2+
[2023-06-27 07:36] LABS: Uric Acid 2.7 mg/dL (2.6-6.0)
[2023-06-27] MEDS: Milk of Magnesia 30 ML CUP PO (08:16)
[2023-06-27] MEDS: Beta-Carotene(A) w/C,E, & Minerals TAB 1 TAB PO ×2 (08:17→19:51)
[2023-06-27] MEDS: miSOPROStol 100 MCG TAB PO ×4 (08:17→19:51)
[2023-06-27] MEDS: Calcium 600mg/Vit D 200U TAB 2 TAB PO (08:17)
[2023-06-27] MEDS: Aspirin 81 MG CHEW CH (08:17)
[2023-06-27] MEDS: Multivitamin TAB 1 TAB PO (08:17)
[2023-06-27] MEDS: Lidocaine Patch Removal 1 EACH TP (08:25)
[2023-06-27] MEDS: Diclofenac 1% Gel 100 GM TUBE TP ×3 (10:25→19:04)
[2023-06-27 10:34] LABS: Aldolase 4.8 U/L (<7.7)
[2023-06-27] MEDS: Colchicine 0.6 MG TAB 1.2 MG PO (10:38)
--- NOTE | 2023-06-27 11:20 | PT.INTREAT ---
PT Notes Visit Reasons: symptomatic anemia,L hip pain,fever during transf Inpatient Physical Therapy Treatment Note [facility] Date: 06/27/23 SUBJECTIVE: Pt reports that R shoulder is painful today. OBJECTIVE: ? Therapeutic Exercises (45667y[2]): Direct one-on-one instruction in therapeutic exercises to develop strength, endurance, range of motion and flexibility. ? Exercises ? Bed exercises Rowing x 10 Assist with L UE Shoulder flexion assist with L UE Bicep curls x 10 assist with L UE Hand squeezes x 10 B Heel slides x 10 assist with L LE Q.S. x 10 Hip abd x 10 assist with L LE Ankle pumps x 10 ? ASSESSMENT:? Pt was able to tolerate less assist today and seemed more alert and oriented. PLAN: cont as per PT POC. TREATMENT CODE/TIME: 10:15-10:38 (23) TPx2
[2023-06-27] MEDS: traMADol 50 MG TAB 100 MG PO (11:38)
[2023-06-27] MEDS: Normal Saline Flush 10 ML SYR IVP ×2 (13:25→17:03)
--- NOTE | 2023-06-27 16:22 | PGE_ITS ---
Date of Service Date of service: 06/27/23 Time of Service: 16:22 Assessment and Plan Assessment and plan (1) Acute CVA (cerebrovascular accident): Status: Acute Assessment and plan: RMCA occlusion. Still suspect embolism given prior distal DALILA occlusion which has since cleared. echo did not show any apical thrombus. patient has been resumed on ASA 81 mg daily and crestor 10 mg daily. Patient is on triple therapy for GI bleed including protonix 40 mg bid, carafate 1 gm slurry AC/HS and cytotec 100 mcg qid. Continue Crestor 10 mg daily aspirin 81 mg daily. Professional time spent interviewing and examining patient, discussion of goals of care with hospital team (care management, nursing and consulting professionals) was 35 minutes. (2) Occlusion of right middle cerebral artery: Status: Acute Assessment and plan: as above (3) Symptomatic anemia: Status: Acute Assessment and plan: GI protection as above. monitor hemoglobin, treat w/ parenteral iron. (4) Acute on chronic blood loss anemia: Status: Acute Assessment and plan: as above. Hemoglobin 8.2 g. Continue parenteral iron along with GI protection. (5) Tenosynovitis of right wrist: Status: Acute Assessment and plan: suspect gout or pseudogout. Status post IV Decadron last night colchicine initiated today. (6) Pain in both lower legs: Status: Acute Assessment and plan: no evidence for myositis but awaiting aldolase level. CK was normal. remains off statin for now but consider reinstituting if aldolase is normal. MRI of LS spine w/ multilevel DJD w/ mild spinal canal stenosis and moderate bilateral neuroformainal stenosis at L2-L3 level. I think this is the cause for her bilateral leg pains and back pains. Dr. Manuel agrees with this assessment. (7) Difficulty walking: Status: Acute Assessment and plan: Continue PT. As above. (8) DVT prophylaxis: Status: Acute Assessment and plan: SCDs. Avoid chemical DVT ppx given GI bleeding (9) Discharge planning issues: Status: Acute Assessment and plan: Full code Patient is agreeable to SNF. Subjective Subjective Interval history since last seen: Patient right hand and wrist seem to be improved. She was treated with Decadron 10 mg IV last night and today I started on colchicine 1.2 mg p.o. She will go on colchicine 0.6 mg p.o. twice daily. Patient was seen this afternoon with Dr. Jackson Manuel from orthopedic surgery who evaluated the hand. He recommended con tinued use of colchicine but if not improving short course of a steroid burst. He did not recommend arthrocentesis of the wrist. He feels most of the calcification is in the tendon rather than in the joint. Exam Narrative Exam Narrative: Patient was seen with Dr. Manuel while the patient was visiting with her family including her grandson and granddaughter and daughter. Patient still has significant left-sided hemiparesis along with left facial droop but speech is clear she is not having any swallowing difficulties. She states that she ate a little better today. Lungs are clear to auscultation Heart is regular rate and rhythm. Review of her telemetry this morning with the ICU nurses revealed her rhythm to be first-degree AV block sinus rhythm heart rate in the 80s to 90s. Abdomen obese soft and nontender normal bowel sounds nontender Neurologic exam she still has slight left facial droop although it does appear to be improved I noticed this with particularly when she was smiling her grandson. Extraocular motions intact. She still has some left hemineglect. Left hand remains weak but she is able to open and close the fingers wrist dorsiflexion is extremely weak she is able to lift arm up off the bed but has trouble holding it up against gravity or against any light resistance. Left leg is very hemiparetic unable to lift the leg up off the bed. She does wiggle foot and ankle. Sensation seems to be intact to light touch in the left side. Right hand and wrist were examined with Dr. Manuel she is able to extend the thumb extend the fingers as well as extend her wrist and able to lift her hand off the pillow albeit with some pain. There is still some edema of the wrist but there is no erythema. Dr. Manuel does not feel that this is a septic arthritis but agrees that this is either gout or pseudogout. Objective Last Vital Signs Temp 37.0 C 06/27/23 14:59 Pulse 98 H 06/27/23 14:59 Resp 18 06/27/23 14:59 BP 150/75 H 06/27/23 14:59 Pulse Ox 96 06/27/23 14:59 Laboratory Results - last 24 hr 06/27/23 06:30 Uric Acid 2.7 Time Spent with Patient Time Spent with Patient: 35-49 minutes Time was spent: preparing to see the patient(eg.review tests), ordering medications,tests, procedures, referring, communicating with other health career development associate, indepentently interpreting results, counseling the patient and care coordination
[2023-06-27] MEDS: Docusate Sodium 100 MG/10 ML CUP PO (17:03)
[2023-06-27] MEDS: Pramipexole 0.25 MG TAB 0.125 MG PO (19:51)
[2023-06-27] MEDS: Colchicine 0.6 MG TAB PO (19:51)
[2023-06-27] MEDS: Rosuvastatin 10 MG TAB PO (19:51)
[2023-06-27] MEDS: Lidocaine 5% Patch 1 PATCH TP (20:30)
[2023-06-28] MEDS: traMADol 50 MG TAB 100 MG PO ×2 (03:46→18:01)
[2023-06-28 04:55] VITALS: BP 158/68; PULSE 89; RESP 19; TEMP 36.8; O2SAT 91
[2023-06-28] MEDS: ACETAMINOPHEN 1,000 MG/100 ML BTL 400 MG IVPB ×2 (05:40→13:21)
[2023-06-28] MEDS: Pantoprazole 40 MG VIAL IVP ×2 (05:41→18:00)
[2023-06-28 07:27] LABS: Abs Immature Grans 0.07 10^3/uL (0.0-0.06); Absolute Basophil Count 0.13 10^3/uL (0.0-0.2); Absolute Eosinophil Count 0.51 10^3/uL (0.0-0.7); Absolute Lymphocyte Count 1.02 10^3/uL (1.2-3.4); Absolute Monocyte Count 1.11 10^3/uL (0.1-0.8); Absolute Neutrophil Count 6.64 10^3/uL (1.2-6.7); Basophils % 1.4; Eosinophils % 5.4; HCT 30.3 % (36.0-46.0); HGB 9.1 g/dL (11.2-15.7); Immature Grans % 0.7; Lymphocytes % 10.8; MCH 26.8 pg (27.0-33.0); MCV 89 fL (80-95); Monocytes % 11.7; Platelet Count 550 10^3/uL (130-400); RBC 3.39 10^6/uL (3.93-5.22); RDW 18.6 % (11.7-14.6); RDW-SD 60.8 fL; WBC 9.48 10^3/uL (4.4-10.8)
[2023-06-28 07:32] LABS: ESR 60 mm/hr (0-30)
[2023-06-28 07:42] LABS: Anion Gap 5.1 mmol/L (3-11); BUN 18 mg/dL (7-18); C-Reactive Protein 2.66 mg/dL (0.0-0.3); CO2 30.9 mmol/L (21.0-32.0); CREATININE 0.5 mg/dL (0.55-1.02); Calcium 8.9 mg/dL (8.5-10.1); Chloride 101 mmol/L (98-107); Estimated GFR 94.17 (mL/min/1.73m2); Glucose 79 mg/dL (74-106); Sodium 137 mmol/L (136-145)
[2023-06-28 08:11] VITALS: O2SAT 91
[2023-06-28 08:19] VITALS: BP 123/74; PULSE 93; RESP 16; TEMP 37.2; O2SAT 91
[2023-06-28] MEDS: Colchicine 0.6 MG TAB PO ×2 (08:41→20:39)
[2023-06-28] MEDS: Beta-Carotene(A) w/C,E, & Minerals TAB 1 TAB PO ×2 (08:41→20:39)
[2023-06-28] MEDS: miSOPROStol 100 MCG TAB PO ×4 (08:41→20:39)
[2023-06-28] MEDS: Calcium 600mg/Vit D 200U TAB 2 TAB PO (08:41)
[2023-06-28] MEDS: Aspirin 81 MG CHEW CH (08:41)
[2023-06-28] MEDS: Multivitamin TAB 1 TAB PO (08:41)
[2023-06-28] MEDS: Sucralfate 1 GM TAB PO ×4 (08:41→20:39)
--- NOTE | 2023-06-28 09:10 | OTIE_ITS ---
Occupational Therapy Notes Inpatient Occupational Therapy Evaluation Date: 06/28/23 Referring Doctor: Marina Parker MD OT Orders: Non urgent Precautions: Fall, standard, full PATIENT PROFILE/ADMITTING DIAGNOSIS: Pt is an 82 year old female admitted to Med Surg with the following dx of occulsion of (R) middle cerebral artery, pain in (B) LE, postransfusion fever, acute chronic anemia, (L) hip pain, acute CVA, hypoxia, NSTMI, acute CHF. Past Medical History: All Active Problems (Updated 06/20/23 @ 19:05 by Marina Parker MD) Pain in both lower legs (Acute) Posttransfusion fever (Acute) Discharge planning issues (Acute) DVT prophylaxis (Acute) Acute on chronic blood loss anemia (Acute) Symptomatic anemia (Acute) Fall (Acute) Difficulty walking (Acute) Fever (Acute) Anemia (Chronic) Regional wall motion abnormality of heart (Acute) Acute CVA (cerebrovascular accident) (Acute) Fever (Acute) Hypoxia (Acute) Acute CHF (Acute) NSTEMI (non-ST elevated myocardial infarction) (Acute) type 2 due to anemiaAcute electrocardiogram changes (Acute) Right internal carotid occlusion (Acute) Acute focal neurological deficit (Acute) Renal malignant neoplasm (Chronic) 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 Patient follows up with [facility].Elevated troponin (Acute) Chest pressure (Acute) Leucocytosis (Acute) Heme + stool (Acute) Sacroiliac joint dysfunction of both sides (Acute) Renal cell carcinoma (Acute) Referred to [facility]. Plan is to monitor for size change. dx 07/24Hip pain, left (Acute) Shoulder pain, left (Acute) Fatigue (Acute) Leg pain, left (Acute) Left kidney mass (Acute) Spinal stenosis (Acute) Trochanteric bursitis, left hip (Acute) Injection: 2Calcific tendinitis of left hip (Acute) Strain of gastrocnemius muscle of left lower extremity (Acute) Medical History (Updated 06/20/23 @ 19:05 by Marina Parker MD) Osteopenia Asthma Hyperlipidemia HTN (hypertension) Chronic pain Restless leg syndrome Acute systolic (congestive) heart failure CVA (cerebral vascular accident) Anemia Acute non-ST segment elevation myocardial infarction Gastritis GI bleed 04/21/23 was sent to [facility] for w/uChronic left hip pain Surgical History History of esophagogastroduodenoscopy (~04/2023) Biopsies takenH/O abdominoplasty H/O: hysterectomy Social History/Home Situation: Pt states that she lives with her son. She notes that he helps her when he can and is around. She does report that she had HH nursing and PT that came in to (A) her at times. Functionally she required (A) at baseline. Equipment owned/DME: FWW SUBJECTIVE: Pt states that she is doing well but notes that she is tired this morning. She has a prefabricated orthosis but this is not on pts (R) wrist the right way. OT is able to apply this appropriately. OBJECTIVE: General Observation: Pleasant, (R) wrist brace, IV and telemetry Mental Status: A&Ox2 Pain: No c/o pain during OT session when asked ROM: RUE limited ROM and with wrist brace in place L UE limited ROM not functional at this time. FUNCTIONAL MOBILITY/ADLS: BATHING Pt denies but is willing to work on ROM associated with this Bathing UE AROM limited able to wash lower abdomen and hands, would require max (A) with face and Upper arms Bathing LE max (A) DRESSING Dressing UE Mod (A) with [facility] gown Dressing LE max (A) Eating- max (A) BALANCE: Static sitting Normal Dynamic Sitting Good SPECIAL TESTS: Daily Activity Limitations Standardized Measure [facility] AM -PAC ?6 clicks? Daily Activity Inpatient Short Form: Raw score: 15 Standardized score: 34.69 CMS score: 56.46% INFORMED CONSENT/EDUCATION: Pt instructed in purpose of OT Consult and plan of care. ASSESSMENT: Patient is a 82-year-old female referred to occupational therapy services with diagnosis of occulsion of (R) middle cerebral artery, pain in (B) LE, postransfusion fever, acute chronic anemia, (L) hip pain, acute CVA, hypoxia, NSTMI, acute CHF. Patient presents with clinical signs and symptoms consistent with dx, as demonstrated by the following impairment level findings/functional limitations: Impairments in ADL/IADL and leisure activities, decreased (B) UE ROM, decreased functional activity tolerance, impairments in gross and fine motor control of pts UE. AMPAC score 15 Patient is assessed as a Moderate 32289 complexity based on the following: History: see above Examination: see functional limitations as noted above Presentation: evolving Decision Making: AMPAC score 15 GOALS Goals x1 week 1. Grooming- mod (A) brushing hair 2. Dressing- mod (A) UE 3. Bathing- mod (A) UE, mod (A) LE 4. Toileting- on commode mod (A) 5. Eating- mod (A) PLAN OF CARE/TREATMENT PLAN: 1x/day, 5 days/ week x 1week Initiate Occupational Therapy Services for bathing, dressing, grooming, toileting, eating, transfer training. DISCHARGE RECOMMENDATIONS SNF when medically cleared per MD. TREATMENT TIME/MINUTES/CODES 39021, 15 minutes [facility] [place], [place]
[2023-06-28 10:47] VITALS: BP 125/64; PULSE 93; RESP 16; TEMP 37.1; O2SAT 91
--- NOTE | 2023-06-28 12:04 | PT.INTREAT ---
Date of service: 06/28/23 Time of Service: 11:39 PT Notes Visit Reasons: symptomatic anemia,L hip pain,fever during transf Inpatient Physical Therapy Treatment Note [facility] Date: 06/28/23 PRECAUTIONS: Fall, standard, activity as tolerated. Wrist brace in place RUE for patient comfort. Support hemiplegic LUE whenever upright. SUBJECTIVE: Patient reports feeling very tired. Appears depressed. Appears unable to track objects / people / voices on L of visual field. Does not turn head left to identify voices. (left neglect?) AFTERNOON: Patient reports she has been unable to reach her call button, her back is killing her, as are her legs, her wrist brace is irritating her skin, she needs to go back to bed. OBJECTIVE: Hamilton's position in bed, agreeable to therapy despite stating that she would be unable to sit up, stand up, or walk. ? PAIN: yes, right wrist. AFTERNOON: yes, bilateral legs and back. Wrist is irritated. VITALS: monitored by nursing staff. Therapeutic Activities ([id number]): Direct one-on-one instruction in dynamic activities to improve functional performance. ? BED MOBILITY/TRANSFERS? Rolling L/R: dependent Supine-sit: mod assist of 1 to move legs over EOB, mod assist of one supporting behind shoulders to pull patient into sitting. Patient pushes trunk to left side, requires continuous support on left side.? Sit-supine: dependent? Sit-stand: mod to max assist of 2, to artemio walker. Patient reports she will be unable to stand to artemio walker, wants FWW despite having flaccid hemiparesis of LUE.? Stand-sit: Mod assist ? Bed-Chair: Max assist of 2 (DIRECTOR FUNDRAISING Radha present on patient's right side). Patient requires assist to scoot back into chair as well. ? Chair-bed: Mod assist stand pivot transfer. Patient reports being entirely unable to stand, however patient does assist with the transfer, even taking several small steps. Loudly indicates that she expects to fall. Provided skilled cues and instruction on performance and technique throughout. ASSESSMENT:? Patient appears displeased to be sitting in chair. AFTERNOON: Patient smiles a bit once back in bed. States we did it. It hurt, but we did it. Appears pleased with results of therapy. PLAN: Continue global strengthening per plan of care until patient is medically cleared for discharge. TREATMENT CODE/TIME: 23 minutes beginning at 11:39 and 14 minutes beginning at 12:55 for a total of 37 minutes today.
[2023-06-28] MEDS: Lidocaine Patch Removal 1 EACH TP (12:29)
--- NOTE | 2023-06-28 13:15 | SPP_ITS ---
Date of service: 06/28/23 Time of Service: 12:00 Subjective Patient seen sitting upright in a chair for noon meal. She was alert and able to participate in conversation. She reported feeling 'lousy and tired', with mild pain in back of legs. She states she has no appetite and has not felt like eating much. Nursing reports coughing w/ breakfast and complaint of oatmeal sticking in throat. Objective/Assessment/Plan Objective Treatment Techniques & Outcomes: Trials Assessed: IDDSI 0 Thin Liquids - gingerale via cup, water via straw IDDSI 4 Puree Solid - ice cream IDDSI 5 Minced and Moist - Mashed potatoes w/ gravy Declined additional textures offered, declined Ensure Oral Phase Findings: WFL for limited trials assessed No residue this date Pharyngeal Phase Findings: Delayed swallow initiation Reduced hyolaryngeal elevation/excursion Cough after swallow w/ thin liquids Cough after the swallow w/ potatoes ASSESSMENT: Beth continues to present with symptoms concerning for post-CVA acute dysphagia, including consistent coughing with thin liquids and report of food sticking in throat intermittently w/ solids (oatmeal). PO intake remains suboptimal - she ate approximately 50% of breakfast but only took in 3-4 bites of noon meal. Anticipate this is at least partially related to fatigue/poor appetite, though dysphagia also appears to be contributing. Recommend MBSS while inpatient to further guide dysphagia rehabilitation. Discussed with hospitalist/Dr. Pete who is in agreement w/ tentative plan for MBSS tomorrow 06/29/23. Recommend continue diet parameters and aspiration precautions as outlined below. MANAGER OF SOFTWARE DEVELOPMENT to continue to follow. Further MANAGER OF SOFTWARE DEVELOPMENT Services: Patient to be followed while on unit; MBSS tentatively planned for 06/29/23. Upon Discharge, recommend MANAGER OF SOFTWARE DEVELOPMENT services at senior living facility. Recommendations: L5 Minced & Moist L0 Thin Liquids Medications whole or crushed in applesauce/pudding 1:1 assist/close supervision with PO RISK MANAGEMENT: Upright in chair if able for meals; otherwise HOB as upright as tolerated for all PO intake Encourage physical mobility as tolerated. Oral hygiene before/after PO intake using friction with toothbrush on all oral structures as tolerated Level of Assistance/Supervision: 1:1 assist/close supervision for all PO intake PO intake only when awake/alert Strategies/Adaptations/Assistive Equipment: Reduce auditory and/or visual distractions when eating, Provide verbal and/or visual cues to use recommended strategies, Small sips Swallow between bites Alternate intake of liquids and solids Posture/Positioning Needs: Maintain upright position at least 30 minutes after meals Avoid meals/snacks 2-3 hours prior to reclining/sleeping Sleep with head of bed elevated to reduce likelihood of nocturnal reflux PLAN: Frequency: 2-3x/week for 1-2 weeks Goals: Surgical Oncologist Goals: Patient will remain free from aspiration-related illness, malnutrition, and dehydration. Patient/family will verbalize comprehension of education provided re: dx , strategies to maximize functioning, and role of ST. Short Term Goals: Patient will participate in ongoing diagnostic treatment addressing areas of dysphagia Patient will tolerate Soft/Bite size Diet and Thin liquids without overt s/s aspiration across 2/2 visits. Patient will tolerate PO trials for consideration of diet upgrade without overt s/s aspiration across 2/2 visits. Education Provided to: Nursing, Patient, Physician Topics Addressed: anatomy/physiology of swallowing mechanism, overt s/sx to monitor for re: potential aspiration of food / liquids, recommendations for improved oral care, Total time spent:30 minutes ([id number] pm) Coding CPT Codes ORAL FUNCTION THERAPY - 79390 ([id number]) Additional Codes Date of Service (38493) Date of service: 06/28/23
[2023-06-28 15:08] VITALS: BP 138/73; PULSE 90; RESP 17; TEMP 37.1; O2SAT 96
--- NOTE | 2023-06-28 15:08 | PGE_ITS ---
Date of Service Date of service: 06/28/23 Time of Service: 15:08 Assessment and Plan Assessment and plan (1) Acute CVA (cerebrovascular accident): Status: Acute Assessment and plan: RMCA occlusion. Remains on Crestor 10 mg and aspirin 81 mg daily.Continue speech therapy plan for modified barium swallow tomorrow to evaluate dysphagia. [facility]errals [facility] to [facility] facilities. (2) Occlusion of right middle cerebral artery: Status: Acute Assessment and plan: as above (3) Symptomatic anemia: Status: Acute Assessment and plan: GI protection as above. monitor hemoglobin, treat w/ parenteral iron.Hemoglobin rising up to 9.1 today. (4) Acute on chronic blood loss anemia: Status: Acute Assessment and plan: as above. Hemoglobin 8.2 g. Continue parenteral iron along with GI protection. (5) Tenosynovitis of right wrist: Status: Acute Assessment and plan: suspect gout or pseudogout. Improving. continue colchicine for couple more days. I put her on Cymbalta couple days ago, this could help w/ pain as well as treat what seems to be some depression related to her acute health condition (6) Pain in both lower legs: Status: Acute Assessment and plan: no evidence for myositis but awaiting aldolase level. CK was normal. remains off statin for now but consider reinstituting if aldolase is normal. MRI of LS spine w/ multilevel DJD w/ mild spinal canal stenosis and moderate bilateral neuroformainal stenosis at L2-L3 level. I think this is the cause for her bilateral leg pains and back pains. Dr. Manuel agrees with this assessment. (7) Difficulty walking: Status: Acute Assessment and plan: Continue PT. As above. (8) DVT prophylaxis: Status: Acute Assessment and plan: SCDs. Avoid chemical DVT ppx given GI bleeding (9) Discharge planning issues: Status: Acute Assessment and plan: Full code Patient is agreeable to SNF. I asked CM to consider placing referral to [facility]. Subjective Subjective Interval history since last seen: Patient is complaining of constipation she states she has not had a bowel movement since she has been here in spite of the fact that she has stool softeners and laxatives already ordered on a as needed basis. We will give her Dulcolax suppository and I changed her docusate to scheduled rather than as needed and also scheduled her MiraLAX. Per nursing staff she has been having increased trouble with her swallowing patient notes that there are certain things she cannot swallow adequately. I spoke with the speech and language pathologist who would like to do a modified barium swallow tomorrow. Palliative care is scheduling to meet with her again today. Neurology consult is pending at this time. Otherwise patient's had her stroke work-up including echocardiogram with bubble study as well as MRI and CTA. Patient continues to have dense left-sided hemiparesis. She continues to have dense left-sided hemiparesis. Her right wrist is better since she was started on colchicine for gout versus pseudogout. Exam Narrative Exam Narrative: Beth is alert oriented speech seems to be clear still has left-sided hemineglect. Facial palsy is still present although improved over that seen last week. Lungs are clear to auscultation Heart is regular rate and rhythm (review of her telemetry shows her to be in sinus rhythm with no arrhythmias) Right wrist appears to be improved swelling is going down. She has improved range of motion in the right hand and wrist. Neuro exam she still has left-sided hemineglect although I am able to get full extraocular motion she is able to look to the left side when I asked her to track my finger. Still has left facial droop although improved Left arm and hand and left leg are still very weak. She has weak open closure of her left hand but unable to hold left arm up against gravity. She weakly dorsiflex the toes of her left foot but not able to lift her leg up off the bed. Objective Last Vital Signs Temp 37.1 C 06/28/23 10:47 Pulse 93 H 06/28/23 10:47 Resp 16 06/28/23 10:47 BP 125/64 06/28/23 10:47 Pulse Ox 91 L 06/28/23 10:47 Laboratory Results - last 24 hr 06/24/23 06/28/23 06:00 06:15 WBC 9.48 RBC 3.39 L Hgb 9.1 L Hct 30.3 L MCV 89 MCH 26.8 L MCHC 30.0 L RDW 18.6 H Plt Count 550 H MPV 11.0 Immature Gran % 0.7 Neutrophils % 70.0 Lymphocytes % 10.8 Monocytes % 11.7 Eosinophils % 5.4 Basophils % 1.4 Nucleated RBC % 0.0 Absolute Neutrophils 6.64 Absolute Lymphocytes 1.02 L Absolute Monocytes 1.11 H Absolute Eosinophils 0.51 Absolute Basophils 0.13 ESR 60 H Sodium 137 Potassium 4.0 Chloride 101 Carbon Dioxide 30.9 Anion Gap 5.1 BUN 18 Creatinine 0.5 L Est GFR (CKD-EPI 2020) 94.17 Glucose 79 Calcium 8.9 C-Reactive Protein 2.66 H Aldolase 4.8 Time Spent with Patient Time Spent with Patient: 35-49 minutes Time was spent: preparing to see the patient(eg.review tests), ordering medications,tests, procedures, referring, communicating with other health companion caregiver (Cristiano Hill from Palliative Care and I have been texting w/ Dr. Meade), indepentently interpreting results, counseling the patient and care coordination
--- NOTE | 2023-06-28 16:41 | W.PALPGNOTE ---
Date of service: 06/28/23 Time of Service: 15:00 Assessment and Plan Assessment and plan (1) Acute CVA (cerebrovascular accident): Status: Acute Assessment and plan: acute R MCA, new neuro consult pending, plan for tomorrow LS hemineglect, weakness started on ASA 81mg (2) Pain in both lower legs: Status: Acute Assessment and plan: apap and tramadol available, tramadol recommended at time of visit d/t discomfort ortho consult agrees pain r/t spinal stenosis/multilevel DJD MRI of LS spine w/multilevel DJD, spinal canal stenosis, moderalt bilateral neuroforminal stenosis of L2-L3 continue PT (3) Symptomatic anemia: Status: Acute Assessment and plan: h/o previous GI bleed, H/H now stable, continue carafate and PPI consider outpatient colonoscopy; recent EGD w/gastritis in Apr (4) Difficulty walking: Status: Acute Assessment and plan: PT following, recommend SNF (5) Calcific tendinitis of right wrist: Status: Acute Assessment and plan: improving w/colchicine, continue brace continue OT (6) Right internal carotid occlusion: Status: Acute (7) Spinal stenosis: Status: Acute (8) Fatigue: Status: Acute (9) Discharge planning issues: Status: Acute Assessment and plan: H/R accepts referral, pending prior authorization not cleared for discharge (10) ACP (advance care planning): Status: Acute Assessment and plan: Discussion regarding Code Status preferences - patient wants to be a Full Code continues to agree to SNF pending discharge wants all things done at this time to sustain life, is comfortable remaining in hospital for ongoing assessments (swallow study, neuro consult) (11) Palliative care encounter: Status: Acute Assessment and plan: no AD copy received yet; previously reported [facility]anna/daughter as documented [facility] to continue to follow while inpatient, or outpatient pending discharge Subjective Subjective Interval history since last seen: Beth continues to be hospitalized at [facility], now s/p CVA w/acute R CVA overnight on 06/22-; [facility] neuro consult recommends once H/H stable consider single agent antiplatelet; neuro consult pending, to be completed tomorrow; L hemineglect, LS weakness continue; imaging r/o thrombus PT/OT recommends SNF; worked w/PT today, was OOB and did not do well w/feeling tired and not feeling confident being upright Leg pain from spinal stenosis and DJD, ortho consult confirms, restarted Crestor. Pain remains controlled w/tramadol and apap; denies pain now; new c/o R wrist pain of tenosynovitis, pseudogout, ortho recommends brace, started on colchicine w/improvement decreased appetite persists, she has been tolerating around 25% of meals; this morning she had increased coughing w/eating, BIOSTATISTICS PROFESSOR consult recommends swallow study, to be done tomorrow Beth is done today, she is tired and would like to rest She remains a full code and would like everything continued to be done to keep her alive. Her goal is to get stronger and go home; if she gets worse or no better w/some time at rehab she would prefer to [facility] and return home. [facility]R has accepted Beth pending prior authorization Exam Narrative Exam Narrative: General: older adult female, lying in bed in dark room throughout visit; no acute distress HEENT: MMM, normocephalic, atraumatic Resp: even and unlabored, able to speak full sentence (x2) w/o SOB, no audible wheeze, no cough Ext: no pedal edema Neuro: LS weakness LUE and LLE; w/LS hemineglect; Psych: fatigued; thought process impoverished; speech/movement delayed; insight/judgment limited Objective Last Vital Signs Temp 98.8 F 06/28/23 15:08 Pulse 90 06/28/23 15:08 Resp 17 06/28/23 15:08 BP 138/73 06/28/23 15:08 Pulse Ox 96 06/28/23 15:08 Laboratory Results - last 24 hr 06/24/23 06/28/23 06:00 06:15 WBC 9.48 RBC 3.39 L Hgb 9.1 L Hct 30.3 L MCV 89 MCH 26.8 L MCHC 30.0 L RDW 18.6 H Plt Count 550 H MPV 11.0 Immature Gran % 0.7 Neutrophils % 70.0 Lymphocytes % 10.8 Monocytes % 11.7 Eosinophils % 5.4 Basophils % 1.4 Nucleated RBC % 0.0 Absolute Neutrophils 6.64 Absolute Lymphocytes 1.02 L Absolute Monocytes 1.11 H Absolute Eosinophils 0.51 Absolute Basophils 0.13 ESR 60 H Sodium 137 Potassium 4.0 Chloride 101 Carbon Dioxide 30.9 Anion Gap 5.1 BUN 18 Creatinine 0.5 L Est GFR (CKD-EPI 2020) 94.17 Glucose 79 Calcium 8.9 C-Reactive Protein 2.66 H Aldolase 4.8
[2023-06-28] MEDS: Polyethylene Glycol 3350 17 GM PACKET PO (16:43)
[2023-06-28] MEDS: Bisacodyl 10 MG SUPP PR (16:44)
[2023-06-28 18:01] LABS: Rheumatoid Factor <8.6 IU/mL (<12.0)
[2023-06-28] MEDS: Normal Saline Flush 10 ML SYR IVP (18:01)
[2023-06-28 19:44] VITALS: BP 154/73; PULSE 99; RESP 18; TEMP 36.8; O2SAT 92
[2023-06-28] MEDS: Lidocaine 5% Patch 1 PATCH TP (20:38)
[2023-06-28] MEDS: Docusate Sodium 100 MG/10 ML CUP PO (20:38)
[2023-06-28] MEDS: Pramipexole 0.25 MG TAB 0.125 MG PO (20:39)
[2023-06-28] MEDS: Rosuvastatin 10 MG TAB 20 MG PO (20:39)
--- NOTE | 2023-06-28 20:58 | NUR.NOTE ---
Nursing Note: while doing night time med pass, patient selected ice cream as the mode in which to take her crushed pills. pills crushed and added to ice cream. after about half of the mixture patient stated that she was having a really hard time swallowing and couldnt do anymore. it is not possible to know what medications that she received and didnt receive. pt encouraged to let out some big coughs, denies choking or gagging but just cannot do anymore. pt is stable with no pain or sob at this time. wctm.
[2023-06-29] VITALS (7 sets, daily range): BP systolic 124–156; BP diastolic 62–81; PULSE 85–99; RESP 17–19; TEMP 36.5–37.3; O2SAT 92–96
[2023-06-29] MEDS: ACETAMINOPHEN 1,000 MG/100 ML BTL 400 MG IVPB ×3 (05:56→22:09)
[2023-06-29] MEDS: Pantoprazole 40 MG VIAL IVP ×2 (05:56→17:52)
[2023-06-29] MEDS: Colchicine 0.6 MG TAB PO ×2 (07:55→20:46)
[2023-06-29] MEDS: miSOPROStol 100 MCG TAB PO ×4 (07:56→20:47)
[2023-06-29] MEDS: Sucralfate 1 GM TAB PO ×4 (07:56→20:47)
[2023-06-29] MEDS: Lidocaine Patch Removal 1 EACH TP (08:25)
[2023-06-29 09:29] LABS: Cyclic Citrullinated Peptide <2.5 U/mL (<5.0)
--- NOTE | 2023-06-29 09:44 | PDOC.CMPRO ---
Date of service: 06/29/23 Time of Service: 09:44 Care Management Progress Note Progress Note Text Progress Note Text: S/O: Beth was lying in bed when CM met with her. She was a bit sleepy but was willing to interact with CM. The plan had been for Beth to transfer to [facility], possibly today, however CM was notified this morning that [facility] is closed to admissions. They did offer beds at sister facilities. CM discussed this with Beth who requested CM contact Breanna. Both agreed to proceed with transfer to whichever of the 3 facilities is closest and has bed availability. The Condominium Manager for [facility] is working on the prior authorization; if all goes well, Beth will likely be able to transfer tomorrow. A: Beth is an 82 year old female admitted to [facility] on 06/20/23 with symptomatic anemia, L hip pain. P: Anticipate Beth will transfer to a senior care facility for short term rehab prior to returning home. She will follow up with facility providers and plan of care and transport with family vs [facility]. CM will follow and continue to assess for discharge concerns.
[2023-06-29 10:00] LABS: Lyme Ab w Rflx to Lyme Confirm Negative (Negative)
--- NOTE | 2023-06-29 10:10 | ST.MBS ---
Date of Service Date of service: 06/29/23 Time of Service: 10:10 Modified Barium Swallow Study Findings: Video fluoroscopic Swallowing Evaluation (VFSE) / Modified Barium Swallow Study (MBSS) Speech Language Pathology Report Patient referred for VFSE/MBSS from Dr. Pete given continued concern for aspiration on modified diet. HPI & Patient report of function: Patient is an 82 year old F with h/o Bernard's esophagus, chronic anemia, GI bleed, CVA, CHFrEF, who presented to the ED due to severe bilateral hip vs LE pain after a fall two weeks ago, and admitted for management of symptomatic anemia, acute on chronic blood loss anemia, post-transfusion fever, and difficulty walking. During admission she was observed with new onset weakness and confusion and CT and subsequent MRI revealed evolving R MCA stroke. MINIATURE SET DESIGNER completed bedside evaluation and patient was placed on a modified diet, now recommending MBSS to confirm diet tolerance and r/o aspiration. IMPRESSIONS: Swallow safety is impaired; swallow efficiency is impaired. Mild-moderate oropharyngeal dysphagia. Characterized primarily by weak facial and lingual function and discoordination of oral phase, also complicated by edentulousness, resulting in poor mastication and some premature posterior spillage into pharynx and difficulty with oral transit for solids>liquids. Benefits from multiple swallows and liquid wash to clear dry solid residue. Patient was unable to transit the barium tablet into pharynx with liquids, will benefit from crushed meds in puree. In the pharyngeal phase, slow laryngeal elevation (despite timely hyoid movement) resulted in flash penetration of thin liquids, but did not result in any aspiration nor notable laryngeal residue after the swallow. Penetration was eliminated when tsp size sips were given. Of note, patient did have 1 episode of prandial coughing after sip of liquids, despite an absence of aspiration or persistent laryngeal residue. Patient appears to be at mild risk for potential aspiration PNA and/or pulmonary compromise and mild risk for malnutrition, mild risk for dehydration. Will benefit from close supervision/assist during meals to mitigate these risks. Diet modification is indicated; non-oral nutrition is not indicated. Swallow prognosis is good-fair given: Positive prognostic factors: Severity, Time since onset, Effectiveness of trialed compensatory strategies, Negative prognostic factors: Age, Cognitive status and pending patient/caregiver training in risk management as outlined, including use of trialed compensatory strategies. RECOMMENDATIONS: Diet Texture Recommendation:? IDDSI LEVEL SOLIDS 5-Minced & Moist Solids May downgrade to 4-Pureed Solids if patient prefers LIQUIDS 0-Thin Liquids Diet texture modification is per patient's preference; please adjust diet textures at patient's discretion & collaboration with care team. MEDICATIONS Crushed, as able, or small pills whole if needed with 4-Puree (via tsp) Do not alter medications (e.g., cut)? without advice from your MD or pharmacist. RISK MANAGEMENT: Upright in chair if able for meals; otherwise HOB as upright as tolerated for all PO intake Encourage physical mobility as tolerated. Oral hygiene before/after PO intake using friction with toothbrush on all oral structures and dentures as tolerated Level of Assistance/Supervision: 1:1 assist/close supervision for all PO intake PO intake only when awake/alert Strategies/Adaptations/Assistive Equipment: Reduce auditory and/or visual distractions when eating, Provide verbal and/or visual cues to use recommended strategies, Small bites Small sips via straw - use straw pinch or remove straw to control sip size (tsp size) Swallow between bites Alternate intake of liquids and solids Posture/Positioning Needs: Maintain upright position at least 30 minutes after meals Avoid meals/snacks 2-3 hours prior to reclining/sleeping Sleep with head of bed elevated to reduce likelihood of nocturnal reflux PLAN: Frequency: 1-2x/week for diet tolerance. DISCHARGE: Recommend MINIATURE SET DESIGNER services at [facility] Clinical Education Manager Goals: Patient will remain free from aspiration-related illness, malnutrition, and dehydration. Patient/family will verbalize comprehension of education provided re: dx , strategies to maximize functioning, and role of ST. Short Term Goals: Patient will participate in ongoing diagnostic treatment addressing areas of dysphagia Patient will tolerate Soft/Bite size Diet and Thin liquids without overt s/s aspiration across 2/2 visits. Patient will tolerate PO trials for consideration of diet upgrade without overt s/s aspiration across 2/2 visits. Education Provided to: Nursing, Patient, Physician Topics Addressed: anatomy/physiology of swallowing mechanism, overt s/sx to monitor for re: potential aspiration of food / liquids, recommendations for improved oral care, Total time spent:50 minutes (10:00-1050 am) ----- OBJECTIVE Videofluoroscopic Swallow Evaluation (VFSE/MBSS) was conducted in the lateral projection by Speech-Language Pathologist, in collaboration with Radiologist, to evaluate oropharyngeal swallow function. Anatomic view under fluoroscopy: WFL PO Barium Contrast Trials Oral barium water-soluble contrast was administered as follows: IDDSI Level 0 Varibar thin liquid (40% w/v) IDDSI Level 4 Varibar pudding/pureed/extremely thick (40% w/v) IDDSI Level 7 Regular Solid: 1/2 tye cracker coated in 3 mL Varibar pudding 13 mm barium tablet taken with Thin Liquids. MBSImP Component Scores: COMPONENT Scale SCORE 1 Lip closure (0-4) 2 Resulted in escape from interlabial space or lateral juncture, but no extension beyond vermilion 2 Hold Position (0-3) 2 Resulted in posterior escape of less than half of the bolus 3 Bolus Preparation (0-4) 2 Demonstrated disorganized chewing/mashing with solid pieces of bolus unchewed 4 Bolus Transport (0-4) 3 Was with repetitive/disorganized motion of the tongue 5 Oral Residue (0-4) 2 Was a collection on oral structures 6 Swallow Initiation (0-4) 2 Occurred as bolus head at posterior laryngeal surface of epiglottis 7 Soft Palate Elevation (0-4) 0 Resulted in no bolus between soft palate and the pharyngeal wall 8 Laryngeal Elevation (0-3) 1 Was decreased (delayed) with partial superior movement of thyroid cartilage/partial approximation of arytenoids to epiglottic petiole 9 Anterior Hyoid Motion (0-2) 0 Demonstrated complete anterior movement 10 Epiglottic Movement (0-2) 0 Resulted in complete inversion 11 Laryngeal Closure (0-2) 0 Was complete with no air or contrast in laryngeal vestibule 12 Pharyngeal Stripping Wave (0-2) 1 Was present, but diminished 13 Pharyngeal Contraction (0-3) NA 14 PES Opening (0-3) 1 Demonstrated partial distension/partial duration, with partial obstruction of flow (primarily due to appearance c/w osteophytes) 15 Tongue Base Retraction (0-4) 1 Allowed a trace column of contrast or air between tongue base and pharyngeal wall 16 Pharyngeal Residue (0-4) 2 Was a collection of residue within or on pharyngeal structures 17 Esophageal Clearance (0-4) NA Results: COMPONENT Scale SCORE 1 Oral Score (0-18) 9 2 Pharyngeal Score (0-29) 5 3 Esophageal Score (0-4) 0 Dysphagia Outcome and Severity Scale: COMPONENT Scale SCORE 1 LEVEL (1-7) 4 Full PO: Modified Diet and/or [place] - Mild-moderate dysphagia; Intermittent supervision/cueing and/or 1 or 2 consistencies restricted Penetration-Aspiration Scale: COMPONENT Scale SCORE 1 Thin liquid (1-8) 2 Contrast entered the airway, remained above the vocal folds, and was ejected from the airway. 2 Helen thick (1-8) NA 3 Honey thick (1-8) NA 4 Pudding Thick (1-8) 1 Contrast did not enter the airway 5 Cookie (1-8) 1 Contrast did not enter the airway Observations not captured in quantitative data: Notable delay between onset of anterior hyoid motion and laryngeal elevation. Trialed Compensatory Strategies & Outcome: Maneuvers Successful(+) Unsuccessful(-) Postures Successful (+) Unsuccessful (-) 3 second Preparatory Set? ?+ Chin Tuck Posture? ? Cough? ? Posterior Head tilt? Reflexive? Cued? Throat Clear? ? Head Tilt to? Reflexive? Left? Cued? Right? ? Saliva swallow? ?+ Head Turn/Rotate? ? Supraglottic Swallow? Left? ? Super-supraglottic swallow? Right? ? Bolus Modifications Successful (+) Unsuccessful (-) Delivery/Alternating Consistencies ? Follow with Liquid Wash + ? Follow with Solid Bolus? Delivery/Via Straw? ?+ Reduced Volume? ?+ Reduced Rate of Intake? ? Increased Viscosity? ? Other:?? ? Thank you for allowing us to take part in this patient's care. Please feel free to contact the [facility] Speech Language Pathology Department with any questions/concerns. Coding CPT Codes MOTION FLUOROSCOPY/SWALLOW - [id number] ([id number])
--- NOTE | 2023-06-29 10:41 | DI.RAD_ITS ---
Exam(s) RF MODIFIED SPEECH BA SWALLOW TECHNIQUE: Modified barium swallow was performed in conjunction with speech pathology. CONTRAST MATERIAL: Oral barium Oral water soluble contrast was administered. COMPARISON: No exams were available for comparison FINDINGS: Fluoroscopy was provided during modified barium swallow study performed with the speech therapist. T he radiologist was present in the fluoroscopy suite for this entire procedure. See separate speech therapist report. There is no evidence of javed aspiration on this study. IMPRESSION: No evidence of aspiration or penetration. See separate speech therapist report RADIATION DOSE DELIVERED: diallo Mehta=10.8 mGy
[2023-06-29] MEDS: Barium Sulfate 700 MG TAB PO (10:53)
[2023-06-29] MEDS: Barium Sulfate 40% W/V 240 ML BTL PO (10:56)
[2023-06-29] MEDS: Barium Sulfate Oral Paste 40% W/V 230 ML TUBE PO (10:57)
[2023-06-29] MEDS: Barium Sulfate 81% w/w for Oral Suspension 148 GM BTL PO (10:58)
[2023-06-29] MEDS: Docusate Sodium 100 MG/10 ML CUP PO (11:24)
[2023-06-29] MEDS: Aspirin 81 MG CHEW CH (11:25)
[2023-06-29] MEDS: Multivitamin TAB 1 TAB PO (11:25)
[2023-06-29] MEDS: Beta-Carotene(A) w/C,E, & Minerals TAB 1 TAB PO ×2 (11:25→20:46)
[2023-06-29] MEDS: Calcium 600mg/Vit D 200U TAB 2 TAB PO (11:25)
--- NOTE | 2023-06-29 12:01 | PTTR_ITS ---
Date of service: 06/29/23 Time of Service: 11:24 PT Notes Visit Reasons: symptomatic anemia,L hip pain,fever during transf Inpatient Physical Therapy Treatment Note [facility] Date: 06/29/23 PRECAUTIONS: Fall, standard, activity as tolerated. SUBJECTIVE: Patient reports feeling very tired, refuses to get out of bed. RN Nataly present, reports that patient went downstairs for a MBS study earlier, had to sit up for over an hour, and likely is tired. OBJECTIVE: Patient supine in bed. Agreeable to bed level exercises only. ? PAIN: none reported. VITALS: monitored by nursing staff. ? ? ? BED MOBILITY/TRANSFERS? Rolling L/R: not assessed Supine-sit: refused ? Therapeutic Exercises ([id number]): Direct one-on-one instruction in therapeutic exercises to develop strength, endurance, range of motion and flexibility. ? Exercises: * ankle pumps x5 Verbal and tactile cues to stimulate movement on left side. * Hip ab/adduction x5 Verbal and tactile cues to stimulate movement on left side. * SLRs x5 Verbal and tactile cues to stimulate movement on left side. * leg press vs therapist manual resistance x5 Verbal and tactile cues to stimulate movement on left side including quick jolt against pressure to increase patient participation * bridge x8 Provided skilled instruction in proper exercise performance Provided skilled manual cues to facilitate proper muscle recruitment and/or form. ASSESSMENT:? Patient not overly motivated or engaged in therapy. Acknowledges that she won't get stronger if she doesn't participate, still not inclined to participate. PLAN: Continue global strengthening per plan of care until patient is medically cleared for discharge and obtains placement at a subacute rehab. TREATMENT CODE/TIME: 15 minutes beginning at 11:24
--- NOTE | 2023-06-29 12:31 | W.PM.PROGNOT ---
Date of Service Date of service: 06/29/23 Time of Service: 12:32 Assessment and Plan Assessment and plan (1) Acute CVA (cerebrovascular accident): Status: Acute Assessment and plan: -acute R MCA, new -neuro consult pending -LS hemineglect, weakness -started on ASA 81mg (2) Pain in both lower legs: Status: Acute Assessment and plan: -apap and tramadol available, tramadol recommended at time of visit d/t discomfort -ortho consult agrees pain r/t spinal stenosis/multilevel DJD -MRI of LS spine w/multilevel DJD, spinal canal stenosis, moderalt bilateral neuroforminal stenosis of L2-L3 -continue PT (3) Symptomatic anemia: Status: Acute Assessment and plan: -h/o previous GI bleed, H/H now stable, continue carafate and PPI -consider outpatient colonoscopy; recent EGD w/gastritis in Apr (4) Difficulty walking: Status: Acute Assessment and plan: -PT following, recommend SNF (5) Calcific tendinitis of right wrist: Status: Acute Assessment and plan: -improving w/colchicine, continue brace -continue OT (6) Right internal carotid occlusion: Status: Acute (7) Discharge planning issues: Status: Acute Assessment and plan: -Case Management working on placement (8) ACP (advance care planning): Status: Acute Assessment and plan: Discussion regarding Code Status preferences - patient wants to be a Full Code continues to agree to SNF pending discharge wants all things done at this time to sustain life, is comfortable remaining in hospital for ongoing assessments (swallow study, neuro consult) (9) Palliative care encounter: Status: Acute Assessment and plan: no AD copy received yet; previously reported Breanna/daughter as documented [facility] to continue to follow while inpatient, or outpatient pending discharge Subjective Subjective Interval history since last seen: Patient states that she is having regular diarrhea today. She understands that she is waiting for a rehab bed and has no other complaints concerns at this time. Exam Narrative Exam Narrative: Older female lying in bed in no acute distress, A&Ox4, heart regular rate rhythm, lungs clear to auscultation bilaterally, persistent left upper and lower extremity weakness with left-sided hemineglect Objective Last Vital Signs Temp 98.4 F 06/29/23 11:21 Pulse 94 H 06/29/23 11:21 Resp 17 06/29/23 11:21 BP 154/69 H 06/29/23 11:21 Pulse Ox 95 06/29/23 11:21 Laboratory Results - last 24 hr 06/28/23 06:15 Rheumatoid Factor <8.6 Cyclic Citrull Peptide <2.5 Lyme Disease Antibody Negative Time Spent with Patient Time Spent with Patient: >50 minutes Time was spent: preparing to see the patient(eg.review tests), obtaining and/or reviewing separately otained hiistory, referring, communicating with other health client care consultant, indepentently interpreting results, counseling the patient and care coordination
--- NOTE | 2023-06-29 16:08 | NCONE_ITS ---
Date of service: 06/29/23 Time of Service: 16:08 Assessment and Plan Assessment and plan (1) Acute CVA (cerebrovascular accident): Status: Acute (2) Renal cell carcinoma: Status: Acute (3) Right internal carotid occlusion: Status: Acute (4) Carotid stenosis, right: Status: Acute (5) Left hemiparesis: Status: Acute (6) Saurav-neglect of left side: Status: Acute (7) Dysphagia: Status: Acute (8) Babinski reflex: Status: Acute (9) Pain in both lower legs: Status: Acute Assessment and plan: #1. Acute right hemisphere stroke manifested by right gaze preference, left hemiparesis, L hemineglect, L homonymous hemianopsia, dysarhtria, dysphagia secondary to severe R ICA stenosis vs occlusion with distal filling and presumed hypercoaguable state from known renal cell carcinoma, complicated by GI bleeding. Continue ASA 81mg daily as tolerated/safe to do so. Continue treatment/further outpatient work-up of GI bleeding. See statin recs below. I spoke with nursing team to move Beth to a room where her right side is to the door so that she can see who enters and leaves here room. Continue PT, ST, OT. She is awaiting acceptance at SNF currently. #2. Bilateral LE myalgias. I do not think symptoms are attributable to lumbar spine disease. Certainly possible symptoms could be due to statin use. Despite recent stroke, I would consider stopping statin, particularly given generalized weakness vs deconditioning that she has also developed. #3. Bilateral Babinski reflexes and generalized L>R weakness. [employer] imaging would not explain the Babinski reflex on the right. Given right sided weakness, could she have had another stroke? vs deconditioning. Consider updated brain MRI w/o - if no evidence of L hemipshere abnormality, would recommend an MRI c-spine w/o as further work-up of exam findings - this could de done as an outpatient. #4. ?Pulmonary AVM. If present, would have implications for anticoagulation in the future and may be related to current GI bleed - screen for HHT? No cerebral AVMs on imaging. Recommend outpatient CTA chest imaging as further work-up +/- pulm referral. She should f/up in the neurology clinic as scheduled. Please call with any other questions concerns. History of Present Illness History of Present Illness Chief Complaint: stroke Narrative: Handedness: right. Beth Shields is an 82 year-old with hypertension, hyperlipidemia, DM2, stroke, R internal carotid artery occlusion, anemia/GI Bleed, NSTEMI in the setting of anemia, L renal cell carcinoma - which is being watched at this time, RLS, asthma, GERD/Barrets, osteopenia. I previously met Ms. Rincon on 05/31/23 after hospitalization 04/21/23- 04/28/23 ([facility] --> [facility]) for anemia secondary to GI bleed complicated by NSTEMI and acute stroke on 04/23/23 am manifested by L hemiparesis and dysarthria - with residual mild left leg weakness. She underwent the work-up as below. Etiology of her stroke remains unclear either secondary to apparent R ICA occlusion/top of the stump vs more likely secondary to hypercoaguable state given presence of small area of ischemia in the R posterior circulation as well. She was started on DAPT + statin during her hospitalization. This was reduced to ASA 81mg only + statin on 05/31/23 given recent GI bleed (ok'd by cardiology to reduce to ASA only). There was discussion regarding when we could safely start anticoagulation for secondary stroke prophylaxis given recent GI bleed, but Hgb still low at 10.8 on 05/19/23 and it was not felt safe yet to do so. Ms. Shields was admitted back to [facility] on 06/20/23 with 2 weeks of generalized vs bilateral lower extremity weakness. Found with Hgb 5.8 (stool heme+) s/p 2 U PRBCs and then another 1U PRBCs on 06/22/23. Aspirin was stopped upon admission. On 06/23/23 at ~0400, patient noted to have right gaze preference, left hemiparesis, L hemineglect, L homonymous hemianopsia, dysarhtria, dysphagia found to have a new R hemisphere stroke as below. Unclear when last normal was but [facility] Neurology consulted and she was not a candidate for tPA or intervention. Recommended re-starting ASA for which she was given 325mg x 1 and has been maintained on 81mg daily with stable H/H thus far - last was 9.1 on 06/28/23. She appears to have poor recovery thus far complicated by apparent R leg>>arm weakness. Duration of this? Deconditioning? She has also been noting bilateral leg pain. Describes pain only with touching of the legs, pressure on the legs. No hypersensitivity in the legs. Atorvastatin stopped upon admission as concerning for statin induced myopathy/myositis. Unclear if there was any benefit with this. Duloxetine 30mg daily added along with pramipexole 0.125mg HS and Tramadol - unclear if any of these have been of benefit - Beth unable to give much history currently. Rosuvstatin was re-started post stroke, currently 20mg HS. She is getting PT, OT, ST. Also with gout/pseudogout flare of R wrist. Today with nausea and diarrhea. She tells me she is not feeling well currently unfortunately. Current Work-up: CTH (06/23/23): subacute large R temporoparietal stroke. I reviewed these images personally and this is my personal interpretation. -CTA head/neck (06/23/23): Severe R proximal stenosis vs occlusion with distal filling - improved compared to previous imaging. Rads noted severe R vertebral artery stenosis and moderate L CCA stenosis which I did not see. They also noted moderate-severe L EMT P stenosis - did they mean right? I reviewed these images personally and this is my personal interpretation. -MRI brain w/o (06/23/23): Large R temporal-parietal ischemic stroke. No evidence of microhemorrhage. I reviewed these images personally and this is my personal interpretation. -TTE (06/25/23): EF 60% with no wall motion abnormalities - improved from previous. Late bubbles indicating possible pulmonary AVM. Small pericardial effusion. Lipomatous hypertrophy of the interatrial septum. -MRI L-spine (06/2023): Moderate central L2-3 stenosis with R>L NF narrowing. Bilateral nerve root sheath cysts at multiple levels. I reviewed these images personally and this is my personal interpretation. Previous Work-up: -MRI brain w/o (04/23/23 at [facility]): Several small scattered acute/subacute infarcts throughout the R MCA distribution including the R insula and fronto- parietal cortex and subcortex. Old R frontal T2 hyperintensity. Extensive chronic vascular changes. I reviewed these images personally and this is my personal interpretation. -CTA head/neck (04/23/23 at [facility]): R ICA occlusion at the origin. -TTE (04/22/23 at [facility]): EF 45% with apical and anterior apical wall motion abnormalities. LA mildly dilated. Small circumferential pericardial effusion. Bubble not done. -Labs: A1c 5.6 (but anemic!!), LDL 115 -MRI brain w/o (04/27/23 at [facility]): evolving R MCA infarcts with interval new punctate ischemia in the R parietal lobe and stoddard radiata. There is a single punctate ischemia that borders into the R occipital and therefore posterior circulation and thus may be why manager cardiac was recommended. I reviewed these images personally and this is my personal interpretation. 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 No significant arrhythmias. Review of Systems All systems reviewed & are unremarkable except as noted in HPI and below PFSH All Active Problems (Updated 06/29/23 @ 21:08 by Catrina Meade MD) Babinski reflex (Acute) Dysphagia (Acute) Saurav-neglect of left side (Acute) Left hemiparesis (Acute) Carotid stenosis, right (Acute) Calcific tendinitis of right wrist (Acute) Tenosynovitis of right wrist (Acute) Occlusion of right middle cerebral artery (Acute) Palliative care encounter (Acute) ACP (advance care planning) (Acute) Pain in both lower legs (Acute) Discharge planning issues (Acute) DVT prophylaxis (Acute) Acute on chronic blood loss anemia (Acute) Symptomatic anemia (Acute) Fall (Acute) Difficulty walking (Acute) Fever (Acute) Anemia (Chronic) Regional wall motion abnormality of heart (Acute) Acute CVA (cerebrovascular accident) (Acute) Fever (Acute) Hypoxia (Acute) Acute CHF (Acute) NSTEMI (non-ST elevated myocardial infarction) (Acute) type 2 due to anemia Acute electrocardiogram changes (Acute) Right internal carotid occlusion (Acute) Acute focal neurological deficit (Acute) Renal malignant neoplasm (Chronic) 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 Patient follows up with [facility]. Elevated troponin (Acute) Chest pressure (Acute) Leucocytosis (Acute) Heme + stool (Acute) Sacroiliac joint dysfunction of both sides (Acute) Renal cell carcinoma (Acute) Referred to [facility]. Plan is to monitor for size change. dx 07/24 Hip pain, left (Acute) Shoulder pain, left (Acute) Fatigue (Acute) Leg pain, left (Acute) Left kidney mass (Acute) Spinal stenosis (Acute) Trochanteric bursitis, left hip (Acute) Injection: 12/26/2021 Calcific tendinitis of left hip (Acute) Strain of gastrocnemius muscle of left lower extremity (Acute) Medical History Osteopenia Asthma Hyperlipidemia HTN (hypertension) Chronic pain Restless leg syndrome Acute systolic (congestive) heart failure CVA (cerebral vascular accident) Anemia Acute non-ST segment elevation myocardial infarction Gastritis GI bleed 04/21/23 was sent to [facility] for w/u Chronic left hip pain Surgical History History of esophagogastroduodenoscopy (~04/2023) Biopsies taken H/O abdominoplasty H/O: hysterectomy Social History Smoking/Tobacco Use Status: Former Tobacco Use Smoking risk assessment performed?: Yes Alcohol Intake: never Drug use: Never Substance use type: marijuana Housing: apartment Do you feel safe at home: Yes Do you feel safe in your relationship?: Yes Visit Medication and Allergies Active Medications Generic Name Dose Route Start Last Admin Trade Name Freq PRN Reason Stop Dose Admin Al Hydrox/Mg Hydrox/Simethicone 30 ml 06/20/23 16:11 Mylanta Suspension 30 Ml Cup PO Q2H PRN PRN Albuterol Sulfate 2 puff 06/21/23 08:25 Albuterol Hfa 8 Gm 60 Puff Inh IH Q4H PRN PRN Aspirin 81 mg 06/26/23 10:15 06/29/23 11:25 Aspirin 81 Mg Chew CH 81 mg DAILY ADAN Administration Barium Sulfate 700 mg 06/29/23 11:00 06/29/23 10:53 Barium Sulfate 700 Mg Tab PO 07/29/23 23:59 700 mg DIRECTED ADAN Administration Barium Sulfate 240 ml 06/29/23 11:00 06/29/23 10:56 Barium Sulfate 40% W/V 240 Ml Btl PO 07/29/23 23:59 80 ml DIRECTED ADAN Administration Barium Sulfate 230 ml 06/29/23 11:00 06/29/23 10:57 Barium Sulfate Oral Paste 40% W/V 230 Ml Tube PO 07/29/23 23:59 13 ml DIRECTED ADAN Administration Barium Sulfate 148 gm 06/29/23 11:00 06/29/23 10:58 Barium Sulfate 81% W/W For Oral Suspension 148 Gm Btl PO 07/29/23 23:59 80 gm DIRECTED ADAN Administration Bisacodyl 10 mg 06/28/23 15:26 06/28/23 16:44 Bisacodyl 10 Mg Supp OH 10 mg DAILY PRN PRN Administration Budesonide/Formoterol Fumarate 2 puff 06/20/23 20:00 06/29/23 08:24 Budesonide/Formoterol 160/4.5 10.2 Gm 120 Puff Inh IH 2 puffs BID ADAN Administration Calcium/Vitamin D 2 tab 06/21/23 08:30 06/29/23 11:25 Calcium 600mg/Vit D 200u Tab PO 2 tab DAILY ADAN Administration Colchicine 0.6 mg 06/27/23 20:00 06/29/23 07:55 Colchicine 0.6 Mg Tab PO 0.6 mg BID ADAN Administration Device 1 each 06/20/23 19:27 Inhaler, Assist Device MC DIRECTED [facility] Diclofenac Sodium 0 gm 06/25/23 12:00 06/29/23 15:09 Diclofenac 1% Gel 100 Gm Tube TP Not Given QID [facility] Docusate Sodium 100 mg 06/28/23 20:00 06/29/23 15:10 Docusate Sodium 100 Mg/10 Ml Cup PO Not Given TID [facility] Duloxetine HCl 30 mg 06/25/23 11:30 06/26/23 10:48 Duloxetine 30 Mg Cap PO Not Given DAILY [facility] Sodium Chloride 500 mls @ 0 mls/hr 06/26/23 12:14 06/26/23 12:32 Saline 500ml Bag IV 0 mls/hr PRN PRN Infusion As Directed Acetaminophen 1,000 mg in 100 mls @ 400 mls/hr 06/28/23 22:00 06/29/23 15:09 Ofirmev IVPB Infused Q8H ADAN Infusion IV Miscellaneous Supplies 1 each 06/20/23 16:15 Iv Access IV DIRECTED [facility] Lidocaine 1 patch 06/21/23 20:00 06/28/23 20:38 Lidocaine 5% Patch TP 1 patch Q24H ADAN Administration Magnesium Hydroxide 30 ml 06/20/23 16:11 06/27/23 08:16 Milk Of Magnesia 30 Ml Cup PO 30 ml DAILY PRN PRN Administration Magnesium Oxide 400 mg 06/21/23 08:30 06/26/23 10:48 Magnesium Oxide 400 Mg Tab PO Not Given DAILY ADAN Melatonin 3 mg 06/29/23 09:07 Melatonin 3 Mg Tab PO HS PRN PRN sleep Metoprolol Succinate 25 mg 06/21/23 08:30 06/23/23 09:01 Metoprolol Cr 25 Mg Tabcr PO 25 mg DAILY ADAN Administration Miconazole Nitrate 0 gm 06/20/23 16:11 Miconazole 2% Topical Powder 85 Gm Btl TP BID PRN PRN Miscellaneous 1 each 06/21/23 08:00 06/29/23 08:25 Lidocaine Patch Removal TP 1 each Q24H ADAN Administration Misoprostol 100 mcg 06/24/23 12:00 06/29/23 11:25 Misoprostol 100 Mcg Tab PO 100 mcg QID ADAN Administration Morphine Sulfate 2 mg 06/25/23 20:45 Morphine 4 Mg/Ml Vial IVP Q1H PRN PRN Multivitamins 1 tab 06/21/23 08:30 06/29/23 11:25 Multivitamin Tab PO 1 tab DAILY ADAN Administration Multivitamins/Minerals/Vitamin C 1 tab 06/21/23 10:00 06/29/23 11:25 Beta-Carotene(A) W/C,E, & Minerals Tab PO 1 tab BID ADAN Administration Ondansetron HCl 4 mg 06/29/23 14:34 Ondansetron 4 Mg/2 Ml Vial IVP Q4H PRN PRN Pantoprazole Sodium 40 mg 06/27/23 06:00 06/29/23 05:56 Pantoprazole 40 Mg Vial IVP 40 mg Q12H ADAN Administration Polyethylene Glycol 17 gm 06/28/23 15:30 06/29/23 11:27 Polyethylene Glycol 3350 17 Gm Packet PO Not Given DAILY ADAN Pramipexole Dihydrochloride 0.125 mg 06/22/23 22:00 06/28/23 20:39 Pramipexole 0.25 Mg Tab PO 0.125 mg HS ADAN Administration Rosuvastatin Calcium 20 mg 06/28/23 20:00 06/28/23 20:39 Rosuvastatin 10 Mg Tab PO 20 mg QPM ADAN Administration Sacubitril/Valsartan 1 each 06/20/23 20:00 06/23/23 09:01 Sacubitril/Valsartan 24 Mg/26 Mg Tab PO 1 each BID ADAN Administration Sennosides 1 tab 06/28/23 22:00 06/28/23 20:40 Senna Tab PO Not Given HS ADAN Sodium Chloride 0 ml 06/20/23 16:11 06/28/23 18:01 Normal Saline Flush 10 Ml Syr IVP 10 ml PRN PRN Administration Sucralfate 1 gm 06/20/23 19:27 06/29/23 11:25 Sucralfate 1 Gm Tab PO 1 gm AC & HS ADAN Administration Tramadol HCl 100 mg 06/25/23 11:28 06/28/23 18:01 Tramadol 50 Mg Tab PO 100 mg Q6H PRN PRN Administration Allergies lisinopril Allergy (Mild, Verified 06/20/23 09:25) pravastatin Allergy (Verified 06/20/23 09:25) Skin Rash cyclobenzaprine HCl [From Flexeril] Adverse Reaction (Intermediate, Verified 06/20/23 09:25) Agitation Exam Narrative Exam Narrative: Physical Exam: Gen: Patient of apparent stated age, mild distress - appears ill, states she is feeling nauseated Head and face: no facial or cranial abnormalities Neck: Supple, no meningismus, no occipital tenderness CV: + S1, S2, RRR Resp: CTA B/L Abd: soft, nontender, nondistended Ext: No edema. No clubbing or cyanosis. No bony deformity. Neuro Exam: Language: fluency, naming, repetition, and comprehension intact; Mental Status: AAOx3, current events and fund of knowledge somewhat limited Speech: mild dysarthria Cranial nerves: Funduscopy: not performed CN II: left homonymous hemianopsia CN III, IV, : right gaze preference - cannot overcome midline, no nystagmus, pupils symmetric and reactive to light CN V: face sensation intact to LT and PP CN VII: no facial asymmetry noted CN VIII: hearing intact bilaterally CN IX, X: palate rises symmetrically CN XI: trapezius/SCM 5/5 bilaterally CN XII: protrudes tongue symmetrically Sensory: intact to LT, PP in all extremities; L hemineglect with extinction to double simultaneous stimulation Motor: bulk and tone intact. Fine motor movements intact on the R, absent on the L. No R pronator drift. Strength 4-/5 throughout the RUE and 3-/5 proximal LUE with minimal movements distally. RLE 3-/5 and LLE 1/5. Reflexes: hyporeflexic throughout; toes up going bilaterally; Coordination: no ataxia seen Gait: not seen Results Last Vital Signs Temp 99.1 F 06/29/23 14:59 Pulse 94 H 06/29/23 14:59 Resp 19 06/29/23 14:59 BP 141/71 H 06/29/23 14:59 Pulse Ox 96 06/29/23 14:59 Labs 06/28/23 06:15 06/28/23 06:15 Labs: Laboratory Results - last 24 hr 06/20/23 06/28/23 14:06 06:15 Rheumatoid Factor <8.6 Cyclic Citrull Peptide <2.5 Lyme Disease Antibody Negative Reaction Pathol Review Negative-Complete
[2023-06-29] MEDS: Ondansetron 4 MG/2 ML VIAL IVP (17:52)
--- NOTE | 2023-06-29 17:57 | PTTR_ITS ---
PT Notes Visit Reasons: symptomatic anemia,L hip pain,fever during transf Physical Therapy Inpatient Progress Note Date: 06/23/23 Dates of Service: through 06/29/2023 Referring Doctor: Marina Parker MD PT Orders: PT CONSULT: Limited Ability Precautions: Fall. Standard. Activity as tolerated. L hemispatial neglect apparent. Patient Profile/Admitting Diagnosis: Referral made by Dr. Parker for new onset R MCA infarction per this morning's MRI impression. Beth is an 82-year-old female who presented to the ED on 06/20/23 for L hip tenderness and difficulty with walking. Negative for active massive bleeding and negative fracture per most recent testing. Patient is admitted for management of symptomatic anemia, acute on chronic blood loss anemia, post- transfusion fever, and difficulty walking. PMHX: All Active Problems (Updated 06/20/23 @ 19:05 by Marina Parker MD) Pain in both lower legs (Acute) Posttransfusion fever (Acute) Discharge planning issues (Acute) DVT prophylaxis (Acute) Acute on chronic blood loss anemia (Acute) Symptomatic anemia (Acute) Fall (Acute) Difficulty walking (Acute) Fever (Acute) Anemia (Chronic) Regional wall motion abnormality of heart (Acute) Acute CVA (cerebrovascular accident) (Acute) Fever (Acute) Hypoxia (Acute) Acute CHF (Acute) NSTEMI (non-ST elevated myocardial infarction) (Acute) type 2 due to anemia Acute electrocardiogram changes (Acute) Right internal carotid occlusion (Acute) Acute focal neurological deficit (Acute) Renal malignant neoplasm (Chronic) 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 Patient follows up with [facility]. Elevated troponin (Acute) Chest pressure (Acute) Leucocytosis (Acute) Heme + stool (Acute) Sacroiliac joint dysfunction of both sides (Acute) Renal cell carcinoma (Acute) Referred to [facility]. Plan is to monitor for size change. dx 07/24 Hip pain, left (Acute) Shoulder pain, left (Acute) Fatigue (Acute) Leg pain, left (Acute) Left kidney mass (Acute) Spinal stenosis (Acute) Trochanteric bursitis, left hip (Acute) Injection: 12/26/2021 Calcific tendinitis of left hip (Acute) Strain of gastrocnemius muscle of left lower extremity (Acute) Medical History (Updated 06/20/23 @ 19:05 by Marina Parker MD) Osteopenia Asthma Hyperlipidemia HTN (hypertension) Chronic pain Restless leg syndrome Acute systolic (congestive) heart failure CVA (cerebral vascular accident) Anemia Acute non-ST segment elevation myocardial infarction Gastritis GI bleed 04/21/23 was sent to [facility] for w/u Chronic left hip pain Surgical History History of esophagogastroduodenoscopy (~04/2023) Biopsies taken H/O abdominoplasty H/O: hysterectomy Social History/Home Situation: Lives with son in single level residence, 2 [address] with rail. Reports using FWW at baseline. No longer drives. Has chronic back pain. Son has himself chronic back pain and is unable to provide consistent physical help for his mother. Equipment Owned/DME: FWW, SPC Subjective: Agreeable to do bed level exercises. Refused to get out of bed. Complained of pain in R arm, low back and B legs with movement. Objective: General Observation: Alert. Resting in bed. Mental Status: A&O x3. Pain: Chronic low back pain as above ROM: Right Upper Extremity: Shoulder Flexion lacks the last 25% of AROM. Shoulder abduction lacks th last 25% of AROM. Elbow flexion WFL. Wrist flexion WFL. Opening and closing of hand WFL. Left Upper Extremity: Shoulder Flexion lacks the last 25% of AROM. Shoulder abduction lacks th last 25% of AROM. Elbow flexion WFL. Wrist flexion WFL. Opening and closing of hand WFL. Right Lower Extremity: Hip flexion lacks the last 25% of AROM. Hip abduction lacks the last 25% of AROM. Knee flexion 20 degrees to 90 degrees. Knee exension -20 degrees. Ankle dorsiflexion to neutral only. Ankle plantarflexion WFL. Left Lower Extremity: Hip flexion only allows about 10 degrees of active range. Hip abduction allows about 20 degrees of active range. Knee flexion 10 degrees to 20 degrees. Knee extension -10 degrees. Ankle dorsiflexion to absent. Ankle plantarflexion absent. Strength: Right Upper Extremity: Shoulder flexors 3-/5. Shoulder abductors 3-/5. Elbow flexors 4-/5. Elbow extensors 4-/5. Clip Loading Machine Feeder strong. Left Upper Extremity: Shoulder flexors 3-/5. Shoulder abductors 3-/5. Elbow flexors 4-/5. Elbow extensors 4-/5. Clip Loading Machine Feeder strong. Right Lower Extremity: Hip flexors 3-/5. Hip abductors 5/5. Knee flexors 5/5. Knee extensors 5/5. Ankle dorsiflexors 3-/5. Ankle plantarflexors 4-/5. Left Lower Extremity:Hip flexors 2-/5. Hip abductors 2-/5. Knee flexors 2-/5. Knee extensors 2-/5. Ankle dorsiflexors 2-/5. Ankle plantarflexors 2-/5. Sensation: Intact as to pain and pressure on bilateral lower extremities. Bed Mobility/Transfers: Refused to be sat up at edge of bed Gait: Refused to be moved out of bed Balance: Static Sitting: Fair Dynamic Sitting: Unable to test Static Standing: Unable to test Dynamic Standing: Unable to test Special Tests: Mobility Limitations Standardized Measure [facility] AM-PAC 6 clicks Basic Mobility Inpatient Short Form: Raw Score: 6 CMS Score: 100% deficit Informed Consent/Education: Patient was instructed in purpose of PT consult and plan of care. Unwilling at this time to try out sitting at edge of bed and getting out of bed with asssit of at least 2 people. NEURO RE-ED: Facilitated L UE/LE diagonal pattern movements while in supine with verbal cueing provided to actively participate in bringing L UE toward D1 extension and D2 UE flexion to minimize UE abnormal flexion synergy and the L LE toward D1 and D2 flexion x 10 reps to minimize L extension synergy. ASSESSMENT: Beth demonstrates further functional mobility decline related to new onset R MCA infarction. Mobility performance limited due to most recent neurologic event. Chronic low back pain compounding mobility performance. Has refused sitting and standing activities for the past few days. L hemineglect apparent. Patient presents with clinical signs and symptoms consistent with current/admitting diagnoses that have resulted to mobility limitations, gait instability, generalized weakness, and overall ADL decline as demonstrated by the following impairment level findings: 1. Decreased strength to B UE/LE major muscle groups with L UE/LE more affected by recent CVA 2. Impaired sitting/standing balance 3. Impaired activity tolerance 4. Limitation of joint range of motion as above 5. Fearfulness of falling 6. Chronic low back pain Impairments are contributing to the following functional limitations: 1. Decline in bed mobility skills 2. Decline in transfer skills 3. Difficulty with ambulation without assistive device and physical assistance 4. Increased completion time for mobility ADL performance 5. Increased risk for falls 6. Difficulty with managing steps alone safely Patient is assessed as a [id number] high complexity based on the following: History: 82-year-old female with past medical history as indicated above Examination: Demonstrable impairment in strength, balance, and mobility level with underlying impairments and functional limitations as exhibited above as well as deficit score of 100% utilizing the [facility] Mobility Inpatient Short Form Presentation: Evolving Decision Makin high complexity Goals: Goals X1 week 1. Supine-Sit independent NOT MET, CONTINUE 2. Sit-Supine independent NOT MET, CONTINUE 3. Sit-Stand independent NOT MET, CONTINUE 4. Stand-Sit independent with FWW NOT MET, CONTINUE 5. Bed-Chair independent with FWW NOT MET, CONTINUE 6. Chair-Bed independent with FWW NOT MET, CONTINUE 7. Stand by assist with gait on level surface with use of FWW for at least 300 feet without report of pain nor dyspnea NOT MET, CONTINUE 8. Stand by assist with stair negotiation while holding onto B rails for at least 3 steps without report of pain nor dyspnea NOT MET, CONTINUE 9. Fair static and dynamic standing balance/tolerance NOT MET, CONTINUE Plan of Care/Treatment Plan: 1-2x/day, 7 days/week x 1 week. Plan of care has been reviewed with the SENIOR TECHNICAL SPECIALIST providing the service under Physical Therapy direction. Initiate Physical Therapy intervention for pain management for low back pain as needed, strengthening, bed mobility, transfers, gait, stairs, balance training, and use of assistive device. Continue with NMES with PNF techniques. Progress mobility level as toelrated. DISCHARGE RECOMMENDATIONS: [] Home with no services [] [] Home with services [] [] Home with outpatient PT [] [X] SNF for continued rehabilitation. Patient will benefit from halfway facility placement for continued skilled physical therapy services in order to progress mobility level, strength, and balance in preparation for a safe discharge to home. [] Skilled Nursing Care [] [] SNF versus LTC based on ability to participate and progress [] TREATMENT CODE/TIME: 22496 x 29 minutes for 2 units beginning at 17:34 PM. Thank you for the opportunity to participate in the care of this patient. Chanel Hernandez PT, DPT, CLT [facility], [place] Decision Making: Low complexity
[2023-06-29] MEDS: traMADol 50 MG TAB 100 MG PO (18:01)
[2023-06-29] MEDS: Rosuvastatin 10 MG TAB 20 MG PO (20:46)
[2023-06-29] MEDS: Pramipexole 0.25 MG TAB 0.125 MG PO (20:47)
[2023-06-29] MEDS: Lidocaine 5% Patch 1 PATCH TP (20:47)
[2023-06-30 03:42] VITALS: BP 144/73; PULSE 80; RESP 18; TEMP 36.4; O2SAT 92
[2023-06-30] MEDS: Pantoprazole 40 MG VIAL IVP (05:22)
[2023-06-30] MEDS: ACETAMINOPHEN 1,000 MG/100 ML BTL 400 MG IVPB (05:24)
[2023-06-30 06:56] VITALS: BP 133/61; PULSE 81; RESP 18; TEMP 36.3; O2SAT 93
[2023-06-30] MEDS: Polyethylene Glycol 3350 17 GM PACKET PO (08:47)
[2023-06-30] MEDS: Sucralfate 1 GM TAB PO ×2 (08:48→12:14)
[2023-06-30] MEDS: Calcium 600mg/Vit D 200U TAB 2 TAB PO (08:48)
[2023-06-30] MEDS: Lidocaine Patch Removal 1 EACH TP (08:48)
[2023-06-30] MEDS: Colchicine 0.6 MG TAB PO (08:48)
[2023-06-30] MEDS: Aspirin 81 MG CHEW CH (08:48)
[2023-06-30] MEDS: Beta-Carotene(A) w/C,E, & Minerals TAB 1 TAB PO (08:48)
[2023-06-30] MEDS: Multivitamin TAB 1 TAB PO (08:48)
[2023-06-30] MEDS: miSOPROStol 100 MCG TAB PO ×2 (08:48→12:14)
--- NOTE | 2023-06-30 09:09 | W.PM.DS.N ---
Date of service: 06/30/23 Time of Service: 09:09 DS: Diagnosis Discharge Diagnosis (1) Acute CVA (cerebrovascular accident): Status: Acute Asessment and Plan: -acute R MCA, new -neuro consult rec outpatient repeat MRI head, if negative get MRI spine for right Babinski -LS hemineglect, weakness -started on ASA 81mg -PT rec MARANDA placement (2) Symptomatic anemia: Status: Acute Asessment and Plan: -h/o previous GI bleed, H/H now stable, continue carafate and PPI -consider outpatient colonoscopy; recent EGD w/gastritis in Apr (3) Right internal carotid occlusion: Status: Acute Discharge Plan Disposition Patient Disposition: Assisted Facility(SNF) Condition: Good Discharge Details Reason For Visit: symptomatic anemia,L hip pain,fever during transf Admit Date/Time: 06/22/23 15:00 Admit Provider: Marina Parker Attending Provider: Marina Parker Primary Care Provider: ARTURO MYLES Hospital Course Hospital Course: Patient was initially admitted to the hospital for concerns of symptomatic anemia for which she received blood transfusion and improvement of her hemoglobin level. However, on the morning of 06/22/2023 at 4 AM rapid response was called and the patient was discovered to ultimately have a right MCA CVA with left sided deficit including left lower extremity left upper extremity weakness and left facial droop with left hemineglect. She was initially started on a statin but was discontinued due to worsening of left leg pain, as it was thought that her CVA was likely due to hypercoagulable state from her cancer. Neurology was consulted and recommended continuing 81 mg aspirin daily, as well as recommending outpatient follow-up brain MRI possible MRI of the spine given the patient has unexplained Babinski on the right. Additionally, patient was noted to have a pulmonary AVM on echocardiogram it was recommended that she have an outpatient CTA for further work-up. However, patient did experience significant clinical improvement during the remainder of her hospitalization and was determined to require discharge to subacute rehab. Home Meds and New Rx's Prescriptions: New aspirin [Children's Aspirin] 81 mg Tablet,Chewable 81 mg CH DAILY Qty: 60 0RF sucralfate 1 gram Tablet 1 g PO AC & HS Qty: 60 0RF misoprostol 100 mcg Tablet 100 mcg PO QID Qty: 60 0RF pramipexole 0.25 mg Tablet 0.125 mg PO HS Qty: 30 0RF colchicine (gout) [Colcrys] 0.6 mg Tablet 0.6 mg PO BID Qty: 60 0RF duloxetine 30 mg Capsule,Delayed Release(Dr/Ec) 30 mg PO DAILY Qty: 60 0RF budesonide-formoterol [Symbicort] 160-4.5 mcg/actuation Hfa Aerosol Inhaler 2 puff inhalation BID Qty: 10 0RF Continued albuterol sulfate 90 mcg/actuation HFA aerosol inhaler 1 inh inhalation ONCE calcium carbonate-vitamin D3 [Calcium 600 with Vitamin D3] 600 mg-12.5 mcg (500 unit) capsule 2 cap PO DAILY Jardiance 10 mg tablet 10 mg PO DAILY Qty: 90 3RF metoprolol succinate 25 mg tablet extended release 24 hr 25 mg PO DAILY Qty: 90 3RF Entresto 24-26 mg tablet 1 tab PO BID Qty: 180 3RF ferrous sulfate 325 mg (65 mg iron) tablet 325 mg PO Q OTHER DAY magnesium oxide 250 mg magnesium tablet 250 mg PO DAILY aspirin [Adult Aspirin Regimen] 81 mg tablet,delayed release (DR/EC) 81 mg PO DAILY pantoprazole [Protonix] 40 mg tablet,delayed release (DR/EC) 40 mg PO BID Centrum Silver 1 EACH tablet 1 ea PO DAILY fluticasone propion-salmeterol [Advair HFA] 115-21 mcg/actuation HFA aerosol inhaler 2 inh INHALATION BID Patient Comments: INL 2 PFS PO BID PreserVision AREDS-2 250-90-40-1 mg Capsule 1 cap PO BID Discontinued chlorthalidone 25 mg tablet 25 mg PO DAILY atorvastatin 80 mg tablet 80 mg PO DAILY Qty: 90 3RF clopidogrel [Plavix] 75 mg tablet 75 mg PO DAILY Qty: 90 3RF Hold Instructions: Changed by Provider Discharge Instructions Instructions: Ischemic Stroke (DC), Anemia (DC) Activity:: Activity as Tolerated Equipment/Supplies:: No Equipment Needed Diet:: Carb Counting Discharge Orders Discharge Orders: Discharge Order (Routine); Ordered 06/30/23 Ordered By: Madhu Hernandez DS: Summary Time Spent with Patient providing and/or coordinating discharge services: Greater than 30 minutes Status at Discharge Functional status at discharge: bed bound Overall status at discharge: patient is not back to baseline Mental Status: mental status grossly normal Speech and Movement: delayed speech Mood: congruent mood Affect: normal affect Exam Narrative Exam Narrative: Older female lying in bed in no acute distress, A&Ox4, heart regular rate rhythm, lungs clear to auscultation bilaterally, persistent left upper and lower extremity weakness with left-sided hemineglect Psych Mental Status: mental status grossly normal Speech and Movement: delayed speech Mood: congruent mood Affect: normal affect DS: Data Vitals/I&O Vitals and I&O: Vital Signs Temperature 97.3 F L 06/30/23 06:56 Temperature Source Tympanic 06/30/23 06:56 Pulse 81 06/30/23 06:56 Pulse Rhythm Irregular 06/29/23 22:24 Pulse 105 H 06/20/23 17:20 Respiratory Rate 18 06/30/23 06:56 Respiratory Effort Normal, Non-Labored 06/29/23 22:24 Respiratory Depth Normal 06/29/23 22:24 Respiratory Pattern Normal 06/29/23 22:24 Blood Pressure 133/61 06/30/23 06:56 Blood Pressure Mean 92 06/20/23 17:17 Blood Pressure Position Supine 06/20/23 09:56 Pulse Oximetry 93 06/30/23 06:56 Oxygen Delivery Method Room Air 06/30/23 06:56 Oxygen Flow Rate 0 06/30/23 06:56 Pain Level 0 06/30/23 06:56 Comment RN Notified 06/28/23 04:55 Intake & Output 06/29/23 06/30/23 06/30/23 17:59 05:59 17:59 Intake Total 200 / 200 500 / 700 Output Total 250 / 250 500 / 750 Balance -50 / -50 0 / -50 Intake: IV 200 / 200 200 / 400 Oral 300 / 300 Output: Urine 250 / 250 500 / 750 Other: Urine Color Pale Yellow Yellow Urine Appearance Clear Clear Stool Size Large Small Stool Characteristics Soft Soft Brown Data Completed and Pending Labs on day of discharge: Labs from last 24 hours 06/28/23 06/20/23 06:15 14:06 Cyclic Citrull Peptide <2.5 Lyme Disease Antibody Negative Reaction Pathol Review Negative-Complete PFSH All Active Problems (Updated 06/29/23 @ 21:08 by Catrina Meade MD) Babinski reflex (Acute) Dysphagia (Acute) Saurav-neglect of left side (Acute) Left hemiparesis (Acute) Carotid stenosis, right (Acute) Calcific tendinitis of right wrist (Acute) Tenosynovitis of right wrist (Acute) Occlusion of right middle cerebral artery (Acute) Palliative care encounter (Acute) ACP (advance care planning) (Acute) Pain in both lower legs (Acute) Discharge planning issues (Acute) DVT prophylaxis (Acute) Acute on chronic blood loss anemia (Acute) Symptomatic anemia (Acute) Fall (Acute) Difficulty walking (Acute) Fever (Acute) Anemia (Chronic) Regional wall motion abnormality of heart (Acute) Acute CVA (cerebrovascular accident) (Acute) Fever (Acute) Hypoxia (Acute) Acute CHF (Acute) NSTEMI (non-ST elevated myocardial infarction) (Acute) type 2 due to anemia Acute electrocardiogram changes (Acute) Right internal carotid occlusion (Acute) Acute focal neurological deficit (Acute) Renal malignant neoplasm (Chronic) 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 Patient follows up with [facility]. Elevated troponin (Acute) Chest pressure (Acute) Leucocytosis (Acute) Heme + stool (Acute) Sacroiliac joint dysfunction of both sides (Acute) Renal cell carcinoma (Acute) Referred to [facility] [place]. Plan is to monitor for size change. dx 07/24 Hip pain, left (Acute) Shoulder pain, left (Acute) Fatigue (Acute) Leg pain, left (Acute) Left kidney mass (Acute) Spinal stenosis (Acute) Trochanteric bursitis, left hip (Acute) Injection: 12/26/2021 Calcific tendinitis of left hip (Acute) Strain of gastrocnemius muscle of left lower extremity (Acute) Medical History Osteopenia Asthma Hyperlipidemia HTN (hypertension) Chronic pain Restless leg syndrome Acute systolic (congestive) heart failure CVA (cerebral vascular accident) Anemia Acute non-ST segment elevation myocardial infarction Gastritis GI bleed 04/21/23 was sent to [facility] for w/u Chronic left hip pain Surgical History History of esophagogastroduodenoscopy (~04/2023) Biopsies taken H/O abdominoplasty H/O: hysterectomy Social History Smoking/Tobacco Use Status: Former Tobacco Use Smoking risk assessment performed?: Yes Alcohol Intake: never Drug use: Never Substance use type: marijuana Housing: apartment Do you feel safe at home: Yes Do you feel safe in your relationship?: Yes Time Spent with Patient Time Spent with Patient: <45 minutes Time was spent: preparing to see the patient(eg.review tests), obtaining and/or reviewing separately otained hiistory, referring, communicating with other health resident care spec, indepentently interpreting results, counseling the patient and care coordination
--- NOTE | 2023-06-30 12:56 | PDOC.CMDIS ---
Date of service: 06/30/23 Time of Service: 12:56 LACE Index Scoring Tool Questions: Length of Stay (in days): 7 - 13 Was the patient admitted via the E.D.?: Yes Comorbidities: Previous M.I., Cerebrovascular Disease, Congestive Heart Failure and Any Tumor E.D. Visits: 2 Answers: Total Score: 15 Risk of Readmission: High Risk Care Management Discharge Plan Reason for Hospitalization: symptomatic anemia Discharge Plan: Beth will be transferred to [facility] for short term rehab prior to returning home. She will follow up with facility providers and plan of care and transport via EMS coordinated by CM. Patient/Family Education Needs: Review of discharge instructions, limitations, follow up plan, discuss Ask Me Three Services Needed at Discharge: Penitentiary Facility and Transportation
[2023-06-30 16:51] LABS: ANA Interpretation Positive (Negative)
[2023-06-30 20:19] LABS: Anaplasma phagocytophilum Negative (Negative); B. miyamotoi PCR Negative (Negative); Babesia divergens/MO-1 Negative (Negative); Babesia duncani Negative (Negative); Babesia microti Negative (Negative); Ehrlichia chaffeensis Negative (Negative); Ehrlichia ewingii/canis Negative (Negative); Ehrlichia muris eauclairensis Negative (Negative)
== END 2023-06-30 13:26 | disposition skilled nursing facility (03) | DRG 811 ==
LOC: ER 16:23 → MS 17:59
PROVIDERS: Internal Medicine; Registered Nurse Emergency; Student in an Organized Health Care Education/Training Program; Admitting Provider Internal Medicine; Emergency Provider Emergency Medicine; PCP Nurse Practitioner Family; Visit Provider Internal Medicine
DX: D62 Acute posthemorrhagic anemia (principal); I63.231 Cerebral infarction due to unspecified occlusion or stenosis of right carotid arteries; C64.2 Malignant neoplasm of left kidney, except renal pelvis; G81.94 Hemiplegia, unspecified affecting left nondominant side; R41.4 Neurologic neglect syndrome; G72.0 Drug-induced myopathy; D68.69 Other thrombophilia; R13.10 Dysphagia, unspecified; H53.462 Homonymous bilateral field defects, left side; R47.1 Dysarthria and anarthria; R50.84 Febrile nonhemolytic transfusion reaction; R53.1 Weakness; R29.2 Abnormal reflex; E78.5 Hyperlipidemia, unspecified; E11.9 Type 2 diabetes mellitus without complications; I25.2 Old myocardial infarction; G25.81 Restless legs syndrome; J45.909 Unspecified asthma, uncomplicated; K21.9 Gastro-esophageal reflux disease without esophagitis; K22.70 Barrett's esophagus without dysplasia; M85.80 Other specified disorders of bone density and structure, unspecified site; Z79.899 Other long term (current) drug therapy; Z86.73 Personal history of transient ischemic attack (TIA), and cerebral infarction without residual deficits; M10.9 Gout, unspecified; M65.231 Calcific tendinitis, right forearm; M48.00 Spinal stenosis, site unspecified; M70.62 Trochanteric bursitis, left hip; G89.29 Other chronic pain; K29.70 Gastritis, unspecified, without bleeding; K29.80 Duodenitis without bleeding; R19.5 Other fecal abnormalities; I11.0 Hypertensive heart disease with heart failure; I50.9 Heart failure, unspecified; T46.6X5A Adverse effect of antihyperlipidemic and antiarteriosclerotic drugs, initial encounter; R29.810 Facial weakness
CPT/HCPCS: 00123; 36410; 36415; 36430; 51702; 70496; 70498; 80048; 80053; 82550; 84145; 85652; 86200; 86850; 86900; 86901; 86920; 87040; 87637; 87798; 92526; 92610; 93005; 94640; 96365; 96375; 97110; 97112; 97162; 97163; 97166; 97530; 99223; 99285; 70551; 71045; 72148; 72170; 73110; 74177; 74221; 81003; 82085; 83735; 84484; 84550; 85014; 85018; 85025; 86038; 86140; 86431; 86618; 86880; 93010; 93306; 93970; 94664; 94667; 94668; 94760; 99232; 99233; 99239; 99291; G0378; J0131; J1100; J1200; J1756; J1941; J2405; J3490; P9016

== ENCOUNTER → 2023-06-28 15:53 | Outpatient (BNVA) | payer MEDICARE, SELFPAY | PROVIDERS: PCP Nurse Practitioner Family; Referring Provider Nurse Practitioner Family; Visit Provider Psychiatry & Neurology Neurology ==